=== PATIENT | female | born 1980 | race Caucasian/White ===

== ENCOUNTER 2023-04-13 00:54 | Observation (INO) | payer OTHER, SELFPAY ==
[2023-04-13] VITALS (30 sets, daily range): BP systolic 88–135; BP diastolic 50–79; PULSE 57–92; RESP 0–24; TEMP 36.9–37.1; O2SAT 91–96; BMI 42.0
--- NOTE | 2023-04-13 01:09 | ED_ITS ---
HPI - Chest Pain General Chief Complaint: Chest Pain Stated Complaint: CHEST PAIN Time Seen by Provider: 04/13/23 01:09 Mode of arrival: ambulance History of Present Illness HPI narrative: history of PE. takes Xarelto 10mg. States she use to take Xarelto 20mg but it was decreased due to heavy menses. She is scheduled for hysterectomy tomorrow. She has not taken Xarelto for 3-4 days. Woke up tonight out of her sleep with heaviness left chest like an elephant was on her chest and she was also short of breath. She is diabetic and has strong family history of CAD. Given fentanyl, Nitro SL x2 and ASA per squad. Pain is now down to 5/10. She is feeling better MD complaint: Reports chest pain and chest heaviness Risk Factors Coronary artery disease risk factors: diabetes Related Data Home Medications Medication Instructions Recorded Confirmed lisinopril 2.5 mg tablet 2.5 mg PO DAILY 04/13/23 04/13/23 metformin 500 mg tablet 1,000 mg PO BID 04/13/23 04/13/23 rivaroxaban 10 mg tablet (Xarelto) 10 mg PO DAILY 04/13/23 04/13/23 Allergies Allergy/AdvReac Type Severity Reaction Status Date / Time No Known Drug Allergies Allergy Verified 04/13/23 01:03 Review of Systems ROS Status of ROS 10 or more systems reviewed and unremarkable except as noted in history and below Cardiovascular Reports: chest pain Respiratory Reports: shortness of breath [facility] Medical History (Updated 04/13/23 @ 03:19 by Camilo Guido MD) Family History (Updated 04/13/23 @ 05:21 by Kandy Rincon) Father Family history of myocardial infarction Social History Smoking status: Never smoker Highest level of school completed/degree received: GED or equivalent Exam Constitutional Vital Signs - 24 hr 04/13/23 00:56 04/13/23 00:57 04/13/23 00:57 Temperature 98.8 F Pulse Rate 67 Pulse Rate [Monitor] 88 Respiratory Rate 14 15 Blood Pressure 135/79 H Blood Pressure [Right Arm] 135/79 H Pulse Oximetry 93 L 91 L Oxygen Delivery Method Room Air 04/13/23 03:44 04/13/23 03:44 04/13/23 04:35 Temperature Pulse Rate 80 68 73 Pulse Rate [Monitor] Respiratory Rate 14 7 L 24 Blood Pressure 93/64 93/64 88/50 L Blood Pressure [Right Arm] Pulse Oximetry Oxygen Delivery Method Common normals: no apparent distress, oriented x3 and no limitations HENMT Common normals: normocephalic and head/scalp atraumatic Eye Common normals: PERRL, EOMs intact bilaterally and conjunctivae normal Chest Common normals: inspection of chest normal and palpation of chest normal Respiratory Common normals: normal respiratory effort, no retractions, no use of accessory muscles and clear to auscultation bilaterally Cardio Common normals: no JVD, regular rate, regular rhythm, S1 normal heart sound and S2 normal heart sound GI Common normals: Normal to inspection, nondistended, normoactive bowel sounds present and soft to palpation Extremity Common normals: normal to inspection, full ROM and no joint enlargement Neuro Common normals: oriented x3, CN's II-XII intact bilaterally, moves all extremities, no focal motor deficits and no sensory deficits noted Psych Appearance: grossly normal Course Vital Signs Vital signs: Vital Signs Temperature 98.8 F 04/13/23 00:56 Pulse Rate 88 04/13/23 00:56 Respiratory Rate 14 04/13/23 00:56 Blood Pressure 135/79 H 04/13/23 00:56 Pulse Oximetry 93 L 04/13/23 00:56 Oxygen Delivery Method Room Air 04/13/23 00:56 Temperature 98.4 F 04/13/23 05:06 Pulse Rate 61 04/13/23 06:21 Respiratory Rate 20 04/13/23 05:06 Blood Pressure 131/79 H 04/13/23 05:06 Pulse Oximetry 94 L 04/13/23 05:06 Oxygen Delivery Method Room Air 04/13/23 05:06 MDM - Chest Pain MDM Narrative Medical decision making narrative: patient is diabetic. strong family history of CAD. Presents with chest pain that woke her up out of her sleep. Described as an elephant sitting on her chest and she was short of breath. Treated with Fentanyl, Nitro, ASA and morphine to control her pain. Troponin and d-dimer neg. cxray with mild vascular pulmonary prominence. Discussed with the hospitalist and patient is accepted for obs admission Lab Data Labs: Lab Results 04/13/23 Range/Units 01:03 WBC 6.3 (4.0-11.0) 10^3/uL RBC 4.54 (4.20-5.40) 10^6/uL Hgb 12.4 (12.0-16.0) g/dL Hct 39.1 (36.0-48.0) % MCV 86.1 (81.0-99.0) fL MCH 27.3 (26.7-34.0) pg MCHC 31.7 (29.9-35.2) g/dL RDW 18.0 H (11.0-15.0) % Plt Count 292 (150-450) 10^3/uL MPV 10.0 (9.5-13.5) fL Neut % (Auto) 60.3 (43.0-75.0) % Lymph % (Auto) 31.6 (20.5-60.0) % [place] % (Auto) 5.4 (1.7-12.0) % Eos % (Auto) 1.9 (0.9-7.0) % Baso % (Auto) 0.6 (0.2-2.0) % Neut # (Auto) 3.8 (1.4-6.5) 10^3/uL Lymph # (Auto) 2.0 (1.2-3.8) 10^3/uL [place] # (Auto) 0.3 (0.3-0.8) 10^3/uL Eos # (Auto) 0.1 (0.0-0.7) 10^3/uL Baso # (Auto) 0.0 (0.0-0.1) 10^3/uL Abs Immat Gran (auto) 0.01 (0.00-0.03) 10^3/uL Imm/Tot Granulo (auto) 0.2 (0.0-0.5) % D-Dimer 0.42 (<=0.59) mg/L FEU Sodium 134 L (136-145) mmol/L Potassium 3.0 L (3.5-5.1) mmol/L Chloride 100 (98-107) mmol/L Carbon Dioxide 26.1 (21.0-32.0) mmol/L Anion Gap 10.9 BUN 10.0 (7.0-18.0) mg/dL Creatinine 0.55 (0.55-1.02) mg/dL Est GFR ( Amer) >60 (>=60) Est GFR (Non-Af Amer) >60 (>=60) BUN/Creatinine Ratio 18.2 Glucose 140 H (74-106) mg/dL Calcium 8.9 (8.5-10.1) mg/dL Troponin I High Sens <4.0 L (4.0-51.3) pg/mL Discharge Plan Discharge Chief Complaint: Chest Pain Clinical Impression: Chest pain Patient Disposition: Admitted As Inpatient Discharge Date/Time: 04/13/23 04:38
--- NOTE | 2023-04-13 01:09 | PC.NURSE ---
IV per EMS
--- NOTE | 2023-04-13 01:13 | ECG_ITS ---
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
--- NOTE | 2023-04-13 01:13 | XR_ITS ---
[place] [id number] Patient Name: ADARSH BOWSER MRN: [id number] date: 1980 Sex: F Assigned Patient Location: ER Current Patient Location: ER Accession/Order Number: [id number] Exam Date: 04/13/2023 01:30 Report Date: 04/13/2023 01:49 At the request of: HORTENCIA POTTS Procedure: XR chest 1V EXAM: XR chest 1V HISTORY: chest pain COMPARISON: CT chest 07/02/2017 TECHNIQUE: Single frontal view chest x-ray FINDINGS: Mild bilateral hilar pulmonary vascular prominence. No lobar consolidation, large pleural effusions, pneumothorax, or acute bony abnormality.Cardiac size is unremarkable. IMPRESSION: Mild bilateral hilar pulmonary vascular prominence. Otherwise, no radiographic lung consolidation or large pleural effusions.. Electronically authenticated by: DEBBI GREY Date: 04/13/2023 01:49
[2023-04-13 01:26] LABS: Basophils Percent Auto 0.6 % (0.2-2.0); Eosinophils Absolute Auto 0.1 10^3/uL (0.0-0.7); Eosinophils Percent Auto 1.9 % (0.9-7.0); Hematocrit 39.1 % (36.0-48.0); Hemoglobin 12.4 g/dL (12.0-16.0); Immature Granulocytes Abs Auto 0.01 10^3/uL (0.00-0.03); Immature Granulocytes Pct Auto 0.2 % (0.0-0.5); Lymphocytes Percent Auto 31.6 % (20.5-60.0); Mean Corpuscular HGB Conc 31.7 g/dL (29.9-35.2); Mean Corpuscular Hemoglobin 27.3 pg (26.7-34.0); Mean Corpuscular Volume 86.1 fL (81.0-99.0); Monocytes Absolute Auto 0.3 10^3/uL (0.3-0.8); Monocytes Percent Auto 5.4 % (1.7-12.0); Neutrophils Absolute Auto 3.8 10^3/uL (1.4-6.5); Neutrophils Percent Auto 60.3 % (43.0-75.0); Platelet Count 292 10^3/uL (150-450); Red Blood Count 4.54 10^6/uL (4.20-5.40); White Blood Count 6.3 10^3/uL (4.0-11.0)
[2023-04-13 01:47] LABS: Anion Gap 10.9; BUN Creatinine Ratio 18.2; Calcium 8.9 mg/dL (8.5-10.1); Carbon Dioxide 26.1 mmol/L (21.0-32.0); Chloride 100 mmol/L (98-107); Estimated GFR (African America >60 (>=60); Estimated GFR (Non-African Ame >60 (>=60); Glucose 140 mg/dL (74-106); Sodium 134 mmol/L (136-145); Troponin I High Sensitivity <4.0 pg/mL (4.0-51.3)
[2023-04-13] MEDS: MORPHINE SULFATE 4 MG/ML VIAL (01:50)
[2023-04-13 02:13] LABS: D Dimer 0.42 mg/L FEU (<=0.59)
[2023-04-13] MEDS: ONDANSETRON PF 4 MG/2 ML VIAL (02:23)
[2023-04-13] MEDS: POTASSIUM CHLORIDE 10 MEQ ER TABLET 40 MEQ PO (03:22)
--- NOTE | 2023-04-13 05:18 | P.PN_ITS ---
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 Pain is nonradiating, constant, worse with deep inspiration, no alleviating factors, not associated with exertion, food intake, denies any anxiety, chest trauma or chest wall tenderness. Her Xarelto has been hold for a couple days in anticipation for her hysterectomy. She denies any fevers, chills, sweats, calf tenderness, orthopnea, lower extremity edema, palpitations, abdominal pain, change in bowel urinary habits. Upon arrival to the ER patient is normotensive, 94% on room air. D-dimer was obtained and negative, troponin negative, other labs remarkable for K 3.0. CXR negative for acute cardiopulmonary process. Patient received morphine, fentanyl, aspirin continued to have discomfort in her left upper chest hospital Medicine consulted for admission. Vital stable. Allergies: No known drug allergies Home medications: Lisinopril 2.5, metformin 500 b.i.d., rivaroxaban 10 daily past medical history: Diabetes mellitus type 2, history of DVT / PE, varicose veins past surgical history: D and C review of systems all 14 review of systems negative except for HPI social history denies smoking, alcohol intake, illicit drug use, lives with family. Physical exam: BP 131/79, pulse 68, respiratory rate 20, temp 98.4?, 94% on room air, BMI 42, weight 118 kg general: Lying in bed, no acute distress, alert and oriented x4 HEENT: Normocephalic, atraumatic, EOMI, wearing eyeglasses, trachea midline CVS: Regular rate and rhythm, no peripheral edema lungs: Bilateral air entry, normal respiratory effort abdomen: Soft, nontender, obese, no visible masses neuro: No focal deficits moves all extremities psych: Cooperative, pleasant Exam Constitutional Vital Signs - 24 hr 04/13/23 00:56 04/13/23 00:57 04/13/23 00:57 Temperature 98.8 F Pulse Rate 67 Pulse Rate [Monitor] 88 Respiratory Rate 14 15 Blood Pressure 135/79 H Blood Pressure [Right Arm] 135/79 H Pulse Oximetry 93 L 91 L Oxygen Delivery Method Room Air 04/13/23 03:44 04/13/23 04:50 04/13/23 04:58 Temperature Pulse Rate 80 66 Pulse Rate [Monitor] 67 Respiratory Rate 14 Blood Pressure 93/64 Blood Pressure [Right Arm] Pulse Oximetry Oxygen Delivery Method 04/13/23 05:02 04/13/23 03:44 04/13/23 04:35 Temperature Pulse Rate 68 73 Pulse Rate [Monitor] Respiratory Rate 7 L 24 Blood Pressure 93/64 88/50 L Blood Pressure [Right Arm] Pulse Oximetry Oxygen Delivery Method Room Air 04/13/23 04:42 04/13/23 04:43 04/13/23 04:43 Temperature 98.4 F Pulse Rate 80 76 80 Pulse Rate [Monitor] Respiratory Rate 24 19 17 Blood Pressure 131/79 H Blood Pressure [Right Arm] Pulse Oximetry 94 L Oxygen Delivery Method 04/13/23 04:43 Temperature Pulse Rate 73 Pulse Rate [Monitor] Respiratory Rate 16 Blood Pressure 131/79 H Blood Pressure [Right Arm] Pulse Oximetry 93 L Oxygen Delivery Method Progress Note: Objective Labs Labs: Short CBC 04/13/23 Range/Units 01:03 WBC 6.3 (4.0-11.0) 10^3/uL Hgb 12.4 (12.0-16.0) g/dL Hct 39.1 (36.0-48.0) % Plt Count 292 (150-450) 10^3/uL BMP 04/13/23 01:03 Sodium 134 L Potassium 3.0 L Chloride 100 Carbon Dioxide 26.1 BUN 10.0 Creatinine 0.55 Glucose 140 H Calcium 8.9 Progress Note: A&P Assessment and Plan (1) Chest pain: Assessment and Plan: admit to [facility] bed on telemetry, cycle troponin, if ACS ruled out consider stress test , echocardiogram, symptoms not typical for angina. D-dimer negat ender, can consider CTA chest. In the meantime supportive care with analgesics, topical and oral, IV for severe pain. (2) Diabetes: Assessment and Plan: Hold metformin, low carb diet, sliding scale insulin coverage, check hemoglobin A1c level (3) Hypertension: Assessment and Plan: controlled, resume home lisinopril 2.5 daily Plan other comorbidities: History of DVT / PE -Lovenox 40 IV b.i.d. while Xarelto on hold suspected uterine cancer per patient and scheduled for total hysterectomy will need to reschedule her appointment and she is in the hospital for now. DVT prophylaxis-Lovenox medication reconciliation form completed goals of care-full code communications: Discussed with emergency room physician, discussed with bedside nurse, patient updated a plan of care, all questions answered to their satisfaction disposition -home when medically stable telemedicine clause: has a provider of this telehealth evaluation, requested by the patient's evaluating physician. I attest that I introduced myself to the patient, provided my credentials and determined that telemedicine via real-time 2 way. Interactive audio and video platform is an appropriate and effective means of providing this service. I reviewed the patient's chart and had a discussion with the member of the patient's treatment team. The patient and I mutually agreed with continuation of this evaluation via telemedicine. The virtual encounter was taking place from [place]. The encounter was approximately 25 minutes. The nurse was present during the entire time of the encounter and was able to move the stethoscope in appropriate directions. The patient was evaluated at 0500 Fall Risk Details Diaz Fall Scale Risk Level: Low Fall Risk Time Spent With Patient Time: Total time spent is greater than 50% in coordination of care (as documented) at patient's floor/unit and/or counseling patient: Telemedicine Attestation Telemedicine Attestation I conducted this encounter from [ [place]] via secure live, [id number] video conference with the patient, CHARGE TEST-CHARGES located at [facility] with [ telemedicine]. Prior to the interview, the risks and benefits of telemedicine were discussed with the patient and verbal consent was obtained.
[2023-04-13 06:04] LABS: Magnesium 1.5 mg/dL (1.8-2.4)
[2023-04-13 06:08] LABS: Estimated Average Glucose 143 mg/dL; Glycohemoglobin A1C 6.6 % (4.5-6.2)
[2023-04-13 06:12] LABS: Troponin I High Sensitivity 4.2 pg/mL (4.0-51.3)
[2023-04-13] MEDS: LACTATED RINGER'S SOLUTION 1,000 ML 50 ML IV (07:42)
[2023-04-13 07:44] LABS: Glucometer 99 mg/dL (74-106)
--- NOTE | 2023-04-13 08:35 | CT_ITS ---
[address] [address] Patient Name: ADARSH BOWSER MRN: [id number] date: 1980 Sex: F Assigned Patient Location: ICU Current Patient Location: ICU Accession/Order Number: [id number] Exam Date: 04/13/2023 08:50 Report Date: 04/13/2023 09:44 At the request of: JOSSIE MACHADO Procedure: CT angio chest EXAMINATION: CT angio chest HISTORY: chest pain ; acute left chest pain and heaviness COMPARISON: CTA chest 07/02/2017 TECHNIQUE: Multi-planar CT images were created with IV contrast. Axial, Coronal, and Sagittal images. Dose reduction techniques were achieved by using automated exposure control and/or adjustment of mA and/or kV according to patient size and/or use of iterative reconstruction technique. 3-D reconstruction was performed on a separate workstation. FINDINGS: VASCULATURE: No pulmonary embolism or abnormal opacity. LUNGS: Mild atelectasis within dependent lung regions. No convincing infiltrates. PLEURA: No mass, effusion, or pneumothorax. STEVEN: No mass or adenopathy. MEDIASTINUM: No mass or adenopathy. CARDIAC: No enlargement, pericardial effusion, or pericardial thickening. AORTA: No aneurysm or dissection. CHEST WALL: No mass or axillary adenopathy. BONES: No bone lesion or fracture. LIMITED ABDOMEN: No suspicious findings. Limited images of the upper abdomen. OTHER: Negative. IMPRESSION: 1. No pulmonary embolism. 2. No appreciable infiltrates, mass, or suspicious findings. Electronically authenticated by: SLIME VAZQUEZ Date: 04/13/2023 09:44
--- NOTE | 2023-04-13 08:59 | P.HP_ITS ---
H&P: HPI History of Present Illness Chief complaint: CHEST PAIN R/O Narrative: Patient with a history of pulmonary embolism, had her medication held for the last several days secondary to upcoming surgery for hysterectomy, presented to the emergency room with pressure type chest pain midsternal radiating into the left arm, similar but not exactly to the time when she had her pulmonary embolism. Not nearly as severe. Cardiac work-up was done which showed no evidence of myocardial damage, patient was admitted to ICU [facility] Medical History (Updated 04/13/23 @ 06:49 by Kandy Rincon) Family History (Updated 04/13/23 @ 05:21 by Kandy Rincon) Father Family history of myocardial infarction Social History Smoking status: Never smoker Highest level of school completed/degree received: GED or equivalent Meds Home Medications and Allergies Home Medications Medication Instructions Recorded Confirmed Type fexofenadine 180 mg tablet 180 mg PO DAILY 04/13/23 04/13/23 History lisinopril 2.5 mg tablet 2.5 mg PO DAILY 04/13/23 04/13/23 History metformin 500 mg tablet 1,000 mg PO BID 04/13/23 04/13/23 History rivaroxaban 10 mg tablet (Xarelto) 10 mg PO DAILY 04/13/23 04/13/23 History Allergies Allergy/AdvReac Type Severity Reaction Status Date / Time No Known Drug Allergies Allergy Verified 04/13/23 01:03 Exam Constitutional Vital Signs - 24 hr 04/13/23 00:56 04/13/23 00:57 04/13/23 00:57 Temperature 98.8 F Pulse Rate 67 Pulse Rate [Monitor] 88 Respiratory Rate 14 15 Blood Pressure 135/79 H Blood Pressure [Left Arm] Blood Pressure [Right Arm] 135/79 H Pulse Oximetry 93 L 91 L Oxygen Delivery Method Room Air 04/13/23 03:44 04/13/23 04:50 04/13/23 04:58 Temperature Pulse Rate 80 66 Pulse Rate [Monitor] 67 Respiratory Rate 14 Blood Pressure 93/64 Blood Pressure [Left Arm] Blood Pressure [Right Arm] Pulse Oximetry Oxygen Delivery Method 04/13/23 05:02 04/13/23 05:06 04/13/23 03:44 Temperature 98.4 F Pulse Rate 68 68 Pulse Rate [Monitor] Respiratory Rate 20 7 L Blood Pressure 93/64 Blood Pressure [Left Arm] 131/79 H Blood Pressure [Right Arm] Pulse Oximetry 94 L Oxygen Delivery Method Room Air Room Air 04/13/23 04:35 04/13/23 04:42 04/13/23 04:43 Temperature 98.4 F Pulse Rate 73 80 76 Pulse Rate [Monitor] Respiratory Rate 24 24 19 Blood Pressure 88/50 L 131/79 H Blood Pressure [Left Arm] Blood Pressure [Right Arm] Pulse Oximetry 94 L Oxygen Delivery Method 04/13/23 04:43 04/13/23 04:43 04/13/23 06:21 Temperature Pulse Rate 80 73 61 Pulse Rate [Monitor] Respiratory Rate 17 16 Blood Pressure 131/79 H Blood Pressure [Left Arm] Blood Pressure [Right Arm] Pulse Oximetry 93 L Oxygen Delivery Method 04/13/23 07:52 04/13/23 08:41 Temperature Pulse Rate 70 Pulse Rate [Monitor] 70 Respiratory Rate 18 Blood Pressure Blood Pressure [Left Arm] Blood Pressure [Right Arm] Pulse Oximetry 94 L Oxygen Delivery Method Common normals: no apparent distress Chest Common normals: inspection of chest normal and palpation of chest normal (May be reproducible type chest pain the left side but not exactly as it fee) Respiratory Common normals: normal respiratory effort, no retractions and no use of accessory muscles Cardio Common normals: regular rate, regular rhythm and S1 normal heart sound GI Common normals: Normal to inspection, nondistended, normoactive bowel sounds present and non-tender Results Labs Labs: Short CBC 04/13/23 Range/Units 01:03 WBC 6.3 (4.0-11.0) 10^3/uL Hgb 12.4 (12.0-16.0) g/dL Hct 39.1 (36.0-48.0) % Plt Count 292 (150-450) 10^3/uL BMP 04/13/23 01:03 Sodium 134 L Potassium 3.0 L Chloride 100 Carbon Dioxide 26.1 BUN 10.0 Creatinine 0.55 Glucose 140 H Calcium 8.9 Assessment and Plan Assessment and Plan (1) Chest pain: (2) Diabetes: (3) Hypertension: Plan Chest pain-somewhat similar to previous pulmonary embolism-we will check CTA of chest since she is been off her anticoagulation for impending surgery. Pain is improving from when she first came in, if CTA and echo are essentially normal, she can be discharged home in improving condition. Medications see list. Follow-up with your PCP for further evaluation and clearance for surgery. NIDDM-insulin sliding scale Hypertension-continue with current medications Hypokalemia-supplement Possible discharge later today, will remain in observation status
--- NOTE | 2023-04-13 09:00 | CA_ITS ---
Patient: ADARSH BOWSER Exam Date: 04/13/2023 : 1980 Gender:F Ordering : DR Pawan Mayorga . Admission #: [id number] Family : Order #: [id number] CLICK HERE TO VIEW EXAM ECHOCARDIOGRAM REPORT PROCEDURE: CA ECHO DOPPLER COMPLETE INDICATIONS: Chest pain COMPARISON: None. DESCRIPTION: COMPLETE ECHOCARDIOGRAM Real-time transthoracic echocardiography with 2D, M-mode, spectral and color flow Doppler performed. QUALITY: Technical quality was good. LEFT VENTRICLE: Normal chamber size. Normal left ventricular wall thickness. LV EF: Global left ventricular systolic function is normal. Calculated left ventricular ejection fraction is 69%. Visually estimated ejection fraction is 60 to 65%. No significant wall motion abnormalities. DIASTOLIC: Normal diastolic function. ATRIAL SEPTUM: Inadequately seen. LEFT ATRIUM: Moderate dilatation. RIGHT ATRIUM: Mild dilatation. RIGHT VENTRICLE: Normal chamber size. Normal right ventricular systolic function. TRICUSPID VALVE: Normal mobility and thickness. Mild regurgitation. Moderate pulmonary hypertension. RVSP 47mmHg MITRAL VALVE: Mildly thickened with normal mobility. No evidence of mitral valve stenosis. Mitral annular calcification. Mild mitral regurgitation. AORTIC VALVE: Normal trileaflet appearance. No visible sclerosis. Normal leaflet mobility. No evidence of aortic valve stenosis. Trivial aortic regurgitation. AORTIC ROOT: Mildly dilated. Measuring 4.0cm. PULMONIC VALVE: Normal thickness and mobility. No stenosis. No regurgitation. PERICARDIUM: No evidence of pericardial effusion. IVC: Collapses with inspirations. Moderately dilated measuring 2.6cm. CONCLUSION: 1. Global left ventricular systolic function is normal 2. Normal diastolic function 3. Biatrial enlargement 4. The right ventricle is normal in size and systolic function 5. Mild tricuspid regurgitation 6. Moderately elevated right ventricular systolic pressure; RVSP 27 mmHg 7. Mild mitral regurgitation 8. The aortic root is mildly dilated Adult Echocardiography Procedure Report Left Ventricle LVEDD (3.7 - 5.6 cm): 5.31 cm LVESD (2.2 - 4.0 cm): 3.71 cm LVIVS thickness (0.6 - 1.2 cm): 0.89 cm LVPW thickness (0.5 - 1.0 cm): 0.91 cm e': 0.14 m/s E - e': 4.62 LVOT Max Gradient: 3.04 mm[Hg] LVOT Area (cm2): 0.87 m/s Peak Velocity (LVOT): 0.87 m/s Mean Velocity (LVOT): 0.55 m/s LVOT Diameter 2.61 cm Left Ventricular Ejection Fraction: 69.48 % Left Atrium LA Volume Index (2D A2C): 45.96 ml/m2 Left Atrium Systolic Dimension: 3.28 cm Mitral Valve MV E to A Ratio: 1.48, 1.22 Mitral Valve A-Wave Peak Velocity: 0.48 m/s Mitral Valve E-Wave Peak Velocity: 0.64 m/s Right Ventricle RV Internal Diastolic Dimension: 3.35 cm Aorta AO Root Diam: 4.03 cm Ascending Ao Diam: 3.47 cm, 3.55 cm Aortic Valve AoV Area ([place]): 3.51 cm2, 3.51 cm2 AoV Area (VTI): 3.88 cm2, 3.88 cm2 Peak Velocity(Antegrade Flow): 1.32 m/s Peak Gradient(Antegrade Flow): 7.01 mm[Hg] Mean Velocity(Antegrade Flow): 0.90 m/s Mean Gradient(Antegrade Flow): 3.69 mm[Hg] Velocity Time Integral: 30.90 cm Tricuspid Valve Peak Velocity (Regurgitant Flow): 3.11 m/s, 3.03 m/s, 2.77 m/s Pulmonic Valve Mean Gradient: 1.48 mm[Hg], 1.83 mm[Hg] Mean Velocity: 0.58 m/s, 0.64 m/s Peak Velocity: 0.82 m/s Peak Gradient: 2.16 mm[Hg], 3.21 mm[Hg] Right Atrium Right Atrium Systolic Pressure: 62.00 ml, 62.00 ml Dictated by: Emmanuel Jackman M.D. on 04/14/2023 at 08:40 Approved by: Emmanuel Jackman M.D. on 04/14/2023 at 08:46
--- NOTE | 2023-04-13 09:38 | CM.NOTE ---
Rounds made with Dr. Mayorga. Plan is for testing today--Echo and CT chest. Potential discharge later today. Independent at home. No needs identified.
[2023-04-13] MEDS: POTASSIUM CHLORIDE 10 MEQ ER TABLET 20 MEQ PO (10:05)
[2023-04-13] MEDS: ENOXAPARIN SODIUM 40 MG/0.4 ML SYRINGE SUBQ (10:05)
[2023-04-13] MEDS: RIVAROXABAN 10 MG TABLET PO (10:38)
[2023-04-13] MEDS: LISINOPRIL 5 MG TABLET 2.5 MG PO (10:38)
[2023-04-13] MEDS: IBUPROFEN 400 MG TABLET PO (10:49)
[2023-04-13 11:55] LABS: Glucometer 106 mg/dL (74-106)
--- NOTE | 2023-04-19 10:06 | CM.DCFOLLOWU ---
Person spoke with: patient How are you feeling? well How is your pain? no pain Did you understand your discharge instructions? yes Do you have any questions about your discharge instructions? No Were you given any prescriptions at discharge? No Were you able to get your prescriptions filled? Do you understand how to take your medications as ordered? yes Do you have any questions about your follow up appointment and do you plan to keep your follow up appointment? no follow up with PCP made yet, but has surgery Monday and will see PCP after surgery Is there anything else that you would like to discuss? N/A Questions/Comments/Concerns/Other: N/A
== END 2023-04-13 17:00 | disposition home or self-care (01) ==
LOC: ER 03:19 → ICU 04:42
PROVIDERS: Admitting Provider Family Medicine; Emergency Provider Internal Medicine; PCP Internal Medicine; Visit Provider Internal Medicine
DX: R07.9 Chest pain, unspecified (principal); E11.9 Type 2 diabetes mellitus without complications; I10 Essential (primary) hypertension; E87.6 Hypokalemia; Z79.01 Long term (current) use of anticoagulants; Z79.899 Other long term (current) drug therapy; Z79.84 Long term (current) use of oral 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 drugs; Z82.49 Family history of ischemic heart disease and other diseases of the circulatory system; Z86.711 Personal history of pulmonary embolism
CPT/HCPCS: 36415; 71045; 71275; 80048; 83036; 83735; 84484; 85025; 85378; 93005; 93306; 96372; 96374; 96375; 99285; G0378; Q3014; Q9967

== ENCOUNTER 2023-08-01 13:25 | Outpatient (OUT) | payer OTHER, SELFPAY ==
[2023-08-01 08:30] LABS: Estimated Average Glucose 194 mg/dL; Glycohemoglobin A1C 8.4 % (4.5-6.2)
[2023-08-01 08:30] LABS: Creatinine Urine Random 159.78 mg/dL (20.00-300.00); Microalbum Creatinine Ratio Ur 12.5 mg/g (0.0-29.9)
[2023-08-01 08:50] LABS: Alanine Aminotransferase 30 U/L (14-59); Albumin Globulin Ratio 0.9; Albumin Level 3.4 g/dL (3.4-5.0); Alkaline Phosphatase 80 U/L (46-116); Anion Gap 11.8; Aspartate Amino Transferase 18 U/L (15-37); BUN Creatinine Ratio 18.3; Bilirubin Total 0.7 mg/dL (0.2-1.0); Calcium 9.1 mg/dL (8.5-10.1); Carbon Dioxide 30.9 mmol/L (21.0-32.0); Chloride 101 mmol/L (98-107); Chol HDL Ratio 4.4; Cholesterol 176 mg/dL (<=200); Estimated GFR (African America >60 (>=60); Estimated GFR (Non-African Ame >60 (>=60); Glucose 168 mg/dL (74-106); HDL Cholesterol 40 mg/dL (40-60); Potassium 3.7 mmol/L (3.5-5.1); Sodium 140 mmol/L (136-145); Total Protein 7.4 g/dL (6.4-8.2); Triglycerides 75 mg/dL (<=150)
== END 2023-08-01 13:26 | disposition home or self-care (01) ==
LOC: LAB 13:26
PROVIDERS: PCP Internal Medicine; Visit Provider Internal Medicine
DX: I10 Essential (primary) hypertension (principal); E11.9 Type 2 diabetes mellitus without complications; Z13.220 Encounter for screening for lipoid disorders
CPT/HCPCS: 36415; 80053; 80061; 82043; 82570; 83036

== ENCOUNTER 2023-11-16 07:38 | Outpatient (OUT) | payer OTHER, SELFPAY ==
[2023-11-16 08:38] LABS: Alanine Aminotransferase 26 U/L (14-59); Albumin Globulin Ratio 0.8; Albumin Level 3.4 g/dL (3.4-5.0); Alkaline Phosphatase 81 U/L (46-116); Aspartate Amino Transferase 17 U/L (15-37); Bilirubin Direct 0.3 mg/dL (0.0-0.2); Bilirubin Total 1.2 mg/dL (0.2-1.0); Chol HDL Ratio 2.4; Cholesterol 105 mg/dL (<=200); Globulin 4.3 g/dL; HDL Cholesterol 44 mg/dL (40-60); Total Protein 7.7 g/dL (6.4-8.2); Triglycerides 50 mg/dL (<=150)
[2023-11-16 08:56] LABS: Estimated Average Glucose 177 mg/dL; Glycohemoglobin A1C 7.8 % (4.5-6.2)
== END 2023-11-16 07:39 | disposition home or self-care (01) ==
LOC: LAB 07:40
PROVIDERS: PCP Internal Medicine; Visit Provider Internal Medicine
DX: E78.5 Hyperlipidemia, unspecified (principal); E11.9 Type 2 diabetes mellitus without complications
CPT/HCPCS: 36415; 80061; 80076; 83036

== ENCOUNTER 2023-12-04 14:11 | Outpatient (OUT) | payer OTHER, SELFPAY ==
--- NOTE | 2023-12-04 | ECG_ITS ---
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
--- OUTSIDE RECORDS SUMMARY | 2023-12-04 14:14 | XMS_ITS | CCD ---
Author Name Unknown Address [address] [place] [address] Organization [facility] Care Team Providers Care Videotape Operator Name Role Phone ChekoMARK blackAmie GarcíaMargie L Attending Provider Khalif Polanco Referring Provider [phone] DO Zak Farris Primary Care Provider COLLIN ., DR MENJIVAR Admitting Unavailable COLLIN ., DR MENJIVAR Attending Unavailable COLLIN ., DR MENJIVAR Consulting Unavailable HOUSE, DR CHAPA Primary Care Unavailable COLLIN ., DR MENJIVAR Admitting Unavailable COLLIN ., DR MENJIVAR Attending Unavailable COLLIN ., DR MENJIVAR Consulting Unavailable HOUSE, DR CHAPA Primary Care Unavailable KANDI, NURIA Consulting Unavailable ROSALINA, RAMA Consulting Unavailable PINECLIFFE, DR CHAPA Consulting Unavailable PINECLIFFE, DR CHAPA Primary Care Unavailable PINECLIFFE, DR CHAPA Admitting Unavailable PINECLIFFE, DR CHAPA Attending Unavailable Slime Zuluaga Consulting Unavailable SHAKA ., MARY LOU Attending Unavailable SHAKA ., MARY LOU Consulting Unavailable SHAKA ., MARY LOU Admitting Unavailable HOUSE, DR CHAPA Primary Care Unavailable SHAKA ., MARY LOU Attending Unavailable SHAKA ., MARY LOU Consulting Unavailable SHAKA ., MARY LOU Admitting Unavailable HOUSE, DR CHAPA Primary Care Unavailable SHAKA ., MARY LOU Attending Unavailable FAIRBANKS, DR JOCY Altamirano Consulting Unavailable SHAKA ., MARY LOU Admitting Unavailable HOUSE, DR CHAPA Primary Care Unavailable Alexandereber, Slime Consulting Unavailable SHAKA ., MARY LOU Consulting Unavailable Zieber, Slime Consulting Unavailable SHAKA ., MARY LOU Admitting Unavailable SHAKA ., MARY LOU Attending Unavailable HOUSE, DR CHAPA Primary Care Unavailable SHAKA ., MAYR LOU Consulting Unavailable Godfrey, Zak Primary Care Unavailable Sam Hall II Attending Unavaila jon Hall II, Sam Arrieta Admitting Unavaila ble Khalif Polanco Referring Unavailable FAWWAD, AGUSTIN Attending Unavailable Medications Current Medications Medication Drug Class(es) Dates Sig (Normalized) Sig (Original) lisinopril 2.5 mg oral tablet (2 sources) Angiotensin Converting Enzyme Inhibitor Start: 01-20-2023 take 2.5 mg by mouth once daily Lisinopril Active 2.5 MG PO Daily January 20, 2023 12:00am metFORMIN hydrochloride 1000 mg oral tablet (2 sources) Biguanide Start: 01-20-2023 take 1000 mg by mouth once daily Metformin Active 1000 MG PO Daily January 20, 2023 12:00am rivaroxaban 10 mg oral tablet (2 sources) Factor Xa Inhibitor Start: 01-20-2023 take 1 tablet by mouth once daily Rivaroxaban (Xarelto) 10 mg Tablet Active 10 MG PO Daily January 20, 2023 12:00am for 35 days Problems Active Problems Problem Classification Problem Date Documented Da te Episodic/Chronic Coagulation and hemorrhagic disorders (1 source) Activated protein C resistance; Translations: [ACTIVATED PROTEIN C RESISTANCE] Onset: 03-16-2023 Chronic Deficiency and other anemia (1 source) Iron deficiency anemia; Translations: [Iron deficiency anemia, unspecified] 03-07-2023 Episodic Deficiency and other anemia (1 source) Iron deficiency anemia, unspecified; Translations: [Iron deficiency anemia, unspecified] Onset: 09-11-2023 Episodic Diabetes mellitus without complication (1 source) Type 2 diabetes mellitus without complications; Translations: [TYPE 2 DM WITHOUT COMPLICATIONS] Onset: 03-16-2023 Chronic Essential hypertension (1 source) Essential (primary) hypertension; Translations: [ESSENTIAL PRIMARY HYPERTENSION] Onset: 03-16-2023 Chronic Menstrual disorders (5 sources) Excessive and frequent menstruation with regular cycle; Translations: [EXCESS FREQ MENSTRUATION W/REG CYCL] Onset: 03-02-2023 Chronic Nutritional deficiencies (1 source) Iron deficiency; Translations: [Iron deficiency] Onset: 09-11-2023 Episodic Other aftercare (1 source) 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; Translations: [ROBOTICS APPLICATION ENGINEER CURRNT USE ANTICOAGULANTS] Onset: 03-16-2023 Episodic Other aftercare (1 source) 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 drugs; Translations: [ROBOTICS APPLICATION ENGINEER USE ORAL HYPOGLYCEMIC DX] Onset: 03-16-2023 Episodic Other nutritional; endocrine; and metabolic disorders (1 source) Morbid (severe) obesity due to excess calories; Translations: [MORBID SEVERE OBES D/T EXCESS NATY] Onset: 03-16-2023 Chronic Other nutritional; endocrine; and metabolic disorders (1 source) Body mass index (BMI) 45.0-49.9, adult; Translations: [BODY MASS INDEX BMI 45.0-49.9 ADULT] Onset: 03-16-2023 Chronic Other screening for suspected conditions (not mental disorders or infectious disease) (1 source) Abnormal findings on diagnostic imaging of other specified body structures; Translations: [ABNORML FIND DX IMG OT BODY STRUC] Onset: 03-16-2023 Chronic Other screening for suspected conditions (not mental disorders or infectious disease) (12 sources) Other abnormal and inconclusive findings on diagnostic imaging of breast; Translations: [Encounter for screening mammogram for malignant neoplasm of breast] Onset: 12-05-2022 Episodic Paralysis (1 source) Hemiplegia, unspecified affecting unspecified side; Translations: [HEMIPLEGIA UNS AFFECTING UNS SIDE] Onset: 05-15-2022 Chronic Phlebitis; thrombophlebitis and thromboembolism (4 sources) H/O: Deep vein thrombosis; Translations: [Personal history of other venous thrombosis and embolism] Onset: 03-16-2023 01-23-2023 Episodic Pulmonary heart disease (4 sources) H/O: pulmonary embolus; Translations: [Personal history of pulmonary embolism] Onset: 03-16-2023 01-23-2023 Episodic Residual codes; unclassified (1 source) Acquired absence of other specified parts of digestive tract; Translations: [ACQ ABSENCE OTH PART DIGESTV TRACT] Onset: 03-16-2023 Episodic Residual codes; unclassified (1 source) Family history of malignant neoplasm of trachea, bronchus and lung; Translations: [FAM HX MALIG NEOPLSM TRACH BRON LNG] Onset: 01-28-2023 Episodic Residual codes; unclassified (1 source) Family history of malignant neoplasm of other respiratory and intrathoracic organs; Translations: [FAM HX MAL NEOPLSM OTH RESP AND IT ORGN] Onset: 01-28-2023 Episodic Past or Other Problems Problem Classification Problem Date Documented Date Episodic/Chronic Immunizations and screening for infectious disease (1 source) Encounter for screening for human papillomavirus (HPV); Translations: [ENC SCREENING HUMAN PAPILLOMAVIRUS] Onset: 12-06-2022 Episodic Nonmalignant breast conditions (1 source) Unspecified lump in the right breast, lower outer quadrant; Translations: [UNS LUMP IN RT BREAST LW OUTR QUAD] Onset: 12-15-2022 Episodic Other nervous system disorders (4 sources) Paresthesia of skin; Translations: [PARESTHESIA OF SKIN] Onset: 05-10-2022 Episodic Residual codes; unclassified (1 source) Family history of malignant neoplasm of other organs or systems; Translations: [FAM HX MALIG NEOPLASM OTH ORGN/SYS] Onset: 12-15-2022 Episodic Results Test Name Value Interpretation Reference Range Facility Complete Blood Count Auto Di ffon 09-11-2023 Basophils (Bld) [#/Vol] 0.1 10*3/uL Normal 0.0-0.2 [facility] Comment on above: Result Comment: PERF ORMED BY: [place] [address] PATHOLOGIST [employer] ODILON COPE M.D. Performed By: #### C ARDIO IGM, CARDIO IGG, PROT S AG, LUPANTCOAG, VW PANEL, B2 GLYPROT, PROCF, PROCAG, PROT S FUN, FACV LEIDM, CARDIO IGA #### [facility] , #### MEGA, FE and TIBC #### [facility] [address] [place] [address] Basophils/100 WBC (Bld) 0.9 % Normal . [facility] Comment on above: Performed By: #### C ARDIO IGM, CARDIO IGG, PROT S AG, LUPANTCOAG, VW PANEL, B2 GLYPROT, PROCF, PROCAG, PROT S FUN, FACV LEIDM, CARDIO IGA #### [facility] , #### MEGA, FE and TIBC #### [facility] [address] [place] [address] Eosinophils (Bld) [#/Vol] 0.2 10*3/uL Normal 0.0-0.45 [facility] Comment on above: Performed By: #### C ARDIO IGM, CARDIO IGG, PROT S AG, LUPANTCOAG, VW PANEL, B2 GLYPROT, PROCF, PROCAG, PROT S FUN, FACV LEIDM, CARDIO IGA #### [facility] , #### MEGA, FE and TIBC #### [address] Eosinophils/100 WBC (Bld) 2.0 % Normal . [facility] Comment on above: Performed By: #### C ARDIO IGM, CARDIO IGG, PROT S AG, LUPANTCOAG, VW PANEL, B2 GLYPROT, PROCF, PROCAG, PROT S FUN, FACV LEIDM, CARDIO IGA #### [facility] , #### MEGA, FE and TIBC #### [address] Erythrocyte distribution width (RBC) [Ratio] 14.6 % Normal 11.9-15.3 [facility] Comment on above: Performed By: #### C ARDIO IGM, CARDIO IGG, PROT S AG, LUPANTCOAG, VW PANEL, B2 GLYPROT, PROCF, PROCAG, PROT S FUN, FACV LEIDM, CARDIO IGA #### [facility] , #### MEGA, FE and TIBC #### [address] Hematocrit (Bld) [Volume fraction] 39.3 % Normal 34.0-46.4 [facility] Comment on above: Performed By: #### C ARDIO IGM, CARDIO IGG, PROT S AG, LUPANTCOAG, VW PANEL, B2 GLYPROT, PROCF, PROCAG, PROT S FUN, FACV LEIDM, CARDIO IGA #### [facility] , #### MEGA, FE and TIBC #### [address] Hemoglobin (Bld) [Mass/Vol] 13.0 g/dL Normal 11.8-15.4 [facility] Comment on above: Performed By: #### C ARDIO IGM, CARDIO IGG, PROT S AG, LUPANTCOAG, VW PANEL, B2 GLYPROT, PROCF, PROCAG, PROT S FUN, FACV LEIDM, CARDIO IGA #### [facility] , #### MEGA, FE and TIBC #### [address] Lymphocytes (Bld) [#/Vol] 2.1 10*3/uL Normal 1.00-4.8 [facility] Comment on above: Performed By: #### C ARDIO IGM, CARDIO IGG, PROT S AG, LUPANTCOAG, VW PANEL, B2 GLYPROT, PROCF, PROCAG, PROT S FUN, FACV LEIDM, CARDIO IGA #### [facility] , #### MEGA, FE and TIBC #### [address] Lymphocytes/100 WBC (Bld) 22.0 % Normal . [facility] Comment on above: Performed By: #### C ARDIO IGM, CARDIO IGG, PROT S AG, LUPANTCOAG, VW PANEL, B2 GLYPROT, PROCF, PROCAG, PROT S FUN, FACV LEIDM, CARDIO IGA #### [facility] , #### MEGA, FE and TIBC #### [address] MCH (RBC) [Entitic mass] 30.0 pg Normal 24.7-34.3 [facility] Comment on above: Performed By: #### C ARDIO IGM, CARDIO IGG, PROT S AG, LUPANTCOAG, VW PANEL, B2 GLYPROT, PROCF, PROCAG, PROT S FUN, FACV LEIDM, CARDIO IGA #### [facility] , #### MEGA, FE and TIBC #### [address] MCV (RBC) [Entitic vol] 90.5 fL Normal 80-100 [facility] Comment on above: Performed By: #### C ARDIO IGM, CARDIO IGG, PROT S AG, LUPANTCOAG, VW PANEL, B2 GLYPROT, PROCF, PROCAG, PROT S FUN, FACV LEIDM, CARDIO IGA #### [facility] , #### MEGA, FE and TIBC #### [facility] [address] [place] [address] Mean Corpuscular HGB Conc 33.1 g/dL Normal 32.0-35.0 [facility] Comment on above: Performed By: #### C ARDIO IGM, CARDIO IGG, PROT S AG, LUPANTCOAG, VW PANEL, B2 GLYPROT, PROCF, PROCAG, PROT S FUN, FACV LEIDM, CARDIO IGA #### [facility] , #### MEGA, FE and TIBC #### [address] Monocytes (Bld) [#/Vol] 0.4 10*3/uL Normal 0.0-0.8 [facility] Comment on above: Performed By: #### C ARDIO IGM, CARDIO IGG, PROT S AG, LUPANTCOAG, VW PANEL, B2 GLYPROT, PROCF, PROCAG, PROT S FUN, FACV LEIDM, CARDIO IGA #### [facility] , #### MEGA, FE and TIBC #### [address] Monocytes/100 WBC (Bld) 4.1 % Normal . [facility] Comment on above: Performed By: #### C ARDIO IGM, CARDIO IGG, PROT S AG, LUPANTCOAG, VW PANEL, B2 GLYPROT, PROCF, PROCAG, PROT S FUN, FACV LEIDM, CARDIO IGA #### [facility] , #### MEGA, FE and TIBC #### [facility] [address] [place] [address] Neutrophils (Bld) [#/Vol] 6.6 10*3/uL Normal 1.8-7.7 [facility] Comment on above: Performed By: #### C ARDIO IGM, CARDIO IGG, PROT S AG, LUPANTCOAG, VW PANEL, B2 GLYPROT, PROCF, PROCAG, PROT S FUN, FACV LEIDM, CARDIO IGA #### [facility] , #### MEGA, FE and TIBC #### [facility] [address] Neutrophils/100 WBC (Bld) 71.0 % Normal . [facility] Comment on above: Performed By: #### C ARDIO IGM, CARDIO IGG, PROT S AG, LUPANTCOAG, VW PANEL, B2 GLYPROT, PROCF, PROCAG, PROT S FUN, FACV LEIDM, CARDIO IGA #### [facility] , #### MEGA, FE and TIBC #### [facility] [address] [place] [address] NRBC% 0.1 /100{WBC} Normal 0-0.5 [facility] Comment on above: Performed By: #### C ARDIO IGM, CARDIO IGG, PROT S AG, LUPANTCOAG, VW PANEL, B2 GLYPROT, PROCF, PROCAG, PROT S FUN, FACV LEIDM, CARDIO IGA #### [facility] , #### MEGA, FE and TIBC #### [facility] [address] [place] [address] Platelet mean volume (Bld) [Entitic vol] 7.5 fL Normal 6.3-10.7 [facility] Comment on above: Performed By: #### C ARDIO IGM, CARDIO IGG, PROT S AG, LUPANTCOAG, VW PANEL, B2 GLYPROT, PROCF, PROCAG, PROT S FUN, FACV LEIDM, CARDIO IGA #### [facility] , #### MEGA, FE and TIBC #### [facility] [address] [place] [address] Platelets (Bld) [#/Vol] 335 10*3/uL Normal 150-450 [facility] Comment on above: Performed By: #### C ARDIO IGM, CARDIO IGG, PROT S AG, LUPANTCOAG, VW PANEL, B2 GLYPROT, PROCF, PROCAG, PROT S FUN, FACV LEIDM, CARDIO IGA #### [facility] , #### MEGA, FE and TIBC #### [facility] [address] [place] [address] RBC (Bld) [#/Vol] 4.34 10*6/uL Normal 3.60-5.00 [facility] Comment on above: Performed By: #### C ARDIO IGM, CARDIO IGG, PROT S AG, LUPANTCOAG, VW PANEL, B2 GLYPROT, PROCF, PROCAG, PROT S FUN, FACV LEIDM, CARDIO IGA #### [facility] , #### MEGA, FE and TIBC #### [address] WBC (Bld) [#/Vol] 9.4 10*3/uL Normal 3.8-11.6 [facility] Comment on above: Performed By: #### C ARDIO IGM, CARDIO IGG, PROT S AG, LUPANTCOAG, VW PANEL, B2 GLYPROT, PROCF, PROCAG, PROT S FUN, FACV LEIDM, CARDIO IGA #### [facility] , #### MEGA, FE and TIBC #### [address] Comprehensive Metabolic Pane vi 09-11-2023 Albumin [Mass/Vol] 4.0 g/dL Normal 3.5-5.7 [facility] Comment on above: Performed By: #### C ARDIO IGM, CARDIO IGG, PROT S AG, LUPANTCOAG, VW PANEL, B2 GLYPROT, PROCF, PROCAG, PROT S FUN, FACV LEIDM, CARDIO IGA #### [facility] , #### MEGA, FE and TIBC #### [address] Albumin/Globulin [Mass ratio] 1.3 {ratio} Normal [facility] Comment on above: Performed By: #### C ARDIO IGM, CARDIO IGG, PROT S AG, LUPANTCOAG, VW PANEL, B2 GLYPROT, PROCF, PROCAG, PROT S FUN, FACV LEIDM, CARDIO IGA #### [facility] , #### MEGA, FE and TIBC #### [facility] [address] ALP [Catalytic activity/Vol] 79 U/L Normal 34-104 [facility] Comment on above: Performed By: #### C ARDIO IGM, CARDIO IGG, PROT S AG, LUPANTCOAG, VW PANEL, B2 GLYPROT, PROCF, PROCAG, PROT S FUN, FACV LEIDM, CARDIO IGA #### [facility] , #### MEGA, FE and TIBC #### [facility] [address] [place] [address] ALT [Catalytic activity/Vol] 12 U/L Normal 7-52 [facility] Comment on above: Performed By: #### C ARDIO IGM, CARDIO IGG, PROT S AG, LUPANTCOAG, VW PANEL, B2 GLYPROT, PROCF, PROCAG, PROT S FUN, FACV LEIDM, CARDIO IGA #### [facility] , #### EMGA, FE and TIBC #### [facility] [address] [place] [address] Anion gap [Moles/Vol] 10.6 mmol/L Normal 6.0-15.0 [facility] Comment on above: Performed By: #### C ARDIO IGM, CARDIO IGG, PROT S AG, LUPANTCOAG, VW PANEL, B2 GLYPROT, PROCF, PROCAG, PROT S FUN, FACV LEIDM, CARDIO IGA #### [facility] , #### MEGA, FE and TIBC #### [facility] [address] [place] [address] AST [Catalytic activity/Vol] 10 U/L Low 13-39 [facility] Comment on above: Performed By: #### C ARDIO IGM, CARDIO IGG, PROT S AG, LUPANTCOAG, VW PANEL, B2 GLYPROT, PROCF, PROCAG, PROT S FUN, FACV LEIDM, CARDIO IGA #### [facility] , #### MEGA, FE and TIBC #### [facility] [address] Bilirubin [Mass/Vol] 0.8 mg/dL Normal 0.3-1.0 [facility] Comment on above: Performed By: #### C ARDIO IGM, CARDIO IGG, PROT S AG, LUPANTCOAG, VW PANEL, B2 GLYPROT, PROCF, PROCAG, PROT S FUN, FACV LEIDM, CARDIO IGA #### [facility] , #### MEGA, FE and TIBC #### [facility] [address] Calcium [Mass/Vol] 9.5 mg/dL Normal 8.6-10.3 [facility] Comment on above: Performed By: #### C ARDIO IGM, CARDIO IGG, PROT S AG, LUPANTCOAG, VW PANEL, B2 GLYPROT, PROCF, PROCAG, PROT S FUN, FACV LEIDM, CARDIO IGA #### [facility] , #### MEGA, FE and TIBC #### [facility] [address] [place] [address] [place] Chloride [Moles/Vol] 103 mmol/L Normal 98-107 [facility] Comment on above: Performed By: #### C ARDIO IGM, CARDIO IGG, PROT S AG, LUPANTCOAG, VW PANEL, B2 GLYPROT, PROCF, PROCAG, PROT S FUN, FACV LEIDM, CARDIO IGA #### [facility] , #### MEGA, FE and TIBC #### [facility] [address] CO2 [Moles/Vol] 31.6 mmol/L High 21.0-31.0 [facility] Comment on above: Performed By: #### C ARDIO IGM, CARDIO IGG, PROT S AG, LUPANTCOAG, VW PANEL, B2 GLYPROT, PROCF, PROCAG, PROT S FUN, FACV LEIDM, CARDIO IGA #### [facility] , #### EMGA, FE and TIBC #### [address] Creatinine [Mass/Vol] 0.66 mg/dL Normal 0.60-1.20 [facility] Comment on above: Performed By: #### C ARDIO IGM, CARDIO IGG, PROT S AG, LUPANTCOAG, VW PANEL, B2 GLYPROT, PROCF, PROCAG, PROT S FUN, FACV LEIDM, CARDIO IGA #### [facility] , #### MEGA, FE and TIBC #### [address] Creatinine Clr Calc Pharmacy 150.08 [facility] Comment on above: Performed By: #### C ARDIO IGM, CARDIO IGG, PROT S AG, LUPANTCOAG, VW PANEL, B2 GLYPROT, PROCF, PROCAG, PROT S FUN, FACV LEIDM, CARDIO IGA #### [facility] , #### MEGA, FE and TIBC #### [address] GFR/1.73 sq M.predicted MDRD (S/P/Bld) [Vol rate/Area] mL/min/{1.73_m2} [facility] Comment on above: Performed By: #### C ARDIO IGM, CARDIO IGG, PROT S AG, LUPANTCOAG, VW PANEL, B2 GLYPROT, PROCF, PROCAG, PROT S FUN, FACV LEIDM, CARDIO IGA #### [facility] , #### MEGA, FE and TIBC #### [facility] [address] [place] [address] Globulin (S) [Mass/Vol] 3.1 g/dL [facility] Comment on above: Performed By: #### C ARDIO IGM, CARDIO IGG, PROT S AG, LUPANTCOAG, VW PANEL, B2 GLYPROT, PROCF, PROCAG, PROT S FUN, FACV LEIDM, CARDIO IGA #### [facility] , #### MEGA, FE and TIBC #### [facility] [address] Glucose [Mass/Vol] 130 mg/dL High 70-100 [facility] Comment on above: Result Comment: [facility] Glucose Reference Range is dependent on time and content of last meal. Glucose of more than 200 mg/dL in a nonstressed, ambulatory subject supports the diagnosis of Diabetes Mellitus. ADA recommended reference range Performed By: #### C ARDIO IGM, CARDIO IGG, PROT S AG, LUPANTCOAG, VW PANEL, B2 GLYPROT, PROCF, PROCAG, PROT S FUN, FACV LEIDM, CARDIO IGA #### [facility] , #### MEGA FE and TIBC #### [address] Potassium [Moles/Vol] 4.2 mmol/L Normal 3.5-5.1 [facility] Comment on above: Performed By: #### C ARDIO IGM, CARDIO IGG, PROT S AG, LUPANTCOAG, VW PANEL, B2 GLYPROT, PROCF, PROCAG, PROT S FUN, FACV LEIDM, CARDIO IGA #### [facility] , #### MEGA FE and TIBC #### [address] Protein [Mass/Vol] 7.1 g/dL Normal 6.4-8.9 [facility] Comment on above: Performed By: #### C ARDIO IGM, CARDIO IGG, PROT S AG, LUPANTCOAG, VW PANEL, B2 GLYPROT, PROCF, PROCAG, PROT S FUN, FACV LEIDM, CARDIO IGA #### [facility] , #### MEGA, FE and TIBC #### [facility] [address] [place] [address] [place] Sodium [Moles/Vol] 141 mmol/L Normal 136-145 [facility] Comment on above: Performed By: #### C ARDIO IGM, CARDIO IGG, PROT S AG, LUPANTCOAG, VW PANEL, B2 GLYPROT, PROCF, PROCAG, PROT S FUN, FACV LEIDM, CARDIO IGA #### [facility] , #### MEGA, FE and TIBC #### [facility] [address] [place] [address] Urea nitrogen [Mass/Vol] 17 mg/dL Normal 7-25 [facility] Comment on above: Performed By: #### C ARDIO IGM, CARDIO IGG, PROT S AG, LUPANTCOAG, VW PANEL, B2 GLYPROT, PROCF, PROCAG, PROT S FUN, FACV LEIDM, CARDIO IGA #### [facility] , #### MEGA, FE and TIBC #### [address] Ferritinon 09-11-2023 Ferritin [Mass/Vol] 38.8 ng/mL Normal 11.0-306.8 [facility] Comment on above: Result Comment: PERF ORMED BY: [place] [address] PATHOLOGIST [employer] ODILON COPE M.D. Performed By: #### C ARDIO IGM, CARDIO IGG, PROT S AG, LUPANTCOAG, VW PANEL, B2 GLYPROT, PROCF, PROCAG, PROT S FUN, FACV LEIDM, CARDIO IGA #### [facility] , #### MEGA, FE and TIBC #### [address] Iron and TIBC Profileon 0 % Iron Saturation 19.6 % Low 20-50 [facility] Comment on above: Performed By: #### C ARDIO IGM, CARDIO IGG, PROT S AG, LUPANTCOAG, VW PANEL, B2 GLYPROT, PROCF, PROCAG, PROT S FUN, FACV LEIDM, CARDIO IGA #### [facility] , #### MEGA, FE and TIBC #### [address] Iron [Mass/Vol] 61 ug/dL Normal 50-212 [facility] Comment on above: Performed By: #### C ARDIO IGM, CARDIO IGG, PROT S AG, LUPANTCOAG, VW PANEL, B2 GLYPROT, PROCF, PROCAG, PROT S FUN, FACV LEIDM, CARDIO IGA #### [facility] , #### MEGA, FE and TIBC #### [address] Total Iron Binding Capacity 311 ug/dL Normal 255-450 [facility] Comment on above: Performed By: #### C ARDIO IGM, CARDIO IGG, PROT S AG, LUPANTCOAG, VW PANEL, B2 GLYPROT, PROCF, PROCAG, PROT S FUN, FACV LEIDM, CARDIO IGA #### [facility] , #### MEGA, FE and TIBC #### [address] Transferrin [Mass/Vol] 222 mg/dL Normal 203-362 [facility] Comment on above: Performed By: #### C ARDIO IGM, CARDIO IGG, PROT S AG, LUPANTCOAG, VW PANEL, B2 GLYPROT, PROCF, PROCAG, PROT S FUN, FACV LEIDM, CARDIO IGA #### [facility] , #### MEGA, FE and TIBC #### [address] Ferritinon 03-13-2023 Ferritin [Mass/Vol] 4.6 ng/mL Low 11.0-306.8 [facility] Comment on above: Result Comment: PERF ORMED BY: [place] [address] PATHOLOGIST [employer] ODILON COPE M.D. Performed By: #### C ARDIO IGM, CARDIO IGG, PROT S AG, LUPANTCOAG, VW PANEL, B2 GLYPROT, PROCF, PROCAG, PROT S FUN, FACV LEIDM, CARDIO IGA #### [facility] , #### MEGA, FE and TIBC #### [place] [id number] [place] Iron and TIBC Profileon 05-0 % Iron Saturation > 100.0 High 20-50 [facility] Comment on above: Performed By: #### C ARDIO IGM, CARDIO IGG, PROT S AG, LUPANTCOAG, VW PANEL, B2 GLYPROT, PROCF, PROCAG, PROT S FUN, FACV LEIDM, CARDIO IGA #### [facility] , #### MEGA, FE and TIBC #### [address] Iron [Mass/Vol] 530 ug/dL High 50-212 [facility] Comment on above: Performed By: #### C ARDIO IGM, CARDIO IGG, PROT S AG, LUPANTCOAG, VW PANEL, B2 GLYPROT, PROCF, PROCAG, PROT S FUN, FACV LEIDM, CARDIO IGA #### [facility] , #### MEGA, FE and TIBC #### [address] Total Iron Binding Capacity 357 ug/dL Normal 255-450 [facility] Comment on above: Performed By: #### C ARDIO IGM, CARDIO IGG, PROT S AG, LUPANTCOAG, VW PANEL, B2 GLYPROT, PROCF, PROCAG, PROT S FUN, FACV LEIDM, CARDIO IGA #### [facility] , #### MEGA, FE and TIBC #### [address] Transferrin [Mass/Vol] 255 mg/dL Normal 203-362 [facility] Comment on above: Performed By: #### C ARDIO IGM, CARDIO IGG, PROT S AG, LUPANTCOAG, VW PANEL, B2 GLYPROT, PROCF, PROCAG, PROT S FUN, FACV LEIDM, CARDIO IGA #### [facility] , #### MEGA, FE and TIBC #### [address] PREG QUANT HCGon 03-10-2023 HCG QUANT <1 Normal [facility] Comment on above: Performed By: #### B MP #### [facility] [address] [place] [address] Dr. Keiry Vogel HCG RANGE SEE BELOW Normal [facility] Comment on above: Result Comment: 5-50 0.2-1 WEEK 50-500 1-2 WEEKS 100-5,000 2-3 WEEKS 500-10,000 3-4 WEEKS 1,000-50,000 4-5 WEEKS 10,000-100,000 5-6 WEEKS 15,000-200,000 6-8 WEEKS 10,000-100,000 2-3 MONTHS Performed By: #### B MP #### [facility] [address] [place] [address] Dr. Keiry Vogel CBC AUTO DIFFon 02-27-2023 BASO # 0.1 103/ul Normal 0.0-0.1 [facility] Comment on above: Performed By: #### C BC #### [facility] [address] [place] [address] Dr. Keiry Vogel Basophils/100 WBC (Bld) 1.0 % Normal 0.2-2.0 [facility] Comment on above: Performed By: #### C BC #### [facility] [address] [place] [address] Dr. Keiry Vogel EO # 0.1 103/ul Normal 0.0-0.7 [facility] Comment on above: Performed By: #### C BC #### [facility] [address] [place] [address] Dr. Keiry Vogel Eosinophils/100 WBC (Bld) 1.8 % Normal 0.9-7.0 [facility] Comment on above: Performed By: #### C BC #### [facility] [address] [place] [address] Dr. Keiry Vogel Erythrocyte distribution width (RBC) [Ratio] 17.7 % Critically high 11.0-15.0 [facility] Comment on above: Performed By: #### C BC #### [facility] [address] [place] [address] Dr. Keiry Vogel Hematocrit (Bld) [Volume fraction] 37.7 % Normal 36.0-48.0 [facility] Comment on above: Performed By: #### C BC #### [facility] [address] [place] [address] Dr. Keiry Vogel Hemoglobin (Bld) [Mass/Vol] 11.7 g/dL Critically low 12.0-16.0 [facility] Comment on above: Performed By: #### C BC #### [facility] [address] [place] [address] Dr. eKiry Vogel IG # 0.01 10e3/ul Normal 0.00-0.03 [facility] Comment on above: Performed By: #### C BC #### [facility] [address] [place] [address] Dr. Keiry Vogel IG % 0.2 % Normal 0.0-0.5 [facility] Comment on above: Performed By: #### C BC #### [facility] [address] [place] [address] Dr. Keiry Vogel LYMPH # 1.4 103/ul Normal 1.2-3.8 [facility] Comment on above: Performed By: #### C BC #### [facility] [address] [place] [address] Dr. Keiry Vogel Lymphocytes/100 WBC (Bld) 28.2 % Normal 20.5-60.0 [facility] Comment on above: Performed By: #### C BC #### [facility] [address] [place] [address] Dr. Keiry Vogel MANUAL DIFF REQ NO Normal [facility] Comment on above: Performed By: #### C BC #### [facility] [address] [place] [address] Dr. Keiry Vogel MCH (RBC) [Entitic mass] 26.1 pg Critically low 26.7-34.0 [facility] Comment on above: Performed By: #### C BC #### [facility] [address] [place] [address] Dr. Keiry Vogel MCHC (RBC) [Mass/Vol] 31.0 g/dL Normal 29.9-35.[address] [facility] Comment on above: Performed By: #### C BC #### [facility] [address] [address] [address] Keiry Vogel MCV (RBC) [Entitic vol] 84.0 fL Normal 81.0-99.0 [facility] Comment on above: Performed By: #### C BC #### [facility] [address] [address] [address] Keiry Vogel MONO # 0.3 103/ul Normal 0.3-0.8 [facility] Comment on above: Performed By: #### C BC #### [facility] [address] [address] [address] Keiry Vogel Monocytes/100 WBC (Bld) 6.2 % Normal 1.7-12.0 [facility] Comment on above: Performed By: #### C BC #### [facility] [address] [address] [address] Keriy Vogel NEUT # 3.2 103/ul Normal 1.4-6.5 [facility] Comment on above: Performed By: #### C BC #### [facility] [address] [address] [address] Keiry Vogel Neutrophils/100 WBC (Bld) 62.6 % Normal 43.0-75.0 [facility] Comment on above: Performed By: #### C BC #### [facility] [address] [address] [address] Keiry Vogel Platelet mean volume (Bld) [Entitic vol] 9.1 fL Critically low 9.5-13.5 [facility] Comment on above: Performed By: #### C BC #### [facility] [address] [address] [address] Keiry Vogel PLT 378 103/ul Normal 150-[address] [facility] Comment on above: Performed By: #### C BC #### [facility] [address] [address] [address] Keiry Vogel RBC 4.49 106/ul Normal 4.20-5.[address] [facility] Comment on above: Performed By: #### C BC #### [facility] [address] [address] [address] Keiry Vogel WBC 5.0 103/ul Normal 4.0-11.0 [facility] Comment on above: Performed By: #### C BC #### [facility] [address] [address] [address] Keiry Vogel PROF CHEM 8 (BAS METB)on Anion gap [Moles/Vol] 14.4 mmol/L Normal [facility] Comment on above: Performed By: #### B MP #### [facility] [address] [place] [address] Dr. Keiry Vogel Calcium [Mass/Vol] 8.8 mg/dL Normal 8.5-10.1 [facility] Comment on above: Performed By: #### B MP #### [facility] [address] [place] [address] Dr. Keiry Vogel Chloride [Moles/Vol] 102 mmol/L Normal 98-[address] [facility] Comment on above: Performed By: #### B MP #### [facility] [address] [place] [address] Dr. Keiry Vogel CO2 [Moles/Vol] 27.4 mmol/L Normal 21.0-32.0 [facility] Comment on above: Performed By: #### B MP #### [facility] [address] [place] [address] Dr. Keiry Vogel Creatinine [Mass/Vol] 0.63 mg/dL Normal 0.55-1.[address] [facility] Comment on above: Performed By: #### B MP #### [facility] [address] [place] [address] Dr. Keiry Vogel EGFR-AF FINNISH >60 Normal >=[address] [facility] Comment on above: Performed By: #### B MP #### [facility] [address] [place] [address] Dr. Keiry Vogel EGFR-NON AF FINNISH >60 Normal >=[address] [facility] Comment on above: Performed By: #### B MP #### [facility] [address] [address] [address] Keiry Vogel Glucose [Mass/Vol] 128 mg/dL Critically high 74-106 T [facility] Comment on above: Performed By: #### B MP #### [facility] [address] [address] [address] Keiry Vogel Potassium [Moles/Vol] 3.8 mmol/L Normal 3.5-5.1 [facility] Comment on above: Performed By: #### B MP #### [facility] [address] [address] [address] Keiry Vogel Sodium [Moles/Vol] 140 mmol/L Normal 136-[address] [facility] Comment on above: Performed By: #### B MP #### [facility] [address] [address] [address] Keiry Vogel Urea nitrogen [Mass/Vol] 10.0 mg/dL Normal 7.0-18.0 [facility] Comment on above: Performed By: #### B MP #### [facility] [address] [place] [address] Dr. Keiry Vogel Urea nitrogen/Creatinine [Mass ratio] 15.9 mg/mg Normal [facility] Comment on above: Performed By: #### B MP #### [facility] [address] [place] [address] Dr. Keiry Vogel PROTIMEon 02-27-2023 INR Coag (PPP) [Relative time] 1.18 {INR} Normal [facility] Comment on above: Performed By: #### P T, PTT #### [facility] [address] [place] [address] Dr. Keiry Vogel INR GUIDELINES SEE BELOW Normal [facility] Comment on above: Result Comment: HAROON RED INR: 2.0 - 3.0 CONDITIONS NOT LISTED BELOW 2.5 - 3.5 FOR PROSTHETIC HEART VALVE REPLACEMENT 2.5 - 3.5 RECURRENT THROMBOSIS Performed By: #### P T, PTT #### [facility] [address] [place] [address] Dr. Keiry Vogel PT Coag (PPP) [Time] 12.4 s Critically high 9.0-11.6 [facility] Comment on above: Performed By: #### P T, PTT #### [facility] [address] [address] [address] Keiry Vogel PTTon 02-27-2023 aPTT Coag (Bld) [Time] 32.2 s Normal 22.3-36.2 [facility] Comment on above: Performed By: #### P T, PTT #### [facility] [address] [address] [address] Keiry Vogel Activated partial thrombopla stin time (aPTT) in platelet poor plasma by coagulation aOrdered By: Margie Harrison on 01-23-2023 aPTT Coag (PPP) [Time] 24.4 s 22.9-30.2 [facility] Anticardiolipin Ab, IgA,Qnon 01-23-2023 Anticardiolipin Ab, IgA,Qn <9 Normal 0-11 [facility] Comment on above: Result Comment: Nega tive: <12 Indeterminate: 12 - 20 Low-Med Positive: >20 - 80 High Positive: >80 Performed at: - [place] [address] Health Insurance Sales Agent: Agustín Neal PhD, Phone: [phone] Performed By: #### C ARDIO IGM, CARDIO IGG, PROT S AG, LUPANTCOAG, VW PANEL, B2 GLYPROT, PROCF, PROCAG, PROT S FUN, FACV LEIDM, CARDIO IGA #### [facility] , #### MEGA, FE and TIBC #### [address] Anticardiolipin Ab, IgG,Qnon 01-23-2023 Anticardiolipin Ab, IgG,Qn <9 Normal 0-14 [facility] Comment on above: Result Comment: Nega tive: <15 Indeterminate: 15 - 20 Low-Med Positive: >20 - 80 High Positive: >80 Performed By: #### C ARDIO IGM, CARDIO IGG, PROT S AG, LUPANTCOAG, VW PANEL, B2 GLYPROT, PROCF, PROCAG, PROT S FUN, FACV LEIDM, CARDIO IGA #### [facility] , #### MEGA, FE and TIBC #### [facility] [address] [place] [address] [place] Anticardiolipin Ab, IgM,Qnon 01-23-2023 Anticardiolipin Ab, IgM,Qn <9 Normal 0-12 [facility] Comment on above: Result Comment: Nega tive: <13 Indeterminate: 13 - 20 Low-Med Positive: >20 - 80 High Positive: >80 Performed By: #### C ARDIO IGM, CARDIO IGG, PROT S AG, LUPANTCOAG, VW PANEL, B2 GLYPROT, PROCF, PROCAG, PROT S FUN, FACV LEIDM, CARDIO IGA #### [facility] , #### MEGA, FE and TIBC #### [place] [address] [place] Beta 2 Glycoprotein I Ab IgG /Mon 01-23-2023 Beta 2 Glycoprotein I Ab, IgG <9 Normal 0-20 [facility] Comment on above: Result Comment: Resu lt Units: GPI IgG units The reference interval reflects a 3SD or 99th percentile interval, which is thought to represent a potentially clinically significant result in accordance with the International Consensus Statement on the classification criteria for definitive antiphospholipid syndrome (APS). J Thromb Haem 2006;4:295-306. Performed By: #### C ARDIO IGM, CARDIO IGG, PROT S AG, LUPANTCOAG, VW PANEL, B2 GLYPROT, PROCF, PROCAG, PROT S FUN, FACV LEIDM, CARDIO IGA #### [facility] , #### MEGA, FE and TIBC #### [facility] [address] [place], [place] [address] [place] Beta 2 Glycoprotein I Ab, IgM <9 Normal 0-32 [facility] Comment on above: Result Comment: Resu lt Units: GPI IgM units The reference interval reflects a 3SD or 99th percentile interval, which is thought to represent a potentially clinically significant result in accordance with the International Consensus Statement on the classification criteria for definitive antiphospholipid syndrome (APS). J Thromb Haem 2006;4:295-306. Performed at: [facility] [address] [place], [place] [id number] Health Insurance Sales Agent: Gustavo Harvey MD, Phone: [phone] PERFORMED BY: [facility] [address] [place] [address] PATHOLOGIST [employer] ODILON COPE M.D. Performed By: #### C ARDIO IGM, CARDIO IGG, PROT S AG, LUPANTCOAG, VW PANEL, B2 GLYPROT, PROCF, PROCAG, PROT S FUN, FACV LEIDM, CARDIO IGA #### [facility] , #### MEGA, FE and TIBC #### [address] Beta 2 glycoprotein 1 IgG Ab [Units/volume] in SerumOrdered By: Margie Harrison on 01-23-2023 Beta 2 glycoprotein 1 IgG Qn (S) <9 0-20 [facility] Comment on above: Result Units: GPI Ig G unitsThe reference interval reflects a 3SD or 99th percentileinterval, which is thought to represent a potentiallyclinically significant result in accordance with theInternational Consensus Statement on the classificationcriteria for definitive antiphospholipid syndrome (APS). JThromb Haem 2006;4:295-306. Beta 2 glycoprotein 1 IgM Ab [Units/volume] in SerumOrdered By: Margie Harrison on 01-23-2023 Beta 2 glycoprotein 1 IgM Qn (S) <9 0-32 [facility] Comment on above: Result Units: GPI Ig M unitsThe reference interval reflects a 3SD or 99th percentileinterval, which is thought to represent a potentiallyclinically significant result in accordance with theInternational Consensus Statement on the classificationcriteria for definitive antiphospholipid syndrome (APS). JThromb Haem 2006;4:295-306.Performed at: [facility] [id number] [place], [place] [id number] Director: Gustavo Harvey MD, Phone: [phone] Cardiolipin IgA Ab [Units/vo lume] in Serum by ImmunoassayOrdered By: Margie Harrison on 01-23-2023 Cardiolipin IgA IA Qn (S) <9 APL U/mL 0-11 [facility] Comment on above: Negative: <12 Indete rminate: 12 - 20 Low-Med Positive: >20 - 80 High Positive: >80Performed at: [id number] [place], [place] [id number] Director: Agustín Neal PhD, Phone: [phone] Cardiolipin IgG Ab [Units/vo lume] in Serum by ImmunoassayOrdered By: Margie Harrison on 01-23-2023 Cardiolipin IgG IA Qn (S) <9 GPL U/mL 0-14 [facility] Comment on above: Negative: <15 Indete rminate: 15 - 20 Low-Med Positive: >20 - 80 High Positive: >80 Cardiolipin IgM Ab [Units/vo lume] in Serum by ImmunoassayOrdered By: Margie Harrison on 01-23-2023 Cardiolipin IgM IA Qn (S) <9 MPL U/mL 0-12 [facility] Comment on above: Negative: <13 Indete rminate: 13 - 20 Low-Med Positive: >20 - 80 High Positive: >80 Dilute Josef's viper venom time (DRVVT) confirmatory testOrdered By: Margie Harrison on 01-23-2023 dRVVT actual/normal Coag (PPP) [Relative time] 1.3 ratio 0.8-1.2 [facility] Dilute Josef's viper venom time (DRVVT) correctionOrdered By: Margie Harrison on 01-23-2023 dRVVT percent correction Coag (PPP) [% diff] 58.8 sec 0.0-40.4 [facility] F5 gene mutations found [Kirill ntifier] in Blood or Tissue by Molecular genetics methodOrdered By: Margie Harrison on 01-23-2023 F5 gene targeted mutation analysis Molgen Nom (Bld/Tiss) See comment . [facility] Comment on above: Result: c.1601G>A (p .[id number]) - Not DetectedThis result is not associated with an increased risk for venousthromboembolism. See Additional Clinical Information andComments.Additional Clinical Information:Venous thromboembolism is a multifactorial diseaseinfluenced by genetic, environmental, and circumstantialrisk factors. The c.1601G>A (p. Ssx535Nly) variant in theF5 gene, commonly referred to as Factor V Leiden, is agenetic risk factor for venous thromboembolism.Heterozygous carriers of this variant have a 6- to 8-foldincreased risk for venous thromboembolism. Individualshomozygous for this variant (ie, with a copy of the varianton each chromosome) have an approximately 80-fold increasedrisk for venous thromboembolism. Individuals who carry velvet c.*97G>A variant in the F2 gene and Factor V Leiden havean approximately 20-fold increased risk for venousthromboembolism. Risks are likely to be even higher in morecomplex genotype combinations involving the F2 c.*97G>Avariant and Factor V Leiden (PMID: [id number]). Additionalrisk factors include but are not limited to: deficiency ofprotein C, protein S, or antithrombin III, age, male sex,personal or family history of deep vein thromboembolism,smoking, surgery, prolonged immobilization, malignantneoplasm, tamoxifen treatment, raloxifene treatment, oralcontraceptive use, hormone replacement therapy, andpregnancy. Management of thrombotic risk and thromboticevents should follow established guidelines and fit theclinical circumstance. This result cannot predict theoccurrence or recurrence of a thrombotic event.Comment:Genetic counseling is recommended to discuss thepotential clinical implications of positive results, aswell as recommendations for testing family members.Genetic Coordinators are available for health careproviders to discuss results at [phone] ([phone]).Test Details:Variant Analyzed: c.1601G>A (p. [id number]), referred toas Factor V LeidenMethods/Limitations:DNA analysis of the F5 gene (NM_000130.5) was performedby PCR amplification followed by restriction enzymeanalysis. The diagnostic sensitivity is >99%. Results mustbe combined with clinical information for the most accurateinterpretation. Molecular-based testing is highly accurate,but as in any laboratory test, diagnostic errors may occur.False positive or false negative results may occur forreasons that include genetic variants, blood transfusions,bone marrow transplantation, somatic or tissue-specificmosaicism, mislabeled samples, or erroneous representationof family relationships.This test was developed and its performance characteristicsdetermined by [facility]. It has not been cleared orapproved by the Food and Drug Administration.References:Edi Garrison, Delphine JOYCE, Josias R, Christina WW, Evin JH; ACMGProfessional Practice and Guidelines Committee. Addendum:[place] [employer] consensus statement onfactor V Leiden mutation testing. [employer]mie Med. 2020Jan 08.doi: 10.1038/o84679-431-82523-h. PMID: 45994057.Bethany MALAGON. Factor V Leiden Thrombophilia. 1998March 19(Updated 2017Nov 09). In: Kale MP, Sharlene HH, Batsheva RA,et al., editors. Zhane(R) (Internet). [place] ([place]):[facility]; 7765-2319. Availablefrom: https://www.ncbi.nlm.nih.gov/books/LNZ0688/Gio Garrison, Delphine JOYCE, Glen X, Marco B, Mkaenna EB, Vivian P,Jim CS; ACMG Laboratory Skidder Driver Committee.Venous thromboembolism laboratory testing (factor V Leidenand factor II c.*97G>A), 2018 update: a technical standardof the [place] [employer] and Genomics(ACMG). [employer]mie Med. 2018 Oct;20(12):0846-7522. doi:10.1038/[id number]-v. Epub 2017Aug 10. PMID: 62129669.Ofelia Grimes, PhD, Gudelia Haas, PhDHood Roberson, PhD, Nicolasa Smith, PhD, Jennifer Castrejon, PhD, FACMALATHI Horton, PhD, Lakeshia Dickey, PhD, Blaine King, PhD, FACMGPerformed at: [facility] - [facility] [id number] [facility], [facility], [place] [id number] Director: Delfina Colón [facility], Phone: [phone] Factor V Leiden Mutationon 0 01-23-2023 Factor V Leiden Normal . [facility] Comment on above: Result Comment: Resu lt: c.1601G>A (p.Iwn161Oxg) - Not Detected This result is not associated with an increased risk for venous thromboembolism. See Additional Clinical Information and Comments. Additional Clinical Information: Venous thromboembolism is a multifactorial disease influenced by genetic, environmental, and circumstantial risk factors. The c.1601G>A (p. [id number]) variant in the F5 gene, commonly referred to as Factor V Leiden, is a genetic risk factor for venous thromboembolism. Heterozygous carriers of this variant have a 6- to 8-fold increased risk for venous thromboembolism. Individuals homozygous for this variant (ie, with a copy of the variant on each chromosome) have an approximately 80-fold increased risk for venous thromboembolism. Individuals who carry both a c.*97G>A variant in the F2 gene and Factor V Leiden have an approximately 20-fold increased risk for venous thromboembolism. Risks are likely to be even higher in more complex genotype combinations involving the F2 c.*97G>A variant and Factor V Leiden (PMID: 72135714). Additional risk factors include but are not limited to: deficiency of protein C, protein S, or antithrombin III, age, male sex, personal or family history of deep vein thromboembolism, smoking, surgery, prolonged immobilization, malignant neoplasm, tamoxifen treatment, raloxifene treatment, oral contraceptive use, hormone replacement therapy, and . Management of thrombotic risk and thrombotic events should follow established guidelines and fit the clinical circumstance. This result cannot predict the occurrence or recurrence of a thrombotic event. Comment: Genetic counseling is recommended to discuss the potential clinical implications of positive results, as well as recommendations for testing family members. Genetic Coordinators are available for health care providers to discuss results at [phone] ([phone]). Test Details: Variant Analyzed: c.1601G>A (p. Ell102Lbg), referred to as Factor V Leiden Methods/Limitations: DNA analysis of the F5 gene (NM_000130.5) was performed by PCR amplification followed by restriction enzyme analysis. The diagnostic sensitivity is >99%. Results must be combined with clinical information for the most accurate interpretation. Molecular-based testing is highly accurate, but as in any laboratory test, diagnostic errors may occur. False positive or false negative results may occur for reasons that include genetic variants, blood transfusions, bone marrow transplantation, somatic or tissue-specific mosaicism, mislabeled samples, or erroneous representation of family relationships. This test was developed and its performance characteristics determined by [facility]. It has not been cleared or approved by the Food and Drug Administration. References: Edi S, Delphine JOYCE, Josias R, Christina WW, Evin JH; ACMG Professional Practice and Guidelines Committee. Addendum: [place] [employer] consensus statement on factor V Leiden mutation testing. [employer] Med. 2020Jan 08. doi: 10.1038/n83220-238-92028-h. PMID: 84684158. Bethany MALAGON. Factor V Leiden Thrombophilia. 1998March 19 (Updated 2017Nov 09). In: Kale MP, Sharlene HH, Batsheva RA, et al., editors. Zhane(R) (Internet). [place] ([place]): [facility]; 7726-5248. Available from: https://www.ncbi.nlm.nih.gov/books/OAL7125/ Gio Garrison, Delphine JOYCE, Glen X, Marco B, Makenna EB, Vivian P, Jim CS; A[employer]G Laboratory Skidder Driver Committee. Venous thromboembolism laboratory testing (factor V Leiden and factor II c.*97G>A), 2018 update: a technical standard of the [place] [employer] (ACMG). Jaymie Med. 2018 Oct;20(12):2515-4015. doi: 10.1038/[id number]-w. Epub 2017Aug 10. PMID: [id number]. Ofelia Grimes, PhD, FACMG Mariluz Haas, PhD Hood Roberson, PhD, FACMG Kartik Smith, PhD, FACMG Liborio Castrejon, PhD, FACMG Keenan Horton, PhD, FACMG Quynh Dickey, PhD, FACMG Mariposa King, PhD, FACMG Performed at: [facility] [address] [facility], [facility], [place] [id number] Health Insurance Sales Agent: Delfina Colón [facility], Phone: [phone] Performed By: #### C ARDIO IGM, CARDIO IGG, PROT S AG, LUPANTCOAG, VW PANEL, B2 GLYPROT, PROCF, PROCAG, PROT S FUN, FACV LEIDM, CARDIO IGA #### [facility] , #### MEGA, FE and TIBC #### [facility] [address] [id number] [place] Ferritinon 01-23-2023 Ferritin [Mass/Vol] 5.8 ng/mL Low 11.0-306.8 [facility] Comment on above: Result Comment: PERF ORMED BY: [place] [address] PATHOLOGIST [employer]CH[employer] ODILON COPE M.D. Performed By: #### C ARDIO IGM, CARDIO IGG, PROT S AG, LUPANTCOAG, VW PANEL, B2 GLYPROT, PROCF, PROCAG, PROT S FUN, FACV LEIDM, CARDIO IGA #### [facility] , #### MEGA, FE and TIBC #### [facility] [address] Ferritin [Mass/volume] in Se rum or PlasmaOrdered By: Margie Harrison on 01-23-2023 Ferritin [Mass/Vol] 5.8 ng/mL 11.0-306.8 [facility] Free protein S measurementOr dered By: Margie Harrison on 01-23-2023 Protein S Free Ag IA Qn (PPP) 100 % 61-136 [facility] Functional protein C measure mentOrdered By: Margie Harrison on 01-23-2023 Protein C actual/normal Chromogenic method (PPP) [Rel catalytic activity/Vol] 171 % 73-180 [facility] [facility] Comment on above: Performed at: BN - L [address] [id number] Director: Gustavo Harvey MD, Phone: [phone] Iron [Mass/volume] in Serum or PlasmaOrdered By: Margie Harrison on 01-23-2023 Iron [Mass/Vol] 62 ug/dL 50-212 [facility] Iron and TIBC Profileon 01-05 0 % Iron Saturation 14.9 % Low 20-50 [facility] Comment on above: Performed By: #### C ARDIO IGM, CARDIO IGG, PROT S AG, LUPANTCOAG, VW PANEL, B2 GLYPROT, PROCF, PROCAG, PROT S FUN, FACV LEIDM, CARDIO IGA #### [facility] , #### MEGA, FE and TIBC #### [address] Iron [Mass/Vol] 62 ug/dL Normal 50-212 [facility] Comment on above: Performed By: #### C ARDIO IGM, CARDIO IGG, PROT S AG, LUPANTCOAG, VW PANEL, B2 GLYPROT, PROCF, PROCAG, PROT S FUN, FACV LEIDM, CARDIO IGA #### [facility] , #### MEGA, FE and TIBC #### [address] Total Iron Binding Capacity 416 ug/dL Normal 255-450 [facility] Comment on above: Performed By: #### C ARDIO IGM, CARDIO IGG, PROT S AG, LUPANTCOAG, VW PANEL, B2 GLYPROT, PROCF, PROCAG, PROT S FUN, FACV LEIDM, CARDIO IGA #### [facility] , #### MEGA, FE and TIBC #### [address] Transferrin [Mass/Vol] 297 mg/dL Normal 203-362 [facility] Comment on above: Performed By: #### C ARDIO IGM, CARDIO IGG, PROT S AG, LUPANTCOAG, VW PANEL, B2 GLYPROT, PROCF, PROCAG, PROT S FUN, FACV LEIDM, CARDIO IGA #### [facility] , #### MEGA, FE and TIBC #### [facility] [address] [place] [address] Iron binding capacity [Mass/ volume] in Serum or PlasmaOrdered By: Margie Harrison on 01-23-2023 Iron binding capacity [Mass/Vol] 416 ug/dL 255-450 [facility] Iron saturation [Mass Fracti on] in Serum or PlasmaOrdered By: Margie Harrison on 01-23-2023 Iron saturation [Mass fraction] 14.9 % 20-50 [facility] Laboratory - CoagulationOrde red By: Margie Harrison on 01-23-2023 PT Coag (PPP) [Time] 10.8 s 9.1-12.0 [facility] Lupus Anticoagulant Compon 0 01-23-2023 Dilute Prothrombin Time (dPt) 45.9 Normal 0.0-47.6 [facility] Comment on above: Performed By: #### C ARDIO IGM, CARDIO IGG, PROT S AG, LUPANTCOAG, VW PANEL, B2 GLYPROT, PROCF, PROCAG, PROT S FUN, FACV LEIDM, CARDIO IGA #### [facility] , #### MEGA, FE and TIBC #### [address] dPT Confirm Ratio 1.06 Normal 0.00-1.34 [facility] Comment on above: Performed By: #### C ARDIO IGM, CARDIO IGG, PROT S AG, LUPANTCOAG, VW PANEL, B2 GLYPROT, PROCF, PROCAG, PROT S FUN, FACV LEIDM, CARDIO IGA #### [facility] , #### MEGA, FE and TIBC #### [facility] [address] [place] [address] DRVVT Confirm 1.3 High 0.8-1.2 [facility] Comment on above: Performed By: #### C ARDIO IGM, CARDIO IGG, PROT S AG, LUPANTCOAG, VW PANEL, B2 GLYPROT, PROCF, PROCAG, PROT S FUN, FACV LEIDM, CARDIO IGA #### [facility] , #### MEGA, FE and TIBC #### [facility] [address] [place] [address] DRVVT Lupus 67.0 High 0.0-47.0 [facility] Comment on above: Performed By: #### C ARDIO IGM, CARDIO IGG, PROT S AG, LUPANTCOAG, VW PANEL, B2 GLYPROT, PROCF, PROCAG, PROT S FUN, FACV LEIDM, CARDIO IGA #### [facility] , #### MEGA FE and TIBC #### [address] DRVVT Mix 58.8 High 0.0-40.4 [facility] Comment on above: Performed By: #### C ARDIO IGM, CARDIO IGG, PROT S AG, LUPANTCOAG, VW PANEL, B2 GLYPROT, PROCF, PROCAG, PROT S FUN, FACV LEIDM, CARDIO IGA #### [facility] , #### TREY AYOUB and TIBC #### [address] Interpretation Comment: Normal . [facility] Comment on above: Result Comment: Resu lts are consistent with the presence of a lupus anticoagulant. As only persistent lupus anticoagulant (LA) positivity meets laboratory diagnostic criteria for antiphospholipid syndrome, repeat testing in 12 or more weeks is recommended, ideally in the absence of anticoagulant therapy. Important Note: The results of LA testing are not valid for patients receiving heparin, direct Xa inhibitor (e.g., rivaroxaban, apixaban) or direct thrombin inhibitor (e.g., dabigatran) therapy. These drugs may cause false positive LA results but will not interfere with anticardiolipin and beta-2 glycoprotein 1 antibody testing. Performed at: [address] [id number] Health Insurance Sales Agent: Gustavo Harvey MD, Phone: [phone] Performed By: #### C ARDIO IGM, CARDIO IGG, PROT S AG, LUPANTCOAG, VW PANEL, B2 GLYPROT, PROCF, PROCAG, PROT S FUN, FACV LEIDM, CARDIO IGA #### [facility] , #### MEGA, FE and TIBC #### [address] PTT-LA 33.0 Normal 0.0-43.5 [facility] Comment on above: Performed By: #### C ARDIO IGM, CARDIO IGG, PROT S AG, LUPANTCOAG, VW PANEL, B2 GLYPROT, PROCF, PROCAG, PROT S FUN, FACV LEIDM, CARDIO IGA #### [facility] , #### MEGA, FE and TIBC #### [facility] [address] [place] [address] [place] Thrombin Time 18.0 Normal 0.0-23.0 [facility] Comment on above: Performed By: #### C ARDIO IGM, CARDIO IGG, PROT S AG, LUPANTCOAG, VW PANEL, B2 GLYPROT, PROCF, PROCAG, PROT S FUN, FACV LEIDM, CARDIO IGA #### [facility] , #### MEGA, FE and TIBC #### [facility] [address] Lupus anticoagulant [Interpr etation] in Platelet poor plasmaOrdered By: Margie Harrison on 01-23-2023 Lupus anticoagulant (PPP) [Interp] Comment: . [facility] Comment on above: Results are consiste nt with the presence of a lupus anticoagulant. As onlypersistent lupus anticoagulant (LA) positivity meets laboratory diagnosticcriteria for antiphospholipid syndrome, repeat testing in 12 or more weeksis recommended, ideally in the absence of anticoagulant therapy.Important Note: The results of LA testing are not valid for patientsreceiving heparin, direct Xa inhibitor (e.g., rivaroxaban, apixaban) ordirect thrombin inhibitor (e.g., dabigatran) therapy. These drugs may causefalse positive LA results but will not interfere with anticardiolipin andbeta-2 glycoprotein 1 antibody testing.Performed at: [address] [id number] Director: Gustavo Harvey MD, Phone: [phone] No Panel InformationOrdered By: Margie Harrison on 01-23-2023 Coagulation Factor VIII Activity 273 % 56-140 [facility] Comment on above: FVIII activity can i ncrease in a variety of clinicalsituations including normal , in samples drawnfrom patients (particularly children) who are visiblystressed at the time of phlebotomy, as acute phasereactants, or in response to certain drug therapies such asDDAVP. Persistently elevated FVIII activity is a riskfactor for venous thrombosis as well as recurrence ofvenous thrombosis. Risk is graded and increases with thedegree of elevation. Although elevated FVIII activity hasbeen identified to cluster within families, a genetic basisfor the elevation has not yet been elucidated (Elissa JHaematol. 2012; 157:653-663). Functional Protein S 110 % 63-140 [facility] Comment on above: Protein S activity m ay be falsely increased (masking anabnormal, low result) in patients receiving direct Xainhibitor (e.g., rivaroxaban, apixaban, edoxaban) or adirect thrombin inhibitor (e.g., dabigatran) anticoagulanttreatment due to assay interference by these drugs. Platelet poor plasma interna tional normalized ratio (INR) by coagulation assay (relatOrdered By: Margie Harrison on 01-23-2023 INR Coag (PPP) [Relative time] 1.0 {INR} 0.9-1.2 [facility] Comment on above: Reference interval i s for non-anticoagulated patients.Suggested INR therapeutic range for Vitamin Kantagonist therapy: Standard Dose (moderate intensity therapeutic range): 2.0 - 3.0 Higher intensity therapeutic range 2.5 - 3.5 Platelet poor plasma ratio o f lupus anticoagulant-sensitive activated partial thromboOrdered By: Margie Harrison on 01-23-2023 aPTT.lupus sensitive.excess phospholipid actual/normal Coag (PPP) [Relative time] 45.9 sec 0.0-47.6 [facility] Protein C Antigenon 01-24-20 23 Protein C Antigen 149 % Normal 60-150 [facility] Comment on above: Result Comment: Perf ormed at: BN - [facility] [address] [id number] Health Insurance Sales Agent: Gustavo Harvey MD, Phone: [phone] Performed By: #### C ARDIO IGM, CARDIO IGG, PROT S AG, LUPANTCOAG, VW PANEL, B2 GLYPROT, PROCF, PROCAG, PROT S FUN, FACV LEIDM, CARDIO IGA #### [facility] , #### MEGA, FE and TIBC #### [facility] [address] [place] [address] [place] Protein C Functionalon 01-23 Protein C Functional 171 % Normal 73-180 [facility] Comment on above: Result Comment: Perf ormed at: BN - [facility] [address] [id number] Health Insurance Sales Agent: Gustavo Harvey MD, Phone: [phone] Performed By: #### C ARDIO IGM, CARDIO IGG, PROT S AG, LUPANTCOAG, VW PANEL, B2 GLYPROT, PROCF, PROCAG, PROT S FUN, FACV LEIDM, CARDIO IGA #### [facility] , #### MEGA, FE and TIBC #### [facility] [address] [id number] [facility] Protein C antigen assayOrder ed By: Margie Harrison on 01-23-2023 Protein C Ag actual/normal IA (PPP) [Relative mass conc] 149 % 60-150 [facility] Comment on above: Performed at: [facility] - [facility] [address] [id number] Director: Gustavo Harvey MD, Phone: [phone] Protein S Antigenon 01-24-20 23 Protein S, Free 100 % Normal 61-136 [facility] Comment on above: Performed By: #### C ARDIO IGM, CARDIO IGG, PROT S AG, LUPANTCOAG, VW PANEL, B2 GLYPROT, PROCF, PROCAG, PROT S FUN, FACV LEIDM, CARDIO IGA #### [facility] , #### MEGA, FE and TIBC #### [facility] [address] [place] [id number] [place] Protein S, Total 93 % Normal 60-150 [facility] Comment on above: Result Comment: This test was developed and its performance characteristics determined by [facility]. It has not been cleared or approved by the Food and Drug Administration. Performed By: #### C ARDIO IGM, CARDIO IGG, PROT S AG, LUPANTCOAG, VW PANEL, B2 GLYPROT, PROCF, PROCAG, PROT S FUN, FACV LEIDM, CARDIO IGA #### [facility] , #### MEGA, FE and TIBC #### [facility] [address] [id number] [place] Protein S Functionalon 01-23 Protein S Functional 110 % Normal 63-140 [facility] Comment on above: Result Comment: Prot ein S activity may be falsely increased (masking an abnormal, low result) in patients receiving direct Xa inhibitor (e.g., rivaroxaban, apixaban, edoxaban) or a direct thrombin inhibitor (e.g., dabigatran) anticoagulant treatment due to assay interference by these drugs. Performed By: #### C ARDIO IGM, CARDIO IGG, PROT S AG, LUPANTCOAG, VW PANEL, B2 GLYPROT, PROCF, PROCAG, PROT S FUN, FACV LEIDM, CARDIO IGA #### [facility] , #### MEGA, FE and TIBC #### [place] [id number] [facility] Protein S measurement in kimebr telet poor plasma by coagulation assay (units/volume)Ordered By: Margie Harrison on 01-23-2023 Protein S Coag Qn (PPP) 93 % 60-150 [facility] Comment on above: This test was develo ped and its performance characteristicsdetermined by [facility]. It has not been cleared orapproved by the Food and Drug Administration. Screening dilute Josef's v iper venom time (DRVVT) with reflex to confirmatory testOrdered By: Mragie Harrison on 01-23-2023 dRVVT Coag (PPP) [Time] 67.0 s 0.0-47.0 [facility] Screening lupus anticoagulan t-sensitive activated partial thromboplastin time (aPTT)Ordered By: Margie Harrison on 01-23-2023 aPTT.lupus sensitive Coag (PPP) [Time] 33.0 sec 0.0-43.5 [facility] TT plasOrdered By: Margie sanchez on 01-23-2023 Thrombin time Coag (PPP) [Time] 18.0 sec 0.0-23.0 [facility] Transferrin [Mass/volume] in Serum or PlasmaOrdered By: Margie Harrison on 01-23-2023 Transferrin [Mass/Vol] 297 mg/dL 203-362 [facility] Von Willebrand factor activi ty measurementOrdered By: Margie Harrison on 01-23-2023 vWf ristocetin cofactor act actual/normal Platelet aggregation (PPP) [Relative time] 226 % 50-200 [facility] Von Willebrand factor antige n measurementOrdered By: Margie Harrison on 01-23-2023 vWf Ag Qn (PPP) 266 % 50-200 [facility] Comment on above: VWF may elevate in n ormal , in samples drawn frompatients (particularly children) who are visibly stressedat the time of phlebotomy, as acute phase reactants, or inresponse to certain drug therapies such as DDAVP. Theseand other situations may increase levels compared tobaseline values. For these reasons, it may be necessary torepeat testing to make a diagnosis of VWD.This test was developed and its performance characteristicsdetermined by [employer]. It has not been cleared orapproved by the Food and Drug Administration. aPTT.lupus sensitive/aPTT.ankit pus sensitive W excess phospholipid (screen to confirm raOrdered By: Margie Harrison on 01-23-2023 aPTT.lupus sensitive/aPTT.lupus sensitive W excess phospholipid Coag (PPP) [Ratio] 1.06 Ratio 0.00-1.34 [facility] von Willebrand Panel(Act+Ag) on 01-23-2023 Factor VIII Activity 273 % High 56-140 [facility] Comment on above: Result Comment: FVII I activity can increase in a variety of clinical situations including normal , in samples drawn from patients (particularly children) who are visibly stressed at the time of phlebotomy, as acute phase reactants, or in response to certain drug therapies such as DDAVP. Persistently elevated FVIII activity is a risk factor for venous thrombosis as well as recurrence of venous thrombosis. Risk is graded and increases with the degree of elevation. Although elevated FVIII activity has been identified to cluster within families, a genetic basis for the elevation has not yet been elucidated (Br J Haematol. 2012; 157:653-663). Performed By: #### C ARDIO IGM, CARDIO IGG, PROT S AG, LUPANTCOAG, VW PANEL, B2 GLYPROT, PROCF, PROCAG, PROT S FUN, FACV LEIDM, CARDIO IGA #### [facility] , #### MEGA, FE and TIBC #### [facility] [address] INR Coag (PPP) [Relative time] 1.0 {INR} Normal 0.9-1.2 [facility] Comment on above: Result Comment: Refe rence interval is for non-anticoagulated patients. Suggested INR therapeutic range for Vitamin K antagonist therapy: Standard Dose (moderate intensity therapeutic range): 2.0 - 3.0 Higher intensity therapeutic range 2.5 - 3.5 Performed By: #### C ARDIO IGM, CARDIO IGG, PROT S AG, LUPANTCOAG, VW PANEL, B2 GLYPROT, PROCF, PROCAG, PROT S FUN, FACV LEIDM, CARDIO IGA #### [facility] , #### MEGA, FE and TIBC #### [facility] [address] [place] [address] PT Coag (PPP) [Time] 10.8 s Normal 9.1-12.0 [facility] Comment on above: Performed By: #### C ARDIO IGM, CARDIO IGG, PROT S AG, LUPANTCOAG, VW PANEL, B2 GLYPROT, PROCF, PROCAG, PROT S FUN, FACV LEIDM, CARDIO IGA #### [facility] , #### MEGA, FE and TIBC #### [facility] [address] [place] [address] PTT, Activated 24.4 Normal 22.9-30.2 [facility] Comment on above: Performed By: #### C ARDIO IGM, CARDIO IGG, PROT S AG, LUPANTCOAG, VW PANEL, B2 GLYPROT, PROCF, PROCAG, PROT S FUN, FACV LEIDM, CARDIO IGA #### [facility] , #### MEGA, FE and TIBC #### [address] von Willebrand Factor (vWF) Ag 266 % High 50-200 [facility] Comment on above: Result Comment: VWF may elevate in normal , in samples drawn from patients (particularly children) who are visibly stressed at the time of phlebotomy, as acute phase reactants, or in response to certain drug therapies such as DDAVP. These and other situations may increase levels compared to baseline values. For these reasons, it may be necessary to repeat testing to make a diagnosis of VWD. This test was developed and its performance characteristics determined by [facility]. It has not been cleared or approved by the Food and Drug Administration. Performed By: #### C ARDIO IGM, CARDIO IGG, PROT S AG, LUPANTCOAG, VW PANEL, B2 GLYPROT, PROCF, PROCAG, PROT S FUN, FACV LEIDM, CARDIO IGA #### [facility] , #### MEGA, FE and TIBC #### [address] VWF Activity 226 % High 50-200 [facility] Comment on above: Performed By: #### C ARDIO IGM, CARDIO IGG, PROT S AG, LUPANTCOAG, VW PANEL, B2 GLYPROT, PROCF, PROCAG, PROT S FUN, FACV LEIDM, CARDIO IGA #### [facility] , #### MEGA, FE and TIBC #### [address] MG MAMM RT DIAG FUon 023 MG MAMM RT DIAG FU Patient: ELLYN MORRELL Exam Date: 01/20/2023 : 1980 Gender:F Ordering : BRAXTON MATT . Admission #: [id number] Family : Order #: [id number] CLICK HERE TO VIEW EXAM RADIOLOGY REPORT PROCEDURE: MAMMOGRAM RIGHT DIAGNOSTIC DIGITAL FOLLOW UP, 01/20/2023, 09:15 ULTRASOUND BREAST RIGHT LIMITED, 01/20/2023, 09:51 COMPARISON: MG MAMM SCREEN 3D WILIAM CAD, 12/14/2022. INDICATIONS: Abnormal findings on diagnostic imaging of breast Calculator Name NCI Breast Cancer Risk Assessment Tool 5 Year Breast Cancer Risk 0.60% Lifetime Breast Cancer Risk 10.20% Personal Breast Cancer No Personal Ovarian Cancer No Treatments None Family Cancers Grandfather-maternal with lung cancer at age 62; Aunt-maternal with lung cancer at age 63; Uncle-maternal with throat cancer at age 64. LOCATION: [facility] BREAST COMPOSITION: Heterogeneously dense,which may obscure small masses. FINDINGS: DIAGNOSTIC CATEGORY 2--BENIGN FINDING: RIGHT BREAST: Spot magnification views demonstrate dispersion of the previously seen asymmetry. Ultrasound evaluation of the lateral breasts demonstrates normal appearing fibroglandular tissue; no suspicious findings. Annual screening mammography recommended. RECOMMENDATIONS: ROUTINE MAMMOGRAM AND CLINICAL EVALUATION IN 12 MONTHS. PLEASE NOTE: A NORMAL MAMMOGRAM DOES NOT EXCLUDE THE POSSIBILITY OF BREAST CANCER. A CLINICALLY SUSPICIOUS PALPABLE LUMP SHOULD BE BIOPSIED. Dictated by: Slime Zuluaga M.D. on 01/20/2023 at 12:04 Approved by: Slime Zuluaga M.D. on 01/20/2023 at 12:30 Normal [facility] US BREAST RIGHT LIMITEDon US BREAST RIGHT LIMITED Patient: ADARSH MORRELL Exam Date: 01/20/2023 : 1980 Gender:F Ordering : BRAXTON MATT . Admission #: [id number] Family : Order #: [id number] CLICK HERE TO VIEW EXAM RADIOLOGY REPORT PROCEDURE: MAMMOGRAM RIGHT DIAGNOSTIC DIGITAL FOLLOW UP, 01/20/2023, 09:15 ULTRASOUND BREAST RIGHT LIMITED, 01/20/2023, 09:51 COMPARISON: MG MAMM SCREEN 3D WILIAM CAD, 12/14/2022. INDICATIONS: Abnormal findings on diagnostic imaging of breast Calculator Name NCI Breast Cancer Risk Assessment Tool 5 Year Breast Cancer Risk 0.60% Lifetime Breast Cancer Risk 10.20% Personal Breast Cancer No Personal Ovarian Cancer No Treatments None Family Cancers Grandfather-maternal with lung cancer at age 62; Aunt-maternal with lung cancer at age 63; Uncle-maternal with throat cancer at age 64. LOCATION: [facility] BREAST COMPOSITION: Heterogeneously dense,which may obscure small masses. FINDINGS: DIAGNOSTIC CATEGORY 2--BENIGN FINDING: RIGHT BREAST: Spot magnification views demonstrate dispersion of the previously seen asymmetry. Ultrasound evaluation of the lateral breasts demonstrates normal appearing fibroglandular tissue; no suspicious findings. Annual screening mammography recommended. RECOMMENDATIONS: ROUTINE MAMMOGRAM AND CLINICAL EVALUATION IN 12 MONTHS. PLEASE NOTE: A NORMAL MAMMOGRAM DOES NOT EXCLUDE THE POSSIBILITY OF BREAST CANCER. A CLINICALLY SUSPICIOUS PALPABLE LUMP SHOULD BE BIOPSIED. Dictated by: Slime Zuluaga M.D. on 01/20/2023 at 12:04 Approved by: Slime Zuluaga M.D. on 01/20/2023 at 12:30 Normal [facility] MG MAMM SCREEN 3D WILIAM CADon 12-14-2022 MG MAMM SCREEN 3D WILIAM CAD Patient: ADARSH MORRELL Exam Date: 12/14/2022 : 1980 Gender:F Ordering : BRAXTON MATT . Admission #: [id number] Family : Order #: [id number] CLICK HERE TO VIEW EXAM RADIOLOGY REPORT PROCEDURE: MAMMOGRAM SCREENING 3D BILATERAL CAD COMPARISON: None. INDICATIONS: Screening mammography Calculator Name NCI Breast Cancer Risk Assessment Tool 5 Year Breast Cancer Risk 0.60% Lifetime Breast Cancer Risk 10.20% Personal Breast Cancer No Personal Ovarian Cancer No Treatments None Family Cancers Grandfather-maternal with lung cancer at age 62; Aunt-maternal with lung cancer at age 63; Uncle-maternal with throat cancer at age 64. LOCATION: [facility] BREAST COMPOSITION: Heterogeneously dense,which may obscure small masses. FINDINGS: DIAGNOSTIC CATEGORY 0--INCOMPLETE: NEED ADDITIONAL IMAGING EVALUATION. RIGHT BREAST: Partially circumscribed mass within lower-outer quadrant approximately 9 o'clock, mid breast, 12 x 7 x 8 millimeters. Spot magnification views and ultrasound evaluation recommended. LEFT BREAST: No significant suspicious finding. RECOMMENDATIONS: ADDITIONAL MAMMOGRAPHIC VIEWS REQUIRED: RIGHT BREAST - RIGHT CRANIOCAUDAL SPOT MAGNIFICATION VIEW - RIGHT OBLIQUE SPOT MAGNIFICATION VIEW - ULTRASOUND: RIGHT BREAST PLEASE NOTE: A NORMAL MAMMOGRAM DOES NOT EXCLUDE THE POSSIBILITY OF BREAST CANCER. A CLINICALLY SUSPICIOUS PALPABLE LUMP SHOULD BE BIOPSIED. Dictated by: Slime Zuluaga M.D. on 12/15/2022 at 08:20 Approved by: Slime Zuluaag M.D. on 12/15/2022 at 08:32 Normal [facility] US PELVIS AND TRANSVAGon US PELVIS AND TRANSVAG EXAMINATION: US PELVIS AND TRANSVAG HISTORY: Excessive and frequent menstruation COMPARISON: No relevant comparison available. FINDINGS: Suboptimal visualization of the ovaries Bowel gas The uterus is anteverted. Uterus measures 10.8 x 6.3 x 6.0 cm. No focal myometrial mass. Areas of anechoic echogenicity in the cervix likely nabothian cysts measuring up to 1.3 cm The endometrium measures 2.4 cm, borderline thick. The right ovary measures 3.5 x 3.1 x 2.1 cm. Normal color flow The left ovary measures 3.3 x 3.0 x 2.0 cm. Normal color flow No free fluid IMPRESSION: Prominent endometrium measuring 2.4 cm Electronically authenticated by: JOCY MEI Date: 2022-12-14 18:27 Normal [facility] PAP ACOG PANEL 2: 30 to 65on 12-12-2022 . . Normal [facility] Comment on above: Result Comment: Perf ormed at: WB Performed By: #### B MP #### [facility] [address] [place] [address] Dr. Keiry Vogel Age Gdln ACOG Testing 30-65 Normal [facility] Comment on above: Performed By: #### B MP #### [facility] [address] [place] [address] Dr. Keiry Vogel DIAGNOSIS: Comment Abnormal [facility] Comment on above: Result Comment: EPIT HELIAL CELL ABNORMALITY. ATYPICAL SQUAMOUS CELLS OF UNDETERMINED SIGNIFICANCE (ASC-US). Performed at: WB Performed By: #### B MP #### [facility] [address] [place] [address] Dr. Keiyr Vogel Electronically signed by: Comment Normal [facility] Comment on above: Result Comment: Tarsha Limon MD, Pathologist Performed at: WB Performed By: #### B MP #### [facility] [address] [place] [address] Dr. Keiry Vogel HPV Aptima Negative Normal Negative [facility] Comment on above: Result Comment: This nucleic acid amplification test detects fourteen high-risk HPV types (16,18,31,33,35,39,45,51,52,56,58,59,66,68) without differentiation. Performed at: =G Performed By: #### B MP #### [facility] [address] [address] [address] Keiry Vogel HPV Genotype Reflex Comment Normal [facility] Comment on above: Result Comment: Crit ernathanael not met, HPV Genotype not performed. Performed at: WB Performed By: #### B MP #### [facility] [address] [address] [address] Keiry Vogel Methodology: Comment Normal [facility] Comment on above: Result Comment: This liquid based ThinPrep(R) pap test was screened with the use of an image guided system. Performed at: WB Performed By: #### B MP #### [facility] [address] [place] [address] Dr. Keiry Vogel Note: Comment Normal [facility] Comment on above: Result Comment: The Pap smear is a screening test designed to aid in the detection of premalignant and malignant conditions of the uterine cervix. It is not a diagnostic procedure and should not be used as the sole means of detecting cervical cancer. Both false-positive and false-negative reports do occur. . Performed at: WB Performed By: #### B MP #### [facility] [address] [place] [address] Dr. Keiry Vogel Pathologist Provided ICD10 Comment Normal [facility] Comment on above: Result Comment: R87. [id number] Performed at: WB Performed By: #### B MP #### [facility] [address] [address] [address] Keiry Vogel Performed by: Comment Normal [facility] Comment on above: Result Comment: Derick Pollard, Farm Loan Representative (ASCP) Performed at: WB Performed By: #### B MP #### [facility] [address] [address] [address] Keiry Vogel Recommendation: Comment Abnormal [facility] Comment on above: Result Comment: Sugg est follow up as clinically appropriate. Performed at: WB Performed By: #### B MP #### [facility] [address] [address] [address] Keiry Vogel Specimen adequacy: Comment Normal [facility] Comment on above: Result Comment: Sati sfactory for evaluation. Endocervical and/or squamous metaplastic cells (endocervical component) are present. Performed at: WB Performed By: #### B MP #### [facility] [address] [address] [address] Keiry Vogel CBC AUTO DIFFon 12-07-2022 BASO # 0.0 103/ul Normal 0.0-0.1 [facility] Comment on above: Performed By: #### C BC #### [facility] [address] [place] [address] Dr. Keiry Vogel Basophils/100 WBC (Bld) 0.7 % Normal 0.2-2.0 [facility] Comment on above: Performed By: #### C BC #### [facility] [address] [place] [address] Dr. Keiry Vogel EO # 0.1 103/ul Normal 0.0-0.7 [facility] Comment on above: Performed By: #### C BC #### [facility] [address] [place] [address] Dr. Keiry Vogel Eosinophils/100 WBC (Bld) 1.4 % Normal 0.9-7.0 [facility] Comment on above: Performed By: #### C BC #### [facility] [address] [place] [address] Dr. Keiry Vogel Erythrocyte distribution width (RBC) [Ratio] 17.5 % Critically high 11.0-15.0 [facility] Comment on above: Performed By: #### C BC #### [facility] [address] [place] [address] Dr. Keiry Vogel Hematocrit (Bld) [Volume fraction] 37.6 % Normal 36.0-48.[address] [facility] Comment on above: Performed By: #### C BC #### [facility] [address] [place] [address] Dr. Keiry Vogel Hemoglobin (Bld) [Mass/Vol] 11.0 g/dL Critically low 12.0-16.[address] [facility] Comment on above: Performed By: #### C BC #### [facility] [address] [place] [address] Dr. Keiry Vogel IG # 0.02 10e3/ul Normal 0.00-0.03 [facility] Comment on above: Performed By: #### C BC #### [facility] [address] [place] [address] Dr. Keiry Vogel IG % 0.4 % Normal 0.0-0.5 [facility] Comment on above: Performed By: #### C BC #### [facility] [address] [place] [address] Dr. Keiry Vogel LYMPH # 1.5 103/ul Normal 1.2-3.8 [facility] Comment on above: Performed By: #### C BC #### [facility] [address] [place] [address] Dr. Keiry Vogel Lymphocytes/100 WBC (Bld) 26.8 % Normal 20.5-60.0 [facility] Comment on above: Performed By: #### C BC #### [facility] [address] [place] [address] Dr. Keiry Vogel MANUAL DIFF REQ NO Normal [facility] Comment on above: Performed By: #### C BC #### [facility] [address] [place] [address] Dr. Keiry Vogel MCH (RBC) [Entitic mass] 24.0 pg Critically low 26.7-34.0 [facility] Comment on above: Performed By: #### C BC #### [facility] [address] [place] [address] Dr. Keiry Vogel MCHC (RBC) [Mass/Vol] 29.3 g/dL Critically low 29.9-35.2 [facility] Comment on above: Performed By: #### C BC #### [facility] [address] [place] [address] Dr. Keiry Vogel MCV (RBC) [Entitic vol] 81.9 fL Normal 81.0-99.0 [facility] Comment on above: Performed By: #### C BC #### [facility] [address] [place] [address] Dr. Keiry Vogel MONO # 0.3 103/ul Normal 0.3-0.8 [facility] Comment on above: Performed By: #### C BC #### [facility] [address] [place] [address] Dr. Keiry Vogel Monocytes/100 WBC (Bld) 4.6 % Normal 1.7-12.0 [facility] Comment on above: Performed By: #### C BC #### [facility] [address] [place] [address] Dr. Keiry Vogel NEUT # 3.8 103/ul Normal 1.4-6.[address] [facility] Comment on above: Performed By: #### C BC #### [facility] [address] [place] [address] Dr. Keiry Vogel Neutrophils/100 WBC (Bld) 66.1 % Normal 43.0-75.0 [facility] Comment on above: Performed By: #### C BC #### [facility] [address] [place] [address] Dr. Keiry Vogel Platelet mean volume (Bld) [Entitic vol] 9.3 fL Critically low 9.5-13.[address] [facility] Comment on above: Performed By: #### C BC #### [facility] [address] [place] [address] Dr. Keiry Vogel PLT 442 103/ul Normal 150-[address] [facility] Comment on above: Performed By: #### C BC #### [facility] [address] [place] [address] Dr. Keiry Vogel RBC 4.59 106/ul Normal 4.20-5.[address] [facility] Comment on above: Performed By: #### C BC #### [facility] [address] [place] [address] Dr. Keiry Vogel WBC 5.7 103/ul Normal 4.0-11.[address] [facility] Comment on above: Performed By: #### C BC #### [facility] [address] [place] [address] Dr. Keiry Vogel FREE T4on 12-07-2022 Free T4 [Mass/Vol] 1.05 ng/dL Normal 0.76-1.46 [facility] Comment on above: Performed By: #### F T4 #### [facility] [address] [place] [address] Dr. Keiry Vogel GLYCOHEMOGLOBIN A1Con 2022 ADA RECOMMENDATION SEE BELOW Normal [facility] Comment on above: Result Comment: ADA RECOMMENDED LIMIT 4.0 - 6.0 ADA THERAPEUTIC TARGET < 7.0 ACTION SUGGESTED > 7.0 Performed By: #### B MP #### [facility] [address] [place] [address] Dr. Keiry Vogel Glucose [Mass/Vol] 217 mg/dL Normal [facility] Comment on above: Performed By: #### B MP #### [facility] [address] [place] [address] Dr. Keiry Vogel HbA1c (Bld) [Mass fraction] 9.2 % Critically high 4.5-6.2 [facility] Comment on above: Performed By: #### B MP #### [facility] [address] [place] [address] Dr. Keiry Vogel PREG QUANT HCGon 12-07-2022 HCG QUANT <1 Normal [facility] Comment on above: Performed By: #### B MP #### [facility] [address] [place] [address] Dr. Keiry Vogel HCG RANGE SEE BELOW Normal [facility] Comment on above: Result Comment: 5-50 0.2-1 WEEK 50-500 1-2 WEEKS 100-5,000 2-3 WEEKS 500-10,000 3-4 WEEKS 1,000-50,000 4-5 WEEKS 10,000-100,000 5-6 WEEKS 15,000-200,000 6-8 WEEKS 10,000-100,000 2-3 MONTHS Performed By: #### B MP #### [facility] [address] [place] [address] Dr. Keiry Vogel PROTIMEon 12-07-2022 INR Coag (PPP) [Relative time] 1.04 {INR} Normal [facility] Comment on above: Performed By: #### P T, PTT #### [facility] [address] [place] [address] Dr. Keiry Vogel INR GUIDELINES SEE BELOW Normal [facility] Comment on above: Result Comment: HAROON RED INR: 2.0 - 3.0 CONDITIONS NOT LISTED BELOW 2.5 - 3.5 FOR PROSTHETIC HEART VALVE REPLACEMENT 2.5 - 3.5 RECURRENT THROMBOSIS Performed By: #### P T, PTT #### [facility] [address] [place] [address] Dr. Keiry Vogel PT Coag (PPP) [Time] 11.0 s Normal 9.0-11.[address] [facility] Comment on above: Performed By: #### P T, PTT #### [facility] [address] [place] [address] Dr. Keiry Vogel PTTon 12-07-2022 aPTT Coag (Bld) [Time] 31.0 s Normal 22.3-36.[address] [facility] Comment on above: Performed By: #### P T, PTT #### [facility] [address] [place] [address] Dr. Keiry Vogel TSHon 12-07-2022 TSH 0.810 uIU/mL Normal 0.358-3.[address] [facility] Comment on above: Performed By: #### B MP #### [facility] [address] [place] [address] Dr. Keiry Vogel MRI BRAIN WO W CONon 05-11-2 022 MRI BRAIN WO W CON EXAMINATION: MRI BRA IN WO W CON HISTORY: Weakness of left facial muscle ; left facial paresthesia, left hemiparesis; numbness of left side of bottom lip and chin for 2 weeks COMPARISON: No relevant comparison available. TECHNIQUE: A variety of imaging planes and parameters were utilized for visualization of suspected pathology. Images were performed without and with Dotarem contrast. FINDINGS: CEREBRUM: No edema, hemorrhage, mass, acute infarction, or inappropriate atrophy. CEREBELLUM: No edema, hemorrhage, mass, acute infarction, or inappropriate atrophy. BRAINSTEM: No edema, hemorrhage, mass, acute infarction, or inappropriate atrophy. CSF SPACES: Ventricles, cisterns, and sulci are appropriate for age. No hydrocephalus, subarachnoid hemorrhage, or mass. SKULL: No mass or other significant visible lesion. SINUSES: Mild chronic sinusitis. ORBITS: Limited views are unremarkable. OTHER: No abnormal meningeal or parenchymal enhancement. IMPRESSION: 1. No evidence of acute ischemia. 2. No mass, hemorrhage, abnormal enhancement, or suspicious findings to account for patient's symptoms. 3. Mild chronic sinusitis. Electronically authenticated by: SLIME ZULUAGA Date: 2022-05-11 10:53 [address] [facility] CREATININEon 05-10-2022 Creatinine [Mass/Vol] 0.71 mg/dL Normal 0.55-1.02 [facility] Comment on above: Performed By: #### C TYLOR #### [facility] [address] [address] [address] Keiry Vogel EGFR-AF FINNISH >60 Normal >=60 [facility] Comment on above: Performed By: #### C TYLOR #### [facility] [address] [address] [address] Keiry Vogel EGFR-NON AF FINNISH >60 Normal >=60 [facility] Comment on above: Performed By: #### C TYLOR #### [facility] [address] [address] [address] Keiry Vogel Vital Signs Date Time Vital Sign Value Performing Clinician Vivien mccoy 03-07-2023 08:53-0400 Body weight 122.92 kg [employer] Work Phone: [facility] 03-07-2023 08:53-0400 Diastolic blood pressure 82 mm[Hg] Khalif Collin Work Phone: [facility] 03-07-2023 08:53-0400 Heart rate 79 /min Khalif Collin Work Phone: [facility] 03-07-2023 08:53-0400 Respiratory rate 20 /min Khalif Collin Work Phone: [facility] 03-07-2023 08:53-0400 SaO2% (BldA) [Mass fraction] 99 % [employer] Work Phone: [facility] 03-07-2023 08:53-0400 Systolic blood pressure 119 mm[Hg] Khalif Polanco Work Phone: [facility] 01-23-2023 14:28-0400 Body temperature 98 [degF] Khalif Polanco Work Phone: [facility] 01-23-2023 14:090400 Body height 167.64 cm Khalif Polanco Work Phone: [facility] Encounters Encounter Date Encounter Type Care Provider Facility Start: 11-23-2023 End: 11-23-2023 ambulatory SHAIKH DWAINEJANNY Not Available Start: 09-11-2023 ambulatory Zak House Facility: [facility] Start: 03-10-2023 End: 03-10-[address] KHALIF POLANCO . Facility:[facility] Start: 03-07-2023 End: 03-07-2023 ambulatory Khalif Polanco Work Phone: [facility] Work Phone: Start: 03-07-2023 End: 03-07-2023 Registered Recurring Khalif Polanco Work Phone: [facility] Work Phone: Start: 03-02-2023 Encounter for preprocedural cardiovascular examination DR KHALIF POLANCO . [facility] Start: 03-02-2023 Encounter for preprocedural laboratory examination DR KHALIF POLANCO . [facility] Start: 02-27-2023 End: 02-28-[address] KHALIF POLANCO . Facility:[facility] Start: 02-27-2023 End: 02-28-2023 Encounter for preprocedural laboratory examination DR KHALIF POLANCO . Facility:[facility] Start: 01-20-2023 End: 01-21-2023 ambulatory Slime Zuluaga Facility:[facility] Start: 12-14-2022 End: 12-15-2022 ambulatory MARY LOU MATT . Facility:[facility] Start: 12-07-2022 End: 12-08-2022 ambulatory MARY LOU MATT . Facility:[facility] Start: 12-05-2022 End: 12-05-2022 ambulatory MARY LOU MATT . Facility:[facility] Start: 05-10-2022 End: 05-11-[address] ZAK FARRIS Facility:[facility] Plan of Treatment Date Care Activity Detail Author Cardiolipin IgA Ab [ Units/volume] in Serum by Immunoassay [facility] enter Cardiolipin IgG Ab [ Units/volume] in Serum by Immunoassay [facility] enter Cardiolipin IgM Ab [ Units/volume] in Serum by Immunoassay [facility] enter Comprehensive metabo lic 2000 panel - Serum or Plasma [facility] enter Factor VIII: C assay [facility] Protein C actual/nor mal in Platelet poor plasma by Chromogenic method [facility] Protein C Ag actual/ normal in Platelet poor plasma by Immunoassay [facility] Payers Date Payer Category Payer Self-pay 1980 Unknown [id number] 2.16.84 [id number] 1980 Unknown [id number] 2.16.84 [id number] 1980 Unknown [id number] 2.16.84 [id number] 1980 Unknown [id number] 2.16.84 [id number] 1982 Unknown [id number] 2.16.84 [id number] 1982 Unknown [id number] 2.16.84 [id number] 1980 Unknown [id number] 2.16.84 [id number] 1980 Unknown [id number] 2.16.84 [id number] 1957 Medicaid [id number] Unknown [id number] 2.16.8 [id number] Social History Date Type Detail Facility Start: 01-23-2023 End: 03-07-2023 Tobacco smoking status NHIS Never smoked tobacco (finding) [facility] Start: 1980 Sex Assigned At Female F [facility] Clinical Note 03-10-2023 Note Date & Type Note Facility 03-10-2023 Note OPERATIVE NOTE OPERATION DATE: 03/10/2023 PROCEDURE: D AND C hysteroscopy with Myosure. PREOPERATIVE DIAGNOSIS: Menorrhagia, thickened endometrium. POSTOPERATIVE DIAGNOSIS: Menorrhagia, very thickened endometrium. No gross evidence of polyps or fibroids; however, due to the amount of tissue, was concerned and will send off tissue to pathology. ANESTHESIA: General. SURGEON: Khalif Polanco D.O. CREDIT AND COLLECTIONS REPRESENTATIVE: None. URINE OUTPUT: Yellow and clear. BLOOD LOSS: 5 mL. SPECIMEN: Endometrial curettings. PROCEDURE: The patient was taken back to the Operating Room where she was prepped and draped in normal sterile fashion after being placed under general anesthesia without difficulty. She was also placed in the dorsal lithotomy position. A weighted speculum was placed in the patient's vagina. The anterior lip of the cervix was identified and grasped with a single tooth tenaculum. The patient's uterus was then sounded roughly to 12 cm. The patient was then gently dilated using Hegar dilators. The hysteroscope was passed through the patient's cervix into the uterus. Both ostia were identified; very thickened appearing endometrium. No gross evidence of malignancy. Please note that the MyoSure apparatus was placed through the hysteroscope under direct visualization. The apparatus was engaged and endometrial curettings were removed under direct visualization. The MyoSure was then removed from the scope. The hysteroscope was then removed from the patient's uterus. The endometrial curettings were sent out to pathology. The single tooth tenaculum was then removed from the patient's anterior lip of the cervix where excellent hemostasis was noted. All instruments were removed from the patient's vagina. The patient tolerated the procedure well. Sponge, lap and needle counts were correct times two. The patient was taken to the Recovery Room in stable condition. [facility] Consult note 02-02-2023 Note Date & Type Note Facility 02-02-2023 Consult note Note Date/Time January 23, 2023 3:37pm [facility] [address] [id number] Hem/Onc Consult Note - OP Signed Patient: Adarsh Morrell MR#: [id number] : 1980 Acct:[id number] Age/Sex: 42 / F Type: REG RCR Copies to: DO Khalif Rondon~ HPI Date/Time of Service: Date of Service: 01/23/2023 Time of Service: 15:20 Referring Provider/PCP: Referring Provider: Khalif Polanco PCP: Zak Farris DO - History of Present Illness Reason for Consultation: History of Factor VIII deficiency; DVT and pulmonary embolism Chief Complaint: Patient is here today for a referral from Dr Polanco for hx: blood clots HPI: Dear Dr. Polanco, I have seen your patient in consultation and would like to thank you for the courtesy of your referral. As you know, Adarsh Morrell is a very nice 42 year old female with a past medical history significant for: Diabetes mellitus, hypertension, kidney stones, varicose veins, superficial thrombophlebitis and menorrhagia. 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 At the time, she was initially started on Warfarin under the direction of her PCP, Dr. Farris, but was later transitioned to direct factor Xa inhibitor with Rivaroxaban. She was initially on standard 20mg dosing; but due to heavy, dysfunctional menstrual bleeding was later changed to 10 mg daily dosing. She also has documentation in medical record of diagnosed Factor V and Factor VIII deficiency; but she is unsure as to what typeof hypercoagulable work up was done. We will attempt to request lab testing from6 years ago for comparison. In regards to bleeding history; the patient reports chronic, heavy menstrual periods for many years. She has been on oral contraceptives on and off over the years; but is not currently on oral contraceptives and denies use of oral contraceptives, as well as smoking when she was previously diagnosed with her DVT and pulmonary embolism. She is 1; para 1; no losses. Surgical history is notable for previous section in 2010 and cholecystectomy. She denies any significant bleeding complications surrounding her previous surgical interventions. Furthermore, she denies any easy bruising/bleeding, no gingival bleeding or epistaxis. Denies melena, hematuria,hematochezia or bright red blood per rectum. She is a never smoker; does not drink alcohol. No personal or family history of bleeding or clotting disorders that she is aware of; no personal or family history of malignancy. Her mother did have a blood clot, but this appears to have been provoked as it was after a surgical intervention. She has been referred to our outpatient hematology clinic for evaluation of previous thrombosis and history of factor VIII deficiency. As noted above, I do not have available records of previous hypercoagulable work up; she has never seen a chief yeoman in the past. She recently underwent endometrial biopsy with Dr. Polanco on 01/17/2023 and has been recommended to proceed with a D & C procedure in an attempt to better control her heavy, dysfunctional menstrual periods. Her menstrual periods are irregular and total duration can last anywhere from 10-14 days; with 5-7 of those days being very heavy. Tentatively her D & C is planned for March 10, 2023. [facility] - Medical History Medical History: Medical History (Last Updated 01/23/23 @ 13:57 by Lore Andres) delivery delivered Diabetes mellitus DVT (deep venous thrombosis) Factor V and factor VIII deficiency History of blood clots HTN (hypertension) Menstrual irregularity Phlebitis and thrombophlebitis of deep veins of lower extremities Varicose veins of lower extremity - Surgical History Surgical History: Surgical History (Last Updated 01/20/23 @ 15:46 by Lore Andres) H/O lithotripsy History of cholecystectomy - Family History Family History: Family History (Last Updated 01/20/23 @ 15:48 by Lore Andres) Father High cholesterol Heart disease Father HTN (hypertension) Mother Diabetes - Social History Smoking Status: Never smoker Home Medications & Allergies Allergies No Known Allergies Allergy (Verified 01/23/23 14:24) Home Medications lisinopril 2.5 mg tablet 2.5 mg PO DAILY 01/20/23 [History Confirmed 01/23/23] metformin 1,000 mg tablet 1,000 mg PO DAILY 01/20/23 [History Confirmed 01/23/23] rivaroxaban 10 mg tablet (Xarelto) 10 mg PO DAILY 01/20/23 [History Confirmed 01/23/23] Subjective Data - Diagnosis DIAGNOSIS: 1.) DVT with subsequent pulmonary embolism - age at diagnosis: 36 2.) On oral anticoagulation with Xarelto 10 mg PO daily (at lower dose due to heavy menstrual periods) Objective - Resuscitation Status Resuscitation Status: Full Code - Height/Weight Height/Weight: Height 5 ft 6 in Weight 127.459 kg - Vital Signs Vital Signs: 01/23/23 14:28 Temperature 98.0 F Pulse Rate [Left Brachial] 81 Respiratory Rate 16 Blood Pressure [Left Arm] 131/84 02 Sat by Pulse Oximetry 98 Oxygen Delivery Method Room Air Physical Exam Narrative: PHYSICAL EXAMINATION: GENERAL: Alert, pleasant, in no acute distress. PAIN: 0 out of 10 HEENT: Head is normocephalic, atraumatic. No scleral icterus. Oral mucosa is pink and moist. No lesions or exudate. NECK: Supple without adenopathy or thyromegaly. HEART: Regular rate and rhythm. S1 and S2 normal. LUNGS: Lungs clear to auscultation bilaterally. No wheezes or crackles. ABDOMEN: Abdomen soft, nontender, nondistended. No hepatosplenomegaly. Bowel sounds present x4 quadrants. BACK: Full ROM; No CVA tenderness. EXTREMITIES: Warm and dry. No edema, clubbing or cyanosis. NEUROLOGICAL: No focal or sensory deficits. The patient is alert and oriented x3 - ECOG Performance Status ECOG Score: 0 Assessment and Plan (1) Factor VIII deficiency Patient has been referred to our hematology clinic for evaluation of documentation of Factor VIII deficiency with past medical history notable for thrombosis with right lower extremity DVT and subsequent pulmonary embolism. This occurred in 2017 at the age of 36. From all accounts, this appears to have been an unprovoked clotting event and has been maintained on anticoagulation over the last 6 years. At the time, she was initially started on Warfarin under the direction of her PCP, Dr. Farris, but was later transitioned to direct factorXa inhibitor with Rivaroxaban. She was initially on standard 20 mg dosing; but due to heavy, dysfunctional menstrual bleeding was later changed to 10 mg daily dosing. She also has documentation in medical record of diagnosed Factor V and Factor VIII deficiency; but she is unsure as to what type of hypercoagulable work up was done. We will attempt to request lab testing from 6 years ago for comparison. In regards to bleeding history; the patient reports chronic, heavy menstrual periods for many years. She has been on oral contraceptives on and off over the years; but is not currently on oral contraceptives and denies use of oral contraceptives, as well as smoking when she was previously diagnosed with her DVT and pulmonary embolism. She is 1; para 1; no losses. Surgical history is notable for previous section in 2011 and cholecystectomy. She denies any significant bleeding complications surrounding her previous surgical interventions. Furthermore, she denies any easy bruising/bleeding, no gingival bleeding or epistaxis. No personal or family history of bleeding or clotting disorders that she is aware of; no personal or family history of malignancy. We have requested her records from [facility] in 2017; she is unsure whatshe was tested for; but does not think she ever had a hypercoagulability panel or von willebrand testing, given her heavy menstrual cycles. To be prudent we will request repeat hypercoagulable work up, including lupus anticoagulant testing, as well as Von Willebrand testing. Reviewed most recent labs including coag panel - which revealed normal PT/INR and normal PTT. Will Check: Lupus anticoagulant panel, factor V Leiden gene, protein C&S, beta-2glycoprotein's, anticardiolipin antibodies, antiphospholipid antibodies, VWF activity and antigen, and factor VIII activity. In regards to her upcoming surgical procedure - planning D&C on 03/10/2023 - wouldrecommend holding anticoagulation (Xarelto) 1 day before surgery, hold on the day of surgery - may resume 1 day after surgery for a total interruption time of2 days. With direct oral anticoagulants if the bleeding risk of the procedure islow/moderate this is typical recommendation. For higher bleeding risk procedures: we recommend holding anticoagulation 2 daysbefore surgery, the day of surgery, and the day after for a total duration of 4 days. Follow up in 3-4 weeks to review results. 2.) History of DVT 3.) History of pulmonary embolism (2) History of DVT (deep vein thrombosis) (3) History of pulmonary embolism - Time with Patient Total Time Spent with Patient (Consult): 45 mins - review history, outside labs,order hypercoag panel Coordination of Care & Counseling Time: Greater than 50% of time spent with patient was for coordination of care (as documented) and [id number] counseling of patient and/or family. Dictated By: Margie Harrison APRN DD/ 1520 Signed By: <Electronically signed by SUSANNA Harrison> 02/01/23 2227 [facility] Work Phone: Evaluation note Note Date & Type Note Facility Evaluation note No assessment information availa ble [facility] Work Phone: Evaluation note Note Date & Type Note Facility Evaluation note Diagnosis Onset Date History of DVT (deep vein thrombosis) acute History of pulmonary embolism acute [facility] Work Phone: Progress note Note Date & Type Note Facility Progress note Note Date/Time March 07, 2023 9:07[facility] [place] [id number] Hem/Onc Follow Up Note - OP Signed Patient: Adarsh Morrell MR#: [id number] : 1980 Acct:[id number] Age/Sex: 42 / F Type: REG RCR Copies to: DO Khalif Rondon DO~ Date of Service: 03/07/2023 Time of Service: 09:05 - Assessment & Plan (1) History of DVT (deep vein thrombosis) Plan: Unprovoked DVT/PE at age 36. She had severe chest pain. Required oxygen for a day or two. she was non on oral contraceptives. no prolonged immobility. she was not a smoker. She has been on xarelto since. She was initially on standard 20 mg dosing; but due to heavy, dysfunctional menstrual bleeding was later changed to 10 mg daily dosing. On labs in february 2023, she does NOT have leiden V deficiency. Her factor VIII is elevated, this has no clinical considerations though. Will Check: Lupus anticoagulant panel, factor V Leiden gene, protein C&S, beta-2glycoprotein's, anticardiolipin antibodies, antiphospholipid antibodies, VWF activity and antigen, and factor VIII activity. In regards to her upcoming surgical procedure - planning D&C on 03/10/2023 - wouldrecommend holding anticoagulation (Xarelto) 2 day before surgery, hold on the day of surgery - may resume 1 day after surgery for a total interruption time of3 days. With direct oral anticoagulants if the bleeding risk of the procedure islow/moderate this is typical recommendation. For higher bleeding risk procedures: we recommend holding anticoagulation 2 daysbefore surgery, the day of surgery, and the day after for a total duration of 4 days. I recommend lifelong anticoagulation. 2.) History of DVT 3.) History of pulmonary embolism severe iron deficiency. intolerant of oral iron. secondary to blood loss, menstrual on anticoagulant. will replete intravenously. (2) History of pulmonary embolism Follow Up Instructions: f/u in 6 months cbc, cmp, iron studies prior. venofer x 3 doses. - History of Present Illness Chief Complaint: Patient is here for a 6 week follow up, initially seen by Margie. Had labs 01/23/23 for review. HPI: Dear Dr. Polanco, I have seen your patient in consultation and would like to thank you for the courtesy of your referral. As you know, Adarsh Morrell is a very nice 42 year old female with a past medical history significant for: Diabetes mellitus, hypertension, kidney stones, varicose veins, superficial thrombophlebitis and menorrhagia. 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 At the time, she was initially started on Warfarin under the direction of her PCP, Dr. Farris, but was later transitioned to direct factor Xa inhibitor with Rivaroxaban. She was initially on standard 20mg dosing; but due to heavy, dysfunctional menstrual bleeding was later changed to 10 mg daily dosing. She also has documentation in medical record of diagnosed Factor V and Factor VIII deficiency; but she is unsure as to what typeof hypercoagulable work up was done. We will attempt to request lab testing from6 years ago for comparison. In regards to bleeding history; the patient reports chronic, heavy menstrual periods for many years. She has been on oral contraceptives on and off over the years; but is not currently on oral contraceptives and denies use of oral contraceptives, as well as smoking when she was previously diagnosed with her DVT and pulmonary embolism. She is 1; para 1; no losses. Surgical history is notable for previous section in 2011 and cholecystectomy. She denies any significant bleeding complications surrounding her previous surgical interventions. Furthermore, she denies any easy bruising/bleeding, no gingival bleeding or epistaxis. Denies melena, hematuria,hematochezia or bright red blood per rectum. She is a never smoker; does not drink alcohol. No personal or family history of bleeding or clotting disorders that she is aware of; no personal or family history of malignancy. Her mother did have a blood clot, but this appears to have been provoked as it was after a surgical intervention. She has been referred to our outpatient hematology clinic for evaluation of previous thrombosis and history of factor VIII deficiency. As noted above, I do not have available records of previous hypercoagulable work up; she has never seen a chief yeoman in the past. She recently underwent endometrial biopsy with Dr. Polanco on 01/17/2023 and has been recommended to proceed with a D & C procedure in an attempt to better control her heavy, dysfunctional menstrual periods. Her menstrual periods are irregular and total duration can last anywhere from 10-14 days; with 5-7 of those days being very heavy. Tentatively her D & C is planned for March 10, 2023. 03/07/23 She has profound iron deficiency She does NOT have leiden V mutation. She does have abnormal lupus antibody profile, but she is on xarelto 10mg daily. She has elevated vwf number, i am not sure if this is related to her xarelto. - Physical Exam PHYSICAL EXAMINATION: GENERAL: Alert, pleasant, in no acute distress. PAIN: 0 out of 10 HEENT: Head is normocephalic, atraumatic. No scleral icterus. Oral mucosa is pink and moist. No lesions or exudate. NECK: Supple without adenopathy or thyromegaly. HEART: Regular rate and rhythm. S1 and S2 normal. LUNGS: Lungs clear to auscultation bilaterally. No wheezes or crackles. ABDOMEN: Abdomen soft, nontender, nondistended. No hepatosplenomegaly. Bowel sounds present x4 quadrants. BACK: Full ROM; No CVA tenderness. EXTREMITIES: Warm and dry. No edema, clubbing or cyanosis. NEUROLOGICAL: No focal or sensory deficits. The patient is alert and oriented x3 - Time with Patient Coordination of Care & Counseling Time: Greater than 50% of time spent with patient was for coordination of care (as documented) and [id number] counseling of patient and/or family. PMF - Medical History Medical History: Medical History (Last Updated 01/23/23 @ 13:57 by Lore Andres) delivery delivered Diabetes mellitus DVT (deep venous thrombosis) Factor V and factor VIII deficiency History of blood clots HTN (hypertension) Menstrual irregularity Phlebitis and thrombophlebitis of deep veins of lower extremities Varicose veins of lower extremity - Surgical History Surgical History: Surgical History (Last Updated 01/20/23 @ 15:46 by Lore Andres) H/O lithotripsy History of cholecystectomy - Family History Family History: Family History (Last Updated 01/20/23 @ 15:48 by Lore Andres) Father High cholesterol Heart disease Father HTN (hypertension) Mother Diabetes - Social History Smoking Status: Never smoker Additional Data - Additional Objective Data Height/Weight: Height 5 ft 6 in Weight 122.924 kg Vital Signs: 03/07/23 08:53 Pulse Rate [Left Brachial] 79 Respiratory Rate 20 Blood Pressure [Left Arm] 119/82 02 Sat by Pulse Oximetry 99 Oxygen Delivery Method Room Air - Home Medications and Allergies Allergies/Adverse Reactions: Allergies No Known Allergies Allergy (Verified 01/23/23 14:24) Home Medications: Home Medications lisinopril 2.5 mg tablet 2.5 mg PO DAILY 01/20/23 [History Confirmed 03/07/23] metformin 1,000 mg tablet 1,000 mg PO DAILY 01/20/23 [History Confirmed 03/07/23] rivaroxaban 10 mg tablet (Xarelto) 10 mg PO DAILY 01/20/23 [History Confirmed 03/07/23] Dictated By: Sam Hall II, DO DD/ 09 Signed By: <Electronically signed by Sam Hall II, DO> 03/07/23 0913 [facility] Work Phone: Family History No Family History Records Found Relationship Condition Age at Onset Recorded Date/T franchesca father High blood cholesterol Unknown Heart disease Unknown father Hypertension Unknown Not Specified Diabetes mellitus Unknown Advance Directives No Advanced Directives Records Found Advance Directive Response Recorded Date/ Time Advance Directives No January 19, 2 023 11:07am Chief Complaint and Reason for Visit Chief Complaint Hx of blood clots Reason for Visit History of DVT (deep vein thrombosis) History of pulmonary embolism Summary Purpose Additional Source Comments Goals (unrecognized section and content) Goals may be documented in a n alternate sectionGoals may be documented in an alternate section Care Teams (unrecognized sec tion and content) Team Status: Active Member Role Status Dates Zak Farris DO Primary Care Provider Active Team Status: Active Member Role Status Dates Margie Harrison APRN Attending Provider Active Khalif Polanco Referring Provider Active Zak Farris DO Primary Care Provider Active INFORMATION SOURCE (unrecogn ized section and content) DATE CREATED AUTHOR 03/17/2023 [facility] DATE CREATED AUTHOR AUTHOR'S ORGANIZ ATION 09/28/2023 [facility] DATE CREATED AUTHOR AUTHOR'S ORGANIZ ATION 11/24/2023 [facility] EPIC FOR RECORDS PERTAINING TO PATIENTS WHO ARE OR HAVE BEEN ENROLLED IN A CHEMICAL DEPENDENCY/SUBSTANCEABUSE PROGRAM, SOME INFORMATION MAY BE OMITTED. This clinical summary was aggregated from multiple sources. Caution should be exercised in using it in the provision of clinical care. This summary normalizes information from multiple sources, and as a consequence, information in this document may materially change the coding, format and clinical context of patient data. In addition, data may be omitted in some cases. CLINICAL DECISIONS SHOULD BE BASED ON THE PRIMARY CLINICAL RECORDS. [facility] [employer] provides no warranty or guarantee of the accuracy or completeness of information in this document.
[2023-12-04 15:18] LABS: TSH W/ REFLEX FT4 0.618 uIU/mL (0.358-3.740)
== END 2023-12-04 14:12 | disposition home or self-care (01) ==
LOC: CARD 14:11
PROVIDERS: PCP Internal Medicine; Visit Provider Internal Medicine
DX: R00.0 Tachycardia, unspecified (principal)
CPT/HCPCS: 36415; 84443; 93005

== ENCOUNTER 2024-02-29 13:44 | Outpatient (OUT) | payer OTHER, SELFPAY ==
[2024-02-29 14:52] LABS: Creatinine Urine Random 228.98 mg/dL (20.00-300.00); Microalbum Creatinine Ratio Ur 34.5 mg/g (0.0-29.9); Microalbumin Urine Random 7.9 mg/dL (<=30.0)
[2024-02-29 16:08] LABS: Basophils Absolute Auto 0.1 10^3/uL (0.0-0.1); Eosinophils Absolute Auto 0.1 10^3/uL (0.0-0.7); Eosinophils Percent Auto 1.7 % (0.9-7.0); Hematocrit 41.5 % (36.0-48.0); Immature Granulocytes Abs Auto 0.02 10^3/uL (0.00-0.03); Immature Granulocytes Pct Auto 0.2 % (0.0-0.5); Lymphocytes Absolute Auto 2.4 10^3/uL (1.2-3.8); Lymphocytes Percent Auto 29.1 % (20.5-60.0); Mean Corpuscular HGB Conc 31.3 g/dL (29.9-35.2); Mean Corpuscular Volume 92.6 fL (81.0-99.0); Mean Platelet Volume 10.1 fL (9.5-13.5); Monocytes Absolute Auto 0.4 10^3/uL (0.3-0.8); Monocytes Percent Auto 5.2 % (1.7-12.0); Neutrophils Absolute Auto 5.1 10^3/uL (1.4-6.5); Neutrophils Percent Auto 62.8 % (43.0-75.0); Platelet Count 377 10^3/uL (150-450); Red Blood Count 4.48 10^6/uL (4.20-5.40); Red Cell Distribution Width 13.8 % (11.0-15.0); White Blood Count 8.1 10^3/uL (4.0-11.0)
== END 2024-02-29 13:45 | disposition home or self-care (01) ==
LOC: LAB 13:45
PROVIDERS: PCP Internal Medicine; Visit Provider Internal Medicine
DX: E11.9 Type 2 diabetes mellitus without complications (principal); K62.5 Hemorrhage of anus and rectum
CPT/HCPCS: 36415; 82043; 82570; 85025

== ENCOUNTER 2024-02-29 13:50 | Outpatient (OUT) | payer OTHER, SELFPAY ==
--- NOTE | 2024-02-29 13:52 | MM_ITS ---
Patient Name: ADARSH BOWSER MR#: [id number] : 1980 Exam Date: 02/29/2024 Ordering Doctor: Non-Staff Physician RADIOLOGY REPORT PROCEDURE: MM TOMOSYNTHESIS SCREENING BI COMPARISON: MG MAMM RT DIAG FU, 01/20/2023. MG MAMM SCREEN 3D WILIAM CAD, 12/14/2022. INDICATIONS: Screening Calculator Name NCI Breast Cancer Risk Assessment Tool 5 Year Breast Cancer Risk 0.60% Lifetime Breast Cancer Risk 10.10% Personal Breast Cancer No Personal Ovarian Cancer No Treatments None Family Cancers Grandfather-maternal with lung cancer at age 62; Aunt-maternal with lung cancer at age 63; Uncle-maternal with throat cancer at age 64. LOCATION: [facility] BREAST COMPOSITION: The breasts are heterogeneously dense,which may obscure small masses. FINDINGS: DIAGNOSTIC CATEGORY 2--BENIGN FINDING: RIGHT BREAST: No significant suspicious finding. Stable asymmetry within upper-outer quadrant. No significant change has occurred. LEFT BREAST: No significant suspicious finding. No significant change has occurred. RECOMMENDATIONS: ROUTINE MAMMOGRAM AND CLINICAL EVALUATION IN 12 MONTHS. PLEASE NOTE: A NORMAL MAMMOGRAM DOES NOT EXCLUDE THE POSSIBILITY OF BREAST CANCER. A CLINICALLY SUSPICIOUS PALPABLE LUMP SHOULD BE BIOPSIED. Dictated by: Bin Zuluaga M.D. on 02/29/2024 at 16:14 Approved by: Bin Zuluaga M.D. on 02/29/2024 at 16:18
== END 2024-02-29 13:51 | disposition home or self-care (01) ==
LOC: MAMMO 13:50
PROVIDERS: PCP Internal Medicine
DX: Z12.31 Encounter for screening mammogram for malignant neoplasm of breast (principal); E11.9 Type 2 diabetes mellitus without complications; K62.5 Hemorrhage of anus and rectum; Z80.1 Family history of malignant neoplasm of trachea, bronchus and lung; Z80.8 Family history of malignant neoplasm of other organs or systems
CPT/HCPCS: 36415; 77063; 77067; 82043; 82570; 85025

== ENCOUNTER 2024-05-17 07:11 | Outpatient (OUT) | payer OTHER, SELFPAY ==
[2024-05-17 08:30] LABS: Estimated Average Glucose 126 mg/dL
== END 2024-05-17 07:12 | disposition home or self-care (01) ==
LOC: LAB 07:13
PROVIDERS: PCP Internal Medicine; Visit Provider Internal Medicine
DX: E11.29 Type 2 diabetes mellitus with other diabetic kidney complication (principal); R80.9 Proteinuria, unspecified
CPT/HCPCS: 36415; 83036

== ENCOUNTER 2024-09-26 13:38 | Outpatient (OUT) | payer OTHER, SELFPAY ==
--- OUTSIDE RECORDS SUMMARY | 2024-09-26 13:49 | XMS_ITS | CCD ---
Author Organization [facility] Care Team Providers Care Ad Compositor Name Role Phone SUSANNA Harrison Attending Provider Khalif Polanco Referring Provider DO Zak Farris Primary Care Provider COLLIN ., DR MENJIVAR Admitting Unavailable COLLIN ., DR MENJIVAR Attending Unavailable COLLIN ., DR MENJIVAR Consulting Unavailable HOUSE, DR CHAPA Primary Care Unavailable COLLIN ., DR MENJIVAR Admitting Unavailable COLLIN ., DR MENJIVAR Attending Unavailable COLLIN ., DR MENJIVAR Consulting Unavailable HOUSE, DR CHAPA Primary Care Unavailable KANDI, NURIA Consulting Unavailable ROSALINA, RAMA Consulting Unavailable CASPER, DR CHAPA Consulting Unavailable CASPER, DR CHAPA Primary Care Unavailable HOUSE, DR CHAPA Admitting Unavailable HOUSE, DR CHAPA Attending Unavailable Zieber, Slime Consulting Unavailable SHAKA ., MARY LOU Attending Unavailable SHAKA ., MARY LOU Consulting Unavailable SHAKA ., MARY LOU Admitting Unavailable HOUSE, DR CHAPA Primary Care Unavailable SHAKA ., MARY LOU Attending Unavailable SHAKA ., MARY LOU Consulting Unavailable SHAKA ., MARY LOU Admitting Unavailable HOUSE, DR CHAPA Primary Care Unavailable SHAKA ., MARY LOU Attending Unavailable COEYMANS HOLLOW, DR JOCY Altamirano Consulting Unavailable SHAKA ., MARY LOU Admitting Unavailable HOUSE, DR CHAPA Primary Care Unavailable Zieber, Slime Consulting Unavailable SHAKA ., MARY LOU Consulting Unavailable Zieber, Slime Consulting Unavailable SHAKA ., MARY LOU Admitting Unavailable SHAKA ., MARY LOU Attending Unavailable HOUSE, DR CHAPA Primary Care Unavailable SHAKA ., MARY LOU Consulting Unavailable House Zak PHAN Primary Care Provider DO Khalif Polanco Referring Provider [phone] DO Zak Farris Primary Care Provider DO Sam Hall II Attending Provider [phone] Khalif Polanco Referring Unavailable Sam Hall II Admitting Unavaila ble Rafael II, Sam Arrieta Attending Unavaila ble Godfrey, Zak Primary Care Unavailable KHUSHI BORREGO Attending Unavailable HOUSE, ZAK P Referring Unavailable HOUSE, ZAK P Primary Care Unavailable BORREGOKHUSHI TIMMONS Attending Unavailable HOUSE, ZAK P Referring Unavailable HOUSE, ZAK P Primary Care Unavailable SHAIKH PAK Attending Unavailable PASHA, Attending Unavailable IGNACIA MARADIAGA Attending Unavailable FAWWAD, AGUSTIN Referring Unavailable FAWWAD, Attending Unavailable FAWMARCUSD, Attending Unavailable NURIA ANAYA Attending Unavailabl e Medications Current Medications Medication Drug Class(es) Dates Sig (Normalized) Sig (Original) atorvastatin 20 mg oral tablet (2 sources) HMG-CoA Reductase Inhibitor Start: 05-21-2024 take 20 mg by mouth once daily Atorvastatin Active 20 MG PO Daily May 21, 2024 12:00am [facility] (LIPITOR) 20 mg tablet Take 1 tablet (20 mg total) by mouth in the morning. 0 Active docusate sodium 100 mg oral capsule (2 sources) Start: 05-21-2024 take 100 mg by mouth once daily Docusate Sodium Active 100 MG PO Daily May 21, 2024 12:00am Start: 04-24-2023 take 1 capsule by mo ut in the morning, then take 1 capsule by mouth at bedtime docusate sodium (COLACE) 100 mg capsule Take 1 capsule (100 mg total) by mouth in the morning and 1 capsule (100 mg total) before bedtime. 10 capsule 0 04/24/2023 Active 0.5 ml dulaglutide 3 mg/ml auto-injector (1 source) GLP-1 Receptor Agonist dulaglutide (TRULICITY) 1.5 mg/0.5 mL pen injector Inject 1.5 mg under the skin every 7 days. 0 Active fexofenadine hydrochloride 180 mg oral tablet (1 source) Histamine-1 Receptor Antagonist Start: take 1 tablet by mouth once daily as needed fexofenadine (JERMAINE) 180 mg tablet Indications: urticaria Take 1 tablet (180 mg total) by mouth daily as needed Indications: hives. 0 03/01/2023 Active metFORMIN hydrochloride 1000 mg oral tablet (5 sources) Biguanide Start: take 1000 mg by mouth twice daily Metformin Active 1000 MG PO Twice daily May 21, 2024 2:46pm Start: 03-29-2023 take 2 tablets by mo [facility] in the morning, then take 2 tablets by mouth at bedtime metFORMIN (GLUCOPHAGE) 500 mg tablet Take 2 tablets (1,000 mg total) by mouth in the morning and 2 tablets (1,000 mg total) before bedtime. 0 03/29/2023 Active Start: 01-20-2023 End: 05-21-2024 take 1000 mg by mouth once daily Metformin Discontinue d 1000 MG PO Daily January 20, 2023 12:00am May 21, 2024 2:48pm ondansetron 4 mg disintegrating oral tablet (1 source) Serotonin-3 Receptor Antagonist Start: 05-31-2023 take 1 tablet by mouth every eight hours as needed for nausea ondansetron ODT (ZOFRAN ODT) 4 mg disintegrating tablet Dissolve 1 tablet (4 mg total) on tongue every 8 (eight) hours as needed for nausea for up to 10 doses. 10 tablet 0 05/31/2023 Active rivaroxaban 10 mg oral tablet (4 sources) Factor Xa Inhibitor Start: 01-20-2023 take 1 tablet by mouth in the morning XARELTO 10 mg tablet Indications: History of pulmonary embolus (PE) Take 1 tablet (10 mg total) by mouth in the morning. 30 tablet 0 06/14/2023 Active Completed/Discontinued Medications Medication Drug Class(es) Dates Sig (Normalized) Sig (Original) lisinopril 2.5 mg oral tablet (4 sources) Angiotensin Converting Enzyme Inhibitor Start: 01-20-2023 End: 05-21-2024 take 2.5 mg by mouth once daily Lisinopril Discontinued 2.5 MG PO Daily January 20, 2023 12:00am May 21, 2024 2:47pm Problems Active Problems Problem Classification Problem Date Documented Da te Episodic/Chronic Cancer of uterus (3 sources) Malignant neoplasm of endometrium of corpus uteri ; Translations: [Malignant neoplasm of endometrium] Onset: 03-29-2023 12-19-2023 Chronic Coagulation and hemorrhagic disorders (2 sources) Activated protein C resistance; 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] Onset: 03-16-2023 03-29-2023 Chronic Deficiency and other anemia (3 sources) Iron deficiency anemia; Translations: [Iron deficiency anemia, unspecified] Onset: 03-29-2023 03-07-2023 Episodic Diabetes mellitus without complication (2 sources) Type 2 diabetes mellitus without complications; Translations: [Diabetes mellitus] Onset: 03-16-2023 03-29-2023 Chronic Essential hypertension (2 sources) Essential (primary) hypertension; Translations: [Hypertensive disorder] Onset: 03-16-2023 03-29-2023 Chronic Menstrual disorders (5 sources) Excessive and frequent menstruation with regular cycle; Translations: [EXCESS FREQ MENSTRUATION W/REG CYCL] Onset: 03-02-2023 Chronic Other aftercare (1 source) correction (current) use of anticoagulants; Translations: [LONG-TERM CURRNT USE ANTICOAGULANTS] Onset: 03-16-2023 Episodic Other aftercare (1 source) correction (current) use of oral 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 drugs; Translations: [SENIOR IT ENGINEER USE ORAL HYPOGLYCEMIC DX] Onset: 03-16-2023 Episodic Other female genital disorders (2 sources) Pain in female genitalia on intercourse; Translations: [Unspecified dyspareunia] Onset: 09-13-2023 12-19-2023 Chronic Other female genital disorders (1 source) Unspecified dyspareunia; Translations: [Unspecified dyspareunia] Onset: 09-13-2023 Chronic Other nutritional; endocrine; and metabolic disorders [...] body structures; Translations: [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] Onset: 03-16-2023 Chronic Paralysis (1 source) Hemiplegia, unspecified affecting unspecified side; Translations: [HEMIPLEGIA UNS AFFECTING UNS SIDE] Onset: 05-15-2022 Chronic Phlebitis; thrombophlebitis and thromboembolism (7 sources) H/O: Deep vein thrombosis; Translations: [Personal history of other venous thrombosis and embolism] Onset: 03-16-2023 01-23-2023 Episodic Pulmonary heart disease (7 sources) H/O: pulmonary embolus; Translations: [Personal history [...] Problem Classification Problem Date Documented Date Episodic/Chronic Administrative/social admission (2 sources) Patient encounter status; Translations: [Other specified counseling] Onset: 12-19-2023 12-19-2023 Episodic Immunizations and screening for infectious disease (1 [...] Translations: [PARESTHESIA OF SKIN] Onset: 05-10-2022 Episodic Other screening for suspected conditions (not mental disorders or infectious disease) (14 sources) Other abnormal and inconclusive findings on diagnostic imaging of breast; Translations: [Encounter for screening mammogram for malignant neoplasm of breast] Onset: 12-05-2022 Episodic Residual codes; unclassified (1 source) Family history of malignant neoplasm of other organs or systems; Translations: [FAM HX MALIG NEOPLASM OTH ORGN/SYS] Onset: 12-15-2022 Episodic Results Test Name Value Interpretation Reference Range Facility Alanine aminotransferase [En zymatic activity/volume] in Serum or PlasmaOrdered By: Sam Hall on 09-11-2023 ALT [Catalytic activity/Vol] 12 U/L Normal 7-52 [facility] Comment on above: Performed By: #### F ER, CBC, CMP, FE and TIBC #### [address] Albumin [Mass/volume] in Ser um or Plasma by Bromocresol green (BCG) dye binding methoOrdered By: Sam Hall on 09-11-2023 Albumin BCG dye [Mass/Vol] 4.0 g/dL 3.5-5.7 [facility] Alkaline phosphatase [Enzyma tic activity/volume] in Serum or PlasmaOrdered By: Sam Hall on 09-11-2023 ALP [Catalytic activity/Vol] 79 U/L Normal 34-104 [facility] Comment on above: Performed By: #### F ER, CBC, CMP, FE and TIBC #### [address] Aspartate aminotransferase [ Enzymatic activity/volume] in Serum or PlasmaOrdered By: Sam Hall on 09-11-2023 AST [Catalytic activity/Vol] 10 U/L Low 13-39 [facility] Comment on above: Performed By: #### F ER, CBC, CMP, FE and TIBC #### [address] Automated basophil %Ordered By: Sam Hall on 09-11-2023 Basophils/100 WBC (Bld) 0.9 % Normal . [facility] Comment on above: Performed By: #### F ER, CBC, CMP, FE and TIBC #### [address] Automated basophil countOrde red By: Sam Hall on 09-11-2023 Basophils (Bld) [#/Vol] 0.1 10*3/uL Normal 0.0-0.2 [facility] Comment on above: Result Comment: PERF ORMED BY: [address] [place] [address] PATHOLOGIST SHAKER WASHER ODILON COPE M.D. Performed By: #### F ER, CBC, CMP, FE and TIBC #### [address] Automated blood monocyte cou ntOrdered By: Sam Hall on 09-11-2023 Monocytes (Bld) [#/Vol] 0.4 10*3/uL Normal 0.0-0.8 [facility] Comment on above: Performed By: #### F ER, CBC, CMP, FE and TIBC #### [address] Automated eosinophil %Ordere d By: Sam Hall on 09-11-2023 Eosinophils/100 WBC (Bld) 2.0 % Normal . [facility] Comment on above: Performed By: #### F ER, CBC, CMP, FE and TIBC #### [address] Automated eosinophil countOr dered By: Sam Hall on 09-11-2023 Eosinophils (Bld) [#/Vol] 0.2 10*3/uL Normal 0.0-0.45 [facility] Comment on above: Performed By: #### F ER, CBC, CMP, FE and TIBC #### [address] Automated monocyte %Ordered By: Sam Hall on 09-11-2023 Monocytes/100 WBC (Bld) 4.1 % Normal . [facility] Comment on above: Performed By: #### F ER, CBC, CMP, FE and TIBC #### [address] Automated neutrophil %Ordere d By: Sam Hall on 09-11-2023 Neutrophils/100 WBC (Bld) 71.0 % Normal . [facility] Comment on above: Performed By: #### F ER, CBC, CMP, FE and TIBC #### [address] Bilirubin.total [Mass/volume ] in Serum or PlasmaOrdered By: Sam Hall on 09-11-2023 Bilirubin [Mass/Vol] 0.8 mg/dL Normal 0.3-1.0 [facility] Comment on above: Performed By: #### F ER, CBC, CMP, FE and TIBC #### [address] Calcium [Mass/volume] in Ser um or PlasmaOrdered By: Sam Hall on 09-11-2023 Calcium [Mass/Vol] 9.5 mg/dL Normal 8.6-10.3 [facility] Comment on above: Performed By: #### F ER, CBC, CMP, FE and TIBC #### [address] Carbon dioxide, total [Moles /volume] in Serum or PlasmaOrdered By: Sam Hall on 09-11-2023 CO2 [Moles/Vol] 31.6 mmol/L High 21.0-31.0 [facility] Comment on above: Performed By: #### F ER, CBC, CMP, FE and TIBC #### [address] Chloride [Moles/volume] in S yomi or PlasmaOrdered By: Sam Hall on 09-11-2023 Chloride [Moles/Vol] 103 mmol/L Normal 98-107 [facility] Comment on above: Performed By: #### F ER, CBC, CMP, FE and TIBC #### [address] Complete Blood Count Auto Di ffon 09-11-2023 Mean Corpuscular HGB Conc 33.1 g/dL Normal 32.0-35.0 [facility] Comment on above: Performed By: #### F ER, CBC, CMP, FE and TIBC #### [address] NRBC% 0.1 /100{WBC} Normal 0-0.5 [facility] Comment on above: Performed By: #### F ER, CBC, CMP, FE and TIBC #### [facility] [address] Comprehensive Metabolic Pane vi 09-11-2023 Albumin [Mass/Vol] 4.0 g/dL Normal 3.5-5.7 [facility] Comment on above: Performed By: #### F ER, CBC, CMP, FE and TIBC #### [address] Creatinine Clr Calc Pharmacy 150.08 Normal [facility] Comment on above: Performed By: #### F ER, CBC, CMP, FE and TIBC #### [address] GFR/1.73 sq M.predicted MDRD (S/P/Bld) [Vol rate/Area] mL/min/{1.73_m2} Normal [facility] Comment on above: Performed By: #### F ER, CBC, CMP, FE and TIBC #### [address] Creatinine [Mass/volume] in Serum or PlasmaOrdered By: Sam Hall on 09-11-2023 Creatinine [Mass/Vol] 0.66 mg/dL Normal 0.60-1.20 [facility] Comment on above: Performed By: #### F ER, CBC, CMP, FE and TIBC #### [address] Erythrocyte distribution wid th [Ratio] by Automated countOrdered By: Sam Hall on 09-11-2023 Erythrocyte distribution width (RBC) [Ratio] 14.6 % Normal 11.9-15.3 [facility] Comment on above: Performed By: #### F ER, CBC, CMP, FE and TIBC #### [address] Erythrocytes [#/volume] in B lood by Automated countOrdered By: Sam Hall on 09-11-2023 RBC (Bld) [#/Vol] 4.34 10*6/uL Normal 3.60-5.00 [facility] Comment on above: Performed By: #### F ER, CBC, CMP, FE and TIBC #### [facility] [address] [place] [address] [place] Ferritin [Mass/volume] in Se rum or PlasmaOrdered By: Sam Hall on 09-11-2023 Ferritin [Mass/Vol] 38.8 ng/mL Normal 11.0-306.8 [facility] Comment on above: Result Comment: PERF ORMED BY: [place] [address] PATHOLOGIST SHAKER WASHER ODILON COPE M.D. Performed By: #### F ER, CBC, CMP, FE and TIBC #### [facility] [address] Glucose [Mass/volume] in Ser um or PlasmaOrdered By: Sam Hall on 09-11-2023 Glucose [Mass/Vol] 130 mg/dL High 70-100 [facility] Comment on above: ADA recommended refe rence rangeRandom Glucose Reference Range is dependent on time and content of last meal. Glucose of more than 200 mg/dL in a nonstressed, ambulatory subject supports the diagnosis of Diabetes Mellitus. Result Comment: [place] om Glucose Reference Range is dependent on time and content of last meal. Glucose of more than 200 mg/dL in a nonstressed, ambulatory subject supports the diagnosis of Diabetes Mellitus. ADA recommended reference range Performed By: #### F ER, CBC, CMP, FE and TIBC #### [facility] [address] [place] [address] [place] Hematocrit [Volume Fraction] of Blood by Automated countOrdered By: Sam Hall on 09-11-2023 Hematocrit (Bld) [Volume fraction] 39.3 % Normal 34.0-46.4 [facility] Comment on above: Performed By: #### F ER, CBC, CMP, FE and TIBC #### [facility] [address] Hemoglobin [Mass/volume] in BloodOrdered By: Sam Hall on 09-11-2023 Hemoglobin (Bld) [Mass/Vol] 13.0 g/dL Normal 11.8-15.4 [facility] Comment on above: Performed By: #### F ER, CBC, CMP, FE and TIBC #### [facility] [address] Iron [Mass/volume] in Serum or PlasmaOrdered By: Sam Hall on 09-11-2023 Iron [Mass/Vol] 61 ug/dL Normal 50-212 [facility] Comment on above: Performed By: #### F ER, CBC, CMP, FE and TIBC #### [facility] [address] Iron and TIBC Profileon 110 % Iron Saturation 19.6 % Low 20-50 [facility] Comment on above: Performed By: #### F ER, CBC, CMP, FE and TIBC #### [facility] [address] Total Iron Binding Capacity 311 ug/dL Normal 255-450 [facility] Comment on above: Performed By: #### F ER, CBC, CMP, FE and TIBC #### [facility] [address] [place] [id number] [facility] Iron binding capacity [Mass/ volume] in Serum or PlasmaOrdered By: Sam Hall on 09-11-2023 Iron binding capacity [Mass/Vol] 311 ug/dL 255-450 [facility] Iron saturation [Mass Fracti on] in Serum or PlasmaOrdered By: Sam Hall on 09-11-2023 Iron saturation [Mass fraction] 19.6 % Low 20-50 [facility] Leukocytes [#/volume] correc robb for nucleated erythrocytes in Blood by Automated counOrdered By: Sam Hall on 09-11-2023 WBC corrected for nucl RBC Auto (Bld) [#/Vol] 9.4 10*3/uL 3.8-11.6 [facility] Leukocytes [#/volume] in Blo od by Automated countOrdered By: Sam Hall on 09-11-2023 WBC (Bld) [#/Vol] 9.4 10*3/uL Normal 3.8-11.6 [facility] Comment on above: Performed By: #### F ER, CBC, CMP, FE and TIBC #### [address] Lymphocytes [#/volume] in Bl ood by Automated countOrdered By: Sam Hall on 09-11-2023 Lymphocytes (Bld) [#/Vol] 2.1 10*3/uL Normal 1.00-4.8 [facility] Comment on above: Performed By: #### F ER, CBC, CMP, FE and TIBC #### [address] Lymphocytes/100 leukocytes i n Blood by Automated countOrdered By: Sam Hall on 09-11-2023 Lymphocytes/100 WBC (Bld) 22.0 % Normal . [facility] Comment on above: Performed By: #### F ER, CBC, CMP, FE and TIBC #### [address] MCH [Entitic mass] by Automa robb countOrdered By: Sam Hall on 09-11-2023 MCH (RBC) [Entitic mass] 30.0 pg Normal 24.7-34.3 [facility] Comment on above: Performed By: #### F ER, CBC, CMP, FE and TIBC #### [address] MCHC Auto (RBC) [Mass/Vol]Or dered By: Sam Hall on 09-11-2023 MCHC (RBC) [Mass/Vol] 33.1 g/dL 32.0-35.0 [facility] MCV [Entitic volume] by Auto mated countOrdered By: Sam Hall on 09-11-2023 MCV (RBC) [Entitic vol] 90.5 fL Normal 80-100 [facility] Comment on above: Performed By: #### F ER, CBC, CMP, FE and TIBC #### [address] Neutrophils [#/volume] in Bl ood by Automated countOrdered By: Sam Hall on 09-11-2023 Neutrophils (Bld) [#/Vol] 6.6 10*3/uL Normal 1.8-7.7 [facility] Comment on above: Performed By: #### F ER, CBC, CMP, FE and TIBC #### [facility] [address] No Panel InformationOrdered By: Sam Hall on 09-11-2023 Estimated GFR (CKD-EPI) > 60.0 mL/Min [facility] Creatinine Clearance (Chem 150.08 [facility] Nucleated erythrocytes [Pres ence] in Blood by Automated countOrdered By: Sam Hall on 09-11-2023 Nucleated RBC Auto Ql (Bld) 0.1 /100{WBC} 0-0.5 [facility] Platelet mean volume [Entiti c volume] in Blood by Automated countOrdered By: Sam Hall on 09-11-2023 Platelet mean volume (Bld) [Entitic vol] 7.5 fL Normal 6.3-10.7 [facility] Comment on above: Performed By: #### F ER, CBC, CMP, FE and TIBC #### [facility] [address] [place] [address] [place] Platelets [#/volume] in Bloo d by Automated countOrdered By: Sam Hall on 09-11-2023 Platelets (Bld) [#/Vol] 335 10*3/uL Normal 150-450 [facility] Comment on above: Performed By: #### F ER, CBC, CMP, FE and TIBC #### [facility] [address] [place] [address] Potassium [Moles/volume] in Serum or PlasmaOrdered By: Sam Hall on 09-11-2023 Potassium [Moles/Vol] 4.2 mmol/L Normal 3.5-5.1 [facility] Comment on above: Performed By: #### F ER, CBC, CMP, FE and TIBC #### [facility] [address] [place] [address] [place] Protein [Mass/volume] in Ser um or PlasmaOrdered By: Sam Hall on 09-11-2023 Protein [Mass/Vol] 7.1 g/dL Normal 6.4-8.9 [facility] Comment on above: Performed By: #### F ER, CBC, CMP, FE and TIBC #### [address] Serum globulin measurement b y calculation (mass/volume)Ordered By: Sam Hall on 09-11-2023 Globulin (S) [Mass/Vol] 3.1 g/dL Normal [facility] Comment on above: Performed By: #### F ER, CBC, CMP, FE and TIBC #### [address] Serum or plasma albumin/glob ulin mass ratioOrdered By: Sam Hall on 09-11-2023 Albumin/Globulin [Mass ratio] 1.3 {ratio} [facility] Comment on above: Performed By: #### F ER, CBC, CMP, FE and TIBC #### [address] Serum or plasma anion gap de terminationOrdered By: Sam Hall on 09-11-2023 Anion gap [Moles/Vol] 10.6 mmol/L Normal 6.0-15.0 [facility] Comment on above: Performed By: #### F ER, CBC, CMP, FE and TIBC #### [place] [address] [place] Sodium [Moles/volume] in Ser um or PlasmaOrdered By: Sam Hall on 09-11-2023 Sodium [Moles/Vol] 141 mmol/L Normal 136-145 [facility] Comment on above: Performed By: #### F ER, CBC, CMP, FE and TIBC #### [address] Transferrin [Mass/volume] in Serum or PlasmaOrdered By: Sam Hall on 09-11-2023 Transferrin [Mass/Vol] 222 mg/dL Normal 203-362 [facility] Comment on above: Performed By: #### F ER, CBC, CMP, FE and TIBC #### [facility] [address] Urea nitrogen [Mass/volume] in Serum or PlasmaOrdered By: Sam Hall on 09-11-2023 Urea nitrogen [Mass/Vol] 17 mg/dL Normal 7-25 [facility] Comment on above: Performed By: #### F ER, CBC, CMP, FE and TIBC #### [facility] [address] PREG QUANT HCGon 03-10-2023 HCG QUANT <1 Normal [facility] Comment on above: Performed By: #### B MP #### [facility] [address] [place] [address] Dr. Keiry Vogel HCG RANGE SEE BELOW Normal [facility] Comment on above: Result Comment: 5-50 0.2-1 WEEK 50-500 1-2 WEEKS 100-5,000 2-3 WEEKS 500-10,000 3-4 WEEKS 1,000-50,000 4-5 WEEKS 10,000-100,000 5-6 WEEKS 15,000-200,000 6-8 WEEKS 10,000-100,000 2-3 MONTHS Performed By: #### B MP #### [facility] [address] [place] [address] Dr. Keiry Vogel CBC AUTO DIFFon 02-27-2023 BASO # 0.1 103/ul Normal 0.0-0.1 [facility] Comment on above: Performed By: #### C BC #### [facility] [address] [place] [address] Dr. Keiry Vogel Basophils/100 WBC (Bld) 1.0 % Normal 0.2-2.0 [facility] Comment on above: Performed By: #### C BC #### [facility] [address] [place] [address] Dr. Keiry Vogel EO # 0.1 103/ul Normal 0.0-0.7 [facility] Comment on above: Performed By: #### C BC #### [facility] [address] [place] [address] Dr. Keiry Vogel Eosinophils/100 WBC (Bld) 1.8 % Normal 0.9-7.0 [facility] Comment on above: Performed By: #### C BC #### [facility] [address] [place] [address] Dr. Keiry Vogel Erythrocyte distribution width (RBC) [Ratio] 17.7 % Critically high 11.0-15.0 [facility] Comment on above: Performed By: #### C BC #### [facility] [address] [place] [address] Dr. Keiry Vogel Hematocrit (Bld) [Volume fraction] 37.7 % Normal 36.0-48.0 [facility] Comment on above: Performed By: #### C BC #### [facility] [address] [place] [address] Dr. Keiry Vogel Hemoglobin (Bld) [Mass/Vol] 11.7 g/dL Critically low 12.0-16.0 [facility] Comment on above: Performed By: #### C BC #### [facility] [address] [place] [address] Dr. Keiry Vogel IG # 0.01 10e3/ul Normal 0.00-0.03 [facility] Comment on above: Performed By: #### C BC #### [facility] [address] [place] [address] Dr. Keiry Vogel IG % 0.2 % Normal 0.0-0.5 [facility] Comment on above: Performed By: #### C BC #### [facility] [address] [place] [address] Dr. Keiry Vogel LYMPH # 1.4 103/ul Normal 1.2-3.8 [facility] Comment on above: Performed By: #### C BC #### [facility] [address] [place] [address] Dr. Keiry Vogel Lymphocytes/100 WBC (Bld) 28.2 % Normal 20.5-60.0 [facility] Comment on above: Performed By: #### C BC #### [facility] [address] [place] [address] Dr. Keiry Vogel MANUAL DIFF REQ NO Normal [facility] Comment on above: Performed By: #### C BC #### [facility] [address] [place] [address] Dr. Keiry Vogel MCH (RBC) [Entitic mass] 26.1 pg Critically low 26.7-34.0 [facility] Comment on above: Performed By: #### C BC #### [facility] [address] [place] [address] Dr. Keiry Vogel MCHC (RBC) [Mass/Vol] 31.0 g/dL Normal 29.9-35.2 [facility] Comment on above: Performed By: #### C BC #### [facility] [address] [place] [address] Dr. Keiry Vogel MCV (RBC) [Entitic vol] 84.0 fL Normal 81.0-99.0 [facility] Comment on above: Performed By: #### C BC #### [facility] [address] [place] [address] Dr. Keiry Vogel MONO # 0.3 103/ul Normal 0.3-0.8 [facility] Comment on above: Performed By: #### C BC #### [facility] [address] [place] [address] Dr. Keiry Vogel Monocytes/100 WBC (Bld) 6.2 % Normal 1.7-12.0 [facility] Comment on above: Performed By: #### C BC #### [facility] [address] [place] [address] Dr. Kiery Vogel NEUT # 3.2 103/ul Normal 1.4-6.5 [facility] Comment on above: Performed By: #### C BC #### [facility] [address] [place] [address] Dr. Keiry Vogel Neutrophils/100 WBC (Bld) 62.6 % Normal 43.0-75.0 [facility] Comment on above: Performed By: #### C BC #### [facility] [address] [place] [address] Dr. Keiry Vogel Platelet mean volume (Bld) [Entitic vol] 9.1 fL Critically low 9.5-13.5 [facility] Comment on above: Performed By: #### C BC #### [facility] [address] [place] [address] Dr. Keiry Vogel PLT 378 103/ul Normal 150-450 [facility] Comment on above: Performed By: #### C BC #### [facility] [address] [place] [address] Dr. Keiry Vogel RBC 4.49 106/ul Normal 4.20-5.40 [facility] Comment on above: Performed By: #### C BC #### [facility] [address] [place] [address] Dr. Keiry Vogel WBC 5.0 103/ul Normal 4.0-11.0 [facility] Comment on above: Performed By: #### C BC #### [facility] [address] [place] [address] Dr. Keiry Vogel PROF CHEM 8 (BAS METB)on Anion gap [Moles/Vol] 14.4 mmol/L Normal [facility] Comment on above: Performed By: #### B MP #### [facility] [address] [place] [address] Dr. Keiry Vogel Calcium [Mass/Vol] 8.8 mg/dL Normal 8.5-10.1 [facility] Comment on above: Performed By: #### B MP #### [facility] [address] [place] [address] Dr. Keiry Vogel Chloride [Moles/Vol] 102 mmol/L Normal 98-107 [facility] Comment on above: Performed By: #### B MP #### [facility] [address] [place] [address] Dr. Keiry Vogel CO2 [Moles/Vol] 27.4 mmol/L Normal 21.0-32.0 [facility] Comment on above: Performed By: #### B MP #### [facility] [address] [place] [address] Dr. Keiry Vogel Creatinine [Mass/Vol] 0.63 mg/dL Normal 0.55-1.02 [facility] Comment on above: Performed By: #### B MP #### [facility] [address] [place] [address] Dr. Keiry Vogel EGFR-AF PAKISTANI >60 Normal >=60 [facility] Comment on above: Performed By: #### B MP #### [facility] [address] [address] [address] Keiry Vogel EGFR-NON AF PAKISTANI >60 Normal >=60 [facility] Comment on above: Performed By: #### B MP #### [facility] [address] [address] [address] Keiry Vogel Glucose [Mass/Vol] 128 mg/dL Critically high 74-106 [facility] Comment on above: Performed By: #### B MP #### [facility] [address] [place] [address] Dr. Keiry Vogel Potassium [Moles/Vol] 3.8 mmol/L Normal 3.5-5.1 [facility] Comment on above: Performed By: #### B MP #### [facility] [address] [address] [address] Keiry Vogel Sodium [Moles/Vol] 140 mmol/L Normal 136-145 [facility] Comment on above: Performed By: #### B MP #### [facility] [address] [place] [address] Dr. Keiry Vogel Urea nitrogen [Mass/Vol] 10.0 mg/dL Normal 7.0-18.0 [facility] Comment on above: Performed By: #### B MP #### [facility] [address] [place] [address] Dr. Keiry Vogel Urea nitrogen/Creatinine [Mass ratio] 15.9 mg/mg Normal [facility] Comment on above: Performed By: #### B MP #### [facility] [address] [place] [address] Dr. Keiry Vogel PROTIMEon 02-27-2023 INR Coag (PPP) [Relative time] 1.18 {INR} Normal [facility] Comment on above: Performed By: #### P T, PTT #### [facility] [address] [address] [address] Keiry Vogel INR GUIDELINES SEE BELOW Normal [facility] Comment on above: Result Comment: HAROON RED INR: 2.0 - 3.0 CONDITIONS NOT LISTED BELOW 2.5 - 3.5 FOR PROSTHETIC HEART VALVE REPLACEMENT 2.5 - 3.5 RECURRENT THROMBOSIS Performed By: #### P T, PTT #### [facility] [address] [address] [address] Keiry Vogel PT Coag (PPP) [Time] 12.4 s Critically high 9.0-11.6 [facility] Comment on above: Performed By: #### P T, PTT #### [facility] [address] [address] [address] Keiry Vogel PTTon 02-27-2023 aPTT Coag (Bld) [Time] 32.2 s Normal 22.3-36.2 [facility] Comment on above: Performed By: #### P T, PTT #### [facility] [address] [address] [address] Keiry Vogel Activated partial thrombopla stin time (aPTT) in platelet poor plasma by coagulation aOrdered By: Margie Harrison on 01-23-2023 aPTT Coag (PPP) [Time] 24.4 s 22.9-30.2 [facility] Beta 2 glycoprotein 1 IgG Ab [Units/volume] in SerumOrdered By: Margie Harrison on 01-23-2023 Beta 2 glycoprotein 1 IgG Qn (S) <9 0-20 [facility] Comment on above: Result Units: GPI Ig [...] glycoprotein 1 IgM Qn (S) <9 0-32 [facility] Comment on above: Result Units: GPI Ig M unitsThe reference interval reflects a 3SD or 99th percentileinterval, which is thought to represent a potentiallyclinically significant result in accordance with theInternational Consensus Statement on the classificationcriteria for definitive antiphospholipid syndrome (APS). JThromb Haem 2006;4:295-306.Performed at: [facility] [id number] Director: Gustavo Harvey MD, Phone: [phone] Cardiolipin IgA Ab [Units/vo lume] in Serum by ImmunoassayOrdered By: Margie Harrison on 01-23-2023 Cardiolipin IgA IA Qn (S) <9 APL U/mL 0-11 [facility] Comment on above: Negative: <12 Indete rminate: 12 - 20 Low-Med Positive: >20 - 80 High Positive: >80Performed at: [facility] [employer] [id number] Director: Agustín Neal PhD, Phone: [phone] Cardiolipin IgG Ab [Units/vo lume] in Serum by ImmunoassayOrdered By: Margie Harrison on 01-23-2023 Cardiolipin IgG IA Qn (S) <9 GPL U/mL 0-14 [facility] Comment on above: Negative: <15 Indete rminate: 15 - 20 Low-Med Positive: >20 - 80 High Positive: >80 Cardiolipin IgM Ab [Units/vo lume] in Serum by ImmunoassayOrdered By: Margie Harrison on 01-23-2023 Cardiolipin IgM IA Qn (S) <9 MPL U/mL 0-12 [facility] Comment on above: Negative: <13 Indete rminate: 13 - 20 Low-Med Positive: >20 - 80 High Positive: >80 Dilute Josef's viper venom time (DRVVT) confirmatory testOrdered By: Margie Harrison on 01-23-2023 dRVVT actual/normal Coag (PPP) [Relative time] 1.3 ratio High 0.8-1.2 [facility] Dilute Josef's viper venom time (DRVVT) correctionOrdered By: Margiekenzie Harrison on 01-23-2023 dRVVT percent correction Coag (PPP) [% diff] 58.8 sec High 0.0-40.4 [facility] F5 gene mutations found [Kirill ntifier] in Blood or Tissue by Molecular genetics methodOrdered By: Margiekenzie Harrison on 01-23-2023 F5 gene targeted mutation analysis [employer] Nom (Bld/Tiss) See comment . [facility] Comment on above: Result: c.1601G>A (p .[id number]) - Not DetectedThis result is not associated with an increased risk for venousthromboembolism. See Additional Clinical Information andComments.Additional Clinical Information:Venous thromboembolism is a multifactorial diseaseinfluenced by genetic, environmental, and circumstantialrisk factors. The c.1601G>A (p. Isz575Cyn) variant in theF5 gene, commonly referred to [...] F2 c.*97G>Avariant and Factor V Leiden (PMID: 18059617). Additionalrisk factors include but are not limited [...] for health careproviders to discuss results at [phone] ([phone]).Test Details:Variant Analyzed: c.1601G>A (p. Sxb577Mwy), referred toas Factor V LeidenMethods/Limitations:DNA analysis of [...] was developed and its performance characteristicsdetermined by [facility] [facility]. It has not been cleared orapproved by the Food and Drug Administration.References:Edi Garrison, Delphine JOYCE, Josias R, Christina WW, Evin GALLAGHER; ACMGProfessional Practice and Guidelines Committee. Addendum:[employer] consensus statement onfactor V Leiden mutation testing. Jaymie Med. 2020Jan 08.doi: 10.1038/s02653-403-36736-k. PMID: 46517460.Bethany MALAGON. Factor V Leiden Thrombophilia. 1998March 19(Updated 2017Nov 09). In: Kale MP, Sharlene HH, Batsheva RA,et al., editors. Zhane(R) (Internet). [place] ([place]):[facility]; [phone]. Availablefrom: https://www.ncbi.nlm.nih.gov/books/NXB3819/Gio Garrison, Delphine JOYCE, Glen X, Marco B, Makenna EB, Vivian P,Jim CS; ACMG Laboratory Service Correspondent Committee.Venous thromboembolism laboratory testing (factor V Leidenand factor II c.*97G>A), 2018 update: a technical standardof the [employer] and [employer]omics(ACMG). Jaymie Med. 2017;20(12):1900-8166. doi:10.1038/h58036-123-3578-x. Epub 2017Aug 10. PMID: 33728225.Ofelia Grimes, PhD, Gudelia Haas, PhDHood Roberson, PhD, Nicolasa Smith, PhD, Jennifer Castrejon, PhD, FACMALATHI Horton, PhD, Lakeshia Dickey, PhD, Blaine King, PhD, FACMGPerformed at: TG - [facility] [id number] [place], [place] [id number] Director: Delfina Colón [facility], Phone: [phone] Ferritin [Mass/volume] in Se rum or PlasmaOrdered By: Margie Harrison on 01-23-2023 Ferritin [Mass/Vol] 5.8 ng/mL 11.0-306.8 [facility] Free protein S measurementOr dered By: Margie Harrison on 01-23-2023 Protein S Free Ag IA Qn (PPP) 100 % 61-136 [facility] Functional protein C measure mentOrdered By: Margie Harrison on 01-23-2023 Protein C actual/normal Chromogenic method (PPP) [Rel catalytic activity/Vol] 171 % 73-180 [facility] Comment on above: Performed at: [facility] [address] [id number] Director: Gustavo Harvey MD, Phone: [phone] Iron [Mass/volume] in Serum or PlasmaOrdered By: Margie Harrison on 01-23-2023 Iron [Mass/Vol] 62 ug/dL 50-212 [facility] Iron binding capacity [Mass/ volume] in Serum or PlasmaOrdered By: Margie Harrison on 01-23-2023 Iron binding capacity [Mass/Vol] 416 ug/dL 255-450 [facility] Iron saturation [Mass Fracti on] in Serum or PlasmaOrdered By: Margie Harrison on 01-23-2023 Iron saturation [Mass fraction] 14.9 % 20-50 [facility] Laboratory - CoagulationOrde red By: Margie Harrison on 01-23-2023 PT Coag (PPP) [Time] 10.8 s 9.1-12.0 [facility] Lupus anticoagulant [Interpr etation] in Platelet poor plasmaOrdered By: Margie Harrison on 01-23-2023 Lupus anticoagulant (PPP) [Interp] Comment: . [facility] Comment on above: Results are consiste nt [...] anticardiolipin andbeta-2 glycoprotein 1 antibody testing.Performed at: [address] [id number] Director: Gustavo Harvey MD, Phone: [phone] No Panel InformationOrdered By: Margie Harrison on 01-23-2023 Coagulation Factor VIII Activity 273 % High 56-140 [facility] Comment on above: FVIII activity can i [...] elevation has not yet been elucidated (Br JHaematol. 2012; 157:653-663). Functional Protein S 110 % 63-140 [facility] Comment on above: Protein S activity m ay be falsely increased (masking anabnormal, low result) in patients receiving direct Xainhibitor (e.g., rivaroxaban, apixaban, edoxaban) or adirect thrombin inhibitor (e.g., dabigatran) anticoagulanttreatment due to assay interference by these drugs. Platelet poor plasma interna tional normalized ratio (INR) by coagulation assay (relatOrdered By: Margie Harrison on 01-23-2023 INR Coag (PPP) [Relative time] 1.0 {INR} 0.9-1.2 [facility] Comment on above: Reference interval i s for non-anticoagulated patients.Suggested INR therapeutic range for Vitamin Kantagonist therapy: Standard Dose (moderate intensity therapeutic range): 2.0 - 3.0 Higher intensity therapeutic range 2.5 - 3.5 Platelet poor plasma ratio o f lupus anticoagulant-sensitive activated partial thromboOrdered By: Margie Harrison on 01-23-2023 aPTT.lupus sensitive.excess phospholipid actual/normal Coag (PPP) [Relative time] 45.9 sec 0.0-47.6 [facility] Protein C antigen assayOrder ed By: Margie Harrison on 01-23-2023 Protein C Ag actual/normal IA (PPP) [Relative mass conc] 149 % 60-150 [facility] Comment on above: Performed at: [address] [id number] Director: Gustavo Harvey MD, Phone: [phone] Protein S measurement in kimber telet poor plasma by coagulation assay (units/volume)Ordered By: Margie Harrison on 01-23-2023 Protein S Coag Qn (PPP) 93 % 60-150 [facility] Comment on above: This test was develo ped and its performance characteristicsdetermined by [facility]. It has not been cleared orapproved by the Food and Drug Administration. Screening dilute Josef's v iper venom time (DRVVT) with reflex to confirmatory testOrdered By: Margie Harrison on 01-23-2023 dRVVT Coag (PPP) [Time] 67.0 s High 0.0-47.0 [facility] Screening lupus anticoagulan t-sensitive activated partial thromboplastin time (aPTT)Ordered By: Margie Harrison on 01-23-2023 aPTT.lupus sensitive Coag (PPP) [Time] 33.0 sec 0.0-43.5 [facility] TT plasOrdered By: Margie sanchez on 01-23-2023 Thrombin time Coag (PPP) [Time] 18.0 sec 0.0-23.0 [facility] Transferrin [Mass/volume] in Serum or PlasmaOrdered By: Margie Harrison on 01-23-2023 Transferrin [Mass/Vol] 297 mg/dL 203-362 Fi relaPending sale to [facility] factor activi ty measurementOrdered By: Margie Harrison on 01-23-2023 vWf ristocetin cofactor act actual/normal Platelet aggregation (PPP) [Relative time] 226 % High 50-200 [facility] Von Willebrand factor antige n measurementOrdered By: Margie Harrison on 01-23-2023 vWf Ag Qn (PPP) 266 % High 50-200 [facility] Comment on above: VWF may elevate in [...] was developed and its performance characteristicsdetermined by [facility] [facility]. It has not been cleared orapproved by the Food and Drug Administration. aPTT.lupus sensitive/aPTT.ankit pus sensitive W excess phospholipid (screen to confirm raOrdered By: Margie Harrison on 01-23-2023 aPTT.lupus sensitive/aPTT.lupus sensitive W excess phospholipid Coag (PPP) [Ratio] 1.06 Ratio 0.00-1.34 [facility] MG MAMM RT DIAG FUon 023 MG MAMM RT DIAG FU Patient: ELLYN MORRELL Exam Date: 01/20/2023 : 1980 Gender:F Ordering : BRAXTON MATT . Admission #: [id number] Family : Order #: [id number] CLICK HERE TO VIEW EXAM RADIOLOGY REPORT [...] throat cancer at age 66. LOCATION: [facility] BREAST COMPOSITION: Heterogeneously dense,which may obscure small [...] M.D. on 01/20/2023 at 12:30 Normal [facility] US BREAST RIGHT LIMITEDon US BREAST RIGHT LIMITED Patient: ADARSH MORRELL Exam Date: 01/20/2023 : 1980 Gender:F Ordering : BRAXTON MATT . Admission #: [id number] Family : Order #: [id number] CLICK HERE TO VIEW EXAM RADIOLOGY REPORT [...] throat cancer at age 66. LOCATION: [facility] BREAST COMPOSITION: Heterogeneously dense,which may obscure small [...] Zuluaga M.D. on 01/20/2023 at 12:30 Normal [facility] MG MAMM SCREEN 3D WILIAM CADon 12-14-2022 MG MAMM SCREEN 3D WILIAM CAD Patient: ADARSH MORRELL Exam Date: 12/14/2022 : 1980 Gender:F Ordering : BRAXTON MATT . Admission #: [id number] Family : Order #: [id number] CLICK HERE TO VIEW EXAM RADIOLOGY REPORT [...] throat cancer at age 66. LOCATION: [facility] BREAST COMPOSITION: Heterogeneously dense,which may obscure small [...] on 12/15/2022 at 08:20 Approved by: Slime Zuluaga M.D. on 12/15/2022 at 08:32 Normal [facility] US PELVIS AND TRANSVAGon 02- 08-2023 US PELVIS AND TRANSVAG EXAMINATION: US P LOUISE AND TRANSVAG HISTORY: Excessive and frequent menstruation [...] by: JOCY MEI Date: 2022-12-14 18:27 Normal [facility] PAP ACOG PANEL 2: 30 to 65on 12-12-2022 . . Normal [facility] Comment on above: Result Comment: Perf ormed at: WB Performed By: #### B MP #### [facility] [address] [place] [address] Dr. Keiyr Vogel Age Gdln ACOG Testing 30-65 Normal [facility] Comment on above: Performed By: #### B MP #### [facility] [address] [place] [address] Dr. Keiry Vogel DIAGNOSIS: Comment Abnormal [facility] Comment on above: Result Comment: EPIT HELIAL CELL ABNORMALITY. ATYPICAL SQUAMOUS CELLS OF UNDETERMINED SIGNIFICANCE (ASC-US). Performed at: WB Performed By: #### B MP #### [facility] [address] [place] [address] Dr. Keiry Vogel Electronically signed by: Comment Normal [facility] Comment on above: Result Comment: Tarsha Limon MD, Pathologist Performed at: WB Performed By: #### B MP #### [facility] [address] [place] [address] Dr. Keiry Vogel HPV Aptima Negative Normal Negative [facility] Comment on above: Result Comment: This nucleic acid amplification test detects fourteen high-risk HPV types (16,18,31,33,35,39,45,51,52,56,58,59,66,68) without differentiation. Performed at: =G Performed By: #### B MP #### [facility] [address] [place] [address] Dr. Keiry Vogel HPV Genotype Reflex Comment Normal [facility] Comment on above: Result Comment: Crit eria not met, HPV Genotype not performed. Performed at: WB Performed By: #### B MP #### [facility] [address] [place] [address] Dr. Keiry Vogel Methodology: Comment Normal [facility] Comment on above: Result Comment: This liquid based ThinPrep(R) pap test was screened with the use of an image guided system. Performed at: WB Performed By: #### B MP #### [facility] [address] [place] [address] Dr. Keiry Vogel Note: Comment Normal [facility] Comment on above: Result Comment: The [...] WB Performed By: #### B MP #### [facility] [address] [place] [address] Dr. Keiry Vogel Pathologist Provided ICD10 Comment Normal [facility] Comment on above: Result Comment: [id number] Performed at: WB Performed By: #### B MP #### [facility] [address] [place] [address] Dr. Keiry Vgoel Performed by: Comment Normal [facility] Comment on above: Result Comment: Derick Pollard, Crew Foreman (ASCP) Performed at: WB Performed By: #### B MP #### [facility] [address] [place] [address] Dr. Keiry Vogel Recommendation: Comment Abnormal [facility] Comment on above: Result Comment: Sugg est follow up as clinically appropriate. Performed at: WB Performed By: #### B MP #### [facility] [address] [place] [address] Dr. Keiry Vogel Specimen adequacy: Comment Normal [facility] Comment on above: Result Comment: Sati sfactory for evaluation. Endocervical and/or squamous metaplastic cells (endocervical component) are present. Performed at: WB Performed By: #### B MP #### [facility] [address] [place] [address] Dr. Keiry Vogel CBC AUTO DIFFon 12-07-2022 BASO # 0.0 103/ul Normal 0.0-0.1 [facility] Comment on above: Performed By: #### C BC #### [facility] [address] [place] [address] Dr. Keiry Vogel Basophils/100 WBC (Bld) 0.7 % Normal 0.2-2.0 [facility] Comment on above: Performed By: #### C BC #### [facility] [address] [place] [address] Dr. Keiry Vogel EO # 0.1 103/ul Normal 0.0-0.7 [facility] Comment on above: Performed By: #### C BC #### [facility] [address] [place] [address] Dr. Keiry Vogel Eosinophils/100 WBC (Bld) 1.4 % Normal 0.9-7.0 [facility] Comment on above: Performed By: #### C BC #### [facility] [address] [place] [address] Dr. Keiry Vogel Erythrocyte distribution width (RBC) [Ratio] 17.5 % Critically high 11.0-15.0 [facility] Comment on above: Performed By: #### C BC #### [facility] [address] [place] [address] Dr. Keiry Vogel Hematocrit (Bld) [Volume fraction] 37.6 % Normal 36.0-48.0 [facility] Comment on above: Performed By: #### C BC #### [facility] [address] [place] [address] Dr. Keiry Vogel Hemoglobin (Bld) [Mass/Vol] 11.0 g/dL Critically low 12.0-16.0 [facility] Comment on above: Performed By: #### C BC #### [facility] [address] [place] [address] Dr. Keiry Vogel IG # 0.02 10e3/ul Normal 0.00-0.03 [facility] Comment on above: Performed By: #### C BC #### [facility] [address] [place] [address] Dr. Keiry Vogel IG % 0.4 % Normal 0.0-0.5 [facility] Comment on above: Performed By: #### C BC #### [facility] [address] [place] [address] Dr. Keiry Vogel LYMPH # 1.5 103/ul Normal 1.2-3.8 [facility] Comment on above: Performed By: #### C BC #### [facility] [address] [place] [address] Dr. Keiry Vogel Lymphocytes/100 WBC (Bld) 26.8 % Normal 20.5-60.0 [facility] Comment on above: Performed By: #### C BC #### [facility] [address] [place] [address] Dr. Keiry Vogel MANUAL DIFF REQ NO Normal [facility] Comment on above: Performed By: #### C BC #### [facility] [address] [place] [address] Dr. Keiry Vogel MCH (RBC) [Entitic mass] 24.0 pg Critically low 26.7-34.0 [facility] Comment on above: Performed By: #### C BC #### [facility] [address] [place] [address] Dr. Keiry Vogel MCHC (RBC) [Mass/Vol] 29.3 g/dL Critically low 29.9-35.2 [facility] Comment on above: Performed By: #### C BC #### [facility] [address] [place] [address] Dr. Keiry Vogel MCV (RBC) [Entitic vol] 81.9 fL Normal 81.0-99.0 [facility] Comment on above: Performed By: #### C BC #### [facility] [address] [place] [address] Dr. Keiry Vogel MONO # 0.3 103/ul Normal 0.3-0.8 [facility] Comment on above: Performed By: #### C BC #### [facility] [address] [place] [address] Dr. Keiry Vogel Monocytes/100 WBC (Bld) 4.6 % Normal 1.7-12.0 [facility] Comment on above: Performed By: #### C BC #### [facility] [address] [place] [address] Dr. Keiry Voegl NEUT # 3.8 103/ul Normal 1.4-6.5 [facility] Comment on above: Performed By: #### C BC #### [facility] [address] [place] [address] Dr. Keiry Vogel Neutrophils/100 WBC (Bld) 66.1 % Normal 43.0-75.0 [facility] Comment on above: Performed By: #### C BC #### [facility] [address] [place] [address] Dr. Keiry Vogel Platelet mean volume (Bld) [Entitic vol] 9.3 fL Critically low 9.5-13.5 [facility] Comment on above: Performed By: #### C BC #### [facility] [address] [place] [address] Dr. Keiry Vogel PLT 442 103/ul Normal 150-450 [facility] Comment on above: Performed By: #### C BC #### [facility] [address] [place] [address] Dr. Keiry Vogel RBC 4.59 106/ul Normal 4.20-5.40 [facility] Comment on above: Performed By: #### C BC #### [facility] [address] [place] [address] Dr. Keiry Vogel WBC 5.7 103/ul Normal 4.0-11.0 [facility] Comment on above: Performed By: #### C BC #### [facility] [address] [place] [address] Dr. Keiry Vogel FREE T4on 12-07-2022 Free T4 [Mass/Vol] 1.05 ng/dL Normal 0.76-1.46 [facility] Comment on above: Performed By: #### F T4 #### [facility] [address] [place] [address] Dr. Keiry Vogel GLYCOHEMOGLOBIN A1Con 2022 ADA RECOMMENDATION SEE BELOW Normal [facility] Comment on above: Result Comment: ADA RECOMMENDED LIMIT 4.0 - 6.0 ADA THERAPEUTIC TARGET < 7.0 ACTION SUGGESTED > 7.0 Performed By: #### B MP #### [facility] [address] [place] [address] Dr. Keiry Vogel Glucose [Mass/Vol] 217 mg/dL Normal [facility] Comment on above: Performed By: #### B MP #### [facility] [address] [place] [address] Dr. Keiry Vogel HbA1c (Bld) [Mass fraction] 9.2 % Critically high 4.5-6.2 [facility] Comment on above: Performed By: #### B MP #### [facility] [address] [place] [address] Dr. Keiry Vogel PREG QUANT HCGon 12-07-2022 HCG QUANT <1 Normal [facility] Comment on above: Performed By: #### B MP #### [facility] [address] [place] [address] Dr. Keiry Vogel HCG RANGE SEE BELOW Normal [facility] Comment on above: Result Comment: 5-50 0.2-1 WEEK 50-500 1-2 WEEKS 100-5,000 2-3 WEEKS 500-10,000 3-4 WEEKS 1,000-50,000 4-5 WEEKS 10,000-100,000 5-6 WEEKS 15,000-200,000 6-8 WEEKS 10,000-100,000 2-3 MONTHS Performed By: #### B MP #### [facility] [address] [place] [address] Dr. Keiry Vogel PROTIMEon 12-07-2022 INR Coag (PPP) [Relative time] 1.04 {INR} Normal [facility] Comment on above: Performed By: #### P T, PTT #### [facility] [address] [place] [address] Dr. Keiry Vogel INR GUIDELINES SEE BELOW Normal [facility] Comment on above: Result Comment: HAROON RED INR: 2.0 - 3.0 CONDITIONS NOT LISTED BELOW 2.5 - 3.5 FOR PROSTHETIC HEART VALVE REPLACEMENT 2.5 - 3.5 RECURRENT THROMBOSIS Performed By: #### P T, PTT #### [facility] [address] [place] [address] Dr. Keiry Vogel PT Coag (PPP) [Time] 11.0 s Normal 9.0-11.6 [facility] Comment on above: Performed By: #### P T, PTT #### [facility] [address] [place] [address] Dr. Keiry Vogel PTTon 12-07-2022 aPTT Coag (Bld) [Time] 31.0 s Normal 22.3-36.2 [facility] Comment on above: Performed By: #### P T, PTT #### [facility] [address] [place] [address] Dr. Keiry Vogel TSHon 12-07-2022 TSH 0.810 uIU/mL Normal 0.358-3.74 0 [facility] Comment on above: Performed By: #### B MP #### [facility] [address] [place] [address] Dr. Keiry Vogel MRI BRAIN WO W CONon 06-2 022 MRI BRAIN WO W CON EXAMINATION: [...] by: SLIME ZULUAGA Date: 2022-05-11 10:53 Normal [facility] CREATININEon 05-10-2022 Creatinine [Mass/Vol] 0.71 mg/dL Normal 0.55-1.02 [facility] Comment on above: Performed By: #### C TYLOR #### [facility] [address] [place] [address] Dr. Keiry Vogel EGFR-AF PAKISTANI >60 Normal >=60 [facility] Comment on above: Performed By: #### C TYLOR #### [facility] [address] [address] [address] eKiry Vogel EGFR-NON AF PAKISTANI >60 Normal >=60 [facility] Comment on above: Performed By: #### C TYLOR #### [facility] [address] [place] [address] Dr. Keiry Vogel Vital Signs Date Time Vital Sign Value Performing Clinician Vivien mccoy 05-21-2024 14:48-0400 Body height 167.64 cm DO Khalif Collin Work Phone: [facility] 05-21-2024 14:48-0400 Body mass index (BMI) [Ratio] 36.8 kg/m2 DO Khalif Collin Work Phone: [facility] 05-21-2024 14:48-0400 Body temperature 98 [degF] DO Khalif Collin Work Phone: [facility] 05-21-2024 14:48-0400 Body weight 103.41 kg DO Khalif Collin Work Phone: [facility] 05-21-2024 14:48-0400 Diastolic blood pressure 81 mm[Hg] DO Khalif Collin Work Phone: [facility] 05-21-2024 14:48-0400 Heart rate 71 /min DO Khalif Collin Work Phone: [facility] 05-21-2024 14:48-0400 Respiratory rate 18 /min DO Khalif Collin Work Phone: [facility] 05-21-2024 14:48-0400 SaO2% (BldA) [Mass fraction] 99 % DO Khalif Collin Work Phone: [facility] 05-21-2024 14:48-0400 Systolic blood pressure 144 mm[Hg] DO Khalif Collin Work Phone: [facility] 12-19-2023 08:35-0500 Body height 165.1 cm Khushi Borrego PA Work Phone: [facility] 12-19-2023 08:35-0500 Body mass index (BMI) [Ratio] 42.1 kg/m2 Khushi Borrego PA Work Phone: [facility] 12-19-2023 08:35-0500 Body temperature 98.1 [degF] Khushi Borrego PA Work Phone: [facility] 12-19-2023 08:35-0500 Body weight 114.76 kg Khushi Borrego PA Work Phone: [facility] 12-19-2023 08:35-0500 Diastolic blood pressure 99 mm[Hg] Khushi Borrego PA Work Phone: [facility] 12-19-2023 08:35-0500 Heart rate 78 /min Khushi Borrego PA Work Phone: [facility] 12-19-2023 08:35-0500 Respiratory rate 18 /min Khushi Borrego PA Work Phone: [facility] 12-19-2023 08:35-0500 SaO2% (BldA) [Mass fraction] 100 % Khushi Borrego PA Work Phone: [facility] 12-19-2023 08:35-0500 Systolic blood pressure 153 mm[Hg] Khushi LIMON Work Phone: [facility] 03-27-2023 15:16-0400 Diastolic blood pressure 77 mm[Hg] DO Khalif Collin Work Phone: [facility] 03-27-2023 15:16-0400 Heart rate 57 /min DO Khalif Collin Work Phone: [facility] 03-27-2023 15:16-0400 Respiratory rate 16 /min DO Khalif Collin Work Phone: [facility] 03-27-2023 15:16-0400 SaO2% (BldA) [Mass fraction] 96 % DO Khalif Collin Work Phone: [facility] 03-27-2023 15:16-0400 Systolic blood pressure 129 mm[Hg] DO Khalif Collin Work Phone: [facility] 03-13-2023 10:14-0400 Body temperature 98.2 [degF] DO Khalif Collin Work Phone: [facility] 03-07-2023 08:53-0400 Body weight 122.92 kg Khalif Collin Work Phone: [facility] 03-07-2023 08:53-0400 Diastolic blood pressure 82 mm[Hg] Khalif Collin Work Phone: [facility] 03-07-2023 08:53-0400 Heart rate 79 /min Khalif Collin Work Phone: [facility] 03-07-2023 08:53-0400 Respiratory rate 20 /min Khalif Collin Work Phone: [facility] 03-07-2023 08:53-0400 SaO2% (BldA) [Mass fraction] 99 % Khalfi Collin Work Phone: [facility] 03-07-2023 08:53-0400 Systolic blood pressure 119 mm[Hg] Khalif Collin Work Phone: [facility] 01-23-2023 14:28-0400 Body temperature 98 [degF] Khalif Collin Work Phone: [facility] 01-23-2023 14:09-0400 Body height 167.64 cm Khalif Collin Work Phone: [facility] Encounters Encounter Date Encounter Type Care Provider Facility Start: 06-27-2024 End: 06-27-2024 ambulatory NURIA ANAYA Not Available Start: 06-18-2024 End: 06-18-2024 [facility] Start: 05-21-2024 End: 05-21-2024 ambulatory DO Khalif Collin Work Phone: [facility] Work Phone: Start: 05-21-2024 End: 05-21-2024 Patient encounter procedure DO Khalif Collin Work Phone: [facility] Work Phone: Start: 05-21-2024 ambulatory Khalif Collin Facility:[facility] Start: 05-21-2024 Registered Recurring DO Khalif Collin Work Phone: [facility] Work Phone: Start: 05-20-2024 End: 05-20-2024 ambulatory AGUSTIN FAWWAD Not Available Start: 03-27-2024 End: 03-27-2024 ambulatory AGUSTIN FAWWAD Not Available Start: 03-11-2024 End: 03-11-2024 ambulatory IGNACIA HIREN Not Available Start: 02-26-2024 End: 02-26-2024 ambulatory AGUSTIN FAWWAD Not Available Start: 12-19-2023 End: 12-19-2023 Office outpatient visit 25 minutes Khushi LIMON Work Phone: Yudi Plascencia [facility] Comment on above: Endometrial cancer ( CMS-HCC) (Primary Dx); Encounter for screening mammogram for malignant neoplasm of breast; Dyspareunia, female; Counseling on health promotion and disease prevention Start: 12-19-2023 End: 12-19-2023 ambulatory KHUSHI BORREGO [facility] Start: 11-23-2023 End: 11-23-2023 ambulatory SHAIKH PASHA Not Available Start: 03-10-2023 End: 03-10-[address] KHALIF POLANCO . Facility:[facility] Start: 03-07-2023 End: 03-07-2023 ambulatory Khalif Polanco Work Phone: [facility] Work Phone: Start: 03-07-2023 End: 03-07-2023 Registered Recurring Khalif Polanco Work Phone: [facility] Work Phone: Start: 03-02-2023 Encounter for preprocedural cardiovascular examination DR KHALIF POLANCO . [facility] Start: 03-02-2023 Encounter for preprocedural laboratory examination DR KHALIF POLANCO . [facility] Start: 02-27-2023 End: 02-28-[address] KHALIF [...] End: 05-11-[address] ZAK FARRIS Facility:[facility] Procedures Date Procedure Procedure Detail Performing Clinician Start: 12-19-2023 Follow-up visit Follow-up COLLEEN BORREGO Plan of Treatment Date Care Activity Detail Author Start: 12-19-2024 Adult BMI Screening Adult [facility] Screen ing [facility] Start: 06-18-2024 End: 06-18-2024 Patient encounter procedure 06/18/2024 8:30 AM EDT Office Visit Yudi Nuno [facility] [address] [place] [id number] Khushi Borrego PA [address] [place] [address] Yudi Nuno [facility] Start: 06-14-2024 Tobacco Screening Tobacco Screening [facility] Start: 12-19-2023 End: 02-17-2025 DBT Breast - bilateral screening Mammography screening bilateral with CAD Imaging Routine Encounter for screening mammogram for malignant neoplasm of breast Expected: 12/19/2023, Expires: 02/17/2025 [employer] Work Phone: Comment on above: Expected: 12/19/2023 , Expires: 02/17/2025 Start: 07-07-2023 Influenza vaccination Influenza Vacc ine [facility] Start: 03-27-2023 [facility] Start: 03-20-2023 [facility] Start: 03-16-2023 End: 03-16-2023 [facility] Start: 03-13-2023 [facility] Start: 10-11-2021 COVID-19 Vaccine (3 - Pfizer risk series) COVID-19 Vaccine (3 - Pfizer risk series) [facility] Start: 2003 Screening for malign ant neoplasm of cervix Pap Smear [facility] Start: 2001 DTaP,Tdap and Td Vaccines (1 - Tdap) DTaP,Tdap and Td Vaccines (1 - Tdap) [facility] Start: 2000 Adult BMI Follow Up Plan Adult BMI F ollow Up Plan [facility] Start: 2000 Diabetic foot examination Diabetic Foot Exam [facility] Start: 1994 Depression Screening Depression Scre ening [facility] Start: 1982 Glaucoma screening Diabetic Op hthalmology Exam [facility] Start: 1982 Urine screening for protein Urine Microalbumin [facility] Cardiolipin IgA Ab [Units/volume] in Serum by Immunoassay [facility] Cardiolipin IgG Ab [Units/volume] in Serum by Immunoassay [facility] Cardiolipin IgM Ab [Units/volume] in Serum by Immunoassay [facility] Comprehensive metabo lic 2000 panel - Serum or Plasma [facility] Factor VIII: C assay [facility] Protein C actual/nor mal in Platelet poor plasma by Chromogenic method [facility] Protein C Ag actual/normal in Platelet poor plasma by Immunoassay [facility] Immunizations Immunization Date Immunization Notes Care Provider Fa cility 09-13-2021 influenza virus vaccine, unspecified formulation Khushi LIMON Work Phone: [facility] Payers Date Payer Category Payer Self-pay 2013 Medicaid [employer] [id number] 2013-Present [phone] [address] [place] [address] [id number] 1982 Unknown [id number] 1982 Unknown [id number] 1982 Unknown [id number] [id number] 1982 Unknown [id number] [id number] 1982 Unknown [id number] [id number] 1982 Unknown [id number] [id number] 1982 Unknown [id number] [id number] 1982 Unknown [id number] [id number] 1982 Unknown [id number] [id number] 1982 Unknown [id number] [id number] 1982 Unknown [id number] [id number] 1982 Unknown [id number] [id number] 1982 Unknown [id number] [id number] 1982 Unknown [id number] [id number] 1982 Unknown [id number] [id number] 1959 Medicaid [id number] Unknown [id number] Social History Date Type Detail Facility Start: 01-23-2023 End: 05-21-2024 Tobacco smoking status WYIS Never smoked tobacco (finding) [facility] Start: 1980 Sex Assigned At Female F [facility] History of tobacco use Passive smoker Pro [facility] Start: 04-11-2023 Tobacco use and exposure Smoke less tobacco non-user [facility] Start: 06-14-2023 Alcohol intake Ex-drinker (finding) [facility] Start: 05-31-2023 End: 06-14-2023 History of Social function [facility] Start: 05-31-2023 End: 06-14-2023 Tobacco use panel [employer] How hard is it for y ou to pay for the very basics like food, housing, medical care, and heating Not very hard [email or web address] In the past 12 month s, has lack of transportation kept you from medical appointments or from getting medications? No [employer] Start: 1980 Sex Assigned At Not on file P [employer] Medical Equipment Procedure Code Equipment Code Equipment Origin al Text Equipment Identifier Dates use to test BLOO D SUGAR DAILY [id number] Start: 01-10-2023 use to test BLOO D SUGAR DAILY [id number] Start: 01-10-2023 Goals Date Patient Goal Desired Activity /State History of Present illness Narrative 12-19-2023 BRAXTON Dunaway - 12/19/2023 8:30 AM EST Note Date & Type Note Facility 12-19-2023 History of Present illness Narrative Subjective: Adarsh Morrell female who is 43 y.o. female who is here with chief complaint vaginal bleeding and pain with intercourse. She is s/p a [id number] on 04/24/23. Pathology: stage IA grade 1 endometrial cancer, negative LVSI She reports doing well. She is using good clean love vaginal moisturizers a few times a week with some improvement in dyspareunia. She denies any vaginal bleeding. Appetite is good. No change in bowel or bladder habits. No fevers, chills, N/V, N/T, SOB. She is having some mild hot flashes which she feels are well controlled at this time. Patient was originally a consultation from for evaluation and management of endometrial adenocarcinoma. Oncology History Overview Note *[id number] on 04/24/23 *Pathology: stage IA grade 1 endometrial cancer, negative LVSI *Rec's: surveillance, genetic testing Endometrial cancer ([facility]) 03/29/2023 Initial Diagnosis Endometrial cancer ([facility]) Adarsh Morrell Denies Early satiety Denies Abdominal distention Denies Leg swelling Denies Shortness of breath Denies Vaginal bleeding Denies Change in bowel habits Denies Change in bladder habits Denies Nausea and vomiting All other systems negative, unless specifically noted in HPI. Past Gynecologic History: OB History No obstetric history on file. No LMP recorded. Patient has had an implant. Hormonal Contraceptives No HRT use No History of abnormal pap No Past Surgical History: Procedure Laterality Date SECTION 2010 CHOLECYSTECTOMY DAVINCI DISSECTION LYMPH NODE PELVIC SENTINEL-BILATERAL BILATERAL SENTINEL LYMPH NODE MAPPING PELVIC WASHINGS Bilateral 04/24/2023 Performed by Kale Márquez MD at [facility] DAVINCI HYSTERECTOMY SALPINGO OOPHORECTOMY BILATERAL N/A 04/24/2023 Performed by Kale Márquez MD at [facility] DILATION AND CURETTAGE OF UTERUS 03/10/2023 LITHOTRIPSY VARICOSE VEIN SURGERY Bilateral 2019 Past Medical History: Diagnosis Date Angina pectoris ([facility]) Diabetes mellitus ([facility]) Diabetes mellitus type 2, controlled ([facility]) Dvt femoral (deep venous thrombosis) ([facility]) Endometrial cancer ([facility]) 04/11/2023 Factor VIII deficiency ([facility]) History of pulmonary embolism Hypertension Kidney stones 2018 Palpitation Prolonged emergence from general anesthesia 03/10/2023 w/ D&C Pulmonary embolism ([facility]) 2017 Seizures ([facility]) as a baby Wears glasses Family History Problem Relation Age of Onset Lung cancer Maternal Uncle 64 Prostate cancer Maternal Uncle 58 Lung cancer Paternal Aunt 63 Lung cancer Paternal Aunt 58 Cancer Paternal Aunt 40 nipple Throat cancer Paternal Uncle 46 Throat cancer Paternal Uncle 57 Lung cancer Maternal Grandmother 71 Lung cancer Paternal Grandfather 63 Leukemia Paternal cousin 3 cousins: age 24, 43, and 2.5 Thyroid cancer Paternal cousin 44 Anesthesia problems Neg Hx Social History Socioeconomic History Marital status: Single Spouse name: Not on file Number of children: Not on file Years of education: Not on file Highest education level: Not on file Occupational History Not on file Tobacco Use Smoking status: Never Passive exposure: Past Smokeless tobacco: Never Vaping Use Vaping Use: Never used Substance and Sexual Activity Alcohol use: Not Currently Drug use: Not Currently Sexual activity: Defer Other Topics Concern Not on file Social History Narrative Not on file Social Determinants of Health Financial Resource Strain: Low Risk (05/09/2023) Overall Financial Resource Strain (CARDIA) Difficulty of Paying Living Expenses: Not very hard Food Insecurity: No Food Insecurity (05/31/2023) Hunger Screening Food Insecurity - Worry: Never True Food Insecurity - Inability: Never True Transportation Needs: No Transportation Needs (05/09/2023) PRAPARE - Transportation Lack of Transportation (Medical): No Lack of Transportation (Non-Medical): No Physical Activity: Not on file Stress: Not on file Social Connections: Not on file Interpersonal Safety: Not on file Housing Instability: Low Risk (05/09/2023) Housing Instability Housing Instability: No Review of Symptoms: Pertinent items are noted in HPI. Objective: BP (!) 153/99 Pulse 78 Temp 36.7 C (98.1 F) (Oral) Resp 18 Ht 165.1 cm (5' 5 ) Wt 114.8 kg (253 lb) SpO2 100% BMI 42.10 kg/m ECO- Asymptomatic General appearance: alert, appears stated age and cooperative Head: Normocephalic, without obvious abnormality, atraumatic Lungs: clear to auscultation bilaterally Heart: regular rate and rhythm, S1, S2 normal, no murmur, click, rub or gallop Abdomen: soft, nontender, incisions c/d/i without evidence of infection Pelvic exam: VULVA: normal appearing vulva with no masses, tenderness or lesions, VAGINA: Mild atrophy - improved, otherwise normal tissue with smooth mucosa and vaginal cuff is intact. No lesions or masses. CERVIX: surgically absent, UTERUS: surgically absent Extremities: extremities normal, atraumatic, no cyanosis or edema Pulses: 2+ and symmetric Skin: Skin color, texture, turgor normal. No rashes or lesions Lymph nodes: Cervical, supraclavicular, and axillary nodes normal. Neurologic: Grossly normal Labs: Lab Results Component Value Date WBC 6.1 05/31/2023 HGB 12.8 05/31/2023 HCT 38.5 05/31/2023 MCV 87 05/31/2023 PLT 320 05/31/2023 Lab Results Component Value Date GLU 181 (H) 05/31/2023 CALCIUM 9.1 05/31/2023 SODIUM 139 05/31/2023 K 3.9 05/31/2023 CO2 29 05/31/2023 BUN 13 05/31/2023 CREATININE 0.71 05/31/2023 No results found for: CA125 Assessment: Patient is diagnosed with Patient Active Problem List Diagnosis Endometrial cancer ([facility]) Diabetes mellitus ([facility]) History of pulmonary embolism Hypertension Factor VIII deficiency (CMS-HCC) Dvt femoral (deep venous thrombosis) ([facility]) YENNY (iron deficiency anemia) Dyspareunia, female Plan: Stage IA, Grade 1 Endometrial Cancer - s/p hysterectomy in April 2023. Recommendations for surveillance with genetic testing which was negative. No evidence of disease on today's exam. We discussed surveillance in detail today including schedule of visits, indications for imaging, potential signs and symptoms of recurrence in which she should call our office. RTC in 6 months. Dyspareunia due to Vaginal atrophy- continue vaginal moisturizer, increase to 5 times weekly. Continue lubricants with intercourse. Also discussed modifications in positions to allow for increased comfort during intercourse. May consider PFPT if still symptomatic at next visit. Menopausal symptoms-well controlled at this time. She would like to defer further intervention. Counseling on Health Promotion & Disease Prevention: Counseled patient on the importance of routine screenings, disease management, healthy diet and regular exercise. Mammogram order provided, due in january. *The patient has a documented plan of care to address pain. All questions were answered to the patient's satisfaction. She is agreeable to this plan of care. *This note was completed using a voice pastry sous chef system. Every effort was made to ensure accuracy. However, inadvertent computerized pastry sous chef errors may be present. .Total time spent was 35 minutes: Preparing to see the patient (e.g., review of tests) Performing a medically appropriate examination and/or evaluation Counseling and educating the patient/family/caregiver Ordering medications, tests, or procedures Documenting clinical information in the electronic or other health record Care coordination (not separately reported) Khushi Borrego PA-C, RD, IF [place] 12/19/23 0900 documented in this encounter [facility] Clinical Note 03-10-2023 Note Date & Type Note Facility 03-10-2023 Note OPERATIVE NOTE OPERATION DATE: 03/10/2023 PROCEDURE: D AND C hysteroscopy with Myosure. PREOPERATIVE DIAGNOSIS: Menorrhagia, thickened endometrium. POSTOPERATIVE DIAGNOSIS: Menorrhagia, very thickened endometrium. No gross evidence of polyps or fibroids; however, due to the amount of tissue, was concerned and will send off tissue to pathology. ANESTHESIA: General. SURGEON: Khalif Collin, D.O. CLINICAL CODER: None. URINE OUTPUT: Yellow and clear. BLOOD [...] the Recovery Room in stable condition. [facility] Consult note 02-02-2023 Note Date & Type Note Facility 02-02-2023 Consult note Note Date/Time January 23, 2023 3:37pm [facility] [place] [address] Hem/Onc Consult Note - OP Signed Patient: Adarsh Morrell MR#: [id number] : 1980 Acct:[id number] Age/Sex: 42 / F Type: REG RCR [...] work up; she has never seen a nailhead setter in the past. She recently underwent endometrial [...] C is planned for March 10, 2023. [facility] - Medical History Medical History: Medical History [...] malignancy. We have requested her records from [facility] in 2017; she is unsure whatshe was [...] for coordination of care (as documented) and [id number] counseling of patient and/or family. Dictated By: Margie Harrison APRN DD/ 1520 Signed By: <Electronically signed by SUSANNA Harrison> 02/01/230 [facility] Work Phone: Evaluation note Note Date & Type Note Facility Evaluation note No assessment information availa ble [facility] Work Phone: Evaluation note Note Date & Type Note Facility Evaluation note Diagnosis Onset Date History of DVT (deep vein thrombosis) acute History of pulmonary embolism acute [facility] Work Phone: Evaluation note Note Date & Type Note Facility Evaluation note Diagnosis Endometrial cancer ([facility])- Primary Malignant neoplasm of corpus uteri, except isthmus Encounter for screening mammogram for malignant neoplasm of breast Dyspareunia, female Counseling on health promotion and disease prevention Other specified counseling documented in this encounter [facility] Instructions Note Date & Type Note Facility Instructions Not on filedocumented in this en counter [facility] Progress note Note Date & Type Note Facility Progress note Note Date/Time March 07, 2023 9:07am [facility] [place] [address] Hem/Onc Follow Up Note - OP Signed Patient: Adarsh Morrell MR#: [id number] : 1980 Acct:[id number] Age/Sex: 42 / F Type: REG RCR [...] work up; she has never seen a nailhead setter in the past. She recently underwent endometrial [...] for coordination of care (as documented) and [id number] counseling of patient and/or family. [facility] - Medical History Medical History: Medical History [...] Dictated By: Sam Hall II, DO DD/ 0905 Signed By: <Electronically signed by Sam aHll II, DO> 03/07/23 0913 [facility] Work Phone: Family History No Family History Records Found Relationship Condition Age at Onset Recorded Date/T franchesca father High blood cholesterol Unknown Heart disease Unknown father Hypertension Unknown Not Specified Diabetes mellitus Unknown Relationship Condition Age at Onset Recorded Date/T franchesca father High blood cholesterol Unknown Heart disease Unknown father Hypertension Unknown mother Diabetes mellitus Unknown Advance Directives No Advanced Directives Records Found Advance Directive Response Recorded Date/ Time Advance Directives No January 19 023 11:07am Chief Complaint and Reason for Visit Chief Complaint Hx of blood clots Reason for Visit History of DVT (deep vein thrombosis) History of pulmonary embolism Chief Complaint Hx of blood clots Follow Up Dental Clearance Reason for Visit History of DVT (deep vein thrombosis) History of pulmonary embolism Summary Purpose Additional Source Comments Goals (unrecognized section and content) Goals may be documented in a n alternate sectionGoals may be documented in an alternate sectionNot on filedocumented as of this encounter Care Teams (unrecognized sec tion and content) Team Status: Active Member Role Status Dates Zak Farris DO Primary Care Provider Active Team Status: Active Member Role Status Dates Margie Harrison APRN Attending Provider Active Khalif Polanco Referring Provider Active Zak Farris DO Primary Care Provider Active Ad Compositor Relationship Specialty Start Date End Date Zak Farris DO [address] [place] [address] PCP - General Family Medicine 03/29/23 Team Status: Active Member Role Status Dates NON STAFF Primary Care Provider Active Team Status: Active Member Role Status Dates Margie Harrison APRN Active Start: May 21, 2024 Khalif Polanco DO Referring Provider Active Start : May 21, 2024 Zak Farris DO Primary Care Provider Active Start: May 21, 2024 Sam Hall II, DO Attending Provider Active Start: May 21, 2024 Team Status: Inactive Member Role Status Dates Paula Hastings APRN Attending Provider Acti ve Start: May 21, 2024 End: May 21, 2024 NON STAFF Primary Care Provider Active Start: May 21, 2024 End: May 21, 2024 INFORMATION SOURCE (unrecogn ized section and content) DATE CREATED AUTHOR 03/17/2023 [facility] DATE CREATED AUTHOR AUTHOR'S ORGANIZ ATION 06/12/2024 [facility] DATE CREATED AUTHOR AUTHOR'S ORGANIZ ATION 06/19/2024 [facility] DATE CREATED AUTHOR AUTHOR'S ORGANIZ ATION 06/29/2024 [facility] EPIC Reason for Visit (unrecogniz ed section and content) Reason Comments Follow-up FOR RECORDS PERTAINING TO PATIENTS WHO ARE [...] BE BASED ON THE PRIMARY CLINICAL RECORDS. [employer] [facility]. provides no warranty or guarantee of the accuracy or completeness of information in this document.
[2024-09-26 14:27] LABS: Estimated Average Glucose 146 mg/dL; Glycohemoglobin A1C 6.7 % (4.5-6.2)
== END 2024-09-26 13:39 | disposition home or self-care (01) ==
LOC: LAB 13:39
PROVIDERS: Visit Provider Internal Medicine
DX: E11.29 Type 2 diabetes mellitus with other diabetic kidney complication (principal); R80.9 Proteinuria, unspecified
CPT/HCPCS: 36415; 83036

== ENCOUNTER 2025-03-27 15:41 | Outpatient (OUT) | payer OTHER, SELFPAY ==
--- OUTSIDE RECORDS SUMMARY | 2024-06-21 06:15 | XMS_ITS ---
Author Organization [facility] vices Address [address] [place] [id number] Care Team Providers Care [employer] Name Role Phone Dnaay Thompson Unavailable [phone] REASON FOR VISIT Extraction #15 Social History Sex Assigned At : Social History Observation Description Sex Assigned At Female Encounters Encounter Location Date Provider Diagnosis [facility] [address] [place], [place] [phone] 06/21/2024 Danay Thompson Plan Of Treatment No Information Progress Notes * Cuco BOWSEROB:1980 ( 44 yo F)Acc No.[id number]:06/21/2024 Patient: Isamar ZAMBRANO Provider: Yoseph Thompson DDS :1980 A ge:43 Y S ex:Female Date:06/21/2024 Address:[address] [place], [place] [id number] Subjective: * Chief Complaints: * 1 . Extraction #15. * Medical History: Objective: * Vitals: Assessment: Plan: * Treatment: * Billing Information: * Visit Code: * Procedure Codes: * Electronic signature of Sera Thompson DDS on 03/27/2025 at 03:42 PM EDT Sign off status: Pending * Provider: Yoseph Thompson DDS Date: 06/21/2024 Generated for Tiffany stewart/Mango/eTransmitting on: 03/27/2025 03:42 PM EDT
--- OUTSIDE RECORDS SUMMARY | 2025-02-18 16:16 | XMS_ITS ---
Author Organization [facility] Care Team Providers Care Construction Driller Name Role Phone SHAIKH PAK Attending Unavailable NURIA ANAYA Attending UnavailNURIA Gloria Attending UnavailKhalif Green Referring Unavailable Sam Hall II Admitting Unavaila Sam Banerjee II Attending Unavaila Zak Peters Primary Care Unavailable CB BORREGO Attending Unavailable ZAK FARRIS Referring Unavailable ZAK FARRIS Primary Care Unavailable ELIZABETH LIU Attending Unavailable ZAK FARRIS Referring Unavailable ELIZABETH LIU Primary Care Unavailable ELIZABETH LIU Referring Unavailable ELIZABETH LIU Primary Care Unavailable ELIZABETH LIU Attending Unavailable ELIZABETH LIU Referring Unavailable ELIZABETH LIU M Primary Care Unavailable Purpose PROBLEMS DATE TYPE CONDITION / CODE ATTENDING STATUS [facility] 02/18/2025 Unknown Encounter for sc reening mammogram for malignant neoplasm of breast / Z12.31(ICD-10) [facility] Unknown Results / FREETEXT(AOF) [facility] 03/29/2023 Unknown Essential (prima ry) hypertension / I10(ICD-10) [facility] 03/29/2023 Unknown Diabetes mellitu s due to underlying condition with hyperosmolarity without nonketotic hyperglycemic-hyperosmol ar coma ([facility]) / E08.00(ICD-10) [facility], [facility] 01/06/2025 Unknown Vitamin D defici ency, unspecified / E55.9(ICD-10) [facility] 01/06/2025 Unknown Chronic fatigue, unspecified / R53.82(ICD-10) [facility] 01/06/2025 Unknown Establish Care / FREETEXT(AOF) [facility] 05/21/2024 Unknown Personal history of pulmonary embolism / Z86.711(ICD-10) Sam Hall II [facility] 05/21/2024 Unknown Personal history of other venous thrombosis and embolism / Z86.718(ICD-10) Sam Hall II [facility] PROCEDURES No Procedure Records Found VITAL SIGNS No Vital Signs Records Found RESULTS HOMOCYSTEINE Collected: 01/11/2025 8:41 AM S tatus: COMPLETED Source: [facility] TYPE CODE TESTS RESULT OUT OF RANGE REFERENCE UNITS LAB HMCY(LOINC) HOMOCYSTEINE 7.51 3.36-20.44 mcmo l/L Performed By: #### 13131-8, HA1C, CBCA, 2132-9, 76654-5, CMP, 13721-4, 65686-9, TSHR, 39224-4, 2284-8 #### [facility] ([id number]) [address] [place] [address], [address] [place] [address] #### 66994-6 #### [facility] ([id number]) [address] [place] [address], [place] [address] CBC AND AUTO DIFF Collected: 01/11/2025 8:41 AM Status: COMPLETED Source: [facility] TYPE CODE TESTS RESULT OUT OF RANGE REFERENCE UNITS LAB WBC(LOINC) WBC COUNT 5.2 4.0-11.0 X10E9/L LAB RBC(LOINC) RBC COUNT 4.45 3.80-5.20 X10E12/L LAB HGB(LOINC) HEMOGLOBIN 13.8 11.7-15.5 g/dL LAB HCT(LOINC) HEMATOCRIT 39.7 35-47 % LAB MCV(LOINC) MCV 89 80-100 fL LAB MCH(LOINC) MCH 31.0 27-34 pg LAB MCHC(LOINC) MCHC 34.7 32-36 g/dL LAB RDW(LOINC) RDW 14.4 11.5-15.0 % LAB PLTC(LOINC) PLATELET COUNT 276 150-450 X10E9 /L LAB MPV(LOINC) MPV 8.1 7-12 fL LAB NEUT(LOINC) % NEUTROPHILS 55.2 % LAB LYMP(LOINC) % LYMPHOCYTES 34.6 % LAB MONO(LOINC) % MONOCYTES 5.0 % LAB EOS(LOINC) % EOSINOPHILS 3.6 % LAB BASO(LOINC) % BASOPHILS 1.6 % LAB ANEUT(LOINC) ABSOLUTE NEUTROPHIL 2.9 1.5-6.6 X10E9/L LAB ALYMP(LOINC) ABSOLUTE LYMPHOCYTE 1.8 1.0-3.5 X10E9/L LAB AMONO(LOINC) ABSOLUTE MONOCYTE 0.3 0-0.9 X10E9/L LAB AEOS(LOINC) ABSOLUTE EOSINOPHIL 0.2 0.0-0.4 X10E9/L LAB ABASO(LOINC) ABSOLUTE BASOPHIL 0.1 0.0-0.2 X10E9/L Performed By: #### 71484-4, HA1C, CBCA, 2132-9, 33248-2, CMP, 96495-8, 53300-6, TSHR, 77639-7, 2284-8 #### [facility] ([id number]) [address], [address] [place] [address] #### 90088-2 #### [facility] ([id number]) [address] [place] [address] ESR, ERYTHROCYTE SEDIMENTATI ON RATE Collected: 01/11/2025 8:41 AM Status: COMPLETED Source: [facility] TYPE CODE TESTS RESULT OUT OF RANGE REFERENCE UNITS LAB ESR(LOINC) ESR, ERYTHROCYTE SEDIMENTATION RATE 6 0-20 mm/h Performed By: #### 33532-0, HA1C, CBCA, 2132-9, 61460-9, CMP, 62306-3, 53652-8, TSHR, 28971-6, 2284-8 #### [facility] ([id number]) [facility] [facility] [address] [address], [address] [place] [address] #### 71127-8 #### [facility] ([id number]) [address] [place] [address] COMPREHENSIVE METABOLIC PANEL Collected: 2024 8:41 AM Status: COMPLETED Source: [facility] TYPE CODE TESTS RESULT OUT OF RANGE REFERENCE UNITS LAB NA(LOINC) SODIUM 140 134-146 mmol/L LAB K(LOINC) POTASSIUM 4.2 3.5-5.0 mmol/L LAB CL(LOINC) CHLORIDE 103 98-109 mmol/L LAB CO2(LOINC) CARBON DIOXIDE 29 22-32 mmol/L LAB AGAP(LOINC) ANION GAP 8 5-15 mmol/L LAB BUN(LOINC) BLOOD UREA NITROGEN 20 5-23 mg/dL LAB CRET(LOINC) CREATININE 0.53 0.40-1.00 mg/dL Result Comment: METHOD TRACE ABLE TO IDMS STANDARD LAB GLU(LOINC) GLUCOSE 133 High 65-99 mg/dL LAB CA(LOINC) CALCIUM 9.3 8.5-10.5 mg/dL LAB TP(LOINC) TOTAL PROTEIN 6.9 6.0-8.0 g/dL LAB ALB(LOINC) ALBUMIN 4.0 3.2-5.3 g/dL LAB ALK(LOINC) ALKALINE PHOSPHATASE 70 39-130 U/L LAB AST(LOINC) AST 13 0-41 U/L LAB ALT1(LOINC) ALT 15 0-31 U/L LAB TBIL(LOINC) BILIRUBIN,TOTAL 0.9 0.3-1.2 mg/d L LAB EGFR(LOINC) eGFR (CKD-EPI) NON-RACE DEPENDENT >90 >59 ml/min/1 .73sq.m Result Comment: Reported eGFR is based on the CKD-EPI 2020 equation that does not use a race coefficient. Performed By: #### 91783-9, HA1C, CBCA, 2132-9, 99243-9, CMP, 40344-9, 09132-8, TSHR, 80142-6, 2284-8 #### [facility] ([id number]) [address], [address] [place] [address] #### 33537-7 #### [facility] ([id number]) [address] [place] [address], [place] [address] LIPID PROFILE Collected: 01/11/2025 8:41 AM Status: COMPLETED Source: [facility] TYPE CODE TESTS RESULT OUT OF RANGE REFERENCE UNITS LAB CHOL(LOINC) CHOLESTEROL 147 Low 150-200 mg/dL LAB TRIG(LOINC) TRIGLYCERIDE 46 27-150 mg/dL LAB HDL(LOINC) HDL CHOLESTEROL 51 >39 mg/dL Result Comment: HDL <40 mg/dL - High Risk HDL > or = 40mg/dL- Desirable HDL >60 mg/dL - Negative Risk LAB VLDL(LOINC) VERY LOW LIPOPROTEIN 9 0-30 mg/dL LAB LDL(LOINC) LDL (CALC) 87 <130 mg/dL Result Comment: LDL <100 mg/dL - Desirable LDL >160 mg/dL - High Risk LAB CHDL(LOINC) CHOLESTEROL:HDL 2.9 1.0-5.0 Performed By: #### 98421-2, HA1C, CBCA, 2132-9, 35360-9, CMP, 50949-2, 74842-3, TSHR, 94579-1, 2284-8 #### [facility] ([id number]) [address] [place] [address], [address] [place] [address] #### 59715-2 #### [facility] ([id number]) [address] [place] [address] HGB A1C (GLYCO-HGB) Collected: 01/11/2025 8:41 AM Status: COMPLETED Source: [facility] TYPE CODE TESTS RESULT OUT OF RANGE REFERENCE UNITS LAB HBA1C(LOINC) HEMOGLOBIN A1C 6.9 High 4.4-5.6 % Result Comment: NOTE ADA Guidelines Result HgbA1c Normal : less than 5.7 % Prediabetes : 5.7 % to 6.4 % Diabetes : > 6.4 % Use with caution in patients with abnormal hemoglobin variants as the half-life of red blood cells and in vivo glycation rates are affected. LAB EAG(LOINC) AVERAGE GLUCOSE 151 mg/dL Performed By: #### 96433-6, HA1C, CBCA, 2132-9, 10997-2, CMP, 29014-5, 39838-2, TSHR, 06474-9, 2284-8 #### [facility] ([id number]) [address] [place] [address], [address] [place] [address] #### 53022-3 #### [facility] ([id number]) [address] [place] [address] TSH WITH REFLEX Collected: 01/11/2025 8:41 AM Status: COMPLETED Source: [facility] TYPE CODE TESTS RESULT OUT OF RANGE REFERENCE UNITS LAB TSH(LOINC) TSH 0.55 0.49-4.67 uIU/mL Performed By: #### 25164-0, HA1C, CBCA, 2132-9, 33420-8, CMP, 39740-9, 55693-7, TSHR, 38561-1, 2284-8 #### [facility] ([id number]) [address] [place] [address], [address] [place] [address] #### 65819-3 #### [facility] ([id number]) [address] [place] [address] FOLIC ACID Collected: 01/11/2025 8:41 AM S tatus: COMPLETED Source: [facility] TYPE CODE TESTS RESULT OUT OF RANGE REFERENCE UNITS LAB FOLI(LOINC) FOLIC ACID 15.8 >5.8 ng/mL Result Comment: NEW REFERENC E RANGE Performed By: #### 39824-8, HA1C, CBCA, 2132-9, 06724-4, CMP, 13054-1, 99514-4, TSHR, 97262-4, 2284-8 #### [facility] ([id number]) [address] [place] [address], [address] [place] [address] #### 32070-0 #### [facility] ([id number]) [address] [place] [address] VITAMIN B12 Collected: 01/11/2025 8:41 AM S tatus: COMPLETED Source: [facility] TYPE CODE TESTS RESULT OUT OF RANGE REFERENCE UNITS LAB B12(LOINC) VITAMIN B12 424 180-914 pg/mL Performed By: #### 92516-1, HA1C, CBCA, 2132-9, 95276-2, CMP, 42727-9, 78203-0, TSHR, 91635-7, 2284-8 #### [facility] ([id number]) [address] [place] [address], [address] [place] [address] #### 21010-5 #### [facility] ([id number]) [address] [place] [address] VITAMIN D 25 HYD TOT Collected: 01/11/2025 8:41 AM Status: COMPLETED Source: [facility] TYPE CODE TESTS RESULT OUT OF RANGE REFERENCE UNITS LAB VITD([facility]) VITAMIN D 25 HYD TOT 24.5 Low 30-100 ng/mL Result Comment: Vitamin D status 25 [place] Vitamin D Deficiency <20 ng/mL Insufficiency 20-29 ng/mL Sufficiency 30-100 ng/mL Toxicity >100 ng/mL NOTE: A pediatric reference range has not been established by the lead generation representative of this kit. The [place] [employer] recommends a Vitamin D level of = or >20ng/mL in infants and children. Performed By: #### 63629-1, HA1C, CBCA, 2132-9, 92965-8, CMP, 15151-7, 21229-0, TSHR, 20935-7, 2284-8 #### [facility] ([id number]) [address] [place] [address], [address] [place] [address] #### 32978-2 #### [facility] ([id number]) [address] [place] [address], [place] [address] SONIA SCREEN W/REFLEX Collected: 01/11/2025 8:41 AM Status: COMPLETED Source: [facility] TYPE CODE TESTS RESULT OUT OF RANGE REFERENCE UNITS LAB SONIA(LOINC) SONIA Screen w/reflex Negative (qualifier value) NEG Result Comment: Testing performed using multiplex flow immunoassay. Eleven different antigens associated with systemic autoimmune diseases (dsDNA,Sm,Sm/RN RADIOLOGY,RN RADIOLOGY,Chromatin, SSA,SSB,Sirena-1,Scl70,Ribo P,Centromere B) are included in this screening test. Performed By: #### 27661-0, HA1C, CBCA, 2132-9, 62313-3, CMP, 89273-7, 18666-4, TSHR, 06045-9, 2284-8 #### [facility] ([id number]) [address] [place] [address], [address] [place] [address] #### 73036-6 #### [facility] ([id number]) [address] [place] [address] THIAMIN (VITAMIN B1), WB Collected: 06/2025 8:41 AM Status: COMPLETED Source: [facility] TYPE CODE TESTS RESULT OUT OF RANGE REFERENCE UNITS LAB VTB1BR(LOINC) Thiamin (Vitamin B1), WB 165 70-180 nmol/L Result Comment: NOTE ADDITIONAL INFORMATION This test was developed and its performance characteristics determined by [facility] in a manner consistent with CLIA requirements. This test has not been cleared or approved by the U.S. Food and Drug Administration. Test Performed by: [facility] [address] [place] [address] Hvac Project Engineer: Cliff Sism Ph.D.; CLIA# [id number] Performed By: #### 30117-4, HA1C, CBCA, 2132-9, 44387-6, CMP, 64612-5, 60110-6, TSHR, 39425-2, 2284-8 #### [facility] ([id number]) [address] [place] [address], [address] [address] #### 64159-8 #### [facility] ([id number]) [address] [place] [address] INSULIN Collected: 01/11/2025 8:41 AM S tatus: COMPLETED Source: [facility] TYPE CODE TESTS RESULT OUT OF RANGE REFERENCE UNITS LAB INSL(LOINC) INSULIN 8.34 1.00-23.00 uIU/mL Result Comment: Ref. range i s for FASTING NON-DIABETIC POPULATION. Performed By: #### 50233-9 # ### [facility] ([id number]) [address] [place] [address], [address] [place] [address] ALLERGIES DATE TYPE / CODE NAME / CODE REACTION SEVERITY SOURCE 05/21/2024 Drug Allergy/02526555 2(SNOMED CT) No Known Allergies/Z136237224 (RXNORM) Unknown [facility] Drug Class/240656550( SNOMED CT) NO KNOWN ALLERGIES [facility] ENCOUNTERS ADMIT/DISCHARGE ACCOUNT NUMBER ADMITTING ENCOUNTER CLASS LOCATION SOURCE 02/18/2025/02/19/20 [id number] Ambulatory Buildin A [facility] 01/11/2025/01/12/20 [id number] Ambulatory Building:[facility] _LAB [facility] 01/06/2025/01/07/20 [id number] Ambulatory Buildin A [facility] 09/26/2024/09/26/20 24 [id number] Ambulatory Building:[facility] EPIC 06/27/2024/06/27/20 24 [id number] Ambulatory Building:[facility] 06/18/2024/06/18/20 24 [id number] Ambulatory Building:[facility] _MEDONC [facility] 05/21/2024 [id number] Sam Hall [facility] 05/20/2024/05/20/20 24 [id number] Ambulatory Building:[facility] EPIC FUNCTIONAL STATUS No Functional Status Records Found EQUIPMENT No Equipment Records Found PAYERS ENCOUNTER GUARANTOR PAYER SUBSCRIBER SOURCE 02/18/2025 ADARSH RUBIOB: [place], [place] [address]Qfj: (HP) Primary Insurance:[place] MEDICA[place]Policy Number: [id number] Date:2013-11-06 ADARSH RUBIOB: [id number] [place], [place] [address]Zxi: (HP) () [facility] 01/11/2025 ADARSH RUBIOB: [place], [place] [address]Ktj: (HP) Primary Insurance:[place] MEDICAIDPolicy Number: [id number] Date:2013-11-06 ADARSH WEST ICKESDOB: [id number] [place], [place] [address]Mmu: (HP) (WP) [facility] 01/06/2025 ADARSH WEST ICKESDOB: [facility], [place] [address]Khi: (HP) Primary Insurance:[place] MEDICA[place]Policy Number: [id number] Date:2013-11-06 ADARSH WEST ICKESDOB: [id number] [place], [place] [address]Sft: (HP) () [facility] 09/26/2024 ADARSH Torre ICKESDOB: [facility], [place] [address]Drb: (HP) Primary Insurance:[place] [employer] MEDICAIDPolicy Number: [id number] Date:2013-11-06 ADARSH Torre ICKESDOB: [id number] [place] [address] [facility] 06/27/2024 ADARSH Torre ICKESDOB: [place], [place] [address]Yff: (HP) Primary Insurance:[place] [employer] MEDICAIDPolicy Number: [id number] Date:2013-11-06 ADARSH Torre ICKESDOB: [id number] [place] [address] [facility] 06/18/2024 ADARSH WEST ICKESDOB: [facility] [address] [place] [place] [address]Xig: (HP) Primary Insurance:[place] MEDICAIDPolicy Number: [id number] Date:2013-11-06 ADARSH WEST ICKESDOB: [id number] [place], [place] [address]Azn: (HP) (WP) [facility] 05/21/2024 Adarsh Torre [id number] [place], [place] [address]Ozh: (HP) Primary Insurance:[facility]nPolicy Number: [id number] Date:2004-39-70[address] [address]FG: Adarsh Torre IckesDOB: [id number] [place], [place] [address]Hce: (HP) [facility] 05/21/2024 Secondary Insurance:Self PayPolicy Number: Effective Date:2023-01-18 [facility]2024 ADARSH Torre ICKESDOB: [place], [place] [address]Wnv: (HP) Primary Insurance:[place] [employer] MEDICAIDPolicy Number: [id number] Date:2013-11-06 ADARSH Torre ICKESDOB: [id number] [place] [address] [facility] EPIC SOCIAL HISTORY No Social History Records Found FAMILY HISTORY No Family History Records Found ADVANCE DIRECTIVES No Advanced Directives Records Found INFORMATION SOURCE DATE CREATED AUTHOR AUTHOR'S ARI ATION 03/27/2025 OHIP
--- OUTSIDE RECORDS SUMMARY | 2025-03-27 15:42 | XMS_ITS | Referral Summary ---
Author Organization [facility] Address [address] [place] [address] Care Team Providers Care Novelty Candy Maker Name Role Phone Unavailable Primary Care Provider Unavailabl e Social History Tobacco Use Types Packs/Day Years Used Date Smoking Tobacco: Never Assessed [place] Safety & Environment Answer Date Rec orded Fear of Current or Ex-Partner Not on file Emotionally Abused Not on file 12/28/2023 Physically Abused Not on file 12/28/2023 Sexually Abused Not on file 12/28/2023 Physically or Sexually Abused Not on file Sex and Gender Information Value Date Recorded Sex Assigned at Not on file Gender Identity Not on file Sexual Orientation Not on file Plan of Treatment Not on file
--- OUTSIDE RECORDS SUMMARY | 2025-03-27 15:42 | XMS_ITS | Encounter Summary ---
Author Organization [facility] Address [address] [place] [address] Care Team Providers Care Dry Press Operator Helper Name Role Phone Shaikh ELAINA Griffin Primary Care Provider [phone] Shaikh ELAINA Griffin Unavailable [phone] Beny Katz MD Primary Care Provider [phone] Catrina Tierney NP Unavailable [phone] Encounter Details Date Type Department Care Team (Late st Contact Info) Description 04/03/2024 Orders Only [facility] [address] [place] [phone] Shaikh Griffin MD [address] [place] [address] Social History Tobacco Use Types Packs/Day Years Used Date Smoking Tobacco: Never Passive Smoke Exposure: Past Smokeless Tobacco: Never Alcohol Use Standard Drinks/Week Comments Never 0 (1 standard drink = 0.6 oz pur e alcohol) PHQ-2 Answer Date Recorded Patient Health Questionnaire-2 Score 0 03/27/2024 Comments Unknown Sex and Gender Information Value Date Recorded Sex Assigned at Not on file Legal Sex Female 7:37 PM EDT Gender Identity Not on file Sexual Orientation Not on file documented as of this encounter Plan of Treatment Not on file documented as of this encounter Visit Diagnoses Not on filedocumented in this encounter Care Teams Dry Press Operator Helper Relationship Specialty Start Date End Date Shaikh Griffin MD [address] [place] [address] PCP - General Internal Medicine 11/23/23 06/09/24 Shaikh Griffin MD [address] [place] [address] PCP - [facility] 02/05/24 Beny Katz MD [address] [place] [address] PCP - General Family Medicine 06/10/24 Catrina Tierney NP [address] [place] [address] Nurse Practitioner Family Medicine 06/10/24 documented as of this encounter
--- OUTSIDE RECORDS SUMMARY | 2025-03-27 15:42 | XMS_ITS | Encounter Summary ---
Author Organization [facility] Address [address] [place] [address] Care Team Providers Care Etiology Teacher Name Role Phone Shaikh ELAINA Griffin Unavailable [phone] Beny Katz MD Primary Care Provider [phone] Catrina Tierney NP Unavailable [phone] Reason for Visit * Reason Comments Med Refill Encounter Details Date Type Department Care Team (Late st Contact Info) Description [facility]/19[facility] [address] [place] [address] Shaikh Griffin MD [address] [place] [address] Type 2 diabetes mellitus without complication, without long-term current use of insulin ([facility]) Social History Tobacco Use Types Packs/Day Years [...] documented as of this encounter Visit Diagnoses Diagnosis Type 2 diabetes mellitus without complication, without long-term current use of insulin documented in this encounter Care Teams Etiology Teacher Relationship Specialty Start Date End Date Shaikh Griffin MD [address] [place] [address] PCP - [facility] 02/05/24 Beny Katz MD [address] [place] [address] PCP - General Family Medicine 06/10/24 Catrina Tierney NP [address] [place] [address] Nurse Practitioner Family Medicine 06/10/24 documented as of this encounter
--- OUTSIDE RECORDS SUMMARY | 2025-03-27 15:42 | XMS_ITS | Encounter Summary ---
Author Organization [facility] Address [address] [place] [address] Care Team Providers Care Signs Cleaner Name Role Phone Shaikh ELAINA Griffin Primary Care Provider [phone] Shaikh ELAINA Griffin Unavailable [phone] Beny Katz MD Primary Care Provider [phone] Catrina Tierney NP Unavailable [phone] Encounter Details Date Type Department Care Team (Late st Contact Info) Description 05/21/2024 Abstract [facility] [address] [place] [address] Kandy Lopez MD [address] [place] [address] Social History Tobacco Use Types Packs/Day Years [...] on filedocumented in this encounter Care Teams Signs Cleaner Relationship Specialty Start Date End Date Shaikh Griffin MD [address] [facility] [place] [address] PCP - General Internal Medicine 11/23/23 06/09/24 Shaikh Griffin MD [address] [place] [address] PCP - [facility] 02/05/24 Beny Katz MD [address] [place] [address] PCP - General Family Medicine 06/10/24 Catrina Tierney NP [address] [place] [address] Nurse Practitioner Family Medicine 06/10/24 documented as of this encounter
--- OUTSIDE RECORDS SUMMARY | 2025-03-27 15:42 | XMS_ITS | Clinical Summary ---
Author Organization [facility] Address [address] [place] [address] Care Team Providers Care Patcher Bowling Ball Name Role Phone Shaikh ELAINA Griffin Unavailable [phone] Beny Katz MD Primary Care Provider [phone] Catrina Tierney NP Unavailable [phone] Allergies No known active allergies Medications Blood Glucose Monitoring Suppl (ONE TOUCH ULTRA 2) w/Device kit 1 Device Daily as needed 3 Active docusate sodium (Colace) 100 MG capsuleIndications: Internal hemorrhoids Take 1 capsule (100 mg) by mouth Daily 30 capsule 2 4 Active Lancets (WedPics (deja mi)Touch Delica Plus [id number]) miscIndications:Typ e 2 diabetes mellitus without complication, without long-term current use of insulin 1 each by Other route Daily USE DIRECTED ONCE DAILY 100 each 4 Active metFORMIN (Glucophage) 1000 MG tabletIndications:T ype 2 diabetes mellitus without complication, without long-term current use of insulin Take 1 tablet (1,000 mg) by mouth in the morning and 1 tablet (1,000 mg) before bedtime. 180 tablet 1 4 Active glucose blood (WedPics (deja mi)Touch Ultra) test stripIndications:Ty pe 2 diabetes mellitus without complication, without long-term current use of insulin 1 each by Other route Daily 100 each 4 10/10/20 27 Active atorvastatin (Lipitor) 20 MG tabletIndications:O ther hyperlipidemia Take 1 tablet (20 mg) by mouth Daily 90 tablet 1 4 Active rivaroxaban (Xarelto) 20 MG tabletIndications:D eep vein thrombosis (DVT) of femoral vein, unspecified chronicity, unspecified laterality (CMS/HCC) Take 1 tablet (20 mg) by mouth Daily 90 tablet 5 Active Active Problems Problem Noted Date Diagnosed Date BMI 32.0-32.9,adult 09/26/2024 Assessment & Plan (09/26/2024 4:14 PM EST): Down 59 pounds since February; Monitoring Diet, exercise. Making healthy life choices! Diet: mostly home cooked meals Water: 4-5 16ounce bottles per day Exercise: Daily Sleep: 8 hours per night, good quality. Keep up the good work! Abnormal mammogram 02/26/2024 Endometrial thickening on ultrasound 02/26/2024 History of DVT (deep vein thrombosis) 02/26/2024 Menorrhagia 02/26/2024 Pain due to varicose veins of both lower extremi ties 02/26/2024 Wellness examination 02/26/2024 Assessment & Plan (02/26/2024 2:38 PM EDT): Patient here for Annual Wellness Exam. Reviewed medical, surgical and social hx. Reviewed medication list. Health related questions and concerns addressed and answered. Patient provided appropriate education on chronic medical conditions and prescription medications. Patient is scheduled for mammogram next month. She will likely need colonoscopy for rectal bleeding - referred to general surgery. Internal hemorrhoids 02/26/2024 Assessment & Plan (03/27/2024 2:39 PM EDT): >>ASSESSMENT AND PLAN FOR RECTAL BLEEDING WRITTEN ON 02/26/2024 2:33 PM BY SHAIKH PASHA MD Rectal bleeding, on/off for 2 months, bright red blood on toilet paper. Painless bleeding. Has been told before she has internal hemorrhoids. No prior hx of colonoscopy Rectal exam is unremarkable Will call in hydrocortisone suppository. Check CBC - as patient is on Xarelto Refer to general surgery. Assessment & Plan (03/27/2024 2:39 PM EDT): Due to internal hemorrhoids. Resolved. Was seen by Surgery - conservative measures only. Will order Colace for patient. Morbid obesity 11/23/2023 Assessment & Plan (11/23/2023 2:20 PM EST): Patient educated on risks of increased cardiovascular morbidity/mortality and poor health outcomes associated with unhealthy bodyweight. Patient counseled on lifestyle modifications, dietary restrictions. Patient encouraged to limit caloric intake and increase physical activity. Therapeutic and surgical options reviewed with patient . Patient was offered opportunity to ask questions and address their concern. Patient on Trulicity, she will attempt caloric restriction and try to keep her caloric intake to less than 1500/day Other hyperlipidemia 11/23/2023 Assessment & Plan (09/26/2024 4:11 PM EST): Currently taking Atorvastatin 20mg Denies myalgias Most recent Lipid panel below: Assessment & Plan (06/27/2024 1:50 PM EDT): Atorvastatin 20mg Denies myalgias Most recent Lipid panel great. Continue Atorvastatin. Assessment & Plan (05/20/2024 12:13 PM EDT): Lipid panel /24 - LDL less than 70. On Lipitor 20 mg daily. C/w same Assessment & Plan (11/23/2023 2:21 PM EST): Lipid panel 1/24 - LDL less than 70. On Lipitor 20 mg daily. Sinus tachycardia 11/23/2023 Assessment & Plan (11/23/2023 2:23 PM EST): Sinus tachycardia on exam. Appears regular. Asymptomatic. Did not use anything that would increase her HR. Check TSH, EKG. Dyspareunia, female 09/13/2023 Diabetes mellitus 03/29/2023 Assessment & Plan (09/26/2024 4:11 PM EST): Currently taking Metformin 1,000mg BID Most recent labs: hemoglobin A1C 6.7% today. Up form 6.0%. Continue to monitor. Average FSBS range from BGs range between 110 and 1335 No episode of hypoglycemia No medication adverse effects reported by the patient. Patient educated on lifestyle modifications, dietary restrictions, signs and symptoms of hypoglycemia/hyperglycemia and importance of eating regular consistent meals. Stressed upon importance of checking blood glucose at home and bring blood glucose log to appointments. All questions, concerns answered and addressed. Encouraged to call office if persistent hypoglycemia/hyperglycemia on home glucose monitoring noted. Down 59 pounds since February; Monitoring Diet, exercise. Making healthy life choices! Assessment & Plan (06/27/2024 1:51 PM EDT): Down 47 pounds since February; Monitoring Diet, exercise. Making healthy life choices! Most recent labs: hemoglobin A1C 6.0% In April Average FSBS range from BGs range between 90's and 125 No episode of hypoglycemia No medication adverse effects reported by the patient. Patient educated on lifestyle modifications, dietary restrictions, signs and symptoms of hypoglycemia/hyperglycemia and importance of eating regular consistent meals. Stressed upon importance of checking blood glucose at home and bring blood glucose log to appointments. All questions, concerns answered and addressed. Encouraged to call office if persistent hypoglycemia/hyperglycemia on home glucose monitoring noted. Assessment & Plan (05/20/2024 12:12 PM EDT): Patient on metformin and glipizide. She reports frequent 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 episodes on Glipizide. Discontinue A1C 6.0 --> 7/24 C/w metformin Discontinue glipizide. Check A1c before next appointment Assessment & Plan (03/27/2024 2:38 PM EDT): Patient on metformin and glipizide. Glipizide was added last appointment. Her FSBS - range from 100-140 now, previously they were 200-250 No hypoglycemia. C/w metformin/glipizide. Maintain Home blood glucose log. Check A1C before next appointment, Assessment & Plan (02/26/2024 2:33 PM EDT): Patient currently just using Metformin. She is not using trulicity because it is not available due to shortages. Her FSBS - range from 200-250 No hypoglycemia. I will add glipizide 5 q12. Maintain Home Blood glucose log. Follow up in 1 months to review blood glucose log. Will not order A1C as I expect it to be above goal because patient could not use trulicity in past one month Assessment & Plan (01/15/2024 4:01 PM EDT): Most recent labs: hemoglobin A1C 7.8 Average FSBS range from BGs consistently in an acceptable range No episode of hypoglycemia No medication adverse effects reported by the patient. Patient educated on lifestyle modifications, dietary restrictions, signs and symptoms of hypoglycemia/hyperglycemia and importance of eating regular consistent meals. Stressed upon importance of checking blood glucose at home and bring blood glucose log to appointments. All questions, concerns answered and addressed. Encouraged to call office if persistent hypoglycemia/hyperglycemia on home glucose monitoring noted. On Metformin 1000 mg q12, Trulicity 1.5 mg. She is unable to get trulicity due to shortages. Will call in [employer]. Assessment & Plan (11/23/2023 2:17 PM EST): Most recent labs: hemoglobin A1C 7.8 Average FSBS range from BGs consistently in an acceptable range No episode of hypoglycemia No medication adverse effects reported by the patient. Patient educated on lifestyle modifications, dietary restrictions, signs and symptoms of hypoglycemia/hyperglycemia and importance of eating regular consistent meals. Stressed upon importance of checking blood glucose at home and bring blood glucose log to appointments. All questions, concerns answered and addressed. Encouraged to call office if persistent hypoglycemia/hyperglycemia on home glucose monitoring noted. On Metformin 1000 mg q12, Trulicity 1.5 mg. Patient will attempt to lose some weight and we will not make any changes. 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 On Xarelto, c/w same. Hypertension 03/29/2023 Assessment & Plan (09/26/2024 4:11 PM EST): Currently not on any medications Bp looks great in office today. Continue current plan. Assessment & Plan (06/27/2024 2:01 PM EDT): Currently not on any medications Bp looks great in office today. Continue current plan. Assessment & Plan (11/23/2023 2:19 PM EST): At goal. Diet controlled. Previously she was on Lisinopril. Iron deficiency anemia 03/29/2023 Encounters Date Type Department Care Team Description 01/31/2025 Refill [facility] [address] [place] [address] Beny Katz MD Deep vein thrombosis (DVT) of femoral vein, unspecified chronicity, unspecified laterality (CMS/HCC) from Last 3 Months Immunizations Immunization Administration Dates Next Due Influenza, injectable, quadrivalent, preservativ e free 09/13/2021 Family History Medical History Relation Name Comments Diabetes Father Dimitris Bowser Heart disease Father Dimitris Bowser Hyperlipidemia Father Dimitris Bowser Hypertension Father Dimitris Bowser Other Father's Brother Varicose ve ins of lower ex Other Father's Sister Varicose vei ns of lower ex Cancer Maternal Grandmother Marta Chan Diabetes Maternal Grandmother Marta Chan Diabetes Mother Charlette Bowser Cancer Paternal Grandfather Temo Bowser Other Paternal Grandfather Temo Bowser varicos e veins of lower extremity Diabetes Paternal Grandmother Yudi Bowser Other Paternal Grandmother Yudi Bowser Varico se veins of lower ext Relation Name Status Comments Father Dimitris Bowser Father's Brother Father's Sister Maternal Grandmother Marta Chan Mother Charlette Ickes Paternal Grandfather Temo Bowser Paternal Grandmother Yudi Bowser Son Alive Social History Tobacco Use Types Packs/Day Years Used Date Smoking Tobacco: Never Passive Smoke Exposure: Past Smokeless Tobacco: Never Tobacco Cessation:Counseling Given: Not Answered Alcohol Use Standard Drinks/Week Comments Never 0 (1 standard drink = 0.6 oz pur e alcohol) PHQ-2 Answer Date Recorded Patient Health Questionnaire-2 Score 0 06/27/2024 Comments No Sex and Gender Information Value Date Recorded Sex Assigned at Not on file Legal Sex Female 7:37 PM EDT Gender Identity Not on file Sexual Orientation Not on file Last Filed Vital Signs Vital Sign Reading Time Taken Comments Blood Pressure 120/64 09/26/2024 3:54 PM EST Pulse 88 09/26/2024 3:54 PM EST Temperature 37.1 C (98.8 F) 09/26/2024 3:54 PM EST Respiratory Rate 16 09/26/2024 3:54 PM EST Oxygen Saturation 99% 09/26/2024 3:54 PM EST Inhaled Oxygen Concentration - - Weight 92.1 kg (203 lb) 09/26/2024 3:54 PM EST Height 167.6 cm (5' 6 ) 09/26/2024 3:54 PM EST Body Mass Index 32.77 09/26/2024 3:54 PM EST Plan of Treatment Health Maintenance Due Date Last Done Comments Diabetes: Retinopathy Screening 11/07/2024 Diabetes: Urine Protein Screening 02/28/2025 02/29/2024, 07/12/2023 Mammogram 02/28/2025 02/29/2024, 01/04, 12/14/2022, Additional history exists Diabetes: Hemoglobin A1C 04/13/2025 025, 05/13/2024, 11/16/2023, Additional history exists Influenza Vaccine (Season Ended) 2025 09/13/20 Cervical Cancer Screening Discontinued HPV/Cotest Discontinued 01/04/2023 Pap Smear Discontinued Procedures Procedure Name Priority Date/Time Associated Diagnosis Comments MM TOMOSYNTHESIS SCREENING BI 02/29/2024 4:18 PM EDT HEMOGLOBIN A1C Routine 12/07/2022 from Last 3 Months or Most Recently Relevant to Health Maintenance Results * MM TOMOSYNTHESIS SCREENING BI (02/29/2024 4:18 PM EDT) Anatomical Region Laterality Modality Other 02/29/2024 4:18 PM EDT Narrative 02/29/2024 4:19 PM EDT [facility] [id number] Mammography Report Signed Patient: ADARSH BOWSER MR#: [id number] : 1980 Acct:[id number] Age/Sex: 43 / F ADM Date: 02/29/24 Loc: MAMMO Attending Dr: KishanStaff Physician Ervin Ordering Physician: Hesham Winston M.D. Results: Date of Service: 02/29/24 Follow Up: Procedure(s): MM tomosynthesis screening BI Accession Number(s): [id number] cc: Shaikh Arcadio Griffin; Hesham Winston M.D. Patient Name: ADARSH BOWSER MR#: [id number] : 1980 Exam Date: 02/29/2024 Ordering Doctor: Hesham Winston RADIOLOGY REPORT PROCEDURE: MM TOMOSYNTHESIS SCREENING BI COMPARISON: MG MAMM RT DIAG FU, 01/20/2023. MG MAMM SCREEN 3D WILIAM CAD, 12/14/2022. INDICATIONS: Screening Calculator Name NCI Breast Cancer Risk Assessment Tool 5 Year Breast Cancer Risk 0.60% Lifetime Breast Cancer Risk 10.10% Personal Breast Cancer No Personal Ovarian Cancer No Treatments None Family Cancers Grandfather-maternal with lung cancer at age 62; Aunt-maternal with lung cancer at age 63; Uncle-maternal with throat cancer at age 64. LOCATION: [facility] BREAST COMPOSITION: The breasts are heterogeneously dense,which may obscure small masses. FINDINGS: DIAGNOSTIC CATEGORY 2--BENIGN FINDING: RIGHT BREAST: No significant suspicious finding. Stable asymmetry within upper-outer quadrant. No significant change has occurred. LEFT BREAST: No significant suspicious finding. No significant change has occurred. RECOMMENDATIONS: ROUTINE MAMMOGRAM AND CLINICAL EVALUATION IN 12 MONTHS. PLEASE NOTE: A NORMAL MAMMOGRAM DOES NOT EXCLUDE THE POSSIBILITY OF BREAST CANCER. A CLINICALLY SUSPICIOUS PALPABLE LUMP SHOULD BE BIOPSIED. Dictated by: Bin Zuluaga M.D. on 02/29/2024 at 16:14 Approved by: Bin Zuluaga M.D. on 02/29/2024 at 16:18 Dictated By: Bin Zuluaga M.D. Signed By: 02/29/24 1619 DD/ 1618 TD/TT: Medical Staff Services Manager: Procedure Note Radiology, Radiologist, - 02/29/2024 [facility] [id number] Mammography Report Signed Patient: ADARSH BOWSER MMR#: [id number] : 1980Acct:[id number] Age/Sex: 43 / FADM Date: 02/29/24 Loc: MAMMO Attending Dr: KishanStaff Physician Ervin Ordering Physician: Hesham Winston M.D.Results: Date of Service: 02/29/24Follow Up: Procedure(s): MM tomosynthesis screening BI Accession Number(s): [id number] cc: Shaikh Arcadio Griffin; Hesham Winston M.D. Patient Name: ADARSH BOWSER MR#: [id number] : 1980 Exam Date: 02/29/2024 Ordering Doctor: KishanStaff RADIOLOGY REPORT PROCEDURE: MM TOMOSYNTHESIS SCREENING BI COMPARISON: MG MAMM RT DIAG FU, 01/20/2023. MG MAMM SCREEN 3D WILIAM CAD, 12/14/2022. INDICATIONS: Screening Calculator Name NCI Breast Cancer Risk Assessment Tool 5 Year Breast Cancer Risk 0.60% Lifetime Breast Cancer Risk 10.10% Personal Breast Cancer No Personal Ovarian Cancer No Treatments None Family Cancers Grandfather-maternal with lung cancer at age 62; Aunt-maternal with lung cancer at age 63; Uncle-maternal with throatcancer at age 64. LOCATION: [facility] BREAST COMPOSITION: The breasts are heterogeneously dense,which may obscure small masses. FINDINGS: DIAGNOSTIC CATEGORY 2--BENIGN FINDING: RIGHT BREAST: No significant suspicious finding. Stable asymmetry within upper-outer quadrant. No significant change has occurred. LEFT BREAST: No significant suspicious finding. No significant changehas occurred. RECOMMENDATIONS: ROUTINE MAMMOGRAM AND CLINICAL EVALUATION IN 12 MONTHS. PLEASE NOTE: A NORMAL MAMMOGRAM DOES NOT EXCLUDE THE POSSIBILITY OFBREAST CANCER. A CLINICALLY SUSPICIOUS PALPABLE LUMP SHOULD BE BIOPSIED. Dictated by: Bin Zuluaga M.D. on 02/29/2024 at 16:14 Approved by: Bin Zuluaga M.D. on 02/29/2024 at 16:18 Dictated By: Bin Zuluaga M.D. Signed By:02/29/24 1619 DD/ TD/TT: Medical Staff Services Manager: us Generic External Data Provider [facility] Final Result from Last 3 Months or Most Recently Relevant to Health Maintenance Insurance [employer] Care Teams Patcher Bowling Ball Relationship Specialty Start Date End Date Shaikh Griffin MD [address] [place] [address] PCP - [facility] 02/05/24 Beny Katz MD [address] [place] [address] PCP - General Family Medicine 06/10/24 Catrina Tierney NP [address] [place] [address] Nurse Practitioner Family Medicine 06/10/24
--- OUTSIDE RECORDS SUMMARY | 2025-03-27 15:42 | XMS_ITS | Clinical Summary ---
Author Organization [facility] Address [address] [place] [address] Care Team Providers Care Music Intern Name Role Phone Unavailable Primary Care Provider Unavailabl e Social History Tobacco Use Types Packs/Day Years Used Date Smoking Tobacco: Never Assessed [place] Safety & Environment Answer Date Rec orded [...] Orientation Not on file Plan of Treatment Health Maintenance Due Date Last Done Comments Depression Screening 1994 Varicella Vaccines (1 of 2 - 13+ 2-dose series) 1995 Hepatitis B Vaccines (1 of 3 - 19+ 3-dose series) 2001 Pap Smear 2003 Adult Tetanus 2004 Cervical Cancer Screening 2012 HPV/Cotest 2012 Mammogram 2022 Influenza Vaccine (Season Ended) 2025 Zoster Vaccines (1 of 2) 2032 HIB Vaccines Aged Out No longer eligi ble based on patient's age to complete this topic HPV Vaccines Aged Out No longer eligi ble based on patient's age to complete this topic IPV Vaccines Aged Out No longer eligi ble based on patient's age to complete this topic Meningococcal B Vaccine Aged Out No l onger eligible based on patient's age to complete this topic Meningococcal Vaccine Aged Out No vi adan eligible based on patient's age to complete this topic Pneumococcal Vaccine: Pediat rics (0 to 5 Years) and At-Risk Patients (6 to 64 Years) Aged Out No longer eligible b ased on patient's age to complete this topic Rotavirus Vaccines Aged Out No longer eligible based on patient's age to complete this topic
--- OUTSIDE RECORDS SUMMARY | 2025-03-27 15:42 | XMS_ITS | Encounter Summary ---
Author Organization [employer] [facility] tem Address [id number] [address] [place] [address] Care Team Providers Care Refrigerator Repairman Name Role Phone Lesvia Strickland MD Primary Care Provider [phone] Encounter Details Date Type Department Care Team (Late st Contact Info) Description 04/13/2023 Telephone [facility] Gynecology Oncology [address] [place] [address] Tiffanie Longoria PA [address] [place] [address] Social History Tobacco Use Types Packs/Day Years Used Date Smoking Tobacco: Never Passive Smoke Exposure: Past Smokeless Tobacco: Never Alcohol Use Standard Drinks/Week Comments Not Currently 0 (1 standard drink = 0.6 oz pur e alcohol) Childcare Answer Date Recorded Childcare Unknown 04/17/2019 Employment Answer Date Recorded Employment Unknown 04/17/2019 Comments No Sex and Gender Information Value Date Recorded Sex Assigned at Not on file Legal Sex Female 11:39 AM EDT Gender Identity Not on file Sexual Orientation Not on file documented as of this encounter Miscellaneous Notes * Telephone Encounter - BRAXTON Griffin - 04/13/2023 2:23 PM EDT S/W Isamar. She is still in the ED from last night when she presented with CP. All testing has been negative (per patient). CTA negative for PE (she does have a history of Factor VIII deficiency). Allblood work for TN and EKG are normal. She is waiting on the results from an echocardiogram and thenwill be discharged home. She is feeling completely fine now and reports zero CP. She has no personal history of cardiac problems. Her father had an TN at 50yoa. Discussed that we will obtain records from her ED stay and if all negative, then we will plan to get her on our surgery schedule for next week. Answered her questions and she is agreeable with the plan. documented in this encounter Plan of Treatment Upcoming Encounters Date Type Department Care Team (Late st Contact Info) Description 06/18/2025 8:30 AM EDT Office Visit [facility] - Medical Oncology [address] [place] [id number] Khushi Davis PA [address] [place] [address] documented as of this encounter Visit Diagnoses Not on filedocumented in this encounter Care Teams Refrigerator Repairman Relationship Specialty Start Date End Date Lesvia Strickland MD [address] [place], [place] [id number] PCP - General 01/06/25 documented as of this encounter
--- OUTSIDE RECORDS SUMMARY | 2025-03-27 15:43 | XMS_ITS | Encounter Summary ---
Author Organization [facility] Address [address] [place] [address] Care Team Providers Care Principal Cyber Engineer Name Role Phone Shaikh ELAINA Griffin Primary Care Provider [phone] Shaikh ELAINA Griffin Unavailable [phone] Beny Katz MD Primary Care Provider [phone] Catrina Tierney NP Unavailable [phone] Encounter Details Date Type Department Care Team (Late st Contact Info) Description 02/29/2024 Clinisync Result Encounter [facility] External Department Unsolicited Provider, Generic External Data Social History Tobacco Use Types Packs/Day Years Used Date Smoking Tobacco: Never Passive Smoke Exposure: Past Smokeless Tobacco: Never Alcohol Use Standard Drinks/Week Comments Never 0 (1 standard drink = 0.6 oz pur e alcohol) PHQ-2 Answer Date Recorded Patient Health Questionnaire-2 Score 0 02/26/2024 Comments Unknown Sex and Gender Information Value Date Recorded Sex Assigned at Not on file Legal Sex Female 7:37 PM EDT Gender Identity Not on file Sexual Orientation Not on file documented as of this encounter Plan of Treatment Not on file documented as of this encounter Procedures Procedure Name Priority Date/Time Associated Diagnosis Comments MM TOMOSYNTHESIS SCREENING BI 02/29/2024 4:18 PM EDT ALL CBC WITH AUTO DIFF Routine 2:25 PM EDT documented in this encounter Results * MM TOMOSYNTHESIS SCREENING BI (02/29/2024 4:18 PM EDT) Anatomical Region Laterality Modality Other 02/29/2024 4:18 PM EDT Narrative 02/29/2024 4:19 PM EDT The [address] [address] Mammography Report Signed Patient: ISAMAR BOWSER MR#: [id number] : 1980 Acct:[id number] Age/Sex: 43 / F ADM Date: 02/29/24 Loc: MAMMO Attending Dr: KishanStaff Physician Ervin Ordering Physician: Hesham Winston M.D. Results: Date of Service: 02/29/24 Follow Up: Procedure(s): MM tomosynthesis screening BI Accession Number(s): [id number] cc: Shaikh Arcadio Griffin; Hesham Winston M.D. Patient Name: ISAMAR BOWSER MR#: [id number] : 1980 Exam Date: 02/29/2024 Ordering Doctor: KishanStaff Physician RADIOLOGY REPORT PROCEDURE: MM TOMOSYNTHESIS SCREENING BI [...] throat cancer at age 66. LOCATION: [facility] BREAST COMPOSITION: The breasts are heterogeneously [...] Dictated By: Bin Zuluaga M.D. Signed By: 02/29/249 DD/ 17 TD/TT: Special Education Assistant: Procedure Note Radiology, Radiologist, - 02/29/2024 The [place] [id number] Mammography Report Signed Patient: ISAMAR BOWSER MMR#: [id number] : 1980Acct:[id number] Age/Sex: 43 / FADM Date: 02/29/24 Loc: MAMMO Attending Dr: Non-Staff Physician Arcadio Ordering Physician: Hesham Winston M.D.Results: Date of Service: 02/29/24Follow Up: Procedure(s): MM tomosynthesis screening BI Accession Number(s): [id number] cc: Shaikh Arcadio Griffin; Hesham Winston M.D. Patient Name: ISAMAR BOWSER MR#: [id number] : 1980 Exam Date: 02/29/2024 Ordering Doctor: Non-Staff Physician RADIOLOGY REPORT PROCEDURE: MM TOMOSYNTHESIS SCREENING BI [...] with throatcancer at age 66. LOCATION: [facility] BREAST COMPOSITION: The breasts are heterogeneously [...] Zuluaga M.D. Signed By:02/29/24 1619 DD/ TD/TT: Special Education Assistant: Generic External Data Provider [facility] Final Result * ALL CBC WITH AUTO DIFF (02/29/2024 2:25 PM EDT) [facility] WBC 8.1 4.0 - 11.0 10 3/uL [facility] RBC 4.48 4.20 - 5.40 10 6/uL [facility] HGB 13.0 12.0 - 16.0 g/dL [facility] HCT 41.5 36.0 - 48.0 % [facility] MCV 92.6 81.0 - 99.0 fL TBH TBH MCH 29.0 26.7 - 34.0 pg TBH TBH MCHC 31.3 29.9 - 35.2 g/dL [facility] RDW 13.8 11.0 - 15.0 % [facility] TBH PLT 377 150 - 450 10 3/uL [facility] TBH MPV 10.1 9.5 - 13.5 fL [facility]H NEUTROPHILS PERCENT AUTO 62.8 43.0 - 75.0 % [facility] LYMPHOCYTES PERCENT AUTO 29.1 20.5 - 60.0 % [facility] MONOCYTES PERCENT AUTO 5.2 1.7 - 12.0 % [facility]H EO % 1.7 0.9 - 7.0 % [facility] BASOPHILS PERCENT AUTO 1.0 0.2 - 2.0 % [facility] IMMATURE GRANULOCYTES PCT AUTO 0.2 0.0 - 0.5 % [facility] NEUTROPHILS ABSOLUTE AUTO 5.1 1.4 - 6.5 10 3/uL [facility] LYMPHOCYTES ABSOLUTE AUTO 2.4 1.2 - 3.8 10 3/uL [facility] MONOCYTES ABSOLUTE AUTO 0.4 0.3 - 0.8 10 3/uL TB[facility] TBH EO # 0.1 0.0 - 0.7 10 3/uL [facility] BASOPHILS ABSOLUTE AUTO 0.1 0.0 - 0.1 10 3/uL [facility] IMMATURE GRANULOCYTES ABS AUTO 0.02 0.00 - 0.03 10 3/uL [facility] 02/29/2024 2:25 PM EDT 02/29/2024 2:26 PM EDT Narrative [facility] - 02/29/2024 4:25 PM EDT Shaikh Elias DELANEY [facility] Final Result [facility] documented in this encounter Visit Diagnoses Not on filedocumented in this encounter Care Teams Principal Cyber Engineer Relationship Specialty Start Date End Date Shaikh Griffin MD [address] [place] [phone] PCP - General Internal Medicine 11/23/23 06/09/24 Shaikh Griffin MD [address] [place] [phone] [facility] 02/05/24 Beny Katz MD [address] [place] [phone] PCP - General Family Medicine 06/10/24 Catrina Tierney NP [address] [place] [phone] Nurse Practitioner Family Medicine 06/10/24 documented as of this encounter
--- OUTSIDE RECORDS SUMMARY | 2025-03-27 15:43 | XMS_ITS | Encounter Summary ---
Author Organization [email or web address] Address [facility] [id number] [address] [place] [address] Care Team Providers Care Airfield Defence Guard Name Role Phone Lesvia Strickland MD Primary Care Provider [phone] Encounter Details Date Type Department Care Team (Late st Contact Info) Description 03/07/2024 Orders Only [facility] Gynecology Oncology [address] [place] [phone] Ref Prov, [place] [address] Social History Tobacco Use Types Packs/Day Years Used Date Smoking Tobacco: Never Passive Smoke Exposure: Past Smokeless Tobacco: Never Alcohol Use Standard Drinks/Week Comments Not Currently 0 (1 standard drink = 0.6 oz pur e alcohol) Overall Financial Resource Strain (CARDIA) Answe r Date Recorded How hard is it for you to pa y for the very basics like food, housing, medical care, and heating? Not very hard 05/09/2023 PRAPARE - Transportation Answer Date Re corded In the past 12 months, has l ack of transportation kept you from medical appointments or from getting medications? No 02/2023 In the past 12 months, has l ack of transportation kept you from meetings, work, or from getting things needed for daily living? No 05/09/2023 Housing Instability Answer Date Recorde d Are you worried or concerned that in the next two months you may not have stable housing that you own, rent or stay in as a part of a household? No 05/09/2023 Childcare Answer Date Recorded Childcare Unknown 04/17/2019 Employment Answer Date Recorded Employment Unknown 04/17/2019 Hunger Screening Answer Date Recorded Within the past 12 months we worried whether our food would run out before we got money to buy more. Never True 05/31/2023 Within the past 12 months th e food we bought just didn't last and we didn't have money to get more. Never True 05/31/2023 Comments No Sex and Gender Information Value Date Recorded Sex Assigned at Not on file Legal Sex Female 11:39 AM EDT Gender Identity Not on file Sexual Orientation Not on file documented as of this encounter Plan of Treatment Upcoming Encounters Date Type Department Care Team (Late st Contact Info) Description 06/18/2025 8:30 AM EDT Office Visit [facility] On[facility] [address] [place] [phone] Khushi Davis PA [address] [place] [address] documented as of this encounter Procedures Procedure Name Priority Date/Time Associated Diagnosis Comments SCREENING MAMMOGRAPHY BILATERAL Routine 03/07/2024 8:31 AM EDT documented in this encounter Results * SCREENING MAMMOGRAPHY BILATERAL (03/07/2024 8:31 AM EDT) us Not In System Ref Prov [facility] Final Result documented in this encounter Visit Diagnoses Not on filedocumented in this encounter Care Teams Airfield Defence Guard Relationship Specialty Start Date End Date Lesvia Strickland MD [address] [address] PCP - General 01/06/25 documented as of this encounter
--- OUTSIDE RECORDS SUMMARY | 2025-03-27 15:43 | XMS_ITS | Clinical Summary ---
Author Organization [employer] tem Address [id number] [address] [place] [address] Care Team Providers Care Installment Loan Collector Name Role Phone Lesvia Strickland MD Primary Care Provider [phone] Allergies No known active allergies Medications TRUE METRIX GLUCOSE TEST STRIP strip use to test BLOOD SUGAR DAILY 3 Active UNILET SUPER THIN LANCETS 30 gauge misc use to test BLOOD SUGAR DAILY 3 Active docusate sodium (COLACE) 100 mg capsule Take 1 capsule (100 mg total) by mouth in the morning and 1 capsule (100 mg total) before bedtime. 10 capsule 3 Active XARELTO 10 mg tabletIndicatio ns:History of pulmonary embolus (PE) Take 1 tablet (10 mg total) by mouth in the morning. 30 tablet 3 Active atorvastatin (LIPITOR) 20 mg tablet Take 1 tablet (20 mg total) by mouth in the morning. 90 tablet 3 5 Active cholecalciferol (VITAMIN D3) 50,000 units capsule Take 1 capsule (50,000 Units total) by mouth once a week. 8 capsule 5 Active metFORMIN (GLUCOPHAGE) 500 mg tablet Take 2 tablets (1,000 mg total) by mouth in the morning and 2 tablets (1,000 mg total) before bedtime. 60 tablet 5 Active metFORMIN (GLUCOPHAGE) 500 mg tablet Take 2 tablets (1,000 mg total) by mouth in the morning and 2 tablets (1,000 mg total) before bedtime. 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 Dvt femoral (deep venous thrombosis) 03/29/2023 YENNY (iron deficiency anemia) 03/29/2023 Encounters Date Type Department Care Team Description 03/13/2025 Refill [facility] [address] [place] [address] [place] [address] Kareen James CNA 02/18/2025 4:30 PM EDT Telemedicine [facility] [address] [place] [phone] Lesvia Strickland MD Vitamin D deficiency (Primary Dx); Breast cancer screening by mammogram 02/18/2025 Travel 02/04/2025 Refill [facility] [address] [place] [address] [place] [address] Makayla Dsouza [facility] 02/04/2025 [facility]phone [facility] [address] [place] [phone] Norma Hamm, [facility] 02/03/2025 Orders Only [facility] [address] [place] [phone] Lesvia Strickland MD 01/11/2025 8:30 AM EST - 01/11/2025 11:59 PM EST Hospital Encounter [facility] [address] [place] [address] Chronic fatigue; Diabetes mellitus due to underlying condition with hyperosmolarity without coma, without long-term current use of insulin ([facility]); Primary hypertension; Vitamin D deficiency Discharge Disposition: Home 01/11/2025 Travel 01/06/2025 3:30 PM EST [facility] [address] [place] [phone] Lesvia Strickland MD Diabetes mellitus due to underlying condition with hyperosmolarity without coma, without long-term current use of insulin ([facility]) (Primary Dx); Primary hypertension; Vitamin D deficiency; Chronic fatigue 01/06/2025 Travel from Last 3 Months Family History Medical History Relation Name Comments Lung cancer Maternal Grandmother Lung cancer Maternal Uncle 1 Prostate cancer Maternal Uncle 2 Lung cancer Paternal Aunt 1 Lung cancer Paternal Aunt 2 Cancer Paternal Aunt 3 nipple Lung cancer Paternal Grandfather Throat cancer Paternal Uncle 1 Throat cancer Paternal Uncle 2 Leukemia Paternal cousin 1 3 cousins: age 24, 43, and 2.5 Thyroid cancer Paternal cousin 2 Anesthesia problems Neg Hx Relation Name Status Comments Maternal Grandmother Maternal Uncle 1 Alive Maternal Uncle 2 Alive Paternal Aunt 1 Paternal Aunt 2 Alive Paternal Aunt 3 Paternal Grandfather Paternal Uncle 1 Paternal Uncle 2 Alive Paternal cousin 1 Paternal cousin 2 Alive Social History Tobacco Use Types Packs/Day Years Used Date Smoking Tobacco: Never Passive Smoke Exposure: Past Smokeless Tobacco: Never Tobacco Cessation:Counseling Given: Not Answered Alcohol Use Standard Drinks/Week Comments Not Currently 0 (1 standard drink = 0.6 oz pur e alcohol) Overall Financial Resource Strain (CARDIA) Answe r Date Recorded How hard is it for you to pa y for the very basics like food, housing, medical care, and heating? Not hard at all 02/18/2025 PHQ-2 Answer Date Recorded Total Score 0 01/06/2025 PRAPARE - Transportation Answer Date Re corded In the past 12 months, has l ack of transportation kept you from medical appointments or from getting medications? No 02/04 In the past 12 months, has l ack of transportation kept you from meetings, work, or from getting things needed for daily living? No 02/18/2025 Housing Instability Answer Date Recorde d Are you worried or concerned that in the next two months you may not have stable housing that you own, rent or stay in as a part of a household? No 02/18/2025 Childcare Answer Date Recorded Childcare Unknown 04/17/2019 Employment Answer Date Recorded Employment Unknown 04/17/2019 Hunger Screening Answer Date Recorded Within the past 12 months we worried whether our food would run out before we got money to buy more. Never True 02/18/2025 Within the past 12 months th e food we bought just didn't last and we didn't have money to get more. Never True 02/18/2025 Comments No Sex and Gender Information Value Date Recorded Sex Assigned at Not on file Legal Sex Female 11:39 AM EDT Gender Identity Not on file Sexual Orientation Not on file Last Filed Vital Signs Vital Sign Reading Time Taken Comments Blood Pressure 132/80 01/06/2025 3:25 PM EST Pulse 73 01/06/2025 3:25 PM EST Temperature 36.6 C (97.9 F) 01/06/2025 3:25 PM EST Respiratory Rate 18 12/19/2023 8:35 AM EST Oxygen Saturation 97% 01/06/2025 3:25 PM EST Inhaled Oxygen Concentration - - Weight 97.1 kg (214 lb) 01/06/2025 3:25 PM EST Height 165.1 cm (5' 5 ) 01/06/2025 3:25 PM EST Body Mass Index 35.61 01/06/2025 3:25 PM EST Plan of Treatment Upcoming Encounters Date Type Department Care Team (Late st Contact Info) Description 06/18/2025 8:30 AM EDT Office Visit [facility] - Medical Oncology [address] [place] [address] Khushi Davis PA [address] [place] [address] Health Maintenance Due Date Last Done Comments Diabetic Ophthalmology Exam 1982 Urine Microalbumin 1982 Adult BMI Follow Up Plan 2000 Diabetic Foot Exam 2000 DTaP,Tdap and Td Vaccines (1 - Tdap) 2001 Pap Smear 2003 COVID-19 Vaccine (3 - Pfizer risk series) 10/11/2021 09/13/2021, 06/28/2021 Influenza Vaccine 07/07/2025 09/13/2021 Adult BMI Screening 01/06/2026 01/06/2025 Depression Screening 01/06/2026 01/06/2025 Tobacco Screening 02/18/2026 02/18/2025 Medical Devices Not on file Procedures Procedure Name Priority Date/Time Associated Diagnosis Comments CBC WITH AUTO DIFFERENTIAL Routine 01/11/2025 8:41 AM EST Diabetes mellitus due to underlying condition with hyperosmolarity without coma, without long-term current use of insulin ([facility]) Primary hypertension COMPREHENSIVE METABOLIC PANEL Routine 01/11/2025 8:41 AM EST Diabetes mellitus due to underlying condition with hyperosmolarity without coma, without long-term current use of insulin ([facility]) Primary hypertension LIPID PROFILE Routine 01/11/2025 8:41 AM EST Diabetes mellitus due to underlying condition with hyperosmolarity without coma, without long-term current use of insulin ([facility]) Primary hypertension HEMOGLOBIN A1C Routine 01/11/2025 8:41 AM EST Diabetes mellitus due to underlying condition with hyperosmolarity without coma, without long-term current use of insulin ([facility]) Primary hypertension TSH WITH REFLEX Routine 01/11/2025 8:41 AM EST Diabetes mellitus due to underlying condition with hyperosmolarity without coma, without long-term current use of insulin ([facility]) Primary hypertension Vitamin D deficiency VITAMIN D 25 HYDROXY Routine 01/11/2025 8:41 AM EST Diabetes mellitus due to underlying condition with hyperosmolarity without coma, without long-term current use of insulin ([facility]) Primary hypertension Vitamin D deficiency INSULIN Routine 01/11/2025 8:41 AM EST Diabetes mellitus due to underlying condition with hyperosmolarity without coma, without long-term current use of insulin ([facility]) Primary hypertension Vitamin D deficiency VITAMIN B12 Routine 01/11/2025 8:41 AM EST Chronic fatigue THIAMIN (VITAMIN B1), WB Routine 01/11/2025 8:41 AM EST Chronic fatigue FOLATE Routine 01/11/2025 8:41 AM EST Chronic fatigue HOMOCYSTEINE, PLASMA Routine 01/11/2025 8:41 AM EST Chronic fatigue ERYTHROCYTE SEDIMENTATION RATE (ESR) Routine 01/11/2025 8:41 AM EST Chronic fatigue ALESIA SCREEN W/ REFLEX Routine 01/11/2025 8:41 AM EST Chronic fatigue from Last 3 Months Results * Thiamin (Vitamin B1), WB (01/11/2025 8:41 AM EST) Thiamine 165 70 - 180 nmol/L 01/15/2025 3:47 PM EDT [facility] Comment: NOTE ADDITIONAL INFORMATION This test was developed and its performance characteristics determined by [facility] in a manner consistent with CLIA requirements. This test has not been cleared or approved by the U.S. Food and Drug Administration. Test Performed by: [facility] [place] [address] Slubber Hand: Cliff Sims Ph.D.; CLIA# [id number] Blood Blood / Unknown 01/11/2025 8 :41 AM EST 01/11/2025 8:42 AM EST us Lesvia Strickland MD LAB BLOOD ORDERABLES Final Res ult [address], [place] [address] * Erythrocyte Sedimentation Rate (ESR) (01/11/2025 8:41 AM EST) Sed Rate 6 0 - 20 mm/h 01/11/2025 3:02 PM EST [facility] Blood / Unknown 01/11/2025 8 :41 AM EST 01/11/2025 8:42 AM EST us Lesvia Strickland MD LAB BLOOD ORDERABLES Final Res ult Performing Organization Address City/[facility]/ZIP Co de Phone Number [facility] [address], [address] [place] [address] * TSH with Reflex (01/11/2025 8:41 AM EST) Pathologist [facility] TSH 0.55 0.49 - 4.67 uIU/mL 01/11/2025 3:36 PM [facility] PLASMA 01/11/2025 8:41 AM EST 01/11/2025 8:42 AM EST us Lesvia Strickland MD LAB BLOOD ORDERABLES Final Res ult Performing Organization Address [facility]/ZIP Co de Phone Number [facility] [address] [place] [address], [address] [place] [address] * CBC auto differential (01/11/2025 8:41 AM EST) Pathologist [facility] White Blood Cells 5.2 4.0 - 11.0 X10E9/L 01/11/2025 2:55 PM [facility] RBC count 4.45 3.80 - 5.20 X10E12/L 01/11/2025 2:55 PM [facility] Hemoglobin 13.8 11.7 - 15.5 g/dL 01/11/2025 2:55 PM [facility] Hematocrit 39.7 35 - 47 % 01/11/2025 2:55 PM [facility] MCV 89 80 - 100 fL 01/11/2025 2:55 PM [facility] MCH 31.0 27 - 34 pg 01/11/2025 2:55 PM [facility] MCHC 34.7 32 - 36 g/dL 01/11/2025 2:55 PM [facility] RDW 14.4 11.5 - 15.0 % 01/11/2025 2:55 PM [facility] Platelets 276 150 - 450 X10E9/L 01/11/2025 2:55 PM [facility] MPV 8.1 7 - 12 fL 01/11/2025 2:55 PM [facility] % neutrophils 55.2 % 01/11/2025 2:55 PM [facility] % lymphocytes 34.6 % 01/11/2025 2:55 PM [facility] % monocytes 5.0 % 01/11/2025 2:55 PM [facility] % eosinophils 3.6 % 01/11/2025 2:55 PM [facility] % Basophils 1.6 % 01/11/2025 2:55 PM [facility] Neutrophils Absolute (A) 2.9 1.5 - 6.6 X10E9/L 01/11/2025 2:55 PM [facility] Lymphocytes Absolute 1.8 1.0 - 3.5 X10E9/L 01/11/2025 2:55 PM [facility] Monocytes Absolute 0.3 0 - 0.9 X10E9/L 01/11/2025 2:55 PM [facility] Eosinophils Absolute 0.2 0.0 - 0.4 X10E9/L 01/11/2025 2:55 PM [facility] Basophils Absolute 0.1 0.0 - 0.2 X10E9/L 01/11/2025 2:55 PM [facility] Blood / Unknown 01/11/2025 8 :41 AM EST 01/11/2025 8:42 AM EST us Lesvia Strickland MD LAB BLOOD ORDERABLES Final Res ult [facility] [address], [address] [place] [address] * (ABNORMAL) Vitamin D 25 hydroxy (01/11/2025 8:41 AM EST) Vit D, 25-Hydroxy 24.5(L) 30 - 100 ng/mL 01/11/2025 3:51 PM EST [facility] Comment: Vitamin D status 25 [place] Vitamin D Deficiency <20 ng/mL Insufficiency 20-29 ng/mL Sufficiency 30-100 ng/mL Toxicity >100 ng/mL NOTE: A pediatric reference range has not been established by the kettle hand of this kit. The [place] [employer] recommends a Vitamin D level of = or >20ng/mL in infants and children. PLASMA 01/11/2025 8:41 AM EST 01/11/2025 8:42 AM EST Lesvia Strickland MD LAB BLOOD ORDERABLES Final Res ult Performing Organization Address City/[facility]/ZIP Co de Phone Number [facility] [address] [place] [address], [address] [place] [address] * Insulin (01/11/2025 8:41 AM EST) Insulin 8.34 1.00 - 23.00 uIU/mL 01/11/2025 3:53 PM EST [facility] Comment:Ref. range is for FA STING NON-DIABETIC POPULATION. Serum / Unknown 01/11/2025 8 :41 AM EST 01/11/2025 8:42 AM EST Lesvia Strickland MD LAB BLOOD ORDERABLES Final Res ult Performing Organization Address City/[facility]/ZIP Co de Phone Number [facility] [address] [place] [address], [address] [place] [address] * ALESIA Screen w/ Reflex (01/11/2025 8:41 AM EST) Alesia screen Negative Negative^N egative 01/13/2025 11:04 AM EDT [facility] Comment: Testing performed using multiplex flow immunoassay. Eleven different antigens associated with systemic autoimmune diseases (dsDNA,Sm,Sm/TRAFFIC LIEUTENANT,TRAFFIC LIEUTENANT,Chromatin, SSA,SSB,Sirena-1,Scl70,Ribo P,Centromere B) are included in this screening test. Blood Serum / Unknown 01/11/2025 8 :41 AM EST 01/11/2025 8:42 AM EST Lesvia Strickland MD LAB BLOOD ORDERABLES Final Res ult Performing Organization Address City/[facility] Co de Phone Number [facility] [address] [place] [address], [address] [address] * Homocysteine total (01/11/2025 8:41 AM EST) Homocysteine 7.51 3.36 - 20.44 mcmol/L 01/11/2025 2:54 PM [facility] Blood (PLASMA) 01/11/2025 8: 41 AM EST 01/11/2025 8:42 AM EST eLsvia Strickland MD LAB BLOOD ORDERABLES Final Res ult Performing Organization Address [facility] Co de Phone Number [facility] [address] [place] [address], [address] [address] * (ABNORMAL) Hemoglobin A1c (01/11/2025 8:41 AM EST) Hemoglobin A1C 6.9(H) 4.4 - 5.6 % 01/11/2025 3:36 PM [facility] Comment: NOTE ADA Guidelines Result HgbA1c Normal : less than 5.7 % Prediabetes : 5.7 % to 6.4 % Diabetes : > 6.4 % Use with caution in patients with abnormal hemoglobin variants as the half-life of red blood cells and in vivo glycation rates are affected. Average glucose 151 mg/dL 3:36 PM [facility] PLASMA 01/11/2025 8:41 AM EST 01/11/2025 8:42 AM EST us Lesvia Strickland MD LAB BLOOD ORDERABLES Final Res ult Performing Organization Address City/[facility]/ZIP Co de Phone Number [facility] [address], [address] [place] [address] * Folate (01/11/2025 8:41 AM EST) Folate 15.8 >5.8 ng/mL 01/11/2025 3:44 PM [facility] Comment:NEW REFERENCE RANGE Blood (PLASMA) 01/11/2025 8: 41 AM EST 01/11/2025 8:42 AM EST us eLsvia Strickland MD LAB BLOOD ORDERABLES Final Res ult Performing Organization Address [facility]/ZIP Co de Phone Number [facility] [address] [place] [address], [address] [place] [address] * Vitamin B12 (01/11/2025 8:41 AM EST) Vitamin B-12 424 180 - 914 pg/mL 01/11/2025 3:47 PM [facility] Blood Serum / Unknown 01/11/2025 8 :41 AM EST 01/11/2025 8:42 AM EST us Lesvia Strickland MD LAB BLOOD ORDERABLES Final Res ult Performing Organization Address City/[facility]/ZIP Co de Phone Number [facility] [address], [address] [place] [address] * (ABNORMAL) Lipid profile (01/11/2025 8:41 AM EST) Cholesterol 147(L) 150 - 200 mg/dL 01/11/2025 3:21 PM [facility] Triglycerides 46 27 - 150 mg/dL 01/11/2025 3:21 PM [facility] HDL Cholesterol 51 >39 mg/dL 3:21 PM [facility] Comment: HDL <40 mg/dL - High Risk HDL > or = 40mg/dL- Desirable HDL >60 mg/dL - Negative Risk VLDL 9 0 - 30 mg/dL 01/11/2025 3:21 PM [facility] LDL (calc) 87 <130 mg/dL 01/11/2025 3:21 PM [facility] Comment: LDL <100 mg/dL - Desirable LDL >160 mg/dL - High Risk Cholesterol:HDL Ratio 2.9 1.0 - 5.0 01/11/2025 3:21 PM [facility] PLASMA 01/11/2025 8:41 AM EST 01/11/2025 8:42 AM EST us Lesvia Strickland MD LAB BLOOD ORDERABLES Final Res ult [facility] [address], [address] [place] [address] * (ABNORMAL) Comprehensive metabolic panel (01/11/2025 8:41 AM EST) Sodium 140 134 - 146 mmol/L 01/11/2025 3:21 PM [facility] Potassium, Bld 4.2 3.5 - 5.0 mmol/L 01/11/2025 3:21 PM [facility] Chloride 103 98 - 109 mmol/L 01/11/2025 3:21 PM [facility] CO2 29 22 - 32 mmol/L 01/11/2025 3:21 PM [facility] Anion gap 8 5 - 15 mmol/L 01/11/2025 3:21 PM [facility] BUN 20 5 - 23 mg/dL 01/11/2025 3:21 PM [facility] Creatinine 0.53 0.40 - 1.00 mg/dL 01/11/2025 3:21 PM [facility] Comment:METHOD TRACEABLE TO IDMS STANDARD Glucose 133(H) 65 - 99 mg/dL 01/11/2025 3:21 PM [facility] Calcium 9.3 8.5 - 10.5 mg/dL 01/11/2025 3:21 PM [facility] Total Protein 6.9 6.0 - 8.0 g/dL 01/11/2025 3:21 PM [facility] Albumin 4.0 3.2 - 5.3 g/dL 01/11/2025 3:21 PM [facility] Alkaline Phosphatase 70 39 - 130 U/L 01/11/2025 3:21 PM [facility] AST 13 0 - 41 U/L 01/11/2025 3:21 PM [facility] ALT 15 0 - 31 U/L 01/11/2025 3:21 PM [facility] Total bilirubin 0.9 0.3 - 1.2 mg/dL 01/11/2025 3:21 PM [facility] eGFR (CKD-EPI)non-rac e dependent >90 >59 ml/min/1.7 3sq.m 01/11/2025 3:21 PM [facility] Comment: Reported eGFR is based on the CKD-EPI 2020 equation that does not use a race coefficient. PLASMA 01/11/2025 8:41 AM EST 01/11/2025 8:42 AM EST us Lesvia Strickland MD LAB BLOOD ORDERABLES Final Res ult [facility] [address], [address] [place] [address] from Last 3 Months Insurance [place] [employer] Care Teams Installment Loan Collector Relationship Specialty Start Date End Date Lesvia Strickland MD [address] [place] [address] PCP - General 01/06/25
--- OUTSIDE RECORDS SUMMARY | 2025-03-27 15:43 | XMS_ITS | Encounter Summary ---
Author Organization [facility] tem Address [id number] [address] [place] [address] Care Team Providers Care Tailercpa Name Role Phone Lesvia Strickland MD Primary Care Provider [phone] Reason for Visit * Reason Onset Date Comments GENETICS 05/22/2023 CLERICAL Encounter Details Date Type Department Care Team (Late st Contact Info) Description 05/22/2023 Telephone [facility] - Medical Oncology [address] [place] [address] [facility] [address] [address] GENETICS (CLERICAL) Social History Tobacco Use Types Packs/Day Years [...] encounter Miscellaneous Notes * Telephone Encounter - Allison Kumar - 05/22/2023 12:53 PM EDT Mailed 05/18/23 Genetics Consult to patient and faxed/routed to all providers ON 05/22/23 CM * Telephone Encounter - Allison Kumar - 05/22/2023 12:53 PM EDT Mailed 05/30/23 Genetics Follow-up to patient and faxed/routed to all providers - 05/31/2023 at 11:03AM CM documented in this encounter Plan of Treatment Upcoming Encounters Date Type Department Care Team (Late st Contact Info) Description 06/18/2025 8:30 AM EDT Office Visit [facility] - Medical Oncology [address] [place] [phone] Khushi Davis PA [address] [place] [address] documented as of this encounter Visit Diagnoses Not on filedocumented in this encounter Care Teams Tailercpa Relationship Specialty Start Date End Date Lesvia Strickland MD [address] [place], [place] [id number] PCP - General 01/06/25 documented as of this encounter
--- OUTSIDE RECORDS SUMMARY | 2025-03-27 15:43 | XMS_ITS | Encounter Summary ---
Author Organization [facility] Address [address] [place] [address] Care Team Providers Care Purse Maker Name Role Phone Shaikh ELAINA Griffin Primary Care Provider [phone] Shaikh ELAINA Griffin Unavailable [phone] Beny Katz MD Primary Care Provider [phone] Catrina Tierney NP Unavailable [phone] Reason for Visit * Reason Comments Med Refill Encounter Details Date Type Department Care Team (Late st Contact Info) Description 01/15/2024 Refill [facility] [address] [place] [address] Shaikh Griffin MD [address] [place] [address] Personal history of pulmonary embolism; Type 2 diabetes mellitus without complications ([facility] ; Hyperlipidemia, unspecified ([facility]) Social History Tobacco Use Types Packs/Day Years Used Date Smoking Tobacco: Never Passive Smoke Exposure: Past Smokeless Tobacco: Never Alcohol Use Standard Drinks/Week Comments Never 0 (1 standard drink = 0.6 oz pur e alcohol) PHQ-2 Answer Date Recorded Patient Health Questionnaire-2 Score 0 11/23/2023 Comments Unknown Sex and Gender Information Value Date Recorded Sex Assigned at Not on file Legal Sex Female 7:37 PM EDT Gender Identity Not on file Sexual Orientation Not on file documented as of this encounter Plan of Treatment Not on file documented as of this encounter Visit Diagnoses Diagnosis Personal history of pulmonary embolism Type 2 diabetes mellitus without complications Hyperlipidemia, unspecified ([facility]) documented in this encounter Care Teams Purse Maker Relationship Specialty Start Date End Date Shaikh Griffin MD [address] [place] [phone] PCP - General Internal Medicine 11/23/23 06/09/24 Shaikh Griffin MD [address] [place] [phone] PCP - [facility] 02/05/24 Beny Katz MD [address] [place] [address] PCP - General Family Medicine 06/10/24 Catrina Tierney NP [address] [place] [phone] Nurse Practitioner Family Medicine 06/10/24 documented as of this encounter
--- OUTSIDE RECORDS SUMMARY | 2025-03-27 15:43 | XMS_ITS | Encounter Summary ---
Author Organization [facility] Address [address] [place] [address] Care Team Providers Care Agricultural Consultant Name Role Phone Shaikh ELAINA Griffin Primary Care Provider [phone] Shaikh ELAINA Griffin Unavailable [phone] Beny Katz MD Primary Care Provider [phone] Catrina Tierney NP Unavailable [phone] Encounter Details Date Type Department Care Team (Late st Contact Info) Description 12/04/2023 Clinisync Result Encounter [facility] External Department Unsolicited Shaikh Griffin MD [address] [facility] [place] [address] Social History Tobacco Use Types Packs/Day Years [...] Procedure Name Priority Date/Time Associated Diagnosis Comments ECG 12-LEAD 12/04/2023 2:32 PM EST documented in this encounter Results * ECG 12-LEAD (12/04/2023 2:32 PM EST) Anatomical Region Laterality Modality Other 12/04/2023 2:32 PM EST Narrative 12/04/2023 7:59 [place] [address] Electrocardiograph Report Signed Patient: ISAMAR BOWSER MR#: [id number] : 1980 Acct:[id number] Age/Sex: 43 / F ADM Date: 12/04/23 Loc: CARD Attending Dr: Shaikh Pasha Ervin Ordering Physician: Shaikh Arcadio Griffin Date of Service: 12/04/23 Procedure(s): ECG 12 lead Accession Number(s): [id number] cc: The [facility] Test Date: 2023-12-04 Pat Name: ISAMAR BOWSER Department: Room: - Gender: Female 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 Signed By:12/04/23195812/04/231958 DD/ 31 TD/TT: Ring Making Machine Operator: us Shaikh Pasha [facility] Final Result documented in this encounter Visit Diagnoses Not on filedocumented in this encounter Care Teams Agricultural Consultant Relationship Specialty Start Date End Date Shaikh Griffin MD [address] [place] [address] PCP - General Internal Medicine 11/23/23 06/09/24 Shaikh Griffin MD [address] [place] [address] PCP - [facility] 02/05/24 Beny Katz MD [address] [place] [address] PCP - General Family Medicine 06/10/24 Catrina Tierney NP [address] [place] [address] Nurse Practitioner Family Medicine 06/10/24 documented as of this encounter
--- OUTSIDE RECORDS SUMMARY | 2025-03-27 15:43 | XMS_ITS | Patient Health Record ---
Author Organization [facility] Address [address] [place], [place] [address] Care Team Providers Care Early Head Start Teacher Name Role Phone HoneyVenkatMainor Danay Unavailable [phone] Allergies No Known Allergies Reason For Referral No Information Medications Medication SIG (Take, Route, Frequency, Duration) Notes Start Date End Date Status Atorvastatin Calcium 20 MG TAKE 1 TABLET BY MOUTH EVERY DAY Oral for 90 Days Active Xarelto 20 MG Oral for 90 Days Active Docusate Sodium 100 MG Oral for 30 Days Active metFORMIN HCl 500 MG Oral for 90 Days Active glipiZIDE 5 MG Oral for 90 Days Not-Taking Social History Sex Assigned At : Social History Observation Description Sex Assigned At Female Tobacco Control (Standard) Question Answer Notes Additional Findings: Tobacco non-user Current no nsmoker Problems Problem Type SNOMED Code ICD Code Onset Dates Problem Status W/U Status Risk Notes Problem [id number] BMI 34.0-34.9,a dult (Z68.34) Active confirmed Problem Obese class II (79257473062433 5) BMI 37.0-37.9, adult (Z68.37) Active confirmed Vital Signs Heart Rate 62 /min 11/08/2024 Height-cm 167.64 cm 11/08/2024 Blood pressure diastolic 88 mm Hg 11/08/2024 Weight-kg 97.07 kg 11/08/2024 Height 66 in 11/08/2024 Blood pressure systolic 137 mm Hg 11/08/2024 Weight 214 lbs 11/08/2024 BMI 34.54 kg/m2 11/08/2024 Encounters Encounter Location Date Provider Diagnosis [facility] [address] [place], [place] [id number] 05/10/2024 Danay Thompson BMI 37.0-37.9, linda lt Z68.37 ; Dietary counseling Z71.3 ; Exercise counseling Z71.82 ; Encounter for screening for dental disorders Z13.84 ; Necrosis of pulp K04.1 ; Dental caries into dentine K02.62 ; Encounter for dental examination and cleaning without abnormal findings Z01.20 ; Encounter for dental examination and cleaning with abnormal findings Z01.21 and Caries of dentin K02.62 [facility] [address] [place], [place] [id number] 05/15/2024 Danay Thompson Dental caries into dentine K02.62 [facility] [address] [place], [place] [id number] 07/11[facility] Necrosis of pulp K 04.1 and Encounter for dental examination and cleaning with abnormal findings Z01.21 [facility] [address] [place], [place] [id number] 11/08/2024 Danay Thompson Dietary counseling Z71.3 ; Exercise counseling Z71.82 ; BMI 34.0-34.9,adult Z68.34 and Encounter for dental examination and cleaning without abnormal findings Z01.20 [facility] [address] [place], [place] [id number] 05/27[facility]20[facility] [address] [place] [id number] 07/10/2024 Danay Thompson Assessments Encounter Date Diagnosis (ICD Code) Assessment Notes Treatment Notes Treatment Clinical Notes Section Notes 05/10/2024 BMI 37.0-37.9, adult (ICD-10 - Z68.37) 05/15/2024 Dental caries into dentine (ICD-10 - K02.62) 07/11/2024 Necrosis of pulp (ICD-10 - K04.1) 11/08/2024 Dietary counseling (ICD-10 - Z71.3) 11/08/2024 Exercise counseling (ICD-10 - Z71.82) 07/11/2024 Encounter for dental examination and cleaning with abnormal findings (ICD-10 - Z01.21) 05/10/2024 Dietary counseling (ICD-10 - Z71.3) 05/10/2024 Exercise counseling (ICD-10 - Z71.82) 11/08/2024 BMI 34.0-34.9,adult (ICD-10 - Z68.34) 11/08/2024 Encounter for dental examination and cleaning without abnormal findings (ICD-10 - Z01.20) 05/10/2024 Encounter for screening for dental disorders (ICD-10 - Z13.84) 05/10/2024 Necrosis of pulp (ICD-10 - K04.1) 05/10/2024 Dental caries into dentine (ICD-10 - K02.62) 05/10/2024 Encounter for dental examination and cleaning without abnormal findings (ICD-10 - Z01.20) 05/10/2024 Encounter for dental examination and cleaning with abnormal findings (ICD-10 - Z01.21) 05/10/2024 Caries of dentin (ICD-10 - K02.62) Plan Of Treatment No Information Insurance Providers Payer Name Payer Address Payer Phone Subscriber Number Group Number Insured Name Patient Relationship to Insured Coverage Start Date Coverage End Date [employer] [facility] [address] [address] [place] [address] [id number] Isamar Morrell Self - patient is the insured 4 DMedicaid C[employer] after [place] [employer] [address] [place], [place] [phone] [id number] Isamar Morrell Self - patient is the insured 4
--- OUTSIDE RECORDS SUMMARY | 2025-03-27 15:43 | XMS_ITS | Encounter Summary ---
Author Organization [facility] Address [address] [place] [address] Care Team Providers Care Community Service Coordinator Name Role Phone Shaikh ELAINA Griffin Primary Care Provider [phone] Shaikh ELAINA Griffin Unavailable [phone] Beny Katz MD Primary Care Provider [phone] Catrina Tierney NP Unavailable [phone] Encounter Details Date Type Department Care Team (Late st Contact Info) Description 05/14/2024 Orders Only [facility] [address] [place] [address] Shaikh Griffin MD [address] [place] [address] Social History Tobacco Use Types Packs/Day Years [...] on filedocumented in this encounter Care Teams Community Service Coordinator Relationship Specialty Start Date End Date Shaikh Griffin MD [address] [place] [address] PCP - General Internal Medicine 11/23/23 06/09/24 Shaikh Griffin MD [address] [place] [address] PCP - [facility] 02/05/24 Beny Katz MD [address] [place] [address] PCP - General Family Medicine 06/10/24 Catrina Tierney NP [address] [place] [address] Nurse Practitioner Family Medicine 06/10/24 documented as of this encounter
--- OUTSIDE RECORDS SUMMARY | 2025-03-27 15:43 | XMS_ITS | Encounter Summary ---
[facility] Organization [facility] Address [id number] [address] [place] [address] Care Team Providers Care Produce Field Merchandiser Name Role Phone Lesvia Strickland MD Primary Care Provider [phone] Reason for Visit * Reason Onset Date Comments Med Refill 03/13/2025 Encounter Details Date Type Department Care Team (Late st Contact Info) Description 03/13/2025 Refill [facility] [address] [place] [address] [place] [phone] Kareen James CNA Social History Tobacco Use Types Packs/Day Years [...] 8:30 AM EDT Office Visit Yudi Plascencia [facility] - Medical Oncology [address] [place] [address] Khushi Davis PA [address] [place] [address] documented as of this encounter Visit Diagnoses Not on filedocumented in this encounter Additional Health Concerns Assessment Noted Time PHQ-9 Depression Total Score: 0 01/07/20 3:25 PM EST documented as of this encounter Care Teams Produce Field Merchandiser Relationship Specialty Start Date End Date Lesvia Strickland MD [address] [facility] [address] PCP - General 01/06/25 documented as of this encounter
--- NOTE | 2025-03-27 15:46 | MM_ITS ---
Patient Name: ADARSH BOWSER MR#: [id number] : 1980 Exam Date: 03/27/2025 Ordering Doctor: ELIZABETH LIU RADIOLOGY REPORT PROCEDURE: MM TOMOSYNTHESIS SCREENING BI COMPARISON: MM TOMOSYNTHESIS SCREENING BI, 02/29/2024. MG MAMM RT DIAG FU, 01/20/2023. MG MAMM SCREEN 3D WILIAM CAD, 12/14/2022. INDICATIONS: Screening Calculator Name NCI Breast Cancer Risk Assessment Tool 5 Year Breast Cancer Risk 0.70% Lifetime Breast Cancer Risk 10.00% Personal Breast Cancer No Personal Ovarian Cancer No Treatments None Family Cancers Grandfather-maternal with lung cancer at age 62; Aunt-maternal with lung cancer at age 63; Uncle-maternal with throat cancer at age 64. LOCATION: [facility] BREAST COMPOSITION: There are scattered areas of fibroglandular density. FINDINGS: RIGHT BREAST: No significant suspicious finding. There is a similar focal asymmetry appeared benign-appearing lymph nodes are noted along the chest wall. LEFT BREAST: No significant suspicious finding. Benign-appearing calcifications are present. DIAGNOSTIC CATEGORY 2--BENIGN FINDING: RECOMMENDATIONS: ROUTINE MAMMOGRAM AND CLINICAL EVALUATION IN 12 MONTHS. PLEASE NOTE: A NORMAL MAMMOGRAM DOES NOT EXCLUDE THE POSSIBILITY OF BREAST CANCER. A CLINICALLY SUSPICIOUS PALPABLE LUMP SHOULD BE BIOPSIED. Dictated by: Raymon Arellano MD on 03/28/2025 at 08:00 Approved by: Raymon Arellano MD on 03/28/2025 at 08:03
== END 2025-03-27 15:42 | disposition home or self-care (01) ==
LOC: MAMMO 15:41
PROVIDERS: Visit Provider Student in an Organized Health Care Education/Training Program
DX: Z12.31 Encounter for screening mammogram for malignant neoplasm of breast (principal); Z80.1 Family history of malignant neoplasm of trachea, bronchus and lung; Z80.8 Family history of malignant neoplasm of other organs or systems
CPT/HCPCS: 77063; 77067

== ENCOUNTER 2025-07-11 13:31 | Emergency (ER) | payer OTHER, SELFPAY ==
--- OUTSIDE RECORDS SUMMARY | 2024-06-21 06:15 | XMS_ITS ---
Author Organization [facility] vices Address [address] [place] [id number] Care Team Providers Care Pipe [employer] Tr[employer] Name Role Phone Rebekah Alden Unavailable [phone] Danay Thompson Unavailable [phone] REASON FOR VISIT Extraction #15 Social History Sex Assigned At : Social History Observation Description Sex Assigned At Female Encounters Encounter Location Date Provider Diagnosis [facility] [address] [place] [id number] 06/21/2024 Danay Thompson Plan Of Treatment Next Appt Details Provider Name:Alden Welch , 01/08/2026 02:15:00 PM, [address] [place] [address], [phone], Progress Notes * Cuco BOWSEROB:1980 ( 44 yo F)Acc No.[id number]:06/21/2024 Patient: Isamar ZAMBRANO Provider: Yoseph Thompson DDS :1980 A ge:43 Y S ex:Female Date:06/21/2024 Address:[address] [place], [place] [id number] Subjective: * Chief Complaints: * 1 . Extraction #15. * Medical History: Objective: * Vitals: Assessment: Plan: * Treatment: * Billing Information: * Visit Code: * Procedure Codes: * Electronic signature of Sera Thompson DDS on 07/11/2025 at 01:43 PM EDT Sign off status: Pending * Provider: Yoseph Thompson DDS Date: 0 06/21/2024 Generated for Printi ng/Famahendra/eTransmitting on: 0 07/11/2025 01:43 PM EDT
--- OUTSIDE RECORDS SUMMARY | 2025-07-11 13:43 | XMS_ITS | Clinical Summary ---
Author Organization [facility] Address [address] [place] [address] Care Team Providers Care Assembly Line Leader Name Role Phone Shaikh ELAINA Griffin Unavailable [phone] Beny Katz MD Primary Care Provider [phone] Catrina Tierney NP Unavailable [phone] Allergies No known active allergies Medications Blood Glucose Monitoring Suppl (ONE TOUCH ULTRA 2) w/Device kit 1 Device Daily as needed 3 Active docusate sodium (Colace) 100 MG capsuleIndications: Internal hemorrhoids Take 1 capsule (100 mg) by mouth Daily 30 capsule 2 4 Active Lancets (OneTouch Delica Plus [id number]) miscIndications:Typ e 2 diabetes mellitus without complication, without long-term current use of insulin (HCC) 1 each by Other route Daily USE DIRECTED ONCE DAILY 100 each 4 Active metFORMIN (Glucophage) 1000 MG tabletIndications:T ype 2 diabetes mellitus without complication, without long-term current use of insulin (HCC) Take 1 tablet (1,000 mg) by mouth in the morning and 1 tablet (1,000 mg) before bedtime. 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 Will call in DosYogures. Assessment & Plan (11/23/2023 2:17 PM EST): [...] Plan (06/27/2024 1:50 PM EDT): Follow Hematology/Oncology- [place], [place] History of pulmonary embolism 03/29/2023 Assessment [...] Encounters Date Type Department Care Team Description 05/05/2025 Refill [facility] [address] [place] [address] Myah Rush NP Type 2 diabetes mellitus without complication, without long-term current use of insulin (HCC) 05/05/2025 Abstract [facility] [address] [place] [address] Myah Rush NP 05/01/2025 [facility]ill [facility] [address] [place] [address] Beny Katz MD Type 2 diabetes mellitus without complication, without long-term current use of insulin ([facility]) from Last 3 Months Immunizations Immunization Administration [...] Grandfather Temo Bowser Other Paternal Grandfather Temo Petros varicos e veins of lower extremity Diabetes Paternal Grandmother Yudi Kinzadomenic Other Paternal Grandmother Yudi Petros Varico se veins of lower ext Relation Name Status Comments Father Dimitris Bowser Father's Brother Father's Sister Maternal Grandmother Marta Chan Mother Charlette Bowser Paternal Grandfather Temo Bowser Paternal Grandmother Yudi Bowser Son Alive Social History Tobacco Use Types Packs/Day Years Used Date Smoking Tobacco: Never Passive Smoke Exposure: Past Smokeless Tobacco: Never Tobacco Cessation:Counseling Given: Not Answered Alcohol Use Standard Drinks/Week Comments Never 0 (1 standard drink = 0.6 oz pur e alcohol) PHQ-2 Answer Date Recorded Patient Health Questionnaire-2 Score 0 03/27/2024 Comments No Sex and Gender Information Value [...] 05/13/2024, 11/16/2023, Additional history exists Influenza Vaccine (#1) 2025 09/13/2021 Cervical Cancer Screening Discontinued HPV/Cotest Discontinued 01/04/2023 [...] EDT Narrative 02/29/2024 4:19 [place] [address] Mammography Report Signed Patient: ADARSH BOWSER MR#: [id number] : 1980 Acct:[id number] Age/Sex: 43 / F ADM Date: 02/29/24 Loc: MAMMO Attending Dr: Gina-Staff Physician Arcadio Ordering Physician: Hesham Winston M.D. Results: Date of Service: 02/29/24 Follow Up: Procedure(s): MM tomosynthesis screening BI Accession Number(s): [id number] cc: Shaikh Arcadio Griffin; Hesham Winston M.D. Patient Name: ADARSH BOWSER MR#: [id number] : 1980 Exam Date: 02/29/2024 Ordering Doctor: [...] throat cancer at age 66. LOCATION: [facility] BREAST COMPOSITION: The breasts are heterogeneously dense,which [...] LUMP SHOULD BE BIOPSIED. Dictated by: Bin uZluaga M.D. on 02/29/2024 at 16:14 Approved by: Bin Zuluaga M.D. on 02/29/2024 at 16:18 Dictated By: Bin uZluaga M.D. Signed By: 02/29/24 1619 DD/ TD/TT: Residential Appraiser: Procedure Note Radiology, Radiologist, MD - 02/29/2024 [place] [address] Mammography Report Signed Patient: ADARSH BOWSER MMR#: [id number] : 1980Acct:[id number] Age/Sex: 43 / FADM Date: 02/29/24 Loc: MAMMO Attending Dr: Non-Staff Physician Arcadio Ordering Physician: Hesham Winston M.D.Results: Date of Service: 02/29/24Follow Up: Procedure(s): MM tomosynthesis screening BI Accession Number(s): [id number] cc: Shaikh Arcadio Griffin; PhysicianHesham M.D. Patient Name: ADARSH BOWSER MR#: [id number] : 1980 Exam Date: 02/29/2024 Ordering Doctor: [...] with throatcancer at age 66. LOCATION: [facility] BREAST COMPOSITION: The breasts are heterogeneously dense,which [...] 16:18 Dictated By: Bin Zuluaga M.D. Signed By:02/29/249 DD/ 17 TD/TT: Residential Appraiser: us Generic External Data Provider [facility] Final Result * (ABNORMAL) Hemoglobin A1c (12/07/2022) GLYCOHEMOGLOBIN A1C 9.2(HH) 4.5 - 6.2 [facility] ADA RECOMMENDATION SEE BELOW [facility] Comment:ADA RECOMMENDED LIMI T 4.0 - 6.0 ADA THERAPEUTIC TARGET < 7.0 ACTION SUGGESTED > 7.0 EST AVG GLUCOSE 217 [facility] PERFORMING LAB: see note [facility] Comment:[address] Laboratory [address] [place], [place] [address] ,Ext. [phone] 12/07/2022 [facility] BLOOD ORDERABLES Final Resul t [facility] from Last 3 Months or Most Recently Relevant to Health Maintenance Insurance [employer] Care Teams Assembly Line Leader Relationship Specialty Start Date End Date Shaikh Griffin MD [address] [place] [address] PCP - [facility] 02/05/24 Beny Katz MD [address] [place] [address] PCP - General Family Medicine 06/10/24 Catrina Tierney NP [address] [place] [address] Nurse Practitioner Family Medicine 06/10/24
--- OUTSIDE RECORDS SUMMARY | 2025-07-11 13:43 | XMS_ITS | Encounter Summary ---
Author Organization [facility] Address [address] [place] [address] Care Team Providers Care Waist Cutter Name Role Phone Shaikh ELAINA Griffin Unavailable [phone] Beny Katz MD Primary Care Provider [phone] Catrina Tierney NP Unavailable [phone] Encounter Details Date Type Department Care Team (Late st Contact Info) Description 05/05/2025 Abstract [facility] [address] [place] [address] Myah Rush NP [address] [place] [address] Social History Tobacco Use Types Packs/Day Years [...] on filedocumented in this encounter Care Teams Waist Cutter Relationship Specialty Start Date End Date Shaikh Griffin MD [address] [place] [address] PCP - [facility] 02/05/24 Beny Katz MD [address] [place] [address] PCP - General Family Medicine 06/10/24 Catrina Tierney NP [address] [place] [address] Nurse Practitioner Family Medicine 06/10/24 documented as of this encounter
--- OUTSIDE RECORDS SUMMARY | 2025-07-11 13:43 | XMS_ITS | Encounter Summary ---
Author Organization [facility] Address [id number] [address] [place] [address] Care Team Providers Care Chess Instructor Name Role Phone Lesvia Strickland MD Primary Care Provider [phone] Encounter Details Date Type Department Care Team (Late st Contact Info) Description 03/07/2024 Orders Only [facility] Oncology [address] [place] [address] Ref Prov, [place] [address] Social History Tobacco Use Types Packs/Day Years [...] Care Team (Late st Contact Info) Description 08/05/2025 3:30 PM EDT Clinical Support [facility] [address] [place] [phone] Lesvia Strickland MD [address] [place] [address] 06/17/2026 9:00 AM EDT Office Visit Yudi Plascencia [facility] - Medical Oncology [address] [place] [address] Khushi Davis PA [address] [place] [address] documented as of this encounter Procedures Procedure Name Priority Date/Time Associated Diagnosis Comments SCREENING MAMMOGRAPHY BILATERAL Routine 03/07/2024 8:31 AM EDT documented in this encounter Results * SCREENING MAMMOGRAPHY BILATERAL (03/07/2024 8:31 AM EDT) us Not In System Ref Prov MD [facility] Final Result documented in this encounter Visit Diagnoses Not on filedocumented in this encounter Care Teams Chess Instructor Relationship Specialty Start Date End Date Lesvia Strickland MD [address] [facility] [address] [address] PCP - General 01/06/25 documented as of this encounter
--- OUTSIDE RECORDS SUMMARY | 2025-07-11 13:43 | XMS_ITS | Encounter Summary ---
Author Organization [facility] tem Address [id number] [address] [place] [address] Care Team Providers Care Technician Telecommunication Systems Name Role Phone Lesvia Strickland MD Primary Care Provider [phone] Reason for Visit * Reason Onset Date Comments GENETICS 05/22/2023 CLERICAL Encounter Details Date Type Department Care Team (Late st Contact Info) Description 05/22/2023 Telephone [facility] - Medical Oncology [address] [place] [address] [facility] [address] [id number] GENETICS (CLERICAL) Social History Tobacco Use Types [...] Clinical Support [facility] [address] [place] [address] Lesvia Strickland MD [address] [place] [place] [address] 06/17/2026 9:00 AM EDT Office Visit [facility] - Medical Oncology [address] [place] [phone] Khushi Davis PA [address] [place] [address] documented as of this encounter Visit Diagnoses Not on filedocumented in this encounter Care Teams Technician Telecommunication Systems Relationship Specialty Start Date End Date Lesvia Strickland MD [address] [facility] [place] [address] PCP - General 01/06/25 documented as of this encounter
--- OUTSIDE RECORDS SUMMARY | 2025-07-11 13:44 | XMS_ITS | Clinical Summary ---
Author Organization [facility] Address [address] [place] [address] Care Team Providers Care Hr Intern Name Role Phone Unavailable Primary Care [...] Physically or Sexually Abused Not on file Comments Unknown Sex and Gender Information Value Date Recorded Sex Assigned at Not on file Legal Sex Female 9:18 PM EDT Gender Identity Not on file Sexual Orientation Not on file Plan of Treatment Health Maintenance Due Date Last Done Comments Depression Screening 1994 Varicella Vaccines (1 of 2 - 13+ 2-dose series) 1995 Hepatitis B Vaccines (1 of 3 - 19+ 3-dose series) 2001 Pap Smear 2003 Adult Tetanus 2004 Cervical Cancer Screening 2012 HPV/Cotest 2012 Mammogram 2022 Influenza Vaccine (#1) 2025 Zoster Vaccines (1 of 2) 2032 [...] on patient's age to complete this topic Insurance [facility] MEDICAID
--- OUTSIDE RECORDS SUMMARY | 2025-07-11 13:44 | XMS_ITS | Encounter Summary ---
Author Organization [facility] Address [address] [place] [address] Care Team Providers Care Installment Dealer Name Role Phone Shaikh ELAINA Griffin Unavailable [phone] Beny Katz MD Primary Care Provider [phone] Catrina Tierney NP Unavailable [phone] Reason for Visit * Reason Comments Med Refill Encounter Details Date Type Department Care Team (Late st Contact Info) Description 06/19/2024 Refill [facility] [address] [place] [address] Shaikh Griffin MD [address] [place] [address] Type 2 diabetes mellitus without complication, without long-term current use of insulin (HCC) Social History Tobacco Use Types Packs/Day Years [...] without long-term current use of insulin (HCC) documented in this encounter Care Teams Installment Dealer Relationship Specialty Start Date End Date Shaikh Griffin MD [address] [place] [phone] PCP - [facility] 02/05/24 Beny Katz MD [address] [place] [address] PCP - General Family Medicine 06/10/24 Catrina Tierney NP [address] [place] [address] Nurse Practitioner Family Medicine 06/10/24 documented as of this encounter
--- OUTSIDE RECORDS SUMMARY | 2025-07-11 13:44 | XMS_ITS | Encounter Summary ---
Author Organization [employer] s tem Address [id number] [address] [place] [address] Care Team Providers Care Container Repairer Name Role Phone Lesvia Strickland MD Primary Care Provider [phone] Encounter Details Date Type Department Care Team (Late st Contact Info) Description 05/22/2025 Telephone [facility] [address] [place] [phone] Salina Morrell RMA Social History Tobacco Use Types Packs/Day Years [...] PHQ-2 Answer Date Recorded Total Score 0 04/30/2025 PRAPARE - Transportation Answer Date Re corded [...] got money to buy more. Never True 04/30/2025 Within the past 12 months th e food we bought just didn't last and we didn't have money to get more. Never True 04/30/2025 Comments No Sex and Gender Information Value Date Recorded Sex Assigned at Not on file Legal Sex Female 11:39 AM EDT Gender Identity Not on file Sexual Orientation Not on file documented as of this encounter Miscellaneous Notes * Telephone Encounter - Salina MARANDA Morrell - 05/22/2025 3:49 PM EDT I called Isamar and was able to reschedule her colonoscopy. It's been scheduled for 05/29/25. She waspreviously scheduled on 05/22/25 unfortunately, she had a poor bowel prep. Her surgery was cancelledand she was sent home. This time she would like to use Suflave bowel prep and Dr. Avery also recommends a 2 day clear liquid diet. She is coming into the office tomorrow 05/23/25 to go over the instructions. documented in this encounter Plan of Treatment Upcoming Encounters Date Type Department Care Team (Late st Contact Info) Description 08/05/2025 3:30 PM EDT Clinical Support [facility] [address] [place] [address] Lesvia Strickland MD [address] [place] [address] 06/17/2026 9:00 AM EDT Office Visit [facility] On[facility] [address] [place] [address] Khushi Davis PA [address] [place] [address] documented as of this encounter Visit Diagnoses Not on filedocumented in this encounter Additional Health Concerns Assessment Noted Time PHQ-9 Depression Total Score: 0 04/30/20 8:45 AM EDT documented as of this encounter Care Teams Container Repairer Relationship Specialty Start Date End Date Lesvia Strickland MD [address], [facility] [address] PCP - General 01/06/25 documented as of this encounter
--- OUTSIDE RECORDS SUMMARY | 2025-07-11 13:44 | XMS_ITS | Clinical Summary ---
Author Organization [employer] Address [id number] [address] [place] [address] Care Team Providers Care New Patient Escort Name Role Phone Lesvia Strickland MD Primary Care Provider [phone] Allergies No known active allergies Medications TRUE METRIX GLUCOSE TEST STRIP strip 023 Active UNILET SUPER THIN LANCETS 30 gauge misc 023 Active docusate sodium (COLACE) 100 mg capsule Take 1 capsule (100 mg total) by mouth in the morning and 1 capsule (100 mg total) before bedtime. 10 capsule 023 Active Additional Information Patient not taking.Reported on 06/18/2025 atorvastatin (LIPITOR) 20 mg tablet Take 1 tablet (20 mg total) by mouth in the morning. 90 tablet 3 025 Active cholecalciferol (VITAMIN D3) 50,000 units capsule Take 1 capsule (50,000 Units total) by mouth once a week. 8 capsule 025 Active Additional Information Patient not taking.Reported on 06/18/2025 rivaroxaban (XARELTO) 20 mg tablet tablet Take 1 tablet (20 mg total) by mouth in the morning. 90 tablet 1 025 Active metFORMIN (GLUCOPHAGE) 500 mg tablet TAKE 2 TABLETS (1,000 MG TOTAL) BY MOUTH IN THE MORNING AND BEFORE BEDTIME 360 tablet 025 2024 Active dulaglutide (TRULICITY) 0.75 mg/0.5 mL pen injectorIndication s:Diabetes mellitus due to underlying condition with hyperosmolarity without coma, without long-term current use of insulin (CMS-HCC),Primary hypertension,Endom etrial cancer (CMS-HCC),Factor VIII deficiency (CMS-HCC),Mixed hyperlipidemia,Hx of deep venous thrombosis Inject 0.5 mL (0.75 mg total) under the skin every 7 days. 2 mL 025 Active metFORMIN (GLUCOPHAGE) 500 mg tablet TAKE 2 TABLETS (1,000 MG TOTAL) BY MOUTH IN THE MORNING AND BEFORE BEDTIME 360 tablet 025 2024 Discontinued dulaglutide (TRULICITY) 0.75 mg/0.5 mL pen injectorIndication s:Diabetes mellitus due to underlying condition with hyperosmolarity without coma, without long-term current use of insulin (CMS-HCC),Primary hypertension,Endom etrial cancer (CMS-HCC),Factor VIII deficiency (CMS-HCC),Mixed hyperlipidemia,Hx of deep venous thrombosis Inject 0.5 mL (0.75 mg total) under the skin every 7 days. 2 mL 025 2024 Discontinued(R kacy) Active Problems Problem Noted Date Diagnosed Date Dyspareunia, female 09/13/2023 Endometrial cancer 03/29/2023 Cancer Staging:Clinical:FIGO Stage IA(cT1a, cN0(sn), cM0) - Unsigned Diabetes mellitus 03/29/2023 History of pulmonary embolism 03/29/2023 Hypertension 03/29/2023 Factor VIII deficiency 03/29/2023 Dvt femoral (deep venous thrombosis) 03/29/2023 YENNY (iron deficiency anemia) 03/29/2023 Encounters Date Type Department Care Team Description 06/25/2025 Refill [facility] [address] [place] [phone] Kelly Graff APRN-CNP Diabetes mellitus due to underlying condition with hyperosmolarity without coma, without long-term current use of insulin ([facility]-HCC); Primary hypertension; Endometrial cancer ([facility]-HCC); Factor VIII deficiency ([facility]-HCC); Mixed hyperlipidemia; Hx of deep venous thrombosis 06/24/2025 Refill [facility] [address] [place] [phone] Kelly Graff APRN-CNP 06/18/2025 8:30 AM EDT Office Visit [facility] - Medical Oncology [address] [place] [address] Khushi Davis PA Endometrial cancer ([facility]-HCC) (Primary Dx); Dyspareunia due to medical condition in female; Dyspareunia, female; Counseling on health promotion and disease prevention 06/18/2025 Travel 05/29/2025 11:00 AM EDT - 05/29/2025 11:30 AM EDT Surgery [facility] Surgery [address] [place] [address] Delmer Avery, DO COLONOSCOPY DIAGNOSTIC / SCREENING [98970 (CPT )] 05/29/2025 10:40 AM EDT Anesthesia Event [facility] [address] [facility] [place] [address] Temo Mckinney MD 05/29/2025 8:36 AM EDT - 05/29/2025 11:27 AM EDT Hospital Encounter [facility] Surgery [address] [place] [address] Delmer Avery, Rectal bleeding (Primary Dx); Diverticulosis Discharge Disposition: Home 05/29/2025 Travel 05/22/2025 10:15 AM EDT Anesthesia Event [facility] Surgery [address] [place] [address] Niko Mendoza, 05/22/2025 8:07 AM EDT - 05/22/2025 8:39 AM EDT Hospital Encounter [facility] [address] [facility] [place] [address] Delmer Avery, Discharge Disposition: Home 05/22/2025 Telephone [facility] [address] [facility] [place] [address] Salina Morrell RMA 05/22/2025 Orders Only [facility] [address] [place] [phone] Mitra White ADMITTING OFFICE ESCORT-CLAY HOISTER Rectal bleeding (Primary Dx) 05/22/2025 Travel 05/16/2025 Refill [facility] [address] [place] [address] [place] [phone] Lesvia Strickland MD 05/14/2025 9:30 AM EDT Office Visit [facility] [address] [place] [phone] Mitra White ADMITTING OFFICE ESCORT-CLAY HOISTER Rectal bleeding (Primary Dx); Hemorrhoids, unspecified hemorrhoid type 05/14/2025 Travel 05/12/2025 Orders Only [facility] [address] [place] [phone] Kelly Graff ADMITTING OFFICE ESCORT-ELBERT Diabetes mellitus due to underlying condition with hyperosmolarity without coma, without long-term current use of insulin ([facility]); Primary hypertension; Endometrial cancer ([facility]); Factor VIII deficiency ([facility]); Mixed hyperlipidemia; Hx of deep venous thrombosis 05/12/2025 Telephone [facility] [address] [place] [phone] Kelly Graff APRN-CLAY HOISTER 05/05/2025 Orders Only [facility] [address] [place] [phone] Kelly Graff ADMITTING OFFICE ESCORT-CLAY HOISTER 05/05/2025 Telephone [facility]/Pediatric [facility] [address] [address] Kareen James CNA Xarelto 05/03/2025 Refill [facility] [address] [place] [phone] Kelly Graff ADMITTING OFFICE ESCORT-CLAY HOISTER Acute embolism and thrombosis of unspecified femoral vein ([facility]-HCC) 04/30/2025 8:40 AM EDT Office Visit [facility] [address] [place] [address] [place] [address] Kelly Graff APRN-ELBERT Hemorrhoids, unspecified hemorrhoid type (Primary Dx); Diabetes mellitus due to underlying condition with hyperosmolarity without coma, without long-term current use of insulin (CMS-HCC); Primary hypertension; Endometrial cancer (CMS-HCC); Factor VIII deficiency ([facility]-HCC); Mixed hyperlipidemia; Hx of deep venous thrombosis 04/30/2025 Travel 04/23/2025 Travel from Last 3 Months Family History Medical History Relation Name Comments Diabetes Father Dimitris Morrell Heart disease Father Dimitris Morrell Hypertension Father Dimitris Morrell Lung cancer Maternal Grandmother Marta Chan Lung cancer Maternal Uncle 1 Eldon Morrell Prostate cancer Maternal Uncle 2 Morris Arriagagley Lung cancer Paternal Aunt 1 Corrie Ickes Lung cancer Paternal Aunt 2 Belle Maresa Cancer Paternal Aunt 3 nipple Lung cancer Paternal Grandfather Temo Morrell Throat cancer Paternal Uncle 1 Throat cancer Paternal Uncle 2 Leukemia Paternal cousin 1 3 cousins: age 24, 43, and 2.5 Thyroid cancer Paternal cousin 2 Anesthesia problems Neg Hx Relation Name Status Comments Father Dimitris Morrell Alive Maternal Grandmother Marta Chan Maternal Uncle 1 lEdon Morrell Alive Maternal Uncle 2 Morris Arriagagley Alive Paternal Aunt 1 Corrie Ickes Paternal Aunt 2 Belle Maresa Alive Paternal Aunt 3 Paternal Grandfather Temo Morrell Paternal Uncle 1 Paternal Uncle 2 Alive [...] Sign Reading Time Taken Comments Blood Pressure 120/81 06/18/2025 8:41 AM EDT Pulse 96 06/18/2025 8:41 AM EDT Temperature 36.8 C (98.2 F) 06/18/2025 8:41 AM EDT Respiratory Rate 20 06/18/2025 8:41 AM EDT Oxygen Saturation 97% 06/18/2025 8:41 AM EDT Inhaled Oxygen Concentration - - Weight 112.3 kg (247 lb 9.6 oz) 06/18/2025 8:41 AM EDT Height 165.1 cm (5' 5 ) 06/18/2025 8:41 AM EDT Body Mass Index 41.2 06/18/2025 8:41 AM EDT Plan of Treatment Upcoming Encounters Date Type Department Care Team (Late st Contact Info) Description 08/05/2025 3:30 PM EDT Clinical Support [facility] [address] [place] [address] [place] [phone] Lesvia Strickland MD [address], [facility] Janie [place], [place] [phone] 06/17/2026 9:00 AM EDT [facility] [address] [place] [address] Khushi Davis PA [address] [place] [address] Health Maintenance Due Date Last Done Comments Diabetic Ophthalmology Exam 1980 Adult BMI Follow Up Plan 2000 Diabetic Foot Exam 2000 DTaP,Tdap and Td Vaccines (1 - Tdap) 2001 COVID-19 Vaccine (3 - Pfizer risk series) 10/11/2021 09/13/2021, 06/28/2021 Influenza Vaccine 07/07/2025 09/13/2021 Statin Use: Diabetic 01/06/2026 01/06/2025 Depression Screening 04/30/2026 04/30/2025 Adult BMI Screening 06/18/2026 06/18/2025 Tobacco Screening 06/18/2026 06/18/2025 Medical Devices Not on file Procedures Procedure Name Priority Date/Time Associated Diagnosis Comments MD COLONOSCOPY FLX DX W/COLLJ SPEC WHEN PFRMD 05/29/2025 10:40 AM EDT rectal bleeding COLONOSCOPY 05/29/2025 10:29 AM EDT PROVATION COLONOSCOPY Routine 05/29/2025 8:38 AM EDT from Last 3 Months Results * Colonoscopy (05/29/2025 10:29 AM EDT) 05/29/2025 10:2 9 AM EDT Narrative PM CARDIOVASCULAR - 05/29/2025 10:56 AM EDT [facility] Patient Name: Isamar Morrell Procedure Date No Time: 05/29/2025 CSN : [id number] Date of : 1980 Admit Type: Outpatient Age: 44 Room: [facility] Gender: Female Note Status: Finalized Attending MD: Delmer Avery DO, Procedure: Colonoscopy Indications: Rectal bleeding Providers: Delmer Avery DO Referring MD: Delmer Avery DO Medicines: Propofol per Anesthesia Complications: No immediate complications. Procedure: After I obtained informed consent, the scope was passed under direct vision. Throughout the procedure, the patient's blood pressure, pulse, and oxygen saturations were monitored continuously. The [employer] [id number] #[id number] ADULT COLONOSCOPE was introduced through the anus and advanced to the cecum, identified by appendiceal orifice and ileocecal valve. The colonoscopy was performed without difficulty. The patient tolerated the procedure well. The quality of the bowel preparation was adequate to identify polyps greater than 5 mm in size. Findings: The perianal and digital rectal examinations were normal. Multiple large-mouthed and medium-mouthed diverticula were found in the sigmoid colon and descending colon. The exam was otherwise without abnormality on direct and retroflexion views. Estimated Blood Loss: Estimated blood loss: none. Impression: - Diverticulosis in the sigmoid colon and in the descending colon. - The examination was otherwise normal on direct and retroflexion views. - No specimens collected. Recommendation: - Discharge patient to home. - Patient has a contact number available for emergencies. The signs and symptoms of potential delayed complications were discussed with the patient. Return to normal activities tomorrow. Written discharge instructions were provided to the patient. - High fiber diet for the rest of the patient's life. - Repeat colonoscopy in 10 years for screening purposes. - Return to my office PRN. Procedure Code(s): --- Professional --- 04750, Colonoscopy, flexible; diagnostic, including collection of specimen(s) by brushing or washing, when performed (separate procedure) Diagnosis Code(s): --- Professional --- K62.5, Hemorrhage of anus and rectum K57.30, Diverticulosis of large intestine without perforation or abscess without bleeding CPT copyright 2022 [employer] [place] [employer]. All rights reserved. The codes documented in this report are preliminary and upon laser printing operator review may be revised to meet current compliance requirements. DO Delmer Gold DO 05/29/2025 10:56:10 AM Number of Addenda: 0 Note Initiated On: 05/29/2025 10:29 AM Procedure Note Delmer Avery DO - 05/29/[address] [facility] Patient Name: Isamar Morrell Procedure Date No Time: 05/29/2025 CSN : [id number] Date of : 1980 Admit Type: Outpatient Age: 44 Room: [place] [address] Gender: Female Note Status: Finalized Attending MD: Delmer Avery DO, Procedure: Colonoscopy Indications: Rectal bleeding Providers: Delmer Aveyr DO Referring MD: Delmer Avery DO Medicines: Propofol per Anesthesia Complications: No immediate complications. Procedure: After I obtained informed consent, the scope was passed under direct vision. Throughout theprocedure, the patient's blood pressure, pulse, and oxygen saturations were monitored continuously. [employer] [id number] #[id number] ADULT COLONOSCOPE was introduced through the anus and advanced to the cecum,identified by appendiceal orifice and ileocecal valve. The colonoscopy was performed without difficulty. The patient tolerated the procedure well. The qualityof the bowel preparation was adequate to identifypolyps greater than 5 mm in size. Findings: The perianal and digital rectal examinations were normal. Multiple large-mouthed and medium-mouthed diverticula were found inthe sigmoid colon and descending colon. The exam was otherwise without abnormality on direct and retroflexion views. Estimated Blood Loss: Estimated blood loss: none. Impression: - Diverticulosis in the sigmoid colon and in the descending colon. - The examination was otherwise normal on directand retroflexion views. - No specimens collected. Recommendation: - Discharge patient to home. - Patient has a contact number available for emergencies. The signs and symptoms of potential delayed complications were discussed with thepatient. Return to normal activities tomorrow. Written discharge instructions were provided to thepatient. - High fiber diet for the rest of the patient'slife. - Repeat colonoscopy in 10 years for screening purposes. - Return to my office PRN. Procedure Code(s): --- Professional --- 33932, Colonoscopy, flexible; diagnostic, including collection of specimen(s) by brushing or washing,when performed (separate procedure) Diagnosis Code(s): --- Professional --- K62.5, Hemorrhage of anus and rectum K57.30, Diverticulosis of large intestine without perforation orabscess without bleeding CPT copyright 2022 [employer] [place] [employer]. All rights reserved. The codes documented in this report are preliminary and upon laser printing operator reviewmay be revised to meet current compliance requirements. DO Delmer Gold DO 05/29/2025 10:56:10 AM Number of Addenda: 0 Note Initiated On: 05/29/2025 10:29 AM us Delmer Avery DO GI PROCEDURE ORDERABLES Fin al Result PM CARDIOVASCULAR * Colonoscopy Report (05/29/2025 8:38 AM EDT) Narrative SYSTEMGENERATED, DOCUMENTATION - 05/29/2025 8:38 AM EDT This order has been auto-finalized for image and report archival in PACs. *For full report details, please reach out to your physician. This image is visible to you in MyChart.* us Delmer Avery DO IMG OR IMG ORDERABLES Final Result from Last 3 Months Insurance [place] [employer] Care Teams New Patient Escort Relationship Specialty Start Date End Date Lesvia Strickland MD [address] [facility] [place] [address] PCP - General 01/06/25
--- OUTSIDE RECORDS SUMMARY | 2025-07-11 13:44 | XMS_ITS | Encounter Summary ---
Author Organization [facility] Address [address] [place] [address] Care Team Providers Care Speed Winder Name Role Phone Shaikh ELAINA Griffin Primary Care Provider [phone] Shaikh ELAINA Griffin Unavailable [phone] Beny Katz MD Primary Care Provider [phone] Catrina Tierney NP Unavailable [phone] Encounter Details Date Type Department Care Team (Late st Contact Info) Description 05/21/2024 Abstract [facility] [address] [place] [phone] Kandy Lopez MD [address] [place] [address] Social History Tobacco Use Types [...] on filedocumented in this encounter Care Teams Speed Winder Relationship Specialty Start Date End Date Shaikh Griffin MD [address] [place] [phone] PCP - General Internal Medicine 11/23/23 06/09/24 Shaikh Griffin MD [address] [place] [address] PCP - [facility] 02/05/24 Beny Katz MD [address] [place] [address] PCP - General Family Medicine 06/10/24 Catrina Tierney NP [address] [place] [phone] Nurse Practitioner Family Medicine 06/10/24 documented as of this encounter
--- OUTSIDE RECORDS SUMMARY | 2025-07-11 13:44 | XMS_ITS | Encounter Summary ---
Author Organization [employer] Address [id number] [address] [place] [address] Care Team Providers Care Rug Repairer Name Role Phone Lesvia Strickland MD Primary Care Provider [phone] Reason for Referral * Cardiology (Routine) - Closed Specialty Diagnoses / Procedures Referred By Contac t Referred To Contact Cardiology Diagnoses Pain Procedures Non [facility] [address] [place] [address] Phone: tel: fax: Referral ID Status Reason Start Date Expiration Date Visits Re quested Visits Authorized [id number] Closed 04/15/2023 04/14/2024 1 1 Encounter Details Date Type Department Care Team (Late st Contact Info) Description 04/15/2023 Orders Only [facility] [address] [place] [address] External, Scanning Provider Pain (Primary Dx) Social History Tobacco Use Types Packs/Day Years [...] Clinical Support [facility] [address] [place] [phone] Lesvia Strickland MD [address] [facility] [phone] 06/17/2026 9:00 AM EDT Office Visit [facility] - Medical Oncology [address] [place] [phone] Khushi Davis PA [address] [place] [address] documented as of this encounter Results * Non [facility] (04/13/2023 10:55 AM EDT) us Scanning Provider External CV ECHO ORDERABLES Fi nal Result XCELERA documented in this encounter Visit Diagnoses Diagnosis Pain- Primary Generalized pain documented in this encounter Care Teams Rug Repairer Relationship Specialty Start Date End Date Lesvia Strickland MD [address] [place] [address] PCP - General 01/06/25 documented as of this encounter
--- OUTSIDE RECORDS SUMMARY | 2025-07-11 13:44 | XMS_ITS | Encounter Summary ---
Author Organization [facility] Address [address] [place] [address] Care Team Providers Care Radiology Transcriptionist Name Role Phone Shaikh ELAINA Griffin Primary Care Provider [phone] Shaikh ELAINA Griffin Unavailable [phone] Beny Katz MD Primary Care Provider [phone] Catrina Tierney NP Unavailable [phone] Encounter Details Date Type Department Care Team (Late st Contact Info) Description 04/03/2024 Orders Only [facility] [address] [place] [phone] Shaikh Griffin MD [address] [place] [address] Social History Tobacco Use Types Packs/Day Years [...] on filedocumented in this encounter Care Teams Radiology Transcriptionist Relationship Specialty Start Date End Date Shaikh Griffin MD [address] [place] [address] PCP - General Internal Medicine 11/23/23 06/09/24 Shaikh Griffin MD [address] [place] [address] PCP - [facility] 02/05/24 Beny Katz MD [address] [place] [address] PCP - General Family Medicine 06/10/24 Catrina Tierney NP [address] [place] [address] Nurse Practitioner Family Medicine 06/10/24 documented as of this encounter
--- OUTSIDE RECORDS SUMMARY | 2025-07-11 13:44 | XMS_ITS | Encounter Summary ---
Author Organization [facility] Address [address] [place] [address] Care Team Providers Care Personalized Living Manager Name Role Phone Shaikh ELAINA Griffin Primary Care Provider [phone] Shaikh ELAINA Griffin Unavailable [phone] Beny Katz MD Primary Care Provider [phone] Catrina Tierney NP Unavailable [phone] Encounter Details Date Type Department Care Team (Late st Contact Info) Description 05/14/2024 Orders Only [facility] [address] [place] [address] Shaikh Griffin MD [address] [place] [address] Social History Tobacco Use Types Packs/Day Years [...] on filedocumented in this encounter Care Teams Personalized Living Manager Relationship Specialty Start Date End Date Shaikh Griffin MD [address] [place] [address] PCP - General Internal Medicine 11/23/23 06/09/24 Shaikh Griffin MD [address] [place] [address] PCP - [facility] 02/05/24 Beny Katz MD [address] [place] [address] PCP - General Family Medicine 06/10/24 Catrina Tierney NP [address] [place] [address] Nurse Practitioner Family Medicine 06/10/24 documented as of this encounter
--- OUTSIDE RECORDS SUMMARY | 2025-07-11 13:44 | XMS_ITS | Encounter Summary ---
Author Organization [facility] Address [address] [place] [address] Care Team Providers Care Senior C Software Developer Name Role Phone Shaikh ELAINA Griffin Primary Care Provider [phone] Shaikh ELAINA Griffin Unavailable [phone] Beny Katz MD Primary Care Provider [phone] Catrina Tierney NP Unavailable [phone] Encounter Details Date Type Department Care Team [...] EDT Narrative 02/29/2024 4:19 PM EDT The [address] [address] Mammography Report Signed Patient: ISAMAR BOWSER MR#: [id number] : 1980 Acct:[id number] Age/Sex: 43 / F ADM Date: 02/29/24 Loc: MAMMO Attending Dr: KishanStaff Physician Ervin Ordering Physician: Hesham Winston M.D. Results: Date of Service: 02/29/24 Follow Up: Procedure(s): MM tomosynthesis screening BI Accession Number(s): [id number] cc: Shaikh Arcadio Griffin; Hesham Winston M.D. Patient Name: ISAMAR BOWSER MR#: [id number] : 1980 Exam Date: 02/29/2024 Ordering Doctor: [...] throat cancer at age 66. LOCATION: The [facility] BREAST COMPOSITION: The breasts are heterogeneously dense,which [...] M.D. Signed By: 02/29/249 DD/ 17 TD/TT: Machine Rebuilder: Procedure Note Radiology, Radiologist, - 02/29/2024 The [place] [id number] Mammography Report Signed Patient: ISAMAR BOWSER MMR#: [id number] : 1980Acct:[id number] Age/Sex: 43 / FADM Date: 02/29/24 Loc: MAMMO Attending Dr: Non-Staff Physician Arcadio Ordering Physician: Hesham Winston M.D.Results: Date of Service: 02/29/24Follow Up: Procedure(s): MM tomosynthesis screening BI Accession Number(s): [id number] cc: Shaikh Arcadio Griffin; Hesham Winston M.D. Patient Name: ISAMAR BOWSER MR#: [id number] : 1980 Exam Date: 02/29/2024 Ordering Doctor: [...] with throatcancer at age 66. LOCATION: The [facility] BREAST COMPOSITION: The breasts are heterogeneously dense,which [...] Zuluaga M.D. Signed By:02/29/24 1619 DD/ TD/TT: Machine Rebuilder: Generic External Data Provider [facility] Final [...] on filedocumented in this encounter Care Teams Senior C Software Developer Relationship Specialty Start Date End Date Shaikh Griffin MD [address] [place] [address] PCP - General Internal Medicine 11/23/23 06/09/24 Shaikh Griffin MD [address] [place] [address] PCP - [facility] 02/05/24 Beny Katz MD [address] [place] [address] PCP - General Family Medicine 06/10/24 Catrina Tierney NP [address] [place] [address] Nurse Practitioner Family Medicine 06/10/24 documented as of this encounter
--- OUTSIDE RECORDS SUMMARY | 2025-07-11 13:44 | XMS_ITS | Encounter Summary ---
Author Organization [facility] Address [address] [place] [address] Care Team Providers Care Asphalt Spreader Name Role Phone Shaikh ELAINA Griffin Primary Care Provider [phone] Shaikh ELAINA Griffin Unavailable [phone] Beny Katz MD Primary Care Provider [phone] Catrina Tierney NP Unavailable [phone] Encounter Details Date Type Department Care Team (Late st Contact Info) Description 12/04/2023 Clinisync Result Encounter [facility] External Department Unsolicited Shaikh Griffin MD [address] [facility] [place] [address] Social History Tobacco Use Types Packs/Day Years [...] EST Narrative 12/04/2023 7:59 [place] [address] Electrocardiograph Report Signed Patient: ISAMAR BOWSER MR#: [id number] : 1980 Acct:[id number] Age/Sex: 43 / F ADM Date: 12/04/23 Loc: CARD Attending Dr: Shaikh Pasha Ervin Ordering Physician: Shaikh Arcadio Griffin Date of Service: 12/04/23 Procedure(s): ECG 12 lead Accession Number(s): [id number] cc: The [facility] Test Date: 2023-12-04 Pat Name: ISAMAR BOWSER Department: Room: - Gender: Female Vulcanizer: : 1980 Requested By: SHAIKH PASHA Order Number: [id number] Reading MD: CHASE SIEGEL Measurements Intervals [place] Rate: 93 P: 55 AK: 162 QRS: 15 QRSD: 86 T: 14 QT: 341 QTc: 425 Interpretive Statements SINUS RHYTHM Compared to ECG 04/13/2023 00:58:36 No significant changes Electronically Signed On 12-04-2023 19:59:38 EST by CHASE SIEGEL Dictated By: Chase Siegel D.O. Signed By: 12/04/23195812/04/231958 DD/ TD/TT: Gravity Prospecting Observer Helper: Procedure Note Radiology, Radiologist, MD - 12/04/2023 The [place] [id number] Electrocardiograph Report Signed Patient: ISAMAR BOWSER MMR#: [id number] : 1980Acct:[id number] Age/Sex: 43 / FADM Date: 12/04/23 Loc: CARD Attending Dr: Shaikh Pasha Ervin Ordering Physician: Shaikh Arcadio Griffin Date of Service: 12/04/23 Procedure(s): ECG 12 lead Accession Number(s): [id number] cc: The [facility] Test Date: 2023-12-04 Pat Name: ISAMAR BOWSER Department: Room: - Gender: Female Vulcanizer: : 1980 Requested By: SHAIKH PASHA Order Number: [id number] Reading MD: CHASE SIEGEL Measurements Intervals [place] Rate: 93 P: 55 AK: 162 QRS: 15 QRSD: 86 T: 14 QT: 341 QTc: 425 Interpretive Statements SINUS RHYTHM Compared to ECG 04/13/2023 00:58:36 No significant changes Electronically Signed On 12-04-2023 19:59:38 EST by CHASE SIEGEL Dictated By: Chase Siegel D.O. Signed By:12/04/23195812/04/231958 DD/ 31 TD/TT: Gravity Prospecting Observer Helper: us Shaikh Pasha [facility] Final Result documented in this encounter Visit Diagnoses Not on filedocumented in this encounter Care Teams Asphalt Spreader Relationship Specialty Start Date End Date Shaikh Griffin MD [address] [place] [address] PCP - General Internal Medicine 11/23/23 06/09/24 Shaikh Griffin MD [address] [place] [phone] PCP - [facility] 02/05/24 Beny Katz MD [address] [place] [address] PCP - General Family Medicine 06/10/24 Catrina Tierney NP [address] [place] [address] Nurse Practitioner Family Medicine 06/10/24 documented as of this encounter
--- OUTSIDE RECORDS SUMMARY | 2025-07-11 13:44 | XMS_ITS | Patient Health Record ---
Author Organization [facility] vices Address [address] [place] [id number] Care Team Providers Care Sales And Service Advisor Name Role Phone Alden Welch Unavailable [phone] Danay Thompson Unavailable [phone] Allergies No Known Allergies Reason For Referral No Information Medications Medication SIG (Take, Route, Frequency, Duration) Notes Start Date End Date Status glipiZIDE 5 MG Oral; Duration: 90 Days Not-Taking Trulicity 0.75 MG/0.5ML INJECT 0.5 ML (0 .75 MG TOTAL) UNDER THE SKIN EVERY 7 DAYS Subcutaneous; Duration: 28 Days Active Docusate Sodium 100 MG Oral; Duration: 30 Days Not-Taking Xarelto 20 MG Oral; Duration: 90 Days Active metFORMIN HCl 500 MG Oral; Duration: 90 Days Active Atorvastatin Calcium 20 MG TAKE 1 TABLET BY MOUTH EVERY DAY Oral; Duration: 90 Days Active Social History Sex Assigned At : Social History Observation Description Sex Assigned At Female Tobacco Control (Standard) Question Answer Notes Additional Findings: Tobacco non-user Current no nsmoker Problems Problem Type SNOMED Code ICD Code Onset Dates Problem Status W/U Status Risk Notes Problem Obese class II (458777869548 105) BMI 39.0-39.9,a dult (Z68.39) Active confirmed Vital Signs Heart Rate 85 /min 06/05/2025 Height-cm 165.1 cm 06/05/2025 Blood pressure diastolic 77 mm Hg 06/05/2025 Weight-kg 106.6 kg 06/05/2025 Height 5'5 in 06/05/2025 Blood pressure systolic 108 mm Hg 06/05/2025 Weight 235 lbs 06/05/2025 BMI 39.1 kg/m2 06/05/2025 Encounters Encounter Location Date Provider Diagnosis [facility] [address] [place] [id number] 07/11/2024 Danay Méndez-Mainor Necrosis of pulp K 04.1 and Encounter for dental examination and cleaning with abnormal findings Z01.21 [facility] Main [address] [place] [id number] 11/08/2024 Danay Méndez-Mainor Dietary counseling Z71.3 ; Exercise counseling Z71.82 ; BMI 34.0-34.9,adult Z68.34 and Encounter for dental examination and cleaning without abnormal findings Z01.20 [facility] [address] [place] [id number] 06/05/2025 Alden Iyersarkis BMI 39.0-39.9,adul t Z68.39 ; Dietary counseling Z71.3 ; Exercise counseling Z71.82 ; Encounter for screening for dental disorders Z13.84 and Encounter for dental examination and cleaning without abnormal findings Z01.20 Assessments Encounter Date Diagnosis (ICD Code) Assessment Notes Treatment Notes Treatment Clinical Notes Section Notes 07/11/2024 Necrosis of pulp (ICD-10 - K04.1) 11/08/2024 Dietary counseling (ICD-10 - Z71.3) 06/05/2025 BMI 39.0-39.9,adult (ICD-10 - Z68.39) 06/05/2025 Dietary counseling (ICD-10 - Z71.3) 11/08/2024 Exercise counseling (ICD-10 - Z71.82) 07/11/2024 Encounter for dental examination and cleaning with abnormal findings (ICD-10 - Z01.21) 11/08/2024 BMI 34.0-34.9,adult (ICD-10 - Z68.34) 06/05/2025 Exercise counseling (ICD-10 - Z71.82) 06/05/2025 Encounter for screening for dental disorders (ICD-10 - Z13.84) 11/08/2024 Encounter for dental examination and cleaning without abnormal findings (ICD-10 - Z01.20) 06/05/2025 Encounter for dental examination and cleaning without abnormal findings (ICD-10 - Z01.20) Plan Of Treatment Next Appt Details Provider Name:Darronmichi Rebekah , 01/08/2026 02:15:00 PM, [address] [place] [address], [id number], Insurance Providers Payer Name Payer Address Payer Phone Subscriber Number Group Number Insured Name Patient Relationship to Insured Coverage Start Date Coverage End Date DBshahanagavijennifer [employer] [facility] [address] [address] [place] [address] [id number] Isamar Morrell Self - patient is the insured 4 DMedicaid CFC after [place] [employer] [address] [place], [place] [id number] Isamar Morrell Self - patient is the insured 4 Medical (General) History Medical History History ICD Code Diabetes Hyperlipidemia
--- OUTSIDE RECORDS SUMMARY | 2025-07-11 13:44 | XMS_ITS | Encounter Summary ---
Author Organization [employer] [facility] tem Address [id number] [address] [place] [address] Care Team Providers Care Restorer Paper And Prints Name Role Phone Lesvia Strickland MD Primary Care Provider [phone] Encounter Details Date Type Department Care Team (Late st Contact Info) Description 04/13/[address] [facility] [address] [facility] [address] [place] [address] Tiffanie Longoria PA [address] [place] [address] [place] [address] Social History Tobacco Use Types [...] of Factor VIII deficiency). Allblood work for VT and EKG are normal. She is waiting on the results from an echocardiogram and thenwill be discharged home. She is feeling completely fine now and reports zero CP. She has no personal history of cardiac problems. Her father had an VT at 50yoa. Discussed that we will obtain [...] Clinical Support [facility] [address] [place] [phone] Lesvia Strickland MD [address] [place] [address] 06/17/2026 9:00 AM EDT Office Visit Yudi Thais [facility] - Medical Oncology [address] [place] [address] Khushi Davis PA [address] [place] [address] documented as of this encounter Visit Diagnoses Not on filedocumented in this encounter Care Teams Restorer Paper And Prints Relationship Specialty Start Date End Date Lesvia Strickland MD [address] [facility] [place] [address] PCP - General 01/06/25 documented as of this encounter
--- OUTSIDE RECORDS SUMMARY | 2025-07-11 13:44 | XMS_ITS | Encounter Summary ---
Author Organization [facility] Address [address] [place] [address] Care Team Providers Care Digital Field Service Technician Name Role Phone Shaikh ELAINA Griffin Primary Care Provider [phone] Shaikh ELAINA Griffin Unavailable [phone] Beny Katz MD Primary Care Provider [phone] Catrina Tierney NP Unavailable [phone] Reason for Visit * Reason Comments Med Refill Encounter Details Date Type Department Care Team (Late st Contact Info) Description 01/15/2024 [facility]ill [facility] [address] [place] [address] Shaikh Griffin MD [address] [facility] [place] [address] Personal history of pulmonary embolism; Type 2 diabetes mellitus without complications (HCC); Hyperlipidemia, unspecified Social History Tobacco Use Types Packs/Day Years [...] embolism Type 2 diabetes mellitus without complications (HCC) Hyperlipidemia, unspecified documented in this encounter Care Teams Digital Field Service Technician Relationship Specialty Start Date End Date Shaikh Griffin MD [address] [place] [address] PCP - General Internal Medicine 11/23/23 06/09/24 Shaikh Griffin MD [address] [place] [address] PCP - [facility] 02/05/24 Beny Katz MD [address] [place] [address] PCP - General Family Medicine 06/10/24 Catrina Tierney NP [address] [place] [address] Nurse Practitioner Family Medicine 06/10/24 documented as of this encounter
[2025-07-11 13:50] VITALS: BP 138/85; PULSE 86; TEMP 36.9; O2SAT 96; BMI 38.7
--- OUTSIDE RECORDS SUMMARY | 2025-07-11 13:50 | XMS_ITS | CCD ---
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 Name Role Phone SUSANNA Harrison Attending Provider Khalif Polanco Referring Provider House, DO Crespo Primary Care Provider COLLIN ., DR CUADRA Admitting Unavailable COLLIN ., DR CUADRA Attending Unavailable COLLIN ., DR CUADRA Consulting Unavailable ELL[place]IL[place], DR CRESPO Primary Care Unavailable COLLIN ., DR CUADRA Admitting Unavailable COLLIN ., DR CUADRA Attending Unavailable COLLIN ., DR CUADRA Consulting Unavailable ELL[place], DR CRESPO Primary Care Unavailable KANDI, NURIA Consulting Unavailable SKANEE, RAMA Consulting Unavailable ELLISV[place], DR CRESPO Consulting Unavailable ELLIS[place]IL[place], DR CRESPO Primary Care Unavailable ELLISVILLE, DR CRESPO Admitting Unavailable ELL[place], DR CRESPO Attending Unavailable Zieber, Slime Consulting Unavailable SHAKA ., MARY LOU Attending Unavailable SHAKA ., MARY LOU Consulting Unavailable SHAKA ., MARY LOU Admitting Unavailable E[place], DR CRESPO Primary Care Unavailable SHAKA ., MARY LOU Attending Unavailable SHAKA ., MARY LOU Consulting Unavailable SHAKA ., MARY LOU Admitting Unavailable HOUSE, DR CRESPO Primary Care Unavailable SHAKA ., MARY LOU Attending Unavailable [place], DR JOCY Altamirano Consulting Unavailable SHAKA ., MARY LOU Admitting Unavailable HOUSE, DR CRESPO Primary Care Unavailable Zieber, Slime Consulting Unavailable SHAKA ., MARY LOU Consulting Unavailable Zieber, Slime Consulting Unavailable SHAKA ., MARY LOU Admitting Unavailable SHAKA ., MARY LOU Attending Unavailable HOUSE, DR CRESPO Primary Care Unavailable SHAKA ., MARY LOU Consulting Unavailable Collin, DO Cuadra Referring Provider [phone] House, DO Crespo Primary Care Provider Adamdavisicz II, DO Sam J Attending Provider Khalfi Polanco Referring Unavailable Socratesicz II, Sam Arrieta Admitting Unavaila ble Adamowicz II, Sam J Attending Unavaila Zak Peters Primary Care Unavailable Elias DELANEY, Unavailable Beny Katz MD Primary Care Provider Nuria Tierney NP Unavailable [phone] SHAIKH GRIFFIN Attending Unavailable ELIAS, Attending Unavailable IGNACIA MARADIAGA Attending Unavailable SHAIKH GRIFFIN Referring Unavailable SHAIKH GRIFFIN Attending Unavailable ELIAS, Attending Unavailable NURIA TIERNEY Attending Unavailmelinda TIERNEY, NURIA Attending UnavailZak George DO Primary Care Provider Elizabeth Strickland MD Primary Care Provider Elizabeth Strickland MD Primary Care Provider ELIZABETH STRICKLAND Attending Unavailable ZAK FARRIS Referring Unavailable NOE, MUHAMID M Primary Care Unavailable NOE, MUHAMID M Attending Unavailable NOE, MUHAMID M Referring Unavailable NOE, MUHAMID M Primary Care Unavailable KELLIE GRAFF Attending Unavailable NOE, MUHAMID M Referring Unavailable NOE, MUHAMID M Primary Care Unavailable MITRA WHITE Attending Unavailable NOE, MUHAMID M Referring Unavailable NOE, MUHAMID M Primary Care Unavailable NOE, MUHAMID M Referring Unavailable NOE, MUHAMID M Primary Care Unavailable MAUREEN LIANG Admitting Unavailable MAUREEN LIANG Attending Unavailable MAUREEN LIANG Referring Unavailable NOE, MUHAMID M Primary Care Unavailable MAUREEN LIANG Admitting Unavailable MAUREEN LIANG Attending Unavailable MAUREEN LIANG Referring Unavailable NOE, MUHAMID M Primary Care Unavailable KHUSHI BORREGO Attending Unavailable ZAK FARRIS Referring Unavailable NOE, MUHAMID Yelitza Primary Care Unavailable Medications Current Medications Medication Drug Class(es) Dates Sig (Normalized) Sig (Original) atorvastatin 20 mg oral tablet (20 sources) HMG-CoA Reductase Inhibitor Start: 03-27-2024 End: 03-25-2025 take 1 tablet by mouth in the morning atorvastatin (LIPITOR) 20 mg tablet Take 1 tablet (20 mg total) by mouth in the morning. 90 tablet 3 01/06/2025 Active Blood Glucose Monitoring Suppl (ONE TOUCH ULTRA 2) w/Device kit (6 sources) Start: 07-26-2023 Blood Glucose Monitoring Suppl (ONE TOUCH ULTRA 2) w/Device kit 1 Device Daily as needed 07/26/2023 Active cholecalciferol 1.25 mg oral capsule (17 sources) Vitamin D Start: 02-10-2025 take 1 capsule by mouth every week cholecalciferol (VITAMIN D3) 50,000 units capsule Take 1 capsule (50,000 Units total) by mouth once a week. 8 capsule 02/10/2025 Active Start: 02-03-2025 End: 02-04-2025 take 1 capsule by mouth every week cholecalciferol (VITAMIN D3) 50,000 units capsule Take 1 capsule (50,000 Units total) by mouth once a week. 8 capsule 02/03/2025 02/04/2025 Discontinued (Reorder) docusate sodium 100 mg oral capsule (20 sources) Start: 04-24-2023 End: 06-27-2024 take 1 capsule by mouth in the morning, then take 1 capsule by mouth at bedtime docusate sodium (COLACE) 100 mg capsule Take 1 capsule (100 mg total) by mouth in the morning and 1 capsule (100 mg total) before bedtime. 10 capsule 04/24/2023 Active 0.5 ml dulaglutide 1.5 mg/ml auto-injector (11 sources) GLP-1 Receptor Agonist Start: 05-12-2025 End: 06-25-2025 dulaglutide (TRULICITY) 0.75 mg/0.5 mL pen injector Indications: Diabetes mellitus due to underlying condition with hyperosmolarity without coma, without long-term current use of insulin ([facility]) , Primary hypertension , Endometrial cancer ([facility]) , Factor VIII deficiency ([facility]) , Mixed hyperlipidemia , Hx of deep venous thrombosis Inject 0.5 mL (0.75 mg total) under the skin every 7 days. 2 mL 06/25/2025 Active End: 01-06-2025 dulaglutide (TRULICITY) 1.5 mg/0.5 mL pen injector Inject 1.5 mg under the skin every 7 days. 01/06/2025 Discontinued metFORMIN hydrochloride 500 mg oral tablet (20 sources) Biguanide Start: 03-28-2025 End: 09-22-2025 take 2 tablets by mouth at bedtime metFORMIN (GLUCOPHAGE) 500 mg tablet TAKE 2 TABLETS (1,000 MG TOTAL) BY MOUTH IN THE MORNING AND BEFORE BEDTIME 360 tablet 06/24/2025 09/22/2025 Active Start: 03-27-2024 End: 12-24-2024 take 1 tablet by mouth in the morning metFORMIN (Glucophage) 1000 MG tablet Indications: Type 2 diabetes mellitus without complication, without long-term current use of insulin ([facility]) Take 1 tablet (1,000 mg) by mouth in the morning and 1 tablet (1,000 mg) in the evening. Take with meals. 180 tablet 1 04/03/2024 06/27/2024 Discontinued (Duplicate order) Start: 03-29-2023 End: 03-13-2025 take 2 tablets by mouth in the morning, then take 2 tablets by mouth at bedtime metFORMIN (GLUCOPHAGE) 500 mg tablet Take 2 tablets (1,000 mg total) by mouth in the morning and 2 tablets (1,000 mg total) before bedtime. 60 tablet 03/13/2025 Active Start: 01-20-2023 End: 05-21-2024 take 1000 mg by mouth once daily Metformin Discontinued 1000 MG PO Daily January 20, 2023 12:00am May 21, 2024 2:48pm peg 3350-sod sulf,chlr-pot-m ag 178.7-7.3-0.5 gram recon soln (2 sources) Start: 05-22-2025 End: 05-23-2025 peg 3350-sod sulf,chlr-pot-m ag 178.7-7.3-0.5 gram recon soln Indications: Rectal bleeding Take 1 kit by mouth in the morning for 1 dose. Please see instructional sheet given by physicians office. 1 each 05/22/2025 05/23/2025 Active Start: 05-22-2025 End: 05-22-2025 peg 3350-sod sulf,chlr-pot-m ag 178.7-7.3-0.5 gram recon soln Indications: Rectal bleeding Take 1 kit by mouth in the morning for 1 dose. Please see instructional sheet given by physicians office. 1 each 05/22/2025 05/22/2025 Discontinued rivaroxaban 20 mg oral tablet (20 sources) Factor Xa Inhibitor Start: 05-05-2025 take 1 tablet by mouth in the morning rivaroxaban (XARELTO) 20 mg tablet tablet Take 1 tablet (20 mg total) by mouth in the morning. 90 tablet 1 05/05/2025 Active Start: 06-12-2024 End: 06-27-2024 take 1 tablet by mouth once daily rivaroxaban (Xarelto) 20 MG tablet Indications: Deep vein thrombosis (DVT) of femoral vein, unspecified chronicity, unspecified laterality (CMS/HCC) Take 1 tablet (20 mg) by mouth Daily 90 tablet 06/27/2024 Active Start: 01-20-2023 End: 05-05-2025 take 1 tablet by mouth in the morning XARELTO 10 mg tablet Indications: History of pulmonary embolus (PE) Take 1 tablet (10 mg total) by mouth in the morning. 30 tablet 06/14/2023 05/05/2025 Discontinued (Dose adjustment) sod sulf-pot chloride-mag carmichael lf 1.479-0.188- 0.225 gram tablet (2 sources) Start: 05-14-2025 sod sulf-pot c hloride-mag sulf 1.479-0.188- 0.225 gram tablet Indications: Rectal bleeding Please see instructional sheet given by physicians office. 24 tablet 05/14/2025 Active Completed/Discontinued Medications Medication Drug Class(es) Dates Sig (Normalized) Sig (Original) fexofenadine hydrochloride 180 mg oral tablet (3 sources) Histamine-1 Receptor Antagonist Start: 03-01-2023 End: 01-06-2025 take 1 tablet by mouth once daily as needed fexofenadine (JERMAINE) 180 mg tablet Indications: urticaria Take 1 tablet (180 mg total) by mouth daily as needed Indications: hives. 03/01/2023 01/06/2025 Discontinued lisinopril 2.5 mg oral tablet (6 sources) Angiotensin Converting Enzyme Inhibitor Start: 01-20-2023 End: 01-06-2025 take 1 tablet by mouth in the morning lisinopriL (PRINIVIL,ZESTRIL) 2.5 mg tablet Take 1 tablet (2.5 mg total) by mouth in the morning. 03/05/2023 01/06/2025 Discontinued ondansetron 4 mg disintegrating oral tablet (3 sources) Serotonin-3 Receptor Antagonist Start: 05-31-2023 End: 01-06-2025 take 1 tablet by mouth every eight hours as needed for nausea ondansetron ODT (ZOFRAN ODT) 4 mg disintegrating tablet Dissolve 1 tablet (4 mg total) on tongue every 8 (eight) hours as needed for nausea for up to 10 doses. 10 tablet 05/31/2023 01/06/2025 Discontinued semaglutide (OZEMPIC) 0.25 mg or 0.5 mg (2 mg/3 mL) pen injector (4 sources) Start: 04-30-2025 End: 05-12-2025 semaglutide (OZEMPIC) 0.25 mg or 0.5 mg (2 mg/3 mL) pen injector Indications: Diabetes mellitus due to underlying condition with hyperosmolarity without coma, without long-term current use of insulin ([facility]) , Primary hypertension , Endometrial cancer ([facility]) , Factor VIII deficiency ([facility]) , Mixed hyperlipidemia , Hx of deep venous thrombosis Inject 0.25 mg under the skin every 7 days. 3 mL 1 04/30/2025 05/12/2025 Discontinued (Alternate therapy) Start: 04-30-2025 semaglutide (O ZEMPIC) 0.25 mg or 0.5 mg (2 mg/3 mL) pen injector Indications: Diabetes mellitus due to underlying condition with hyperosmolarity without coma, without long-term current use of insulin ([facility]) , Primary hypertension , Endometrial cancer ([facility]) , Factor VIII deficiency ([facility]) , Mixed hyperlipidemia , Hx of deep venous thrombosis Inject 0.25 mg under the skin every 7 days. 3 mL 1 04/30/2025 Active Problems Active Problems Problem Classification Problem Date Documented Da te Episodic/Chronic Administrative/social admission (3 sources) Patient encounter status; Translations: [Other specified counseling] Onset: 06-18-2025 12-19-2023 Episodic Cancer of uterus (20 sources) Malignant neoplasm of endometrium of corpus uteri ; Translations: [Malignant neoplasm of endometrium] Onset: 03-29-2023 11-23-2023 Chronic Coagulation and hemorrhagic disorders (20 sources) Activated protein C resistance; 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] Onset: 03-16-2023 11-23-2023 Chronic Diabetes mellitus with complications (6 sources) Secondary diabetes mellitus; Translations: [Diabetes mellitus due to underlying condition with hyperosmolarity without nonketotic hyperglycemic-hyperos molar coma ([facility])] Onset: 03-29-2023 01-06-2025 Chronic Diabetes mellitus without complication (20 sources) Type 2 diabetes mellitus without complications; Translations: [Diabetes mellitus] Onset: 03-16-2023 11-23-2023 Chronic Disorders of lipid metabolism (15 sources) Hyperlipidemia; Translations: [Other hyperlipidemia] Onset: 11-23-2023 11-23-2023 Chronic Diverticulosis and diverticulitis (1 source) Diverticulosis of intestine, part unspecified, without perforation or abscess without bleeding; Translations: [Diverticulosis of intestine, part unspecified, without perforation or abscess without bleeding] Onset: 05-29-2025 Chronic Essential hypertension (20 sources) Essential (primary) hypertension; Translations: [Hypertensive disorder] Onset: 03-16-2023 11-23-2023 Chronic Gastrointestinal hemorrhage (6 sources) Rectal hemorrhage; Translations: [Hemorrhage of anus and rectum] Onset: 05-14-2025 05-14-2025 Episodic Hemorrhoids (13 sources) Internal hemorrhoids; Translations: [Other hemorrhoids] Onset: 02-26-2024 03-27-2024 Episodic Malaise and fatigue (3 sources) Fatigue; Translations: [Chronic fatigue, unspecified] Onset: 01-06-2025 01-06-2025 Chronic Menstrual disorders (11 sources) Excessive and frequent menstruation with regular cycle; Translations: [Menorrhagia] Onset: 03-02-2023 Chronic Nutritional deficiencies (4 sources) Vitamin D deficiency; Translations: [Vitamin D deficiency, unspecified] Onset: 01-06-2025 01-06-2025 Chronic Other aftercare (1 source) care home (current) use of anticoagulants; Translations: [LOGISTICS TEAM LEAD CURRNT USE ANTICOAGULANTS] Onset: 03-16-2023 Episodic Other aftercare (1 source) 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; Translations: [[facility] USE ORAL HYPOGLYCEMIC DX] Onset: 03-16-2023 Episodic Other female genital disorders (20 sources) Pain in female genitalia on intercourse; Translations: [Unspecified dyspareunia] Onset: 09-13-2023 02-26-2024 Chronic Other female genital disorders (2 sources) Dyspareunia due to non-psychogenic cause in the female; Translations: [Other specified dyspareunia] 06-18-2025 Chronic Other female genital disorders (1 source) Other specified dyspareunia; Translations: [Other specified dyspareunia] Onset: 06-18-2025 Chronic Other female genital disorders (1 source) [...] BMI 45.0-49.9 ADULT] Onset: 03-16-2023 Chronic Other nutritional; endocrine; and metabolic disorders (6 sources) Morbid obesity; Translations: [Morbid (severe) obesity due to excess calories] Onset: 11-23-2023 11-23-2023 Chronic Other nutritional; endocrine; and metabolic disorders (4 sources) Body mass index 30+ - obesity; Translations: [Body mass index (BMI) 32.0-32.9, adult] Onset: 09-26-2024 09-26-2024 Chronic Other screening for suspected conditions (not mental disorders or infectious disease) (7 sources) Abnormal findings on diagnostic imaging of other specified body structures; Translations: [Endometrium thickened] Onset: 03-16-2023 02-26-2024 Chronic Other screening for suspected conditions (not mental disorders or infectious disease) (20 sources) Other abnormal and inconclusive findings on diagnostic imaging of breast; Translations: [Encounter for screening mammogram for malignant neoplasm of breast] Onset: 12-05-2022 Episodic Paralysis (1 source) Hemiplegia, unspecified affecting unspecified side; Translations: [HEMIPLEGIA UNS AFFECTING UNS SIDE] Onset: 05-15-2022 Chronic Phlebitis; thrombophlebitis and thromboembolism (20 sources) H/O: Deep vein thrombosis; Translations: [Personal history of other venous thrombosis and embolism] Onset: 03-16-2023 01-23-2023 Episodic Residual codes; [...] RESP AND IT ORGN] Onset: 01-28-2023 Episodic Unclassified (2 sources) Autogenerated Problem Onset: 05-14-2025 05-14-2025 Unclassified (1 source) Weight Management Onset: 04-30-2025 Unclassified (1 source) Results Onset: 02-18-2025 Unclassified (1 source) Establish Care Onset: 01-06-2025 Past or Other Problems Problem Classification Problem Date Documented Date Episodic/Chronic Cardiac dysrhythmias (6 sources) Sinus tachycardia; Translations: [Tachycardia, unspecified] Onset: 11-23-2023 11-23-2023 Episodic Deficiency and other anemia (20 sources) Iron deficiency anemia; Translations: [Iron deficiency anemia, unspecified] Onset: 03-29-2023 03-07-2023 Episodic Immunizations and screening for infectious disease (1 source) Encounter for screening for human papillomavirus (HPV); Translations: [ENC SCREENING HUMAN PAPILLOMAVIRUS] Onset: 12-06-2022 Episodic Inflammatory diseases of female pelvic organs (1 source) Chronic vulvitis; Translations: [Subacute and chronic vulvitis] 06-18-2024 Episodic Mood disorders (17 sources) Mood disorders Onset: 01-06-2025 Resolved: 04-30-2025 01-06-2025 Nonmalignant breast conditions (1 source) Unspecified lump in the right breast, lower outer quadrant; Translations: [UNS LUMP IN RT BREAST LW OUTR QUAD] Onset: 12-15-2022 Episodic Other nervous system disorders (4 sources) Paresthesia of skin; Translations: [PARESTHESIA OF SKIN] Onset: 05-10-2022 Episodic Pulmonary heart disease (20 sources) H/O: pulmonary embolus; Translations: [Personal history of pulmonary embolism] Onset: 03-16-2023 01-23-2023 Episodic Residual codes; unclassified (1 source) Family history of malignant neoplasm of other organs or systems; Translations: [FAM HX MALIG NEOPLASM OTH ORGN/SYS] Onset: 12-15-2022 Episodic Varicose veins of lower extremity (6 sources) Pain co-occurrent and due to varicose veins of bilateral legs; Translations: [Varicose veins of bilateral lower extremities with pain] Onset: 02-26-2024 02-26-2024 Episodic Results Test Name Value Interpretation Reference Range Facility CBC AND AUTO DIFFon 01-12-20 ABSOLUTE BASOPHIL 0.1 X10E9/L Normal 0.0-0.2 [facility] Comment on above: Performed By: #### 1 3965-9, CBCA, 36257-4, CMP, 55575-2, HA1C, TSHR, 2284-8, 2132-9, 30331-0, 32880-9 #### [facility] ([id number]) [address] [place] [address], [address] [place] [address] #### 10440-6 #### [facility] ([id number]) [address] [place] [address] 80691 ABSOLUTE NEUTROPHIL 2.9 X10E9/L Normal 1.5-6.6 [facility] Comment on above: Performed By: #### 1 3965-9, CBCA, 87600-7, CMP, 88221-5, HA1C, TSHR, 2284-8, 2132-9, 03647-6, 02929-0 #### [facility] ([id number]) [address] [place] [address], [address] [place] [address] #### 34203-8 #### [facility] ([id number]) [address] [place] [address]37 Basophils/100 WBC (Bld) 1.6 % Normal [facility] Comment on above: Performed By: #### 1 3965-9, CBCA, 32985-9, CMP, 82360-3, HA1C, TSHR, 2283-8, 9, 76868-2, 92380-5 #### [facility] ([id number]) [address], [address] [place] [address] #### 49420-5 #### [facility] ([id number]) [address] [place] [address] 33709 Eosinophils (Bld) [#/Vol] 0.2 10*3/uL Normal 0.0-0.4 [facility] Comment on above: Performed By: #### 1 3965-9, CBCA, 87728-0, CMP, 07857-3, HA1C, TSHR, 2283-8, 9, 88893-8, 50212-7 #### [facility] ([id number]) [address], [address] [place] [address] #### 98405-8 #### [facility] ([id number]) [address] [place] [address] 80270 Eosinophils/100 WBC (Bld) 3.6 % Normal [facility] Comment on above: Performed By: #### 1 3965-9, CBCA, 51483-5, CMP, 20057-6, HA1C, TSHR, 2283-, 2132-07, 41650-0, 11019-1 #### [facility] ([id number]) [address], [address] [place] [address] #### 49641-4 #### [facility] ([id number]) [address] [place] [address] 72057 Erythrocyte distribution width (RBC) [Ratio] 14.4 % Normal 11.5-15.0 [facility] Comment on above: Performed By: #### 1 3965-9, CBCA, 66104-3, CMP, 32187-1, HA1C, TSHR, 2284-8, 2132-9, 98764-7, 86019-3 #### [facility] ([id number]) [address], [address] [place] [address] #### 68323-3 #### [facility] ([id number]) [address] [place] [address]1990 Hematocrit (Bld) [Volume fraction] 39.7 % Normal 35-47 [facility] Comment on above: Performed By: #### 1 3965-9, CBCA, 40840-8, CMP, 34033-5, HA1C, TSHR, 2284-8, 2132-9, 12072-4, 91413-8 #### [facility] ([id number]) [address], [address] [place] [address] #### 36127-6 #### [facility] ([id number]) [address] [place] [address] 01275 Hemoglobin (Bld) [Mass/Vol] 13.8 g/dL Normal 11.7-15.5 [facility] Comment on above: Performed By: #### 1 3965-9, CBCA, 07023-9, CMP, 33805-6, HA1C, TSHR, 2284-8, 2132-9, 69688-9, 01107-0 #### [facility] ([id number]) [address], [address] [place] [address] #### 91021-4 #### [facility] ([id number]) [address] [place] [address] 84931 Lymphocytes (Bld) [#/Vol] 1.8 10*3/uL Normal 1.0-3.5 [facility] Comment on above: Performed By: #### 1 3965-9, CBCA, 78519-7, CMP, 35449-1, HA1C, TSHR, 2284-8, 2132-9, 33921-6, 68439-3 #### [facility] ([id number]) [address], [address] [place] [address] #### 45768-6 #### [facility] ([id number]) [address] [place] [address] 91969 Lymphocytes/100 WBC (Bld) 34.6 % Normal [facility] Comment on above: Performed By: #### 1 3965-9, CBCA, 78857-4, CMP, 54819-6, HA1C, TSHR, 2284-8, 2132-9, 91556-7, 11631-9 #### [facility] ([id number]) [address], [address] [place] [address] #### 32246-8 #### [facility] ([id number]) [address] [place] [address] 45528 MCH (RBC) [Entitic mass] 31.0 pg Normal 27-34 [facility] Comment on above: Performed By: #### 1 3965-9, CBCA, 07060-1, CMP, 90295-3, HA1C, TSHR, 2284-8, 2132-9, 51735-1, 18714-9 #### [facility] ([id number]) [address], [address] [place] [address] #### 83243-8 #### [facility] ([id number]) [address] [place] [address] 24256 MCHC (RBC) [Mass/Vol] 34.7 g/dL Normal 32-36 [facility] Comment on above: Performed By: #### 1 3965-9, CBCA, 97908-3, CMP, 68434-7, HA1C, TSHR, 2284-8, 2132-9, 54239-2, 23516-3 #### [facility] ([id number]) [address], [address] [place] [address] #### 09426-4 #### [facility] ([id number]) [address] [place] [address] 27853 MCV (RBC) [Entitic vol] 89 fL Normal 80-100 [facility] Comment on above: Performed By: #### 1 3965-9, CBCA, 86772-0, CMP, 34822-7, HA1C, TSHR, 2283-8, 2132-07, 42227-1, 36498-5 #### [facility] ([id number]) [address] [place] [address], [address] [place] [address] #### 66762-2 #### [facility] ([id number]) [address] [place] [address] 33442 Monocytes (Bld) [#/Vol] 0.3 10*3/uL Normal 0-0.9 [facility] Comment on above: Performed By: #### 1 3965-9, CBCA, 57862-2, CMP, 16611-9, HA1C, TSHR, 2284-06, 2132-07, 67053-5, 14197-9 #### [facility] ([id number]) [address] [place] [address] [address] [place] [address] #### 59098-3 #### [facility] ([id number]) [address] [place] [address] 69257 Monocytes/100 WBC (Bld) 5.0 % Normal [facility] Comment on above: Performed By: #### 1 3965-9, CBCA, 84341-5, CMP, 69345-6, HA1C, TSHR, 2284-06, 2132-07, 41968-6, 99859-8 #### [facility] ([id number]) [address], [address] [place] [address] #### 59348-9 #### [facility] ([id number]) [address] [place] [address] 02778 Neutrophils/100 WBC (Bld) 55.2 % Normal [facility] Comment on above: Performed By: #### 1 3965-9, CBCA, 82619-7, CMP, 34930-6, HA1C, TSHR, 2284-8, 2132-9, 38430-9, 30710-4 #### [facility] ([id number]) [address] [facility], [address] [place] [address] #### 32059-1 #### [facility] ([id number]) [address] [place] [address] 51308 Platelet mean volume (Bld) [Entitic vol] 8.1 fL Normal 7-12 [facility] Comment on above: Performed By: #### 1 3965-9, CBCA, 67107-7, CMP, 15344-4, HA1C, TSHR, 2284-8, 2131-9, 04111-5, 33418-2 #### [facility] ([id number]) [address] [facility], [address] [place] [address] #### 72122-3 #### [facility] ([id number]) [address] [place] [address] 74770 Platelets (Bld) [#/Vol] 276 10*3/uL Normal 150-450 [facility] Comment on above: Performed By: #### 1 3965-9, CBCA, 81375-3, CMP, 72221-2, HA1C, TSHR, 2284-8, 2132-9, 07609-8, 61356-5 #### [facility] ([id number]) [address] [facility], [address] [place] [address] #### 24395-4 #### [facility] ([id number]) [address] [place] [address] RBC COUNT 4.45 X10E12/L Normal 3.80-5.20 [facility] Comment on above: Performed By: #### 1 3965-9, CBCA, 73055-4, CMP, 32041-3, HA1C, TSHR, 2284-8, 2132-9, 95924-6, 77271-6 #### [facility] ([id number]) [address], [address] [place] [address] #### 52028-3 #### [facility] ([id number]) [address] [place] [address] 36359 WBC (Bld) [#/Vol] 5.2 10*3/uL Normal 4.0-11.0 [facility] Comment on above: Performed By: #### 1 3965-9, CBCA, 78327-7, CMP, 88325-9, HA1C, TSHR, 2284-8, 2132-9, 39671-9, 51288-7 #### [facility] ([id number]) [address] [facility], [address] [place] [address] #### 43553-9 #### [facility] ([id number]) [address] [place] [address] 80461 COMPREHENSIVE METABOLIC PANE Wilbur 01-11-2025 Albumin [Mass/Vol] 4.0 g/dL Normal 3.2-5.3 [facility] Comment on above: Performed By: #### 1 3965-9, CBCA, 52782-4, CMP, 50425-3, HA1C, TSHR, 2284-8, 2132-9, 40403-8, 24246-1 #### [facility] ([id number]) [address], [address] [place] [address] #### 15384-3 #### [facility] ([id number]) [address] [place] [address] 72975 ALP [Catalytic activity/Vol] 70 U/L Normal 39-130 [facility] Comment on above: Performed By: #### 1 3965-9, CBCA, 31343-6, CMP, 65121-2, HA1C, TSHR, 2284-8, 2132-9, 86681-6, 76898-2 #### [facility] ([id number]) [address] [facility], [address] [place] [address] #### 89151-9 #### [facility] ([id number]) [address] [place] [address] 74603 ALT [Catalytic activity/Vol] 15 U/L Normal 0-31 [facility] Comment on above: Performed By: #### 1 3965-9, CBCA, 08890-1, CMP, 29144-0, HA1C, TSHR, 2284-8, 2132-9, 99176-7, 73347-5 #### [facility] ([id number]) [address] [facility], [address] [place] [address] #### 50298-6 #### [facility] ([id number]) [address] [place] [address] 45958 Anion gap [Moles/Vol] 8 mmol/L Normal 5-15 [facility] Comment on above: Performed By: #### 1 3965-9, CBCA, 70261-9, CMP, 51852-7, HA1C, TSHR, 2284-8, 2132-9, 97934-8, 03536-4 #### [facility] ([id number]) [address] [facility], [address] [place] [address] #### 58217-3 #### [facility] ([id number]) [address] [place] [address] 31225 AST [Catalytic activity/Vol] 13 U/L Normal 0-41 [facility] Comment on above: Performed By: #### 1 3965-9, CBCA, 33745-9, CMP, 75174-0, HA1C, TSHR, 2284-8, 2131-9, 96321-4, 37944-8 #### [facility] ([id number]) [address], [address] [place] [address] #### 22888-9 #### [facility] ([id number]) [address] [place] [address] 13980 Bilirubin [Mass/Vol] 0.9 mg/dL Normal 0.3-1.2 [facility] Comment on above: Performed By: #### 1 3965-9, CBCA, 15970-5, CMP, 89160-4, HA1C, TSHR, 4-8, 2131-9, 89321-3, 60560-6 #### [facility] ([id number]) [address], [address] [place] [address] #### 91311-8 #### [facility] ([id number]) [address] [place] [address] 13856 Calcium [Mass/Vol] 9.3 mg/dL Normal 8.5-10.5 [facility] Comment on above: Performed By: #### 1 3965-9, CBCA, 28836-3, CMP, 09435-1, HA1C, TSHR, 2283-8, 2131-9, 30370-4, 65320-8 #### [facility] ([id number]) [address], [address] [place] [address] #### 02700-6 #### [facility] ([id number]) [address] [place] [address] 19006 Chloride [Moles/Vol] 103 mmol/L Normal 98-109 [facility] Comment on above: Performed By: #### 1 3965-9, CBCA, 03621-3, CMP, 77136-9, HA1C, TSHR, 2284-8, 2132-9, 67062-7, 10802-4 #### [facility] ([id number]) [address] [place] [address], [facility] [address] [place] [address] #### 32003-0 #### [facility] ([id number]) [address] [place] [address] 99414 CO2 [Moles/Vol] 29 mmol/L Normal 22-32 [facility] Comment on above: Performed By: #### 1 3965-9, CBCA, 29474-2, CMP, 65920-8, HA1C, TSHR, 2284-8, 2132-9, 82607-9, 12448-4 #### [facility] ([id number]) [address] [place] [address], [address] [address] #### 62284-1 #### [facility] ([id number]) [address] [place] [address] 51292 Creatinine [Mass/Vol] 0.53 mg/dL Normal 0.40-1.00 [facility] Comment on above: Result Comment: METH OD TRACEABLE TO IDMS STANDARD Performed By: #### 1 3965-9, CBCA, 44130-4, CMP, 35782-8, HA1C, TSHR, 2284-8, 2132-9, 03464-8, 98305-0 #### [facility] ([id number]) [address] [place] [address], [address] [place] [address] #### 86752-4 #### [facility] ([id number]) [address] [place] [address] 67223 eGFR (CKD-EPI) NON-RACE DEPENDENT >90 Normal >59 [facility] Comment on above: Result Comment: Reported eGFR is based on the CKD-EPI 2020 equation that does not use a race coefficient. Performed By: #### 1 3965-9, CBCA, 50209-0, CMP, 03798-7, HA1C, TSHR, 2284-8, 2131-9, 45076-7, 49166-8 #### [facility] ([id number]) [address] [facility], [address] [place] [address] #### 79518-7 #### [facility] ([id number]) [address] [place] [address] 24241 Glucose [Mass/Vol] 133 mg/dL High 65-99 [facility] Comment on above: Performed By: #### 1 3965-9, CBCA, 33399-5, CMP, 93650-9, HA1C, TSHR, 2283-8, 2131-9, 70361-1, 09679-0 #### [facility] ([id number]) [address] [facility], [address] [place] [address] #### 36902-4 #### [facility] ([id number]) [address] [place] [address] 03686 Potassium [Moles/Vol] 4.2 mmol/L Normal 3.5-5.0 [facility] Comment on above: Performed By: #### 1 3965-9, CBCA, 67514-1, CMP, 20875-1, HA1C, TSHR, 2283-8, 2131-9, 46089-7, 61734-9 #### [facility] ([id number]) [address] [place] [address], [address] [place] [address] #### 65133-7 #### [facility] ([id number]) [address] [place] [address] 59213 Protein [Mass/Vol] 6.9 g/dL Normal 6.0-8.0 [facility] Comment on above: Performed By: #### 1 3965-9, CBCA, 34811-7, CMP, 77917-8, HA1C, TSHR, 2284-8, 2131-9, 02585-4, 29075-7 #### [facility] ([id number]) [address], [address] [place] [address] #### 19070-2 #### [facility] ([id number]) [address] [place] [address] 77466 Sodium [Moles/Vol] 140 mmol/L Normal 134-146 [facility] Comment on above: Performed By: #### 1 3965-9, CBCA, 59462-0, CMP, 59362-7, HA1C, TSHR, 2284-8, 2-9, 87602-0, 35981-3 #### [facility] ([id number]) [address] [facility], [address] [place] [address] #### 58497-1 #### [facility] ([id number]) [address] [place] [address] 58783 Urea nitrogen [Mass/Vol] 20 mg/dL Normal 5-23 [facility] Comment on above: Performed By: #### 1 3965-9, CBCA, 06132-9, CMP, 85181-1, HA1C, TSHR, 2284-8, 2131-9, 80852-2, 62912-5 #### [facility] ([id number]) [address] [facility], [address] [place] [address] #### 15806-6 #### [facility] ([id number]) [address] [place] [address] 57631 ESR Photometric method (Bld) [Velocity]on 01-11-2025 ESR, ERYTHROCYTE SEDIMENTATION RATE 6 mm/h Normal 0-20 [facility] Comment on above: Performed By: #### 1 3965-9, CBCA, 71375-7, CMP, 67446-4, HA1C, TSHR, 2284-8, 2132-9, 10831-6, 73731-1 #### [facility] ([id number]) [address] [place] [address], [address] [place] [address] #### 27479-5 #### [facility] ([id number]) [address] [place] [address] 67638 Folate [Mass/Vol]on 01-12-20 25 FOLIC ACID 15.8 ng/mL Normal >5.8 [facility] Comment on above: Result Comment: NEW REFERENCE RANGE Performed By: #### 1 3965-9, CBCA, 93504-9, CMP, 06316-9, HA1C, TSHR, 2284-8, 2132-9, 57132-7, 67814-4 #### [facility] ([id number]) [address] [place] [address], [facility] [address] [place] [address] #### 72986-6 #### [facility] ([id number]) [address] [place] [address] 18076 HGB A1C (GLYCO-HGB)on 2024 Glucose [Mass/Vol] 151 mg/dL Normal [facility] Comment on above: Performed By: #### 1 3965-9, CBCA, 49298-8, CMP, 43992-5, HA1C, TSHR, 2284-8, 2132-9, 10096-5, 27018-3 #### [facility] ([id number]) [address] [place] [address], [facility] [address] [place] [address] #### 03236-7 #### [facility] ([id number]) [address] [place] [address] 96662 HbA1c (Bld) [Mass fraction] 6.9 % High 4.4-5.6 [facility] Comment on above: Result Comment: NOTE ADA Guidelines Result HgbA1c Normal : less than 5.7 % Prediabetes : 5.7 % to 6.4 % Diabetes : > 6.4 % Use with caution in patients with abnormal hemoglobin variants as the half-life of red blood cells and in vivo glycation rates are affected. Performed By: #### 1 3965-9, CBCA, 21955-3, CMP, 97017-6, HA1C, TSHR, 2284-8, 2131-9, 93959-2, 74750-1 #### [facility] ([id number]) [address] [facility], [address] [place] [address] #### 88484-9 #### [facility] ([id number]) [address] [place] [address] 96453 Homocysteine [Moles/Vol]on 0 01-11-2025 HOMOCYSTEINE 7.51 mcmol/L Normal 3.36-20.44 [facility] Comment on above: Performed By: #### 1 3965-9, CBCA, 97848-2, CMP, 60418-5, HA1C, TSHR, 2283-8, 9, 45999-6, 78362-9 #### [facility] ([id number]) [address] [facility], [address] [place] [address] #### 19932-2 #### [facility] ([id number]) [address] [place] [address] 07958 Insulin Qnon 01-11-2025 INSULIN 8.34 uIU/mL Normal 1.00-23.00 [facility] Comment on above: Result Comment: Ref. range is for FASTING NON-DIABETIC POPULATION. Performed By: #### 1 3965-9, CBCA, 91271-8, CMP, 81042-2, HA1C, TSHR, 2284-8, 2131-9, 28652-2, 54892-4 #### [facility] ([id number]) [address] [facility], [address] [place] [address] #### 54971-8 #### [facility] ([id number]) [address] [place] [address] 48878 Lipid 1996 panelon 5 Cholesterol [Mass/Vol] 147 mg/dL Low 150-200 [facility] Comment on above: Performed By: #### 1 3965-9, CBCA, 14270-3, CMP, 83072-8, HA1C, TSHR, 2284-8, 2132-9, 64248-4, 22499-7 #### [facility] ([id number]) [address] [place] [address], [address] [place] [address] #### 21435-7 #### [facility] ([id number]) [address] [place] [address] 81747 Cholesterol in HDL [Mass/Vol] 51 mg/dL Normal >39 [facility] Comment on above: Result Comment: HDL <40 mg/dL - High Risk HDL > or = 40mg/dL- Desirable HDL >60 mg/dL - Negative Risk Performed By: #### 1 3965-9, CBCA, 01244-4, CMP, 72684-7, HA1C, TSHR, 2284-8, 2132-9, 19484-1, 20732-8 #### [facility] ([id number]) [address] [place] [address], [address] [place] [address] #### 72299-3 #### [facility] ([id number]) [address] [place] [address] Cholesterol in LDL [Mass/Vol] 87 mg/dL Normal <130 [facility] Comment on above: Result Comment: LDL <100 mg/dL - Desirable LDL >160 mg/dL - High Risk Performed By: #### 1 3965-9, CBCA, 60323-7, CMP, 48289-1, HA1C, TSHR, 2284-8, 2132-9, 45114-7, 77519-8 #### [facility] ([id number]) [address] [facility], [address] [place] [address] #### 67949-7 #### [facility] ([id number]) [address] [place] [address] 22624 Cholesterol in VLDL [Mass/Vol] 9 mg/dL Normal 0-30 [facility] Comment on above: Performed By: #### 1 3965-9, CBCA, 25095-8, CMP, 69002-7, HA1C, TSHR, 2284-8, 2131-9, 71150-7, 23425-8 #### [facility] ([id number]) [address] [place] [address], [address] [place] [address] #### 80472-4 #### [facility] ([id number]) [address] [place] [address] 56127 CHOLESTEROL:HDL 2.9 Normal 1.0-5.0 [facility] Comment on above: Performed By: #### 1 3965-9, CBCA, 94695-5, CMP, 05495-1, HA1C, TSHR, 2284-8, 2132-9, 90128-3, 91981-9 #### [facility] ([id number]) [address] [place] [address], [address] [place] [address] #### 55981-4 #### [facility] ([id number]) [address] [place] [address] 42004 Triglyceride [Mass/Vol] 46 mg/dL Normal 27-150 [facility] Comment on above: Performed By: #### 1 3965-9, CBCA, 88282-5, CMP, 89343-1, HA1C, TSHR, 2284-8, 2132-9, 86168-8, 70877-5 #### [facility] ([id number]) [address] [place] [address] #### 59707-8 #### [facility] ([id number]) [address] [place] [address] 31683 Nuclear Ab IA Ql (S)on 01-11 SONIA Screen w/reflex Negative Normal NEG [facility] Comment on above: Result Comment: Testing performed using multiplex flow immunoassay. Eleven different antigens associated with systemic autoimmune diseases (dsDNA,Sm,Sm/MASTER WELDER,MASTER WELDER,Chromatin, SSA,SSB,Sirena-1,Scl70,Ribo P,Centromere B) are included in this screening test. Performed By: #### 1 3965-9, CBCA, 42223-1, CMP, 00634-5, HA1C, TSHR, 2284-8, 213-9, 79285-6, 87501-1 #### [facility] ([id number]) [address] [place] [address] #### 96885-1 #### [facility] ([id number]) [address] [place] [address] 43619 TSH WITH REFLEXon 01-11-2025 TSH 0.55 uIU/mL Normal 0.49-4.67 [facility] Comment on above: Performed By: #### 1 3965-9, CBCA, 45879-6, CMP, 81411-5, HA1C, TSHR, 2284-8, 213-9, 45721-9, 25401-0 #### [facility] ([id number]) [address] [place] [address] #### 63126-6 #### [facility] ([id number]) [address] [place] [address] 22367 Thiamine (Bld) [Moles/Vol]on 01-11-2025 Thiamin (Vitamin B1), WB 165 nmol/L Normal 70-180 [facility] Comment on above: Result Comment: NOTE ADDITIONAL INFORMATION This test was developed and its performance characteristics determined by [facility] in a manner consistent with CLIA requirements. This test has not been cleared or approved by the U.S. Food and Drug Administration. Test Performed by: [facility] [address] [place] [address] Developmental Mathematics Professor: Cliff Sims Ph.D.; CLIA# [id number] Performed By: #### 1 3965-9, CBCA, 25874-5, CMP, 41698-7, HA1C, TSHR, 2284-8, 2132-9, 28106-0, 62232-1 #### [facility] ([id number]) [address] [place] [address], [address] [place] [address] #### 17397-5 #### [facility] ([id number]) [address] [place] [address] 43642 VITAMIN B12on 01-11-2025 Cobalamin (Vitamin B12) [Mass/Vol] 424 pg/mL Normal 180-914 [facility] Comment on above: Performed By: #### 1 3965-9, CBCA, 85338-6, CMP, 28440-0, HA1C, TSHR, 2284-8, 2-9, 98293-6, 31864-2 #### [facility] ([id number]) [address] [place] [address], [address] [place] [address] #### 28982-1 #### [facility] ([id number]) [address] [place] [address] 30443 Vitamin D+Metabolites [Mass/ Vol]on 01-11-2025 VITAMIN D 25 HYD TOT 24.5 ng/mL Low 30-100 [facility] Comment on above: Result Comment: Vitamin D status 25 [place] Vitamin D Deficiency <20 ng/mL Insufficiency 20-29 ng/mL Sufficiency 30-100 ng/mL Toxicity >100 ng/mL NOTE: A pediatric reference range has not been established by the cupola tender helper of this kit. The [place] [employer] recommends a Vitamin D level of = or >20ng/mL in infants and children. Performed By: #### 1 3965-9, CBCA, 88113-2, CMP, 05725-5, HA1C, TSHR, 2284-8, 2132-9, 08262-0, 31368-9 #### [facility] ([id number]) [address] [place] [address], [address] [place] [address] #### 62424-7 #### [facility] ([id number]) [address] [facility] [place] [address] MLR HEMOGLOBIN A1Con 024 Glucose [Mass/Vol] 146 mg/dL [facility] HbA1c (Bld) [Mass fraction] 6.7 % High 4.5 - 6.2 % [facility] Comment on above: ADA RECOMMENDED LIMI T 4.0 - 6.0 ADA THERAPEUTIC TARGET < 7.0 ACTION SUGGESTED > 7.0 Interpretation and review of laboratory results Abnormal [facility] Alanine aminotransferase [En zymatic activity/volume] in Serum or PlasmaOrdered By: Sam Hall on 09-11-2023 ALT [Catalytic activity/Vol] 12 U/L Normal 7-52 [facility] Comment on above: Performed By: #### F ER, CBC, CMP, FE and TIBC #### [facility] [address] Albumin [Mass/volume] in Ser um or Plasma by Bromocresol green (BCG) dye binding methoOrdered By: Sam Hall on 09-11-2023 Albumin BCG dye [Mass/Vol] 4.0 g/dL 3.5-5.7 [facility] Alkaline phosphatase [Enzyma tic activity/volume] in Serum or PlasmaOrdered By: Sam Hall on 09-11-2023 ALP [Catalytic activity/Vol] 79 U/L Normal 34-104 [facility] Comment on above: Performed By: #### F ER, CBC, CMP, FE and TIBC #### [facility] [address] Aspartate aminotransferase [ Enzymatic activity/volume] in Serum or PlasmaOrdered By: Sam Hall on 09-11-2023 AST [Catalytic activity/Vol] 10 U/L Low 13-39 [facility] Comment on above: Performed By: #### F ER, CBC, CMP, FE and TIBC #### [facility] [address] Automated basophil %Ordered By: Sam Hall on 09-11-2023 Basophils/100 WBC (Bld) 0.9 % Normal . [facility] Comment on above: Performed By: #### F ER, CBC, CMP, FE and TIBC #### [address] Automated basophil countOrde red By: Sam Hall on 09-11-2023 Basophils (Bld) [#/Vol] 0.1 10*3/uL Normal 0.0-0.2 [facility] Comment on above: Result Comment: PERF ORMED BY: [place] [address] PATHOLOGIST LINE DRIVER ODILON COPE M.D. Performed By: #### F ER, CBC, CMP, FE and TIBC #### [address] Automated blood monocyte cou ntOrdered By: Sam Hall on 09-11-2023 Monocytes (Bld) [#/Vol] 0.4 10*3/uL Normal 0.0-0.8 [facility] Comment on above: Performed By: #### F ER, CBC, CMP, FE and TIBC #### [address] Automated eosinophil %Ordere d By: Sam Hall on 09-11-2023 Eosinophils/100 WBC (Bld) 2.0 % Normal . [facility] Comment on above: Performed By: #### F ER, CBC, CMP, FE and TIBC #### [address] Automated eosinophil countOr dered By: Sam Hall on 09-11-2023 Eosinophils (Bld) [#/Vol] 0.2 10*3/uL Normal 0.0-0.45 [facility] Comment on above: Performed By: #### F ER, CBC, CMP, FE and TIBC #### [address] Automated monocyte %Ordered By: Sam Hall on 09-11-2023 Monocytes/100 WBC (Bld) 4.1 % Normal . [facility] Comment on above: Performed By: #### F ER, CBC, CMP, FE and TIBC #### [address] Automated neutrophil %Ordere d By: Sam Hall on 09-11-2023 Neutrophils/100 WBC (Bld) 71.0 % Normal . [facility] Comment on above: Performed By: #### F ER, CBC, CMP, FE and TIBC #### [address] Bilirubin.total [Mass/volume ] in Serum or PlasmaOrdered By: Sam Hall on 09-11-2023 Bilirubin [Mass/Vol] 0.8 mg/dL Normal 0.3-1.0 [facility] Comment on above: Performed By: #### F ER, CBC, CMP, FE and TIBC #### [address] Calcium [Mass/volume] in Ser um or PlasmaOrdered By: Sam Hall on 09-11-2023 Calcium [Mass/Vol] 9.5 mg/dL Normal 8.6-10.3 [facility] Comment on above: Performed By: #### F ER, CBC, CMP, FE and TIBC #### [address] [place] [address] [place] Carbon dioxide, total [Moles /volume] in Serum or PlasmaOrdered By: Sam Hall on 09-11-2023 CO2 [Moles/Vol] 31.6 mmol/L High 21.0-31.0 [facility] Comment on above: Performed By: #### F ER, CBC, CMP, FE and TIBC #### [address] Chloride [Moles/volume] in S yomi or PlasmaOrdered By: Sam Hall on 09-11-2023 Chloride [Moles/Vol] 103 mmol/L Normal 98-107 [facility] Comment on above: Performed By: #### F ER, CBC, CMP, FE and TIBC #### [address] Complete Blood Count Auto Di ffon 09-11-2023 Mean Corpuscular HGB Conc 33.1 g/dL Normal 32.0-35.0 [facility] Comment on above: Performed By: #### F ER, CBC, CMP, FE and TIBC #### [address] NRBC% 0.1 /100{WBC} Normal 0-0.5 [facility] Comment on above: Performed By: #### F ER, CBC, CMP, FE and TIBC #### [address] Comprehensive Metabolic Pane wilbur 09-11-2023 Albumin [Mass/Vol] 4.0 g/dL Normal 3.5-5.7 [facility] Comment on above: Performed By: #### F ER, CBC, CMP, FE and TIBC #### [address] Creatinine Clr Calc Pharmacy 150.08 Normal [facility] Comment on above: Performed By: #### F ER, CBC, CMP, FE and TIBC #### [address] GFR/1.73 sq M.predicted MDRD (S/P/Bld) [Vol rate/Area] mL/min/{1.73_m2} Normal [facility] Comment on above: Performed By: #### F ER, CBC, CMP, FE and TIBC #### [address] Creatinine [Mass/volume] in Serum or PlasmaOrdered By: Sam Hall on 09-11-2023 Creatinine [Mass/Vol] 0.66 mg/dL Normal 0.60-1.20 [facility] Comment on above: Performed By: #### F ER, CBC, CMP, FE and TIBC #### [address] Erythrocyte distribution wid th [Ratio] by Automated countOrdered By: Sam Hall on 09-11-2023 Erythrocyte distribution width (RBC) [Ratio] 14.6 % Normal 11.9-15.3 [facility] Comment on above: Performed By: #### F ER, CBC, CMP, FE and TIBC #### [address] Erythrocytes [#/volume] in B lood by Automated countOrdered By: Sam Hall on 09-11-2023 RBC (Bld) [#/Vol] 4.34 10*6/uL Normal 3.60-5.00 [facility] Comment on above: Performed By: #### F ER, CBC, CMP, FE and TIBC #### [address] Ferritin [Mass/volume] in Se rum or PlasmaOrdered By: Sam Hall on 09-11-2023 Ferritin [Mass/Vol] 38.8 ng/mL Normal 11.0-306.8 [facility] Comment on above: Result Comment: PERF ORMED BY: [place] [id number] PATHOLOGIST [employer] ODILON COPE M.D. Performed By: #### F ER, CBC, CMP, FE and TIBC #### [address] [place] [address] [place] Glucose [Mass/volume] in Ser um or PlasmaOrdered By: Sam Hall on 09-11-2023 Glucose [Mass/Vol] 130 mg/dL High 70-100 [facility] Comment on above: ADA recommended refe rence rangeRandom Glucose Reference Range is dependent on time and content of last meal. Glucose of more than 200 mg/dL in a nonstressed, ambulatory subject supports the diagnosis of Diabetes Mellitus. Result Comment: [place] om Glucose Reference Range is dependent on time and content of last meal. Glucose of more than 200 mg/dL in a nonstressed, ambulatory subject supports the diagnosis of Diabetes Mellitus. ADA recommended reference range Performed By: #### F ER, CBC, CMP, FE and TIBC #### [address] Hematocrit [Volume Fraction] of Blood by Automated countOrdered By: Sam Hall on 09-11-2023 Hematocrit (Bld) [Volume fraction] 39.3 % Normal 34.0-46.4 [facility] Comment on above: Performed By: #### F ER, CBC, CMP, FE and TIBC #### [address] Hemoglobin [Mass/volume] in BloodOrdered By: Sam Hall on 09-11-2023 Hemoglobin (Bld) [Mass/Vol] 13.0 g/dL Normal 11.8-15.4 [facility] Comment on above: Performed By: #### F ER, CBC, CMP, FE and TIBC #### [address] Iron [Mass/volume] in Serum or PlasmaOrdered By: Sam Hall on 09-11-2023 Iron [Mass/Vol] 61 ug/dL Normal 50-212 [facility] Comment on above: Performed By: #### F ER, CBC, CMP, FE and TIBC #### [address] Iron and TIBC Profileon 11-0 -2022 % Iron Saturation 19.6 % Low 20-50 [facility] Comment on above: Performed By: #### F ER, CBC, CMP, FE and TIBC #### [facility] [address] Total Iron Binding Capacity 311 ug/dL Normal 255-450 [facility] Comment on above: Performed By: #### F ER, CBC, CMP, FE and TIBC #### [facility] [address] [place] [address] Iron binding capacity [Mass/ volume] in Serum or PlasmaOrdered By: Sam Hall on 09-11-2023 Iron binding capacity [Mass/Vol] 311 ug/dL 255-450 [facility] Iron saturation [Mass Fracti on] in Serum or PlasmaOrdered By: Sam Hall on 09-11-2023 Iron saturation [Mass fraction] 19.6 % Low 20-50 [facility] Leukocytes [#/volume] correc robb for nucleated erythrocytes in Blood by Automated counOrdered By: Sam Hall on 09-11-2023 WBC corrected for nucl RBC Auto (Bld) [#/Vol] 9.4 10*3/uL 3.8-11.6 [facility] Leukocytes [#/volume] in Blo od by Automated countOrdered By: Sam Hall on 09-11-2023 WBC (Bld) [#/Vol] 9.4 10*3/uL Normal 3.8-11.6 [facility] Comment on above: Performed By: #### F ER, CBC, CMP, FE and TIBC #### [facility] [address] [place] [address] [place] Lymphocytes [#/volume] in Bl ood by Automated countOrdered By: Sam Hall on 09-11-2023 Lymphocytes (Bld) [#/Vol] 2.1 10*3/uL Normal 1.00-4.8 [facility] Comment on above: Performed By: #### F ER, CBC, CMP, FE and TIBC #### [facility] [address] [place] [address] Lymphocytes/100 leukocytes i n Blood by Automated countOrdered By: Sam Hall on 09-11-2023 Lymphocytes/100 WBC (Bld) 22.0 % Normal . [facility] Comment on above: Performed By: #### F ER, CBC, CMP, FE and TIBC #### [facility] [address] MCH [Entitic mass] by Automa robb countOrdered By: Sam Hall on 09-11-2023 MCH (RBC) [Entitic mass] 30.0 pg Normal 24.7-34.3 [facility] Comment on above: Performed By: #### F ER, CBC, CMP, FE and TIBC #### [facility] [address] [place] [address] MCHC Auto (RBC) [Mass/Vol]Or dered By: Sam Hall on 09-11-2023 MCHC (RBC) [Mass/Vol] 33.1 g/dL 32.0-35.0 [facility] MCV [Entitic volume] by Auto mated countOrdered By: Sam Hall on 09-11-2023 MCV (RBC) [Entitic vol] 90.5 fL Normal 80-100 [facility] Comment on above: Performed By: #### F ER, CBC, CMP, FE and TIBC #### [facility] [address] [place] [address] Neutrophils [#/volume] in Bl ood by Automated countOrdered By: Sam Hall on 09-11-2023 Neutrophils (Bld) [#/Vol] 6.6 10*3/uL Normal 1.8-7.7 [facility] Comment on above: Performed By: #### F ER, CBC, CMP, FE and TIBC #### [facility] [address] [place] [address] No Panel InformationOrdered By: Sam Hall on 09-11-2023 Estimated GFR (CKD-EPI) > 60.0 mL/Min [facility] Creatinine Clearance (Chem 150.08 [facility] Nucleated erythrocytes [Pres ence] in Blood by Automated countOrdered By: Sam Hall on 09-11-2023 Nucleated RBC Auto Ql (Bld) 0.1 /100{WBC} 0-0.5 [facility] Platelet mean volume [Entiti c volume] in Blood by Automated countOrdered By: Sam Hall on 09-11-2023 Platelet mean volume (Bld) [Entitic vol] 7.5 fL Normal 6.3-10.7 [facility] Comment on above: Performed By: #### F ER, CBC, CMP, FE and TIBC #### [address] Platelets [#/volume] in Bloo d by Automated countOrdered By: Sam Hall on 09-11-2023 Platelets (Bld) [#/Vol] 335 10*3/uL Normal 150-450 [facility] Comment on above: Performed By: #### F ER, CBC, CMP, FE and TIBC #### [address] Potassium [Moles/volume] in Serum or PlasmaOrdered By: Sam Hall on 09-11-2023 Potassium [Moles/Vol] 4.2 mmol/L Normal 3.5-5.1 [facility] Comment on above: Performed By: #### F ER, CBC, CMP, FE and TIBC #### [address] Protein [Mass/volume] in Ser um or PlasmaOrdered By: Sam Hall on 09-11-2023 Protein [Mass/Vol] 7.1 g/dL Normal 6.4-8.9 [facility] Comment on above: Performed By: #### F ER, CBC, CMP, FE and TIBC #### [address] Serum globulin measurement b y calculation (mass/volume)Ordered By: Sam Hall on 09-11-2023 Globulin (S) [Mass/Vol] 3.1 g/dL Normal [facility] Comment on above: Performed By: #### F ER, CBC, CMP, FE and TIBC #### [address] Serum or plasma albumin/glob ulin mass ratioOrdered By: Sam Hall on 09-11-2023 Albumin/Globulin [Mass ratio] 1.3 {ratio} Normal [facility] Comment on above: Performed By: #### F ER, CBC, CMP, FE and TIBC #### [facility] [address] Serum or plasma anion gap de terminationOrdered By: Sam Hall on 09-11-2023 Anion gap [Moles/Vol] 10.6 mmol/L Normal 6.0-15.0 [facility] Comment on above: Performed By: #### F ER, CBC, CMP, FE and TIBC #### [place] [address] [place] Sodium [Moles/volume] in Ser um or PlasmaOrdered By: Sam Hall on 09-11-2023 Sodium [Moles/Vol] 141 mmol/L Normal 136-145 [facility] Comment on above: Performed By: #### F ER, CBC, CMP, FE and TIBC #### [place] [address] [place] Transferrin [Mass/volume] in Serum or PlasmaOrdered By: Sam Hall on 09-11-2023 Transferrin [Mass/Vol] 222 mg/dL Normal 203-362 [facility] Comment on above: Performed By: #### F ER, CBC, CMP, FE and TIBC #### [facility] [address] [place] [address] [place] Urea nitrogen [Mass/volume] in Serum or PlasmaOrdered By: Sam Hall on 09-11-2023 Urea nitrogen [Mass/Vol] 17 mg/dL Normal 7-25 [facility] Comment on above: Performed By: #### F ER, CBC, CMP, FE and TIBC #### [facility] [address] [place] [address] [place] PREG QUANT HCGon 03-10-2023 HCG QUANT <[address] [facility] Comment on above: Performed By: #### B MP #### [facility] [address] [place] [address] Dr. Keiry Vogel HCG RANGE SEE BELOW Normal [facility] Comment on above: Result Comment: 5-50 0.2-1 WEEK 50-500 1-2 WEEKS 100-5,000 2-3 WEEKS 500-10,000 3-4 WEEKS 1,000-50,000 4-5 WEEKS 10,000-100,000 5-6 WEEKS 15,000-200,000 6-8 WEEKS 10,000-100,000 2-3 MONTHS Performed By: #### B MP #### [facility] [address] [place] [address] Dr. Keiry Vogel CBC AUTO DIFFon 02-27-2023 BASO # 0.1 103/ul Normal 0.0-0.1 [facility] Comment on above: Performed By: #### C BC #### [facility] [address] [place] [address] Dr. Keiry Vogel Basophils/100 WBC (Bld) 1.0 % Normal 0.2-2.0 [facility] Comment on above: Performed By: #### C BC #### [facility] [address] [place] [address] Dr. Keiry Vogel EO # 0.1 103/ul Normal 0.0-0.7 [facility] Comment on above: Performed By: #### C BC #### [facility] [address] [place] [address] Dr. Keiry Vogel Eosinophils/100 WBC (Bld) 1.8 % Normal 0.9-7.[address] [facility] Comment on above: Performed By: #### C BC #### [facility] [address] [place] [address] Dr. Keiry Vogel Erythrocyte distribution width (RBC) [Ratio] 17.7 % Critically high 11.0-15.[address] [facility] Comment on above: Performed By: #### C BC #### [facility] [address] [place] [address] Dr. Keiry Vogel Hematocrit (Bld) [Volume fraction] 37.7 % Normal 36.0-48.0 [facility] Comment on above: Performed By: #### C BC #### [facility] [address] [place] [address] Dr. Keiry Vogel Hemoglobin (Bld) [Mass/Vol] 11.7 g/dL Critically low 12.0-16.0 [facility] Comment on above: Performed By: #### C BC #### [facility] [address] [place] [address] Dr. Keiry Vogel IG # 0.01 10e3/ul Normal 0.00-0.03 [facility] Comment on above: Performed By: #### C BC #### [facility] [address] [place] [address] Dr. Keiry Vogel IG % 0.2 % Normal 0.0-0.[address] [facility] Comment on above: Performed By: #### C BC #### [facility] [address] [place] [address] Dr. Keiry Vogel LYMPH # 1.4 103/ul Normal 1.2-3.[address] [facility] Comment on above: Performed By: #### C BC #### [facility] [address] [place] [address] Dr. Keiry Vogel Lymphocytes/100 WBC (Bld) 28.2 % Normal 20.5-60.[address] [facility] Comment on above: Performed By: #### C BC #### [facility] [address] [place] [address] Dr. Keiry Vogel MANUAL DIFF REQ NO Normal [facility] Comment on above: Performed By: #### C BC #### [facility] [address] [place] [address] Dr. Keiry Vogel MCH (RBC) [Entitic mass] 26.1 pg Critically low 26.7-34.[address] [facility] Comment on above: Performed By: #### C BC #### [facility] [address] [place] [address] Dr. Keiry Vogel MCHC (RBC) [Mass/Vol] 31.0 g/dL Normal 29.9-35.[address] [facility] Comment on above: Performed By: #### C BC #### [facility] [address] [place] [address] Dr. Keiry Vogel MCV (RBC) [Entitic vol] 84.0 fL Normal 81.0-99.[address] [facility] Comment on above: Performed By: #### C BC #### [facility] [address] [place] [address] Dr. Keiry Vogel MONO # 0.3 103/ul Normal 0.3-0.[address] [facility] Comment on above: Performed By: #### C BC #### [facility] [address] [place] [address] Dr. Keiry Vogel Monocytes/100 WBC (Bld) 6.2 % Normal 1.7-12.[address] [facility] Comment on above: Performed By: #### C BC #### [facility] [address] [place] [address] Dr. Keiry Vogel NEUT # 3.2 103/ul Normal 1.4-6.[address] [facility] Comment on above: Performed By: #### C BC #### [facility] [address] [place] [address] Dr. Keiry Vogel Neutrophils/100 WBC (Bld) 62.6 % Normal 43.0-75.[address] [facility] Comment on above: Performed By: #### C BC #### [facility] [address] [place] [address] Dr. Keiry Vogel Platelet mean volume (Bld) [Entitic vol] 9.1 fL Critically low 9.5-13.[address] [facility] Comment on above: Performed By: #### C BC #### [facility] [address] [place] [address] Dr. Keiry Vogel PLT 378 103/ul Normal 150-[address] [facility] Comment on above: Performed By: #### C BC #### [facility] [address] [place] [address] Dr. Keiry Vogel RBC 4.49 106/ul Normal 4.20-5.[address] [facility] Comment on above: Performed By: #### C BC #### [facility] [address] [place] [address] Dr. Keiry Vogel WBC 5.0 103/ul Normal 4.0-11.0 [facility] Comment on above: Performed By: #### C BC #### [facility] [address] [place] [address] Dr. Keiry Vogel PROF CHEM 8 (BAS METB)on Anion gap [Moles/Vol] 14.4 mmol/L Normal [facility] Comment on above: Performed By: #### B MP #### [facility] [address] [place] [address] Dr. Keiry Vogel Calcium [Mass/Vol] 8.8 mg/dL Normal 8.5-10.1 [facility] Comment on above: Performed By: #### B MP #### [facility] [address] [place] [address] Dr. Keiry Vogle Chloride [Moles/Vol] 102 mmol/L Normal 98-107 [facility] Comment on above: Performed By: #### B MP #### [facility] [address] [place] [address] Dr. Keiry Vogel CO2 [Moles/Vol] 27.4 mmol/L Normal 21.0-32.0 [facility] Comment on above: Performed By: #### B MP #### [facility] [address] [place] [address] Dr. Keiry Vogel Creatinine [Mass/Vol] 0.63 mg/dL Normal 0.55-1.02 [facility] Comment on above: Performed By: #### B MP #### [facility] [address] [place] [address] Dr. Keiry Vogel EGFR-AF SIERRA LEONEAN >60 Normal >=60 [facility] Comment on above: Performed By: #### B MP #### [facility] [address] [place] [address] Dr. Keiry Vogel EGFR-NON AF SIERRA LEONEAN >60 Normal >=60 [facility] Comment on above: Performed By: #### B MP #### [facility] [address] [place] [address] Dr. Keiry Vogel Glucose [Mass/Vol] 128 mg/dL Critically high 74-106 [facility] Comment on above: Performed By: #### B MP #### [facility] [address] [address] [address] Keiry Vogel Potassium [Moles/Vol] 3.8 mmol/L Normal 3.5-5.1 [facility] Comment on above: Performed By: #### B MP #### [facility] [address] [address] [address] Keiry Vogel Sodium [Moles/Vol] 140 mmol/L Normal 136-145 [facility] Comment on above: Performed By: #### B MP #### [facility] [address] [address] [address] Keiry Vogel Urea nitrogen [Mass/Vol] 10.0 mg/dL Normal 7.0-18.0 [facility] Comment on above: Performed By: #### B MP #### [facility] [address] [place] [address] Dr. Keiry Vogel Urea nitrogen/Creatinine [Mass ratio] 15.9 mg/mg Normal [facility] Comment on above: Performed By: #### B MP #### [facility] [address] [address] [address] Keiry Vogel PROTIMEon 02-27-2023 INR Coag (PPP) [Relative time] 1.18 {INR} Normal [facility] Comment on above: Performed By: #### P T, PTT #### [facility] [address] [place] [address] Dr. Keiry Vogel INR GUIDELINES SEE BELOW Normal [facility] Comment on above: Result Comment: HAROON RED INR: 2.0 - 3.0 CONDITIONS NOT LISTED BELOW 2.5 - 3.5 FOR PROSTHETIC HEART VALVE REPLACEMENT 2.5 - 3.5 RECURRENT THROMBOSIS Performed By: #### P T, PTT #### [facility] [address] [place] [address] Dr. Keiry Vogel PT Coag (PPP) [Time] 12.4 s Critically high 9.0-11.6 [facility] Comment on above: Performed By: #### P T, PTT #### [facility] [address] [address] [address] Keiry Vogel PTTon 02-27-2023 aPTT Coag (Bld) [Time] 32.2 s Normal 22.3-36.[address] [facility] Comment on above: Performed By: #### P T, PTT #### [facility] [address] [address] [address] Keiry Vogel Activated partial thrombopla stin time (aPTT) in platelet poor plasma by coagulation aOrdered By: Margie Harrison on 01-23-2023 aPTT Coag (PPP) [Time] 24.4 s 22.9-30.2 [facility] Beta 2 glycoprotein 1 IgG Ab [Units/volume] in SerumOrdered By: Margie Harrison on 01-23-2023 Beta 2 glycoprotein 1 IgG Qn (S) <9 0-20 [facility] Comment on above: Result Units: GPI [...] glycoprotein 1 IgM Qn (S) <9 0-32 [facility] Comment on above: Result Units: GPI Ig M unitsThe reference interval reflects a 3SD or 99th percentileinterval, which is thought to represent a potentiallyclinically significant result in accordance with theInternational Consensus Statement on the classificationcriteria for definitive antiphospholipid syndrome (APS). JThromb Haem 2006;4:295-306.Performed at: [address] [id number] Director: Gustavo Harvey MD, Phone: [phone] Cardiolipin IgA Ab [Units/vo lume] in Serum by ImmunoassayOrdered By: Margie Harrison on 01-23-2023 Cardiolipin IgA IA Qn (S) <9 APL U/mL 0-11 [facility] Comment on above: Negative: <12 Indete rminate: 12 - 20 Low-Med Positive: >20 - 80 High Positive: >80Performed at: [address] [id number] Director: Agustín Neal PhD, Phone: [phone] Cardiolipin IgG Ab [Units/vo lume] in Serum by ImmunoassayOrdered By: Margie Harrison on 01-23-2023 Cardiolipin IgG IA Qn (S) <9 GPL U/mL 0-14 [facility] Comment on above: Negative: <15 Indete rminate: 15 - 20 Low-Med Positive: >20 - 80 High Positive: >80 Cardiolipin IgM Ab [Units/vo lume] in Serum by ImmunoassayOrdered By: Margie Harrison on 01-23-2023 Cardiolipin IgM IA Qn (S) <9 MPL U/mL 0-12 [facility] Comment on above: Negative: <13 Indete rminate: 13 - 20 Low-Med Positive: >20 - 80 High Positive: >80 Dilute Josef's viper venom time (DRVVT) confirmatory testOrdered By: Margie Harrison on 01-23-2023 dRVVT actual/normal Coag (PPP) [Relative time] 1.3 ratio High 0.8-1.2 [facility] Dilute Josef's viper venom time (DRVVT) correctionOrdered By: Margie Harrison on 01-23-2023 dRVVT percent correction Coag (PPP) [% diff] 58.8 sec High 0.0-40.4 [facility] F5 gene mutations found [Kirill ntifier] in Blood or Tissue by Molecular genetics methodOrdered By: Margie Harrison on 01-23-2023 F5 gene targeted mutation analysis Mol[employer] Nom (Bld/Tiss) See comment . [facility] Comment on above: Result: c.1601G>A (p .[id number]) - Not DetectedThis result is not associated with an increased risk for venousthromboembolism. See Additional Clinical Information andComments.Additional Clinical Information:Venous thromboembolism is a multifactorial diseaseinfluenced by genetic, environmental, and circumstantialrisk factors. The c.1601G>A (p. [id number]) variant in theF5 gene, commonly referred to [...] F2 c.*97G>Avariant and Factor V Leiden (PMID: 54351196). Additionalrisk factors include but are not limited [...] for health careproviders to discuss results at [phone] ([phone]).Test Details:Variant Analyzed: c.1601G>A (p. Vpn956Jan), referred toas Factor V LeidenMethods/Limitations:DNA analysis of [...] was developed and its performance characteristicsdetermined by [facility]. It has not been cleared orapproved by the Food and Drug Administration.References:Edi Garrison, Delphine JOYCE, Josias R, Christina WW, Evin JH; ACMGProfessional Practice and Guidelines Committee. Addendum:[employer] [employer] consensus statement onfactor V Leiden mutation testing. Jaymie Med. 2020Jan 08.doi: 10.1038/[id number]-y. PMID: 52371738.Bethany MALAGON. Factor V Leiden Thrombophilia. 1998March 19(Updated 2017Nov 09). In: Kale MP, Sharlene HH, Batsheva RA,et al., editors. Zhane(R) (Internet). [place] ([place]):[facility], [place]; 2822-1281. Availablefrom: https://www.ncbi.nlm.nih.gov/books/HAB5233/Gio Garrison, Delphine JOYCE, Glen X, Marco B, Makenna EB, Vivian P,Jim AWAD; ACMG Laboratory Bit Sharpener Committee.Venous thromboembolism laboratory testing (factor V Leidenand factor II c.*97G>A), 2018 update: a technical standardof the [employer] [employer](ACMG). Jaymie Med. 2018 Oct;20(12):3482-1089. doi:10.1038/[id number]-s. Epub 2017Aug 10. PMID: 91205313.Ofelia Grimes, PhD, Gudelia Haas, PhDHood Roberson, PhD, Nicolasa Smith, PhD, Jennifer Castrejon, PhD, FACMGKeenan Horton, PhD, Lakeshia Dickey, PhD, Blaine King, PhD, FACMGPerformed at: - [facility] [id number] [place], [place] [id number] Director: Delfina Colón [facility], Phone: [phone] Ferritin [Mass/volume] in Se rum or PlasmaOrdered By: Margie Harrison on 01-23-2023 Ferritin [Mass/Vol] 5.8 ng/mL 11.0-306.8 [facility] Free protein S measurementOr dered By: Margie Harrison on 01-23-2023 Protein S Free Ag IA Qn (PPP) 100 % 61-136 [facility] Functional protein C measure mentOrdered By: Margie Harrison on 01-23-2023 Protein C actual/normal Chromogenic method (PPP) [Rel catalytic activity/Vol] 171 % 73-180 [facility] Comment on above: Performed at: [address] [id number] Director: Gustavo Harvey MD, Phone: [phone] Iron [Mass/volume] in Serum or PlasmaOrdered By: Margie Harrison on 01-23-2023 Iron [Mass/Vol] 62 ug/dL 50-212 [facility] Iron binding capacity [Mass/ volume] in Serum or PlasmaOrdered By: Margie Harrison on 01-23-2023 Iron binding capacity [Mass/Vol] 416 ug/dL 255-450 [facility] Iron saturation [Mass Fracti on] in Serum or PlasmaOrdered By: Margie Harrison on 01-23-2023 Iron saturation [Mass fraction] 14.9 % 20-50 [facility] - CoagulationOrde red By: Margie Harrison on 01-23-2023 PT Coag (PPP) [Time] 10.8 s 9.1-12.0 [facility] Lupus anticoagulant [Interpr etation] in Platelet poor plasmaOrdered By: Margie Harrison on 01-23-2023 Lupus anticoagulant (PPP) [Interp] Comment: . [facility] Comment on above: Results are consiste [...] anticardiolipin andbeta-2 glycoprotein 1 antibody testing.Performed at: [facility] [address] [address] [place], [place] [id number] Director: Gustavo Harvey MD, Phone: [phone] No Panel InformationOrdered By: Margie Harrison on 01-23-2023 Coagulation Factor VIII Activity 273 % High 56-140 [facility] Comment on above: FVIII activity can [...] Coag (PPP) [Relative time] 1.0 {INR} 0.9-1.2 [facility] Comment on above: Reference interval i s for non-anticoagulated patients.Suggested INR therapeutic range for Vitamin Kantagonist therapy: Standard Dose (moderate intensity therapeutic range): 2.0 - 3.0 Higher intensity therapeutic range 2.5 - 3.5 Platelet poor plasma ratio o f lupus anticoagulant-sensitive activated partial thromboOrdered By: Margie Harrison on 01-23-2023 aPTT.lupus sensitive.excess phospholipid actual/normal Coag (PPP) [Relative time] 45.9 sec 0.0-47.6 [facility] Protein C antigen assayOrder ed By: Margie Harrison on 01-23-2023 Protein C Ag actual/normal IA (PPP) [Relative mass conc] 149 % 60-150 [facility] Comment on above: Performed at: [address] [id number] Director: Gustavo Harvey MD, Phone: [phone] Protein S measurement in kimber telet poor plasma by coagulation assay (units/volume)Ordered By: Margie Harrison on 01-23-2023 Protein S Coag Qn (PPP) 93 % 60-150 [facility] Comment on above: This test was susan macias and its performance characteristicsdetermined by [facility]. It has not been cleared orapproved by the Food and Drug Administration. Screening dilute Josef's v iper venom time (DRVVT) with reflex to confirmatory testOrdered By: Margie Harrison on 01-23-2023 dRVVT Coag (PPP) [Time] 67.0 s High 0.0-47.0 [facility] Screening lupus anticoagulan t-sensitive activated partial thromboplastin time (aPTT)Ordered By: Margie Harrison on 01-23-2023 aPTT.lupus sensitive Coag (PPP) [Time] 33.0 sec 0.0-43.5 [facility] TT plasOrdered By: Margie sanchez on 01-23-2023 Thrombin time Coag (PPP) [Time] 18.0 sec 0.0-23.0 [facility] Transferrin [Mass/volume] in Serum or PlasmaOrdered By: Margie Harrison on 01-23-2023 Transferrin [Mass/Vol] 297 mg/dL 203-362 [facility] Von Willebrand factor activi ty measurementOrdered By: Margie Harrison on 01-23-2023 vWf ristocetin cofactor act actual/normal Platelet aggregation (PPP) [Relative time] 226 % High 50-200 [facility] Von Willebrand factor antige n measurementOrdered By: Margie Harrison on 01-23-2023 vWf Ag Qn (PPP) 266 % High 50-200 [facility] Comment on above: VWF may elevate [...] was developed and its performance characteristicsdetermined by [facility]. It has not been cleared orapproved by the Food and Drug Administration. aPTT.lupus sensitive/aPTT.ankit pus sensitive W excess phospholipid (screen to confirm raOrdered By: Margie Harrison on 01-23-2023 aPTT.lupus sensitive/aPTT.lupus sensitive W excess phospholipid Coag (PPP) [Ratio] 1.06 Ratio 0.00-1.34 [facility] MG MAMM RT DIAG FUon 023 MG MAMM RT DIAG FU Patient: ELLYN BOWSERJay Exam Date: 01/20/2023 : 1980 Gender:F Ordering : BRAXTON MATT . Admission #: [id number] Family : Order #: [id number] CLICK HERE TO VIEW EXAM RADIOLOGY REPORT [...] throat cancer at age 66. LOCATION: [facility] BREAST COMPOSITION: Heterogeneously dense,which may obscure [...] LUMP SHOULD BE BIOPSIED. Dictated by: Slime Vazquez M.D. on 01/20/2023 at 12:04 Approved by: Slime Vazquez M.D. on 01/20/2023 at 12:[address] [facility] US BREAST RIGHT LIMITEDon US BREAST RIGHT LIMITED Patient: ADARSH BOWSER Exam Date: 01/20/2023 : 1980 Gender:F Ordering : BRAXTON MATT . Admission #: [id number] Family : Order #: [id number] CLICK HERE TO VIEW EXAM RADIOLOGY REPORT [...] throat cancer at age 66. LOCATION: [facility] BREAST COMPOSITION: Heterogeneously dense,which may obscure [...] LUMP SHOULD BE BIOPSIED. Dictated by: Slime Vazquez M.D. on 01/20/2023 at 12:04 Approved by: Slime Vazquez M.D. on 01/20/2023 at 12:[address] [facility] MG MAMM SCREEN 3D WILIAM CADon 12-14-2022 MG MAMM SCREEN 3D WILIAM CAD Patient: ADARSH BOWSER Exam Date: 12/14/2022 : 1980 Gender:F Ordering : BRAXTON MATT . Admission #: [id number] Family : Order #: [id number] CLICK HERE TO VIEW EXAM RADIOLOGY REPORT [...] throat cancer at age 66. LOCATION: [facility] BREAST COMPOSITION: Heterogeneously dense,which may obscure [...] LUMP SHOULD BE BIOPSIED. Dictated by: Slime Vazquez M.D. on 12/15/2022 at 08:20 Approved by: Slime Vazquez M.D. on 12/15/2022 at 08:[address] [facility] US PELVIS AND TRANSVAGon US PELVIS AND TRANSVAG EXAMINATION: US P [...] by: JOCY MEI Date: 2022-12-14 18:[address] [facility] PAP ACOG PANEL 2: 30 to 65on 12-12-[address] [facility] Comment on above: Result Comment: Perf ormed at: WB Performed By: #### B MP #### [facility] [id number] Keiry Vogel Age Gdln ACOG Testing 30-[address] [facility] Comment on above: Performed By: #### B MP #### [facility] [id number] Keiry Vogel DIAGNOSIS: Comment Abnormal [facility] Comment on above: Result Comment: EPIT HELIAL CELL ABNORMALITY. ATYPICAL SQUAMOUS CELLS OF UNDETERMINED SIGNIFICANCE (ASC-US). Performed at: WB Performed By: #### B MP #### [facility] [address] [address] [address] Keiry Vogel Electronically signed by: Comment Normal [facility] Comment on above: Result Comment: Tarsha Limon MD, Pathologist Performed at: WB Performed By: #### B MP #### [facility] [address] [address] [address] Keiry Vogel HPV Aptima Negative Normal Negative [facility] Comment on above: Result Comment: This nucleic acid amplification test detects fourteen high-risk HPV types (16,18,31,33,35,39,45,51,52,56,58,59,66,68) without differentiation. Performed at: =G Performed By: #### B MP #### [facility] [address] [address] [address] Keiry Vogel HPV Genotype Reflex Comment Normal [facility] Comment on above: Result Comment: Crit eria not met, HPV Genotype not performed. Performed at: WB Performed By: #### B MP #### [facility] [id number] Keiry Vogel Methodology: Comment Normal [facility] Comment on above: Result Comment: This liquid based ThinPrep(R) pap test was screened with the use of an image guided system. Performed at: WB Performed By: #### B MP #### [facility] [address] [place] [address] Dr. Keiry Vogel Note: Comment Normal [facility] Comment on above: Result Comment: The [...] WB Performed By: #### B MP #### [facility] [address] [address] [address] Keiry Vogel Pathologist Provided ICD10 Comment Normal [facility] Comment on above: Result Comment: R87. [id number] Performed at: WB Performed By: #### B MP #### [facility] [address] [place] [address] Dr. Keiry Vogel Performed by: Comment Normal [facility] Comment on above: Result Comment: Derick Pollard, [employer] Set Up Operator (ASCP) Performed at: WB Performed By: #### B MP #### [facility] [address] [place] [address] Dr. Keiry Vogel Recommendation: Comment Abnormal [facility] Comment on above: Result Comment: Sugg est follow up as clinically appropriate. Performed at: WB Performed By: #### B MP #### [facility] [address] [place] [address] Dr. Keiry Vogel Specimen adequacy: Comment Normal [facility] Comment on above: Result Comment: Sati sfactory for evaluation. Endocervical and/or squamous metaplastic cells (endocervical component) are present. Performed at: WB Performed By: #### B MP #### [facility] [address] [place] [address] Dr. Keiry Vogel CBC AUTO DIFFon 12-07-2022 BASO # 0.0 103/ul Normal 0.0-0.1 [facility] Comment on above: Performed By: #### C BC #### [facility] [address] [place] [address] Dr. Keiry Vogel Basophils/100 WBC (Bld) 0.7 % Normal 0.2-2.0 [facility] Comment on above: Performed By: #### C BC #### [facility] [address] [place] [address] Dr. Keiry Vogel EO # 0.1 103/ul Normal 0.0-0.7 [facility] Comment on above: Performed By: #### C BC #### [facility] [address] [place] [address] Dr. Keiry Vogel Eosinophils/100 WBC (Bld) 1.4 % Normal 0.9-7.0 [facility] Comment on above: Performed By: #### C BC #### [facility] [address] [place] [address] Dr. Keiry Vogel Erythrocyte distribution width (RBC) [Ratio] 17.5 % Critically high 11.0-15.0 [facility] Comment on above: Performed By: #### C BC #### [facility] [address] [place] [address] Dr. Keiry Vogel Hematocrit (Bld) [Volume fraction] 37.6 % Normal 36.0-48.0 [facility] Comment on above: Performed By: #### C BC #### [facility] [address] [place] [address] Dr. Keiry Vogel Hemoglobin (Bld) [Mass/Vol] 11.0 g/dL Critically low 12.0-16.0 [facility] Comment on above: Performed By: #### C BC #### [facility] [address] [place] [address] Dr. Keiry Vogel IG # 0.02 10e3/ul Normal 0.00-0.03 [facility] Comment on above: Performed By: #### C BC #### [facility] [address] [place] [address] Dr. Keiry Vogel IG % 0.4 % Normal 0.0-0.[address] [facility] Comment on above: Performed By: #### C BC #### [facility] [address] [place] [address] Dr. Keiry Vogel LYMPH # 1.5 103/ul Normal 1.2-3.8 [facility] Comment on above: Performed By: #### C BC #### [facility] [address] [place] [address] Dr. Keiry Vogel Lymphocytes/100 WBC (Bld) 26.8 % Normal 20.5-60.0 [facility] Comment on above: Performed By: #### C BC #### [facility] [address] [place] [address] Dr. Keiry Vogel MANUAL DIFF REQ NO Normal [facility] Comment on above: Performed By: #### C BC #### [facility] [address] [place] [address] Dr. Keiry Vogel MCH (RBC) [Entitic mass] 24.0 pg Critically low 26.7-34.0 [facility] Comment on above: Performed By: #### C BC #### [facility] [address] [place] [address] Dr. Keiry Vogel MCHC (RBC) [Mass/Vol] 29.3 g/dL Critically low 29.9-35.[address] [facility] Comment on above: Performed By: #### C BC #### [facility] [address] [place] [address] Dr. Keiry Vogel MCV (RBC) [Entitic vol] 81.9 fL Normal 81.0-99.0 [facility] Comment on above: Performed By: #### C BC #### [facility] [address] [place] [address] Dr. Keiry Vogel MONO # 0.3 103/ul Normal 0.3-0.[address] [facility] Comment on above: Performed By: #### C BC #### [facility] [address] [place] [address] Dr. Keiry Vogel Monocytes/100 WBC (Bld) 4.6 % Normal 1.7-12.[address] [facility] Comment on above: Performed By: #### C BC #### [facility] [address] [place] [address] Dr. Keiry Vogel NEUT # 3.8 103/ul Normal 1.4-6.[address] [facility] Comment on above: Performed By: #### C BC #### [facility] [address] [place] [address] Dr. Keiry Vogel Neutrophils/100 WBC (Bld) 66.1 % Normal 43.0-75.0 [facility] Comment on above: Performed By: #### C BC #### [facility] [address] [place] [address] Dr. Keiry Vogel Platelet mean volume (Bld) [Entitic vol] 9.3 fL Critically low 9.5-13.5 [facility] Comment on above: Performed By: #### C BC #### [facility] [address] [place] [address] Dr. Keiry Vogel PLT 442 103/ul Normal 150-[address] [facility] Comment on above: Performed By: #### C BC #### [facility] [address] [place] [address] Dr. Keiry Vogel RBC 4.59 106/ul Normal 4.20-5.40 [facility] Comment on above: Performed By: #### C BC #### [facility] [address] [place] [address] Dr. Keiry Vogel WBC 5.7 103/ul Normal 4.0-11.0 [facility] Comment on above: Performed By: #### C BC #### [facility] [address] [place] [address] Dr. Keiry Vogel FREE T4on 12-07-2022 Free T4 [Mass/Vol] 1.05 ng/dL Normal 0.76-1.46 [facility] Comment on above: Performed By: #### F T4 #### [facility] [address] [place] [address] Dr. Keiry Vogel GLYCOHEMOGLOBIN A1Con 2022 ADA RECOMMENDATION SEE BELOW Normal [facility] Comment on above: Result Comment: ADA RECOMMENDED LIMIT 4.0 - 6.0 ADA THERAPEUTIC TARGET < 7.0 ACTION SUGGESTED > 7.0 Performed By: #### B MP #### [facility] [address] [place] [address] Dr. Keiry Vogel Glucose [Mass/Vol] 217 mg/dL Normal [facility] Comment on above: Performed By: #### B MP #### [facility] [address] [address] [address] Keiry Vogel HbA1c (Bld) [Mass fraction] 9.2 % Critically high 4.5-6.2 [facility] Comment on above: Performed By: #### B MP #### [facility] [address] [place] [address] Dr. Keiry Vogel PREG QUANT HCGon 12-07-2022 HCG QUANT <[address] [facility] Comment on above: Performed By: #### B MP #### [facility] [address] [place] [address] Dr. Keiry Vogel HCG RANGE SEE BELOW Normal [facility] Comment on above: Result Comment: 5-50 0.2-1 WEEK 50-500 1-2 WEEKS 100-5,000 2-3 WEEKS 500-10,000 3-4 WEEKS 1,000-50,000 4-5 WEEKS 10,000-100,000 5-6 WEEKS 15,000-200,000 6-8 WEEKS 10,000-100,000 2-3 MONTHS Performed By: #### B MP #### [facility] [address] [place] [address] Dr. Keiry Vogel PROTIMEon 12-07-2022 INR Coag (PPP) [Relative time] 1.04 {INR} Normal [facility] Comment on above: Performed By: #### P T, PTT #### [facility] [address] [place] [address] Dr. Keiry Vogel INR GUIDELINES SEE BELOW Normal [facility] Comment on above: Result Comment: HAROON RED INR: 2.0 - 3.0 CONDITIONS NOT LISTED BELOW 2.5 - 3.5 FOR PROSTHETIC HEART VALVE REPLACEMENT 2.5 - 3.5 RECURRENT THROMBOSIS Performed By: #### P T, PTT #### [facility] [address] [place] [address] Dr. Keiry Vogel PT Coag (PPP) [Time] 11.0 s Normal 9.0-11.6 [facility] Comment on above: Performed By: #### P T, PTT #### [facility] [address] [place] [address] Dr. Keiry Vogel PTTon 12-07-2022 aPTT Coag (Bld) [Time] 31.0 s Normal 22.3-36.[address] [facility] Comment on above: Performed By: #### P T, PTT #### [facility] [address] [place] [address] Dr. Keiry Vogel TSHon 12-07-2022 TSH 0.810 uIU/mL Normal 0.358-3.[address] [facility] Comment on above: Performed By: #### B MP #### [facility] [address] [place] [address] Dr. Keiry Vogel MRI BRAIN WO W CONon 022 MRI BRAIN WO W CON EXAMINATION: [...] Mild chronic sinusitis. Electronically authenticated by: SLIME VAZQUEZ Date: 2022-05-11 10:[address] [facility] CREATININEon 05-10-2022 Creatinine [Mass/Vol] 0.71 mg/dL Normal 0.55-1.02 [facility] Comment on above: Performed By: #### C TYLOR #### [facility] [address] [place] [address] Dr. Keiry Vogel EGFR-AF SIERRA LEONEAN >60 Normal >=60 [facility] Comment on above: Performed By: #### C TYLOR #### [facility] [address] [place], [place] [address] Dr. Keiry Vogel EGFR-NON AF SIERRA LEONEAN >60 Normal >=60 [facility] Comment on above: Performed By: #### C TYLOR #### [facility] [address] [place], [place] [address] Dr. Keiry Vogel Vital Signs Date Time Vital Sign Value Performing Clinician Facility 06-18-2025 08:41-0400 Body height 165.1 cm [facility] 06-18-2025 08:41-0400 Body mass index (BMI) [Ratio] 41.2 kg/m2 Khushi Borrego PA Work Phone: [facility] [employer] [facility] 06-18-2025 08:41-0400 Body temperature 98.2 [degF] Khushi Borrego PA Work Phone: [facility] [employer] [facility] 06-18-2025 08:41-0400 Body weight 112.31 kg Khushi [facility]o [facility] 06-18-2025 08:41-0400 Diastolic blood pressure 81 mm[Hg] [facility] 06-18-2025 08:41-0400 Heart rate 96 /min [facility] 06-18-2025 08:41-0400 Respiratory rate 20 /min [facility] 06-18-2025 08:41-0400 SaO2% (BldA) [Mass fraction] 97 % Khushi Borrego PA Work Phone: [facility] [employer] [facility] 06-18-2025 08:41-0400 Systolic blood pressure 120 mm[Hg] Khushi Borrego PA Work Phone: [facility] 05-14-2025 09:19-0400 Body height 165.1 cm Mitra White [employer] Work Phone: [facility] 05-14-2025 09:19-0400 Body mass index (BMI) [Ratio] 40.27 kg/m2 Mitra White [employer] Work Phone: [facility] 05-14-2025 09:19-0400 Body weight 109.77 kg Mitra White [employer] Work Phone: [facility] 04-30-2025 08:45-0400 Body height 165.1 cm Kellie Graff [employer] Work Phone: [facility] 04-30-2025 08:45-0400 Body mass index (BMI) [Ratio] 40.04 kg/m2 Kellie Graff [employer] Work Phone: [facility] 04-30-2025 08:45-0400 Body temperature 98.01 [degF] Kellie Graff [employer] Work Phone: [facility] 04-30-2025 08:45-0400 Body weight 109.14 kg Kellie Graff [employer] Work Phone: [facility] 04-30-2025 08:45-0400 Diastolic blood pressure 88 mm[Hg] Kellie Rojas [employer] Work Phone: [facility] 04-30-2025 08:45-0400 Heart rate 83 /min Kellie Graff [employer] Work Phone: [facility] 04-30-2025 08:45-0400 SaO2% (BldA) [Mass fraction] 98 % Kellie Graff [employer] Work Phone: [facility] 04-30-2025 08:45-0400 Systolic blood pressure 144 mm[Hg] Kellie Graff [employer] Work Phone: [facility] 01-06-2025 15:25-0500 Body height 165.1 cm Elizabeth Strickland MD Work Phone: [facility] 01-06-2025 15:25-0500 Body mass index (BMI) [Ratio] 35.61 kg/m2 Elizabeth Strickland MD Work Phone: [facility] 01-06-2025 15:25-0500 Body temperature 97.9 [degF] Elizabeth Strickland MD Work Phone: [facility] 01-06-2025 15:25-0500 Body weight 97.07 kg Elizabeth Strickland MD Work Phone: [facility] 01-06-2025 15:25-0500 Diastolic blood pressure 80 mm[Hg] Elizabeth Strickland MD Work Phone: [facility] 01-06-2025 15:25-0500 Heart rate 73 /min Elizabeth Strickland MD Work Phone: [facility] 01-06-2025 15:25-0500 SaO2% (BldA) [Mass fraction] 97 % Elizabeth Strickland MD Work Phone: [facility] 01-06-2025 15:25-0500 Systolic blood pressure 132 mm[Hg] Elizabeth Strickland MD Work Phone: [facility] 09-26-2024 15:54-0500 Body height 167.6 cm Nuria Clemonszpatrick ACADEMIC SPECIALIST Work Phone: [facility] 09-26-2024 15:54-0500 Body mass index (BMI) [Ratio] 32.77 kg/m2 Nuria Tierney ACADEMIC SPECIALIST Work Phone: [facility] 09-26-2024 15:54-0500 Body temperature 98.8 [degF] Nuria Tierney ACADEMIC SPECIALIST Work Phone: [facility] 09-26-2024 15:54-0500 Body weight 92.08 kg Nuria Tierney ACADEMIC SPECIALIST Work Phone: [facility] 09-26-2024 15:54-0500 Diastolic blood pressure 64 mm[Hg] Nuria Tierney ACADEMIC SPECIALIST Work Phone: [facility] 09-26-2024 15:54-0500 Heart rate 88 /min Nuria Tierney ACADEMIC SPECIALIST Work Phone: [facility] 09-26-2024 15:54-0500 Respiratory rate 16 /min Nuria Tierney ACADEMIC SPECIALIST Work Phone: [facility] 09-26-2024 15:54-0500 SaO2% (BldA) [Mass fraction] 99 % Nuria Tierney ACADEMIC SPECIALIST Work Phone: [facility] 09-26-2024 15:54-0500 Systolic blood pressure 120 mm[Hg] Nuria Tierney ACADEMIC SPECIALIST Work Phone: [facility] 06-27-2024 13:23-0400 Body height 167.6 cm Nuria Tierney ACADEMIC SPECIALIST Work Phone: [facility] 06-27-2024 13:23-0400 Body mass index (BMI) [Ratio] 35.35 kg/m2 Nuria Tierney ACADEMIC SPECIALIST Work Phone: [facility] 06-27-2024 13:23-0400 Body temperature 98.6 [degF] Nuria Tierney ACADEMIC SPECIALIST Work Phone: [facility] 06-27-2024 13:23-0400 Body weight 99.34 kg Nuria Tierney ACADEMIC SPECIALIST Work Phone: [facility] 06-27-2024 13:23-0400 Diastolic blood pressure 90 mm[Hg] Nuria Tierney ACADEMIC SPECIALIST Work Phone: [facility] 06-27-2024 13:23-0400 Heart rate 77 /min Nuria Tierney ACADEMIC SPECIALIST Work Phone: [facility] Comment on above: 95% O2 06-27-2024 13:23-0400 Systolic blood pressure 130 mm[Hg] Nuria Tierney ACADEMIC SPECIALIST Work Phone: [facility] 06-18-2024 08:34-0400 Body mass index (BMI) [Ratio] 36.58 kg/m2 Khushi Borrego PA Work Phone: [facility] 06-18-2024 08:34-0400 Body temperature 97.59 [degF] Khushi Borrego PA Work Phone: [facility] 06-18-2024 08:34-0400 Body weight 99.7 kg Khushi Borrego PA Work Phone: [facility] 06-18-2024 08:34-0400 Diastolic blood pressure 81 mm[Hg] Khushi Borrego PA Work Phone: [facility] 06-18-2024 08:34-0400 Heart rate 62 /min Khushi Borrego PA Work Phone: [facility] 06-18-2024 08:34-0400 SaO2% (BldA) [Mass fraction] 100 % Khushi Martinezne PA Work Phone: [facility] 06-18-2024 08:34-0400 Systolic blood pressure 127 mm[Hg] Khushi Borrego PA Work Phone: [facility] 05-21-2024 14:48-0400 Body height 167.64 cm DO Khalif Collin Work Phone: [facility] 05-21-2024 14:48-0400 Body mass index (BMI) [Ratio] 36.8 kg/m2 DO Khalif Collin Work Phone: [facility] 05-21-2024 14:48-0400 Body temperature 98 [degF] DO Khalif Collin Work Phone: [facility] 05-21-2024 14:48-0400 Body weight 103.41 kg DO Khalif Collin Work Phone: [facility] 05-21-2024 14:48-0400 Diastolic blood pressure 81 mm[Hg] DO Khalif Collin Work Phone: [facility] 05-21-2024 14:48-0400 Heart rate 71 /min DO Khalif Collin Work Phone: [facility] 05-21-2024 14:48-0400 Respiratory rate 18 /min DO Khalif Collin Work Phone: [facility] 05-21-2024 14:48-0400 SaO2% (BldA) [Mass fraction] 99 % DO Khalif Collin Work Phone: [facility] 05-21-2024 14:48-0400 Systolic blood pressure 144 mm[Hg] DO Khalif Collin Work Phone: [facility] 12-19-2023 08:35-0500 Body height 165.1 cm Khushi Borrego PA Work Phone: [employer] 12-19-2023 08:35-0500 Body mass index (BMI) [Ratio] 42.1 kg/m2 Khushi Borrego PA Work Phone: [employer] 12-19-2023 08:35-0500 Body temperature 98.1 [degF] Khushi Borrego PA Work Phone: [employer] 12-19-2023 08:35-0500 Body weight 114.76 kg Khushi Borrego PA Work Phone: [employer] 12-19-2023 08:35-0500 Diastolic blood pressure 99 mm[Hg] Khushi Borrego PA Work Phone: [employer] 12-19-2023 08:35-0500 Heart rate 78 /min Khushi Borrego PA Work Phone: [facility] 12-19-2023 08:35-0500 Respiratory rate 18 /min Khushi Martinezne PA Work Phone: [facility] 12-19-2023 08:35-0500 SaO2% (BldA) [Mass fraction] 100 % Khushi Martinezne PA Work Phone: [facility] 12-19-2023 08:35-0500 Systolic blood pressure 153 mm[Hg] Khushi Martinezne PA Work Phone: [facility] 03-27-2023 15:16-0400 Diastolic blood pressure 77 mm[Hg] DO Khalif Collin Work Phone: [facility] 03-27-2023 15:16-0400 Heart rate 57 /min DO Khalif Collin Work Phone: [facility] 03-27-2023 15:16-0400 Respiratory rate 16 /min DO Khalif Collin Work Phone: [facility] 03-27-2023 15:16-0400 SaO2% (BldA) [Mass fraction] 96 % DO Khalif Collin Work Phone: [facility] 03-27-2023 15:16-0400 Systolic blood pressure 129 mm[Hg] DO Khalif Collin Work Phone: [facility] 03-13-2023 10:14-0400 Body temperature 98.2 [degF] DO Khalif Collin Work Phone: [facility] 03-07-2023 08:53-0400 Body weight 122.92 kg Khalif Collin Work Phone: [facility] 03-07-2023 08:53-0400 Diastolic blood pressure 82 mm[Hg] Khalif Collin Work Phone: [facility] 03-07-2023 08:53-0400 Heart rate 79 /min Khalif Collin Work Phone: [facility] 03-07-2023 08:53-0400 Respiratory rate 20 /min Khalif Leóno Work Phone: [facility] 03-07-2023 08:53-0400 SaO2% (BldA) [Mass fraction] 99 % Khalif Leóno Work Phone: [facility] 03-07-2023 08:53-0400 Systolic blood pressure 119 mm[Hg] Khalif Leóno Work Phone: [facility] 01-23-2023 14:28-0400 Body temperature 98 [degF] Khalif Leóno Work Phone: [facility] 01-23-2023 14:09-0400 Body height 167.64 cm Khalif Leóno Work Phone: [facility] Encounters Encounter Date Encounter Type Care Provider Facility Start: 06-25-2025 End: 06-25-2025 Refill Kellie Graff [employer] Work Phone: [facility] Comment on above: Diabetes mellitus du e to underlying condition with hyperosmolarity without coma, without long-term current use of insulin ([facility]-HCC); Primary hypertension; Endometrial cancer (CMS-HCC); Factor VIII deficiency (CMS-HCC); Mixed hyperlipidemia; Hx of deep venous thrombosis Start: 06-24-2025 End: 06-24-2025 Refill Kellie Graff [employer] NURSE Work Phone: [facility] Start: 06-18-2025 End: 06-18-2025 Office outpatient visit 25 minutes Khushi LIMON Work Phone: [facility] [facility] - [facility] Comment on above: Endometrial cancer ( [facility]) (Primary Dx); Dyspareunia due to medical condition in female; Dyspareunia, female; Counseling on health promotion and disease prevention Start: 06-18-2025 End: 06-18-2025 ambulatory KHUSHI BORREGO [facility] Start: 05-29-2025 End: 05-29-2025 Evaluation and management of inpatient MAUREEN E GRILLIS [facility] Start: 05-22-2025 End: 05-22-2025 Orders Only Mitra A White BELT LOOP CUTTER-X RAY NURSE Work Phone: [facility] General Surgery Comment on above: Rectal bleeding (Shi ana lilia Dx) Start: 05-22-2025 End: 05-22-2025 Evaluation and management of inpatient [facility] Start: 05-14-2025 End: 05-14-2025 Office outpatient new 30 minutes Mitra Radha White BELT LOOP CUTTER-X RAY NURSE Work Phone: [facility] General Surgery Comment on above: Rectal bleeding (Shi ana lilia Dx); Hemorrhoids, unspecified hemorrhoid type Start: 05-14-2025 End: 05-14-2025 ambulatory [facility] Start: 05-12-2025 End: 05-12-2025 Orders Only Kellie Graff BELT LOOP CUTTER-X RAY NURSE Work Phone: [facility] Family Medicine Comment on above: Diabetes mellitus du e to underlying condition with hyperosmolarity without coma, without long-term current use of insulin ([facility]); Primary hypertension; Endometrial cancer ([facility]); Factor VIII deficiency ([facility]); Mixed hyperlipidemia; Hx of deep venous thrombosis Start: 05-05-2025 End: 05-05-2025 Telephone encounter Kareen James CNA [facility] Internal Medicine/Pediatrics Comment on above: Xarelto Start: 05-03-2025 End: 05-13-2025 Refill Kellie Graff APRN-X RAY NURSE Work Phone: [facility] Family Medicine Comment on above: Acute embolism and t hrombosis of unspecified femoral vein ([facility]) Start: 04-30-2025 End: 04-30-2025 Office outpatient visit 25 minutes Kellie Graff BELT LOOP CUTTER-X RAY NURSE Work Phone: [facility] Comment on above: Hemorrhoids, unspeci fied hemorrhoid type (Primary Dx); Diabetes mellitus due to underlying condition with hyperosmolarity without coma, without long-term current use of insulin ([facility]); Primary hypertension; Endometrial cancer ([facility]); Factor VIII deficiency ([facility]); Mixed hyperlipidemia; Hx of deep venous thrombosis Start: 04-30-2025 End: 04-30-2025 ambulatory [facility] Start: 03-13-2025 End: 03-13-2025 Refill Kareen Jameskarissa HEREDIA [facility] Family [facility] Start: 02-18-2025 End: 02-18-2025 Office outpatient visit 15 minutes Elizabeth Strickland MD Work Phone: [facility] Comment on above: Vitamin D deficiency (Primary Dx); Breast cancer screening by mammogram Start: 02-18-2025 End: 02-18-2025 ambulatory [facility] Start: 02-04-2025 End: 02-10-2025 Telephone encounter Norma Hamm [facility] Family Medicine Start: 02-03-2025 End: 02-03-2025 Orders Only Elizabeth Strickland MD Work Phone: [facility] Start: 01-11-2025 End: 01-11-2025 [facility] Start: 01-06-2025 End: 01-06-2025 Office outpatient new 45 minutes Elizabeth Strickland MD Work Phone: [facility] Comment on above: Diabetes mellitus du e to underlying condition with hyperosmolarity without coma, without long-term current use of insulin ([facility]) (Primary Dx); Primary hypertension; Vitamin D deficiency; Chronic fatigue Start: 01-06-2025 End: 01-06-2025 ambulatory [facility] Start: 09-26-2024 End: 09-26-2024 Office outpatient visit 15 minutes Nuria Tierney NP Work Phone: [facility] Comment on above: Primary hypertension (CMS/HCC) (Primary Dx); Other hyperlipidemia (CMS/HCC); Type 2 diabetes mellitus without complication, without long-term current use of insulin ([facility]); BMI 32.0-32.9,adult Start: 09-26-2024 End: 09-26-2024 ambulatory NURIA TIERNEY Not Available Start: 09-26-2024 End: 09-26-2024 Clinisync Result Encounter Shaikh Elias DELANEY Work Phone: [facility] External Department Unsolicited Start: 09-26-2024 End: 09-26-2024 Clinisync Result Encounter Shaikh Elias DELANEY Work Phone: [facility] External Department Unsolicited Start: 06-27-2024 End: 06-27-2024 Bamboo flowsheet Nuria Tierney ACADEMIC SPECIALIST Work Phone: [facility] Start: 06-27-2024 End: 06-27-2024 Bamboo flowsheet Nuria Tierney ACADEMIC SPECIALIST Work Phone: [facility] Start: 06-27-2024 End: 06-27-2024 Office outpatient visit 25 minutes Nuria Tierney ACADEMIC SPECIALIST Work Phone: [facility] Comment on above: Primary hypertension (CMS/HCC) (Primary Dx); Type 2 diabetes mellitus without complication, without long-term current use of insulin (CMS/HCC); Factor VIII deficiency (CMS/HCC); Other hyperlipidemia (CMS/HCC); History of pulmonary embolism; Internal hemorrhoids; Deep vein thrombosis (DVT) of femoral vein, unspecified chronicity, unspecified laterality (CMS/HCC) Start: 06-27-2024 End: 06-27-2024 ambulatory NURIA TIERNEY Not Available Start: 06-18-2024 End: 06-18-2024 Office outpatient visit 25 minutes Khushi LIMON Work Phone: [facility] Plasc[facility] - Medical Oncology Comment on above: Endometrial cancer ( [facility]) (Primary Dx); Chronic vulvitis; Dyspareunia, female Start: 05-21-2024 End: 05-21-2024 ambulatory DO Khalif Leóno Work Phone: [facility] Work Phone: Start: 05-21-2024 End: 05-21-2024 Patient encounter procedure DO Khalif Polanco Work Phone: [facility] Ambulatory Work Phone: Start: 05-21-2024 ambulatory Khalif Polanco Facility:[facility] Start: 05-21-2024 Registered Recurring DO Khalif Polanco Work Phone: [facility] Work Phone: Start: 05-20-2024 End: 05-20-2024 ambulatory AGUSTIN FAWWAD Not Available Start: 03-27-2024 End: 03-27-2024 ambulatory FAWJANNY Not Available Start: 03-11-2024 End: 03-11-2024 ambulatory IGNACIA MARADIAGA Not Available Start: 02-26-2024 Patient encounter status Becca Tierney NP Work Phone: [facility] Start: 02-26-2024 End: 02-26-2024 ambulatory AGUSTIN FAWWAD Not Available Start: 12-19-2023 End: 12-19-2023 Office outpatient visit 25 minutes Khushi LIMON Work Phone: [facility] - Medical Oncology Comment on above: Endometrial cancer ( [facility]) (Primary Dx); Encounter for screening mammogram for malignant neoplasm of breast; Dyspareunia, female; Counseling on health promotion and disease prevention Start: 11-23-2023 End: 11-23-2023 ambulatory FAWWAD Not Available Start: 03-10-2023 End: 03-10-[address] KHALIF POLANCO . Facility: Start: 03-07-2023 End: 03-07-2023 ambulatory Khalif Polanco Work Phone: [facility] Work Phone: Start: 03-07-2023 End: 03-07-2023 Registered Recurring Khalif Polanco Work Phone: [facility] Work Phone: Start: 03-02-2023 Encounter for preprocedural cardiovascular examination DR KHALIF POLANCO . [facility] Start: 03-02-2023 Encounter for preprocedural laboratory examination DR KHALIF POLANCO . [facility] Start: 02-27-2023 End: 02-28-[address] KHALIF POLANCO . Facility:[facility] Start: 02-27-2023 End: 02-28-2023 Encounter for preprocedural laboratory examination DR KHALIF POLANCO . Facility:[facility] Start: 01-20-2023 End: 01-21-2023 ambulatory Slime Vazquez Facility:[facility] Start: 12-14-2022 End: 12-15-2022 ambulatory MARY LOU MATT . Facility:[facility] Start: 12-07-2022 End: 12-08-2022 ambulatory MARY LOU MATT . Facility:[facility] Start: 12-05-2022 End: 12-05-2022 ambulatory MARY LOU MATT . Facility:[facility] Start: 05-10-2022 End: 05-11-[address] ZAK FARRIS Facility: Procedures Date Procedure Procedure Detail Performing Clinician Start: 06-18-2025 Follow-up visit Follow-up COLLEEN BORREGO Start: 04-30-2025 Adult depression screening assessment Kellie Graff BELT LOOP CUTTER-X RAY NURSE Work Phone: Start: 01-06-2025 Adult depression screening assessment Elizabeth Strickland MD Work Phone: Start: 09-26-2024 MLR HEMOGLOBIN A1C Yong Griffin MD Work Phone: Start: 02-29-2024 Mammography Nuria marvin NP Work Phone: Plan of Treatment Date Care Activity Detail Author Start: 01-05-2028 Screening for malign ant neoplasm of cervix [facility] Start: 06-18-2026 Adult BMI Screening Adult BMI Screen ing [facility] Start: 06-18-2026 Tobacco Screening Tobacco Screening [facility] Start: 06-17-2026 End: 06-17-2026 Patient encounter procedure 06/17/2026 9:00 AM EDT Office Visit Yudi Nuno [facility] - Medical Oncology [address] [place] [address] [phone] Khushi Borrego PA [address] [place] [address] Yudi Nuno [facility] - [facility] On[facility] Start: 05-22-2026 Tobacco Screening Tobacco Screening [facility] Start: 05-14-2026 Adult BMI Screening Adult BMI Screen ing [facility] Start: 05-14-2026 Tobacco Screening Tobacco Screening [facility] Start: 04-30-2026 Adult BMI Screening Adult BMI Screen ing [facility] Start: 04-30-2026 Depression Screening Depression Scre ening [facility] Start: 04-30-2026 Tobacco Screening Tobacco Screening [facility] Start: 02-18-2026 Tobacco Screening Tobacco Screening [facility] Start: 01-06-2026 Adult BMI Screening Adult BMI Screen ing [facility] Start: 01-06-2026 Depression Screening Depression Scre ening [facility] Start: 01-06-2026 Statin Use: Diabetic Statin Use: Litzy betic [facility] Start: 01-06-2026 Tobacco Screening Tobacco Screening [facility] Start: 08-05-2025 End: 08-05-2025 Clinical Support 08/05/2025 3:30 PM EDT Clinical Support [facility] [address] [place] [address] [phone] Elizabeth Strickland MD [address] [place] [address] [facility] Start: 07-07-2025 Influenza vaccination Influenza Vacc ine [facility] Start: 06-18-2025 Adult BMI Screening Adult BMI Screen ing [facility] Start: 06-18-2025 End: 06-18-2025 Patient encounter procedure 06/18/2025 8:30 AM EDT Office Visit Yuid L [place] [facility] [address] [place] [phone] Khushi Borrego PA [address] [place] [address] [facility] Start: 05-29-2025 End: 05-29-2025 Admission to same day surgery center 05/29/2025 10:45 AM EDT - 05/29/2025 11:15 AM EDT Surgery [facility] [address] [place] [phone] Maureen Liang, DO [address] [place] [address] COLONOSCOPY DIAGNOSTIC / SCREENING [59972 (CPT )] [facility] Comment on above: COLONOSCOPY DIAGNOST IC / SCREENING [46751 (CPT )] Start: 05-29-2025 End: 05-29-2025 Colonoscopy flx dx w/collj spec when pfrmd COLONOSCOPY DIAGNOSTIC / SCREENING rectal bleeding 05/29/2025 10:45 AM EDT [facility] Start: 05-29-2025 Subsequent hospital visit by physician 05/29/2025 10:45 AM EDT Hospital Encounter [facility] [address] [place] [phone] Maureen Liang, DO [facility] [address], [place] [id number] [facility] Start: 05-23-2025 End: 05-23-2025 ambulatory 05/23/2025 3:50 PM EDT Support Visit [facility] - Pre Admit [address] [place] [address] [facility] Pre Admit Start: 05-22-2025 End: 05-22-2025 Admission to same day surgery center 05/22/2025 10:15 AM EDT - 05/22/2025 10:45 AM EDT Surgery [facility] Surgery [address] [place] [phone] Maureen Liang DO [address] [place] [address] COLONOSCOPY DIAGNOSTIC / SCREENING [79276 (CPT )] [facility] Comment on above: COLONOSCOPY DIAGNOST IC / SCREENING [26543 (CPT )] Start: 05-22-2025 End: 05-22-2025 Colonoscopy flx dx w/collj spec when pfrmd COLONOSCOPY DIAGNOSTIC / SCREENING rectal bleeding 05/22/2025 10:15 AM EDT [facility] Start: 05-22-2025 Subsequent hospital visit by physician 05/22/2025 10:15 AM EDT Hospital Encounter [facility] [address] [place] [phone] Maureen Liang DO [address] [place] [address] [facility] Start: 05-15-2025 End: 05-15-2025 ambulatory 05/15/2025 2:40 PM EDT Support Visit [facility] [address] [place] [phone] [facility] Start: 05-14-2025 End: 05-14-2025 Patient encounter procedure 05/14/2025 9:30 AM EDT Office Visit [facility] Surgery [address] [place] [address] Mitra White APRN-ELBERT [address] [place] [address] [facility] Start: 02-28-2025 Screening for malign ant neoplasm of breast Mammogram [facility] Start: 02-28-2025 Urine screening for protein Diabetes: Urine Protein Screening [facility] Start: 02-18-2025 End: 02-18-2025 Telemedicine consultation with patient 02/18/2025 4:30 PM EDT Telemedicine [facility] [address] [place] [phone] Elizabeth Strickland MD [address], [place] [address] [facility] Start: 02-18-2025 End: 02-18-2026 DBT Breast - bilateral screening Mammography screening bilateral with CAD Imaging Routine Breast cancer screening by mammogram Expected: 02/18/2025, Expires: 02/18/2026 [employer] Work Phone: Comment on above: Expected: 02/18/2025 , Expires: 02/18/2026 Start: 01-06-2025 End: 01-06-2026 CBC W Auto Differential panel - Blood CBC auto differential Lab Routine Diabetes mellitus due to underlying condition with hyperosmolarity without coma, without long-term current use of insulin ([facility]) Primary hypertension Expected: 01/06/2025 (Approximate), Expires: 01/06/2026 [employer] Work Phone: Comment on above: Expected: 01/06/2025 (Approximate), Expires: 01/06/2026 Start: 01-06-2025 End: 01-06-2026 Comprehensive metabolic 2000 panel - Serum or Plasma Comprehensive metabolic panel Lab Routine Diabetes mellitus due to underlying condition with hyperosmolarity without coma, without long-term current use of insulin ([facility]) Primary hypertension Expected: 01/06/2025 (Approximate), Expires: 01/06/2026 [employer] Comment on above: Expected: 01/06/2025 (Approximate), Expires: 01/06/2026 Start: 01-06-2025 End: 01-06-2026 Erythrocyte sedimentation rate Erythrocyte Sedimentation Rate (ESR) Lab Routine Chronic fatigue Expected: 01/06/2025 (Approximate), Expires: 01/06/2026 [employer] Comment on above: Expected: 01/06/2025 (Approximate), Expires: 01/06/2026 Start: 01-06-2025 End: 01-06-2026 Hemoglobin A1c/Hemoglobin.total in Blood Hemoglobin A1c Lab Routine Diabetes mellitus due to underlying condition with hyperosmolarity without coma, without long-term current use of insulin ([facility]) Primary hypertension Expected: 01/06/2025 (Approximate), Expires: 01/06/2026 [employer] Comment on above: Expected: 01/06/2025 (Approximate), Expires: 01/06/2026 Start: 01-06-2025 End: 01-06-2026 Lipid 1996 panel - Serum or Plasma Lipid profile Lab Routine Diabetes mellitus due to underlying condition with hyperosmolarity without coma, without long-term current use of insulin ([facility]) Primary hypertension Expected: 01/06/2025 (Approximate), Expires: 01/06/2026 [employer] Comment on above: Expected: 01/06/2025 (Approximate), Expires: 01/06/2026 Start: 01-06-2025 End: 01-06-2026 TSH with Reflex TSH with Reflex Lab Routine Diabetes mellitus due to underlying condition with hyperosmolarity without coma, without long-term current use of insulin ([facility]) Primary hypertension Vitamin D deficiency Expected: 01/06/2025 (Approximate), Expires: 01/06/2026 [employer] Comment on above: Expected: 01/06/2025 (Approximate), Expires: 01/06/2026 Start: 01-06-2025 End: 01-06-2026 Vitamin D 25 hydroxy Vitamin D 25 hydroxy Lab Routine Diabetes mellitus due to underlying condition with hyperosmolarity without coma, without long-term current use of insulin ([facility]) Primary hypertension Vitamin D deficiency Expected: 01/06/2025 (Approximate), Expires: 01/06/2026 [employer] Comment on above: Expected: 01/06/2025 (Approximate), Expires: 01/06/2026 Start: 12-27-2024 End: 09-26-2025 Hemoglobin A1c/Hemoglobin.total in Blood Hemoglobin A1c Lab Routine Type 2 diabetes mellitus without complication, without long-term current use of insulin ([facility]) Expected: 12/27/2024 (Approximate), Expires: 09/26/2025 [facility] Work Phone: Comment on above: Expected: 12/27/2024 (Approximate), Expires: 09/26/2025 Start: 12-19-2024 Adult BMI Screening Adult BMI Screen [facility] Start: 11-07-2024 Glaucoma screening Diabetes: R etinopathy Screening [facility] Start: 09-26-2024 End: 09-26-2024 Patient encounter procedure 09/26/2024 4:00 PM EST [facility] [address] [place] [phone] Nuria Tierney, YESENIA [address] [place] [phone] [facility] Start: 09-19-2024 End: 09-19-2024 Patient encounter procedure 09/19/2024 8:30 AM EST Office Visit [facility] [address] [place] [address] Nuria Tierney, ACADEMIC SPECIALIST [address] [place] [phone] [facility] Start: 08-21-2024 End: 08-21-2024 Patient encounter procedure 08/21/2024 9:00 AM EDT [facility] [address] [place] [phone] Nuria Tierney, ACADEMIC SPECIALIST [address] [place] [phone] [facility] Start: 08-13-2024 Hemoglobin A1c measurement Diabetes: Hemoglobin A1C [facility] Start: 07-07-2024 Influenza vaccination N [facility] Start: 06-27-2024 End: 06-27-2024 Patient encounter procedure 06/27/2024 1:30 PM EDT Office Visit [facility] [address] [place] [address] Nuria Tierney NP [address] [place] [address] Primary hypertension (CMS/HCC) (Primary Dx); Type 2 diabetes mellitus without complication, without long-term current use of insulin (CMS/HCC); Iron deficiency anemia, unspecified iron deficiency anemia type; Factor VIII deficiency (CMS/HCC); Other hyperlipidemia (CMS/HCC); History of pulmonary embolism; History of DVT (deep vein thrombosis) [facility] Comment on above: Primary hypertension (CMS/HCC) (Primary Dx); Type 2 diabetes mellitus without complication, without long-term current use of insulin (CMS/HCC); Iron deficiency anemia, unspecified iron deficiency anemia type; Factor VIII deficiency (CMS/HCC); Other hyperlipidemia (CMS/HCC); History of pulmonary embolism; History of DVT (deep vein thrombosis) Start: 06-18-2024 End: 06-18-2024 Patient encounter procedure 06/18/2024 8:30 AM EDT Office Visit Yudi Plascencia [facility] - [facility] [place] [address] Khushi Borrego PA [address] [place] [address] Yudi L [facility] Start: 06-14-2024 [facility] Start: 12-19-2023 End: 02-17-2025 DBT Breast - bilateral screening Mammography screening bilateral with CAD Imaging Routine Encounter for screening mammogram for malignant neoplasm of breast Expected: 12/19/2023, Expires: 02/17/2025 [employer] Work Phone: Comment on above: Expected: 12/19/2023 , Expires: 02/17/2025 Start: 07-07-2023 Influenza vaccination Influenza Vacc ine [facility] [employer] [facility] Start: 03-27-2023 [facility] Start: 03-20-2023 [facility] Start: 03-16-2023 End: 03-16-2023 [facility] Start: 03-13-2023 [facility] Start: 10-11-2021 COVID-19 Vaccine (3 - Pfizer risk series) COVID-19 Vaccine (3 - Pfizer risk series) [facility] [employer] Start: 2003 Screening for malign ant neoplasm of cervix Pap Smear [facility] Start: 2001 DTaP,Tdap and Td Vaccines (1 - Tdap) DTaP,Tdap and Td Vaccines (1 - Tdap) [facility] [employer] Start: 2000 Adult BMI Follow Up Plan Adult BMI F [facility]llow Up Plan [facility] Start: 2000 Diabetic foot examination [facility] Start: 1994 Depression Screening [facility]ing [facility] Start: 1982 Glaucoma screening Diabetic [facility] Start: 1982 Urine screening for protein [facility]albumin [facility] End: 01-06-2026 SONIA Screen w/ Reflex SONIA Screen w/ Reflex Lab Routine Chronic fatigue 1 Occurrences starting 01/06/2025 until 01/06/2026 [employer] Comment on above: 1 Occurrences starti ng 01/06/2025 until 01/06/2026 Cardiolipin IgA Ab [Units/volume] in Serum by Immunoassay [facility] Cardiolipin IgG Ab [Units/volume] in Serum by Immunoassay [facility] Cardiolipin IgM Ab [Units/volume] in Serum by Immunoassay [facility] End: 05-14-2026 Colonoscopy Colonoscopy GI Routine Rectal bleeding 1 Occurrences starting 05/14/2025 until 05/14/2026 [employer] Work Phone: Comment on above: 1 Occurrences starti ng 05/14/2025 until 05/14/2026 Comprehensive metabo lic 2000 panel - Serum or Plasma [facility] End: 01-06-2026 Cyanocobalamin vitamin b-12 Vitamin B12 Lab Routine Chronic fatigue 1 Occurrences starting 01/06/2025 until 01/06/2026 [employer] Comment on above: 1 Occurrences starti ng 01/06/2025 until 01/06/2026 Factor VIII: C assay [facility] End: 01-06-2026 Folate Folate Lab Routine Chronic fatigue 1 Occurrences starting 01/06/2025 until 01/06/2026 [facility] Comment on above: 1 Occurrences starti ng 01/06/2025 until 01/06/2026 End: 01-06-2026 Homocysteine, serum Homocysteine, serum Lab Routine Chronic fatigue 1 Occurrences starting 01/06/2025 until 01/06/2026 [facility] [employer] [facility] Comment on above: 1 Occurrences starti ng 01/06/2025 until 01/06/2026 End: 01-06-2026 Insulin Insulin Lab Routine Diabetes mellitus due to underlying condition with hyperosmolarity without coma, without long-term current use of insulin ([facility]) Primary hypertension Vitamin D deficiency 1 Occurrences starting 01/06/2025 until 01/06/2026 [facility] Comment on above: 1 Occurrences starti ng 01/06/2025 until 01/06/2026 Protein C actual/nor mal in Platelet poor plasma by Chromogenic method [facility] Protein C Ag actual/normal in Platelet poor plasma by Immunoassay [facility] End: 01-06-2026 Thiamin (Vitamin B1), WB Thiamin (Vitamin B1), WB Lab Routine Chronic fatigue 1 Occurrences starting 01/06/2025 until 01/06/2026 [facility] Comment on above: 1 Occurrences starti ng 01/06/2025 until 01/06/2026 [facility] Immunizations Immunization Date Immunization Notes Care Provider Kaley vazquez 09-13-2021 influenza, injectabl e, quadrivalent, preservative free Nuria Tierney NP Work Phone: [facility] 09-13-2021 influenza virus vaccine, unspecified formulation Khushi LIMON Work Phone: [facility] Payers Date Payer Category Payer Self-pay 2013 Medicaid [id number] 2013 Medicaid (Managed Care) [employer] [id number] 2013 Medicaid HMO [employer] [id number] 1982 Unknown [id number] 2.16.840.1.292987.3.579.2. 593 1982 Unknown [id number] 2.16.840.1.020283.3.579.2. 593 1982 Unknown [id number] 2.16.840.1.663482.3.579.2. 593 1982 Unknown [id number] 2.16.840.1.166345.3.579.2. 593 1982 Unknown [id number] 2.16.840.1.394016.3.579.2. 593 1982 Unknown [id number] 2.16.840.1.156811.3.579.2. 593 1982 Unknown [id number] 2.16.840.1.439401.3.579.2. 593 1982 Unknown [id number] 2.16.840.1.528187.3.579.2. 1258 1982 Unknown [id number] 2.16.840.1.031150.3.579.2. 9 1982 Unknown [id number] 2.16.840.1.894874.3.579.2. 1258 1982 Unknown [id number] 2.16.840.1.156260.3.579.2. 1258 1982 Unknown [id number] 2.16.840.1.930858.3.579.2. 1258 1982 Unknown [id number] 2.16.840.1.918597.3.579.2. 1258 1982 Unknown [id number] 2.16.840.1.795810.3.579.2. 1258 1982 Unknown [id number] 2.16.840.1.081425.3.579.2. 1285 1982 Unknown [id number] 2.16.840.1.949563.3.579.2. 1285 1982 Unknown [id number] 2.16.840.1.515478.3.579.2. 1285 1982 Unknown [id number] 2.16.840.1.098413.3.579.2. 1285 1982 Unknown [id number] 2.16.840.1.785924.3.579.2. 1285 1982 Unknown [id number] 2.16.840.1.399043.3.579.2. 1285 1982 Unknown [id number] 2.16.840.1.581796.3.579.2. 1285 1982 Unknown [id number] 2.16.840.1.467793.3.579.2. 1285 1959 Medicaid [id number] Unknown [id number] 2.16.840.1.807754.3.579.2. 531 Social History Date Type Detail Facility Start: 01-23-2023 End: 04-11-2023 Tobacco smoking status NHIS Never smoked tobacco (finding) [facility] Start: 1980 Sex Assigned At Female [facility] History of tobacco use Passive smoker [facility] Start: 04-11-2023 End: 11-23-2023 Tobacco use and exposure Smokeless tobacco non-user [facility] Start: 06-27-2024 End: 06-18-2025 Alcoholic beverage intake Lifetime non-drinker (finding) [facility] Start: 06-27-2024 End: 04-30-2025 History of Social function [facility] Start: 06-27-2024 End: 04-30-[address] [facility] Start: 1980 Sex assigned at Not on file [facility] Start: 06-14-2023 End: 02-18-2025 Alcohol intake Ex-drinker (finding) [facility] How hard is it for y ou to pay for the very basics like food, housing, medical care, and heating Not very hard [facility] In the past 12 month s, has lack of transportation kept you from medical appointments or from getting medications? No [facility] Start: 06-11-2015 Sex Female (finding) [facility] Medical Equipment Procedure Code Equipment Code Equipment Origin al Text Equipment Identifier Dates [id number] Start: 01-10-2023 End: 10-10-2027 1 each by Other route Daily USE DIRECTED ONCE DAILY [id number] Start: 06-27-2024 1 each by Other route Daily [id number] Start: 03-27-2024 End: 07-10-2027 use to test BLOO D SUGAR DAILY [id number] Start: 01-10-2023 use to test BLOO D SUGAR DAILY [id number] Start: 01-10-2023 Goals Date Patient Goal Desired Activity /State Personal health goal Personal health goal Clinical Notes 02-02-2023 to 06-18-2025 BRAXTON Dunaway - 06/18/2025 8:30 AM EDTGabetam Garcia White, BELT LOOP CUTTER-X RAY NURSE - 05/22/2025 3:39 PM EDTAddendum Note - Mitra Garcia Christopher, SUSANNA-ELBERT - 05/22/2025 3:39 PM EDTPatient Instructions Note Date & Type Note Facility 06-18-2025 History of Presen t illness Narrative Subjective: Adarsh Bowser female who is 44 y.o. female who is here with chief complaint vaginal bleeding and pain with intercourse. She is s/p a [id number] on 04/24/23. Pathology: stage IA grade 1 endometrial cancer, negative LVSI She reports doing well. She is frustrated that she gained much of her weight back after losing about 60 lb last year. She states she started to have thin hair scared her and after that she got off the band wagon. She had a colonoscopy last month which was normal. She reported a few incidences of rectal bleeding that she suspected her from hemorrhoids. She has not had any bleeding since then. She is trying to increase her fiber intake. She reports persistent pain with intercourse and states it feels like there is one area that is really sore. She is trying to use vaginal moisturizers but admits to not using the use very often. Appetite is good. She denies vaginal bleeding, change in bowel or bladder habits, fevers, chills, N/V, N/T, SOB. She is having some mild hot flashes which she feels are well controlled at this time. Patient was originally a consultation from for evaluation and management of endometrial adenocarcinoma. Oncology History Overview Note *[id number] on 04/24/23 *Pathology: stage IA grade 1 endometrial cancer, negative LVSI *Rec's: surveillance, genetic testing Endometrial cancer ([facility]) 03/29/2023 Initial Diagnosis Endometrial cancer ([facility]) Adarsh Bowser Denies Early satiety Denies Abdominal distention Denies [...] History: Procedure Laterality Date SECTION 2010 CHOLECYSTECTOMY COLONOSCOPY DIAGNOSTIC / SCREENING N/A 05/29/2025 Performed by Maureen Liang DO at [facility] DISSECTION LYMPH NODE PELVIC SENTINEL-BILATERAL BILATERAL SENTINEL LYMPH NODE MAPPING PELVIC WASHINGS Bilateral 04/24/2023 Performed by Kale Márquez MD at [facility] HYSTERECTOMY SALPINGO OOPHORECTOMY BILATERAL N/A 04/24/2023 Performed by Kale Márquez MD at [facility] DILATION AND CURETTAGE OF UTERUS 03/10/2023 HYSTERECTOMY 04/28 LITHOTRIPSY VARICOSE VEIN SURGERY Bilateral 2019 Past Medical History: Diagnosis Date Anemia Angina pectoris Diabetes mellitus ([facility]) Diabetes mellitus type 2, controlled ([facility]) Dvt femoral (deep venous thrombosis) ([facility]) Endometrial cancer ([facility]) 04/11/2023 Factor VIII deficiency ([facility]) History of pulmonary embolism Hypertension Kidney stones 2018 Palpitation Prolonged emergence from general anesthesia 03/10/2023 w/ D&C Pulmonary embolism ([facility]) 2017 Seizures ([facility]) as a baby Wears glasses Family History [...] and 2.5 Thyroid cancer Paternal cousin 44 Diabetes Father Heart disease Father Hypertension Father Anesthesia problems Neg Hx Social History Socioeconomic History Marital status: Single Tobacco Use Smoking status: Never Passive exposure: Past Smokeless tobacco: Never Vaping Use Vaping status: Never Used Substance and Sexual Activity Alcohol use: Never Drug use: Never Sexual activity: Not Currently Partners: Male control/protection: None Social Drivers of Health Financial Resource Strain: Low Risk (02/18/2025) Overall Financial Resource Strain (CARDIA) Difficulty of Paying Living Expenses: Not hard at all Food Insecurity: No Food Insecurity (04/30/2025) Hunger Screening Food Insecurity - Worry: Never True Food Insecurity - Inability: Never True Transportation Needs: No Transportation Needs (02/18/2025) PRAPARE - Transportation Lack of Transportation (Medical): No Lack of Transportation (Non-Medical): No Received from [facility] Safety & Environment Housing Instability: Low Risk (02/18/2025) Housing Instability Housing Instability: No Review of Symptoms: Pertinent items are noted in HPI. Objective: BP 120/81 Pulse 96 Temp 36.8 C (98.2 F) (Oral) Resp 20 Ht 165.1 cm (5' 5 ) Wt 112.3 kg (247 lb 9.6 oz) LMP 11/19/2022 SpO2 97% BMI 41.20 kg/m ECO- Asymptomatic General appearance: alert, appears [...] Labs: Lab Results Component Value Date WBC 5.2 01/11/2025 HGB 13.8 01/11/2025 HCT 39.7 01/11/2025 MCV 89 01/11/2025 PLT 276 01/11/2025 Lab Results Component Value Date GLU 133 (H) 01/11/2025 CALCIUM 9.3 01/11/2025 SODIUM 140 01/11/2025 K 4.2 01/11/2025 CO2 29 01/11/2025 BUN 20 01/11/2025 CREATININE 0.53 01/11/2025 No results found for: CA125 Assessment: Patient is diagnosed with Patient Active Problem List Diagnosis Endometrial cancer (CMS-HCC) Diabetes mellitus (CMS-HCC) History of pulmonary embolism Hypertension Factor VIII deficiency (CMS-HCC) Dvt femoral (deep venous thrombosis) (CMS-HCC) YENNY (iron deficiency anemia) Dyspareunia, female Plan: Stage IA, Grade 1 Endometrial Cancer - s/p hysterectomy in April 2023. Recommendations for surveillance with genetic testing which was negative. No evidence of disease on today's exam. We discussed surveillance in detail today including schedule of visits, indications for imaging, potential signs and symptoms of recurrence in which she should call our office. RTC in 1 year. Dyspareunia - discussed vaginal atrophy treatment, being consistent with vaginal moisturizer 5x/week. Continue lubricants with intercourse. Also suspect myofascial pain and referral to pelvic floor physical therapy was placed. Menopausal symptoms-well controlled at this time. She would like to defer further intervention. Counseling on Health Promotion & Disease Prevention: Counseled patient on the importance of routine screenings, disease management, healthy diet and regular exercise. Mammogram order provided, due in january. Nutrition counseling regarding increased fiber, portions, and nutrient dense options. Counseled on regular exercise and supplements for hair/skin/nail support such as B complex and Collagen. *The patient has a documented plan of care to address pain. All questions were answered to the patient's satisfaction. She is agreeable to this plan of care. *This note was completed using a voice machinist class b system. Every effort was made to ensure accuracy. However, inadvertent computerized machinist class b errors may be present. .Total time spent was 26 minutes: Preparing to see the patient (e.g., review of tests) Performing a medically appropriate examination and/or evaluation Counseling and educating the patient/family/caregiver Ordering medications, tests, or procedures Documenting clinical information in the electronic or other health record Care coordination (not separately reported) Khushi Borrego PA-C, RD, IF BRAXTON Dunaway 06/18/25 0904 documented in this encounter [facility] 05-22-2025 History of Presen t illness Narrative LINDA VILLELA APRN-CNP 05/22/25 1559 documented in this encounter [facility] 05-22-2025 Miscellaneous Notes Addended by: MITRA WHITE on: 05/22/2025 03:59 PM Modules accepted: Orders documented in this encounter [facility] 05-22-2025 Note Addended by: MITRA WHITE on: 05/22/2025 03:59 PM Modules accepted: Orders [facility] 05-14-2025 History of Presen t illness Narrative Images from the original note were not included. Chief Complaint: Hemorrhoids History of Present Illness Adarsh Bowser is a 44 y.o. female who presents to the office for hemorrhoids. She has had them for years. 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 She reports bright red blood per rectum as well as pink in her stool. She also notes rectal pain and altered bowel habits. She states it is hard to wipe and get clean after bowel movements. She has been drinking adequate water. She has not tried any Sitz baths. She has never had a colonoscopy. She has a personal history of endometrial cancel. Also has a history of factor VIII deficiency and DVT for which she is on Xarelto. Review of Systems Constitutional: Negative for fever and unexpected weight change. HENT: Negative for trouble swallowing. Respiratory: Negative for shortness of breath. Cardiovascular: Negative for chest pain. Gastrointestinal: Positive for diarrhea, constipation, blood in stool and rectal pain. Negative for nausea, vomiting and abdominal pain. Genitourinary: Negative for dysuria and difficulty urinating. Musculoskeletal: Negative for gait problem. Skin: Negative for rash and wound. Neurological: Negative for dizziness, weakness and light-headedness. Hematological: Does not bruise/bleed easily. Psychiatric/Behavioral: Negative for confusion. Past Medical History: Diagnosis Date Anemia Angina pectoris Diabetes mellitus ([facility]) Diabetes mellitus type 2, controlled ([facility]) Dvt femoral (deep venous thrombosis) ([facility]) Endometrial cancer ([facility]) 04/11/2023 Factor VIII deficiency ([facility]) History of pulmonary embolism Hypertension Kidney stones 2018 Palpitation Prolonged emergence from general anesthesia 03/10/2023 w/ D&C Pulmonary embolism ([facility]) 2017 Seizures ([facility]) as a baby Wears glasses Past Surgical History: Procedure Laterality Date SECTION 2010 CHOLECYSTECTOMY [facility] DISSECTION LYMPH NODE PELVIC SENTINEL-BILATERAL BILATERAL SENTINEL LYMPH NODE MAPPING PELVIC WASHINGS Bilateral 04/24/2023 Performed by Kale Márquez MD at [facility] HYSTERECTOMY SALPINGO OOPHORECTOMY BILATERAL N/A 04/24/2023 Performed by Kale Márquez MD at [facility] DILATION AND CURETTAGE OF UTERUS 03/10/2023 HYSTERECTOMY 04/28 LITHOTRIPSY VARICOSE VEIN SURGERY Bilateral 2019 No Known Allergies Current Outpatient Medications: atorvastatin (LIPITOR) 20 mg tablet, Take 1 tablet (20 mg total) by mouth in the morning., Disp: 90 tablet, Rfl: 3 cholecalciferol (VITAMIN D3) 50,000 units capsule, Take 1 capsule (50,000 Units total) by mouth once a week., Disp: 8 capsule, Rfl: 0 docusate sodium (COLACE) 100 mg capsule, Take 1 capsule (100 mg total) by mouth in the morning and 1 capsule (100 mg total) before bedtime., Disp: 10 capsule, Rfl: 0 dulaglutide (TRULICITY) 0.75 mg/0.5 mL pen injector, Inject 0.5 mL (0.75 mg total) under the skin every 7 days., Disp: 2 mL, Rfl: 0 metFORMIN (GLUCOPHAGE) 500 mg tablet, TAKE 2 TABLETS (1,000 MG TOTAL) BY MOUTH IN THE MORNING AND BEFORE BEDTIME, Disp: 360 tablet, Rfl: 0 rivaroxaban (XARELTO) 20 mg tablet tablet, Take 1 tablet (20 mg total) by mouth in the morning., Disp: 90 tablet, Rfl: 1 TRUE METRIX GLUCOSE TEST STRIP strip, , Disp: , Rfl: UNILET SUPER THIN LANCETS 30 gauge misc, , Disp: , Rfl: sod sulf-pot chloride-mag sulf 1.479-0.188- 0.225 gram tablet, Please see instructional sheet given by physicians office., Disp: 24 tablet, Rfl: 0 Social History Socioeconomic History Marital status: Single Spouse name: Not on file Number of children: Not on file Years of education: Not on file Highest education level: Not on file Occupational History Not on file Tobacco Use Smoking status: Never Passive exposure: Past Smokeless tobacco: Never Vaping Use Vaping status: Never Used Substance and Sexual Activity Alcohol use: Never Drug use: Never Sexual activity: Not Currently Partners: Male control/protection: None Other Topics Concern Not on file Social History Narrative Not on file Social Drivers of Health Financial Resource Strain: Low Risk (02/18/2025) Overall Financial Resource Strain (CARDIA) Difficulty of Paying Living Expenses: Not hard at all Food Insecurity: No Food Insecurity (04/30/2025) Hunger Screening Food Insecurity - Worry: Never True Food Insecurity - Inability: Never True Transportation Needs: No Transportation Needs (02/18/2025) PRAPARE - Transportation Lack of Transportation (Medical): No Lack of Transportation (Non-Medical): No Physical Activity: Not on file Stress: Not on file Social Connections: Not on file Interpersonal Safety: Unknown (12/28/2023) [facility] from [facility] Safety & Environment Fear of Current or Ex-Partner: Not on file Emotionally Abused: Not on file Physically Abused: Not on file Sexually Abused: Not on file Physically or Sexually Abused: Not on file Housing Instability: Low Risk (02/18/2025) Housing Instability Housing Instability: No Family History Problem Relation Age of Onset [...] and 2.5 Thyroid cancer Paternal cousin 44 Diabetes Father Heart disease Father Hypertension Father Anesthesia problems Neg Hx Objective Physical Exam Constitutional: General: She is not in acute distress. Appearance: Normal appearance. She is not ill-appearing. HENT: Head: Normocephalic and atraumatic. Mouth/Throat: Mouth: Mucous membranes are moist. Eyes: Pupils: Pupils are equal, round, and reactive to light. Cardiovascular: Rate and Rhythm: Normal rate. Pulmonary: Effort: Pulmonary effort is normal. No respiratory distress. Abdominal: General: There is no distension. Genitourinary: Comments: Patient declined ADAM, deferred to colonoscopy Musculoskeletal: General: Normal range of motion. Skin: General: Skin is warm and dry. Neurological: Mental Status: She is alert and oriented to person, place, and time. Mental status is at baseline. Vital Signs: Height 165.1 cm (5' 5 ), weight 109.8 kg (242 lb). Respiratory Source: No data recorded Admission Weight: Weight: 109.8 kg (242 lb) Labs Lab Results Component Value Date WBC 5.2 01/11/2025 HGB 13.8 01/11/2025 HCT 39.7 01/11/2025 MCV 89 01/11/2025 PLT 276 01/11/2025 Lab Results Component Value Date GLU 133 (H) 01/11/2025 CALCIUM 9.3 01/11/2025 K 4.2 01/11/2025 CO2 29 01/11/2025 CL 103 01/11/2025 BUN 20 01/11/2025 CREATININE 0.53 01/11/2025 No results found for: AMYLASE No results found for: LIPASE Lab Results Component Value Date ALT 15 01/11/2025 AST 13 01/11/2025 ALKPHOS 70 01/11/2025 Lab Results Component Value Date INR 1.0 04/11/2023 PROTIME 11.3 04/11/2023 Assessment Hemorrhoids Rectal bleeding Personal history of endometrial cancer History of DVT on Xarelto Plan Recommended adequate water and fiber intake as well as Sitz baths. Schedule colonoscopy for bleeding. Evaluation included: Preparing to see the patient (e.g., review of tests) Obtaining and/or reviewing separately obtained history Performing a medically appropriate examination and/or evaluation Counseling and educating the patient/family/caregiver Referring and communicating with other health resident care director Rectal bleeding [K62.5] LINDA VILLELA [facility] General [facility] [place] This note was created with the assistance of a speech recognition program. While intending to generate a timely document that accurately reflects the content of the visit, no guarantee can be provided that every grammatical or spelling mistake has been or will be identified or corrected. Thank you for your understanding. LINDA Villela 05/14/25 1021 documented in this encounter [facility] 05-12-2025 Miscellaneous Notes Patient calling into office. She states she was denied for oZEMPIC. Wants to know what other alternatives she is able to try. Patient also questioning whether or not she is due to have her A1C checked. Please advise New medication sent. She has DM appt in July with Dr. Strickland. It would be best that we check after being on medication routinely to see if this makes a difference. LINDA Kelley Attempted to contact patient, left voicemail advising patient to call office. documented in this encounter [facility] 05-12-2025 Telephone encounter Note Patient calling into office. She states she was denied for oZEMPIC. Wants to know what other alternatives she is able to try. Patient also questioning whether or not she is due to have her A1C checked. Please advise [facility] 05-12-2025 Telephone encounter Note New medication sent. She has DM appt in July with Dr. Strickland. It would be best that we check after being on medication routinely to see if this makes a difference. LINDA Kelley [facility] 05-12-2025 Telephone encounter Note Attempted to contact patient, left voicemail advising patient to call office. [facility] 05-05-2025 Miscellaneous Notes Attempted to call patient with no answer. Left voicemail to call office to clarify Xarelto dosage. She requested 20mg but we have 10mg in Epic. Patient called back and she is on the 20mg and stated it was supposed to be changed at last visit. Rx sent. Thank you. documented in this encounter [facility] 05-05-2025 Telephone encounter Note Attempted to call patient with no answer. Left voicemail to call office to clarify Xarelto dosage. She requested 20mg but we have 10mg in Epic. [facility] 05-05-2025 Telephone encounter Note Patient called back and she is on the 20mg and stated it was supposed to be changed at last visit. [facility] 05-05-2025 Telephone encounter Note Rx sent. Thank you. [facility] 05-03-2025 Miscellaneous Notes Can we clarify dosage please. I see 10 mg in the computer, but this is 20 mg. Thank you. documented in this encounter [facility] 05-03-2025 Telephone encounter Note Can we clarify dosage please. I see 10 mg in the computer, but this is 20 mg. [facility] you. [facility] [employer] [facility] History of Presen t illness Narrative Subjective Patient ID: Adarsh Bowser is a 44 y.o. female. BOO [place] presents to the office with concern of weight gain and hemorrhoids. She reports she has history of hemorrhoids and had followed with a surgeon near [facility]. she was told at that time conservative measures but to follow up and consider treatment for the hemorrhoids. However she did not follow up, as treatment was helpful. She presents today due to worsening of hemorrhoids. She reports she also was having loose stool mixed with the bleeding and she would like to see general surgery again in this area. She reports she frequently is dealing with hemorrhoids some days she has increased bleeding in comparison to others. She reports she has been dealing with a hemorrhoids for about 3 years now. She has significant past medical history significant for stage I A endometrial cancer status post TLH-BSO with sentinel node assessment on 04/24/2023. 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 Does have a history of unprovoked PE / DVT. Underwent hemoglobinopathy a workup and found to have factor 8 deficiency at that time. She continues with Xarelto routinely. Additional concern Adarsh has today is weight gain. She reports she was able to lose some weight however she has gained it back and has been unable to lose weight again. She reports despite lifestyle modifications with diet and exercise she continues to gain weight. She reports she was on Trulicity in the past but has been off the medication since about 2022. She only currently is on metformin but feels that her blood sugars are beginning to get out of control again. Last hemoglobin A1c was 6.9% in January of 2025. We discuss restarting Trulicity or attempting Ozempic. The following portions of the patient's history were reviewed and updated as appropriate: allergies, current medications, past family history, past medical history, past social history, past surgical history, problem list, and medication reconciliation was completed including current medication and post discharge medication. Review of Systems Constitutional: Positive for unexpected weight change (Weight gain). Negative for chills, diaphoresis, fatigue and fever. Respiratory: Negative. Cardiovascular: Negative. Gastrointestinal: Positive for blood in stool, constipation and diarrhea. Negative for abdominal pain. Skin: Negative. Psychiatric/Behavioral: Negative for self-injury and suicidal ideas. Objective Physical Exam Vitals and nursing note reviewed. Constitutional: General: She is not in acute distress. Appearance: Normal appearance. She is not ill-appearing. HENT: Head: Normocephalic and atraumatic. Cardiovascular: Rate and Rhythm: Normal rate and regular rhythm. Heart sounds: Normal heart sounds. Abdominal: General: Bowel sounds are normal. Palpations: Abdomen is soft. Tenderness: There is no abdominal tenderness. Skin: Findings: No erythema or rash. Neurological: Mental Status: She is alert. Psychiatric: Mood and Affect: Mood normal. Behavior: Behavior normal. Assessment/Plan SEVERIANO for previous general surgeon.. Referral sent back to General surgery per patient's request for rectal bleeding/ hemorrhoids. Encourage increased fiber in diet or add supplement. Increased fluid intake. Continue with lifestyle modifications with diet and exercise for weight gain. We can attempt to trial Ozempic to aid in glycemic control and weight management. Please schedule follow up for diabetes. Adarsh was seen today for weight management. Diagnoses and all orders for this visit: Hemorrhoids, unspecified hemorrhoid type - [facility] - [place], [place]; Future Diabetes mellitus due to underlying condition with hyperosmolarity without coma, without long-term current use of insulin ([facility]) - semaglutide (OZEMPIC) 0.25 mg or 0.5 mg (2 mg/3 mL) pen injector; Inject 0.25 mg under the skin every 7 days. Primary hypertension - semaglutide (OZEMPIC) 0.25 mg or 0.5 mg (2 mg/3 mL) pen injector; Inject 0.25 mg under the skin every 7 days. Endometrial cancer ([facility]) - semaglutide (OZEMPIC) 0.25 mg or 0.5 mg (2 mg/3 mL) pen injector; Inject 0.25 mg under the skin every 7 days. Factor VIII deficiency ([facility]) - semaglutide (OZEMPIC) 0.25 mg or 0.5 mg (2 mg/3 mL) pen injector; Inject 0.25 mg under the skin every 7 days. Mixed hyperlipidemia - semaglutide (OZEMPIC) 0.25 mg or 0.5 mg (2 mg/3 mL) pen injector; Inject 0.25 mg under the skin every 7 days. Hx of deep venous thrombosis - semaglutide (OZEMPIC) 0.25 mg or 0.5 mg (2 mg/3 mL) pen injector; Inject 0.25 mg under the skin every 7 days. LINDA Patton 04/30/25 0916 documented in this encounter [facility] [employer] 02-18-2025 History of Presen t illness Narrative Images from the original note were not included. [address] [place] [id number] Patient: Adarsh Bowser Date of : 1980 Encounter Date: 02/18/2025 SUBJECTIVE: Chief Complaint: Chief Complaint Patient presents with Results Labs Patient ID: Adarsh Bowser is a 44 y.o. female. Very pleasant 44-year-old female here for interval assessment of metabolic labs past medical history of stage I A endometrial cancer status post TLH-BSO with sentinel node assessment on 04/24/2023. 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 Labs were notable for vitamin-D deficiency which he was started supplementation 4. 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 The following portions of the patient's history were reviewed and updated as appropriate: allergies, current medications, past family history, past medical history, past social history, past surgical history and problem list. PHYSICAL EXAMINATION: Physical Exam Constitutional: Appearance: She is well-developed. She is not ill-appearing. HENT: Head: Normocephalic and atraumatic. Nose: Nose normal. Eyes: General: No scleral icterus. Extraocular Movements: Extraocular movements intact. Pupils: Pupils are equal, round, and reactive to light. Musculoskeletal: Cervical back: Normal range of motion. Neurological: Mental Status: She is alert and oriented to person, place, and time. Psychiatric: Mood and Affect: Mood normal. Behavior: Behavior normal. Thought Content: Thought content normal. Judgment: Judgment normal. ASSESSMENT/PLAN: Adarsh was seen today for results. Diagnoses and all orders for this visit: Breast cancer screening by mammogram - Mammography screening bilateral with CAD; Future Mammogram order for screening purposes, prefers Brian may require fax Blood work reviewed all questions answered Vitamin-D deficiency, supplement already prescribed Follow-up in 1 year or as needed. Video Visit via Real-time Synchronous Audiovisual Provider Location: [facility] [address] [place] [phone] Patient Location: Patient's home Video Visit Consent Statement: I discussed risks, benefits, and alternatives of a real-time synchronous audiovisual consultation with the patient (and any accompanying persons) including the risks that the patient's personal health details and medical records will be discussed over real-time, synchronous, interactive video/audio/telecommunication technology, the visit will not be recorded without the express consent of both the provider and the patient, and that there are some limitations compared to [id number] evaluations. The patient consented to the presence of additional virtual and/or in-person participants. We elected to proceed. ELIZABETH STRICKLAND MD Family Medicine Physician [facility] / [facility] 02/18/25 This note was completed with voice recognition software. The document was reviewed for errors however some may still be present. Please do not hesitate to contact/Epic [facility] the author to verify any questions/concerns. documented in this encounter [facility] [employer] [facility] 02-04-2025 Miscellaneous Notes ----- Message from Elizabeth Strickland MD sent at 02/03/2025 9:06 PM EDT ----- Abnormal result. Vitamin D Deficient/Insufficient, I have sent Rx for high dose supplementaiton. Patient should complete the prescription supplent After completing prescription, start over the counter supplement of Vit D - Calcium supplement with minimum 1000 IU Vit D - 50mg Ca per day. Please call and notify patient. ELIZABETH STRICKLAND MD Tried to call patient but line was answered and I could not hear anything. documented in this encounter [facility] 02-04-2025 Telephone encounter Note ----- Message from Elizabeth Strickland MD sent at 02/03/2025 9:06 PM EDT ----- Abnormal result. Vitamin D Deficient/Insufficient, I have sent Rx for high dose supplementaiton. Patient should complete the prescription supplent After completing prescription, start over the counter supplement of Vit D - Calcium supplement with minimum 1000 IU Vit D - 50mg Ca per day. Please call and notify patient. ELIZABETH STRICKLAND MD [facility] 02-04-2025 Telephone encounter Note Tried to call patient but line was answered and I could not hear anything. [facility] 01-06-2025 History of Presen t illness Narrative Images from the original note were not included. [address] [place] [phone] Patient: Adarsh Bowser Date of : 1980 Encounter Date: 01/06/2025 SUBJECTIVE: HISTORY OF PRESENT ILLNESS: Chief Complaint: Chief Complaint Patient presents with [facility] Patient ID: Adarsh is a 44 y.o. female 44-year-old female with past medical history of stage I A endometrial cancer status post TLH-BSO with sentinel node assessment on 04/24/2023. 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 It has been over a year since patient completed any metabolic blood work Does have a history of unprovoked PE / DVT. Underwent hemoglobinopathy a workup and found to have factor 8 deficiency at that time. Recommended to continue Xarelto since then. Does not currently follow Hematology Oncology anymore. Overall feeling well, has major interest in losing weight. Is adherent to her metformin. PAST MEDICAL HISTORY: Past Medical History: Diagnosis Date Angina pectoris ([facility]) Diabetes mellitus ([facility]) Diabetes mellitus type 2, controlled ([facility]) Dvt femoral (deep venous thrombosis) ([facility]) Endometrial cancer ([facility]) 04/11/2023 Factor VIII deficiency ([facility]) History of pulmonary embolism Hypertension Kidney stones 2017 Palpitation Prolonged emergence from general anesthesia 03/10/2023 w/ D&C Pulmonary embolism ([facility]) 2017 Seizures ([facility]) as a baby Wears glasses PAST SURGICAL HISTORY: Past Surgical History: Procedure Laterality Date SECTION 2010 CHOLECYSTECTOMY DAVINCI DISSECTION LYMPH NODE PELVIC SENTINEL-BILATERAL BILATERAL SENTINEL LYMPH NODE MAPPING PELVIC WASHINGS Bilateral 04/24/2023 Performed by Kale Márquez MD at [facility] DAVINCI HYSTERECTOMY SALPINGO OOPHORECTOMY BILATERAL N/A 04/24/2023 Performed by Kale Márquez MD at [facility] DILATION AND CURETTAGE OF UTERUS 03/10/2023 LITHOTRIPSY VARICOSE VEIN SURGERY Bilateral 2019 FAMILY HISTORY: Family History Problem Relation Age of Onset [...] Paternal cousin 44 Anesthesia problems Neg Hx SOCIAL HISTORY: Social History Socioeconomic History Marital status: Single Spouse name: Not on file Number of children: Not on file Years of education: Not on file Highest education level: Not on file Occupational History Not on file Tobacco Use Smoking status: Never Passive exposure: Past Smokeless tobacco: Never Vaping Use Vaping status: Never Used Substance and Sexual Activity Alcohol use: Not Currently Drug use: Not Currently Sexual activity: Defer Other Topics Concern Not on file Social History Narrative Not on file Social Drivers of Health Financial Resource Strain: Low Risk (05/09/2023) Overall Financial Resource Strain (CARDIA) Difficulty of Paying Living Expenses: Not very hard Food Insecurity: No Food Insecurity (01/06/2025) Hunger Screening Food Insecurity - Worry: Never True Food Insecurity - Inability: Never True Transportation Needs: No Transportation Needs (05/09/2023) PRAPARE - Transportation Lack of Transportation (Medical): No Lack of Transportation (Non-Medical): No Physical Activity: Not on file Stress: Not on file Social Connections: Not on file Interpersonal Safety: Unknown (12/28/2023) Received from [facility] Safety & Environment Fear of Current or Ex-Partner: Not on file Emotionally Abused: Not on file Physically Abused: Not on file Sexually Abused: Not on file Physically or Sexually Abused: Not on file Housing Instability: Low Risk (05/09/2023) Housing Instability Housing Instability: No ALLERGY: No Known Allergies MEDICATIONS Current Outpatient Medications Medication Sig Dispense Refill docusate sodium (COLACE) 100 mg capsule Take 1 capsule (100 mg total) by mouth in the morning and 1 capsule (100 mg total) before bedtime. 10 capsule 0 metFORMIN (GLUCOPHAGE) 500 mg tablet Take 2 tablets (1,000 mg total) by mouth in the morning and 2 tablets (1,000 mg total) before bedtime. TRUE METRIX GLUCOSE TEST STRIP strip use to test BLOOD SUGAR DAILY UNILET SUPER THIN LANCETS 30 gauge misc use to test BLOOD SUGAR DAILY XARELTO 10 mg tablet Take 1 tablet (10 mg total) by mouth in the morning. 30 tablet 0 atorvastatin (LIPITOR) 20 mg tablet Take 1 tablet (20 mg total) by mouth in the morning. 90 tablet 3 No current facility-administered medications for this visit. PHYSICAL EXAMINATION: Vitals: 01/06/25 1525 BP: 132/80 Pulse: 73 Temp: 36.6 C (97.9 F) TempSrc: Oral SpO2: 97% Weight: 97.1 kg (214 lb) Height: 165.1 cm (5' 5 ) Physical Exam Vitals reviewed. Constitutional: General: She is not in acute distress. Appearance: Normal appearance. Eyes: Extraocular Movements: Extraocular movements intact. Pupils: Pupils are equal, round, and reactive to light. Cardiovascular: Rate and Rhythm: Normal rate and regular rhythm. Pulses: Normal pulses. Heart sounds: Normal heart sounds. Pulmonary: Effort: Pulmonary effort is normal. No respiratory distress. Breath sounds: Normal breath sounds. No wheezing or rhonchi. Abdominal: General: Bowel sounds are normal. There is no distension. Palpations: Abdomen is soft. There is no mass. Tenderness: There is no abdominal tenderness. There is no right CVA tenderness, left CVA tenderness or guarding. Musculoskeletal: Cervical back: Normal range of motion and neck supple. Neurological: Mental Status: She is alert and oriented to person, place, and time. Mental status is at baseline. Labs, imaging, and records: I have personally obtained and reviewed the relevant labs/imaging. ASSESSMENT/PLAN: Adarsh was seen today for establish care. Diagnoses and all orders for this visit: Diabetes mellitus due to underlying condition with hyperosmolarity without coma, without long-term current use of insulin ([facility]) - CBC auto differential; Future - Comprehensive metabolic panel; Future - Lipid profile; Future - Hemoglobin A1c; Future - TSH with Reflex; Future - Vitamin D 25 hydroxy; Future - Insulin; Future Primary hypertension - CBC auto differential; Future - Comprehensive metabolic panel; Future - Lipid profile; Future - Hemoglobin A1c; Future - TSH with Reflex; Future - Vitamin D 25 hydroxy; Future - Insulin; Future Vitamin D deficiency - TSH with Reflex; Future - Vitamin D 25 hydroxy; Future - Insulin; Future Chronic fatigue - Vitamin B12; Future - Thiamin (Vitamin B1), WB; Future - Folate; Future - Homocysteine, serum; Future - Erythrocyte Sedimentation Rate (ESR); Future - SONIA Screen w/ Reflex; Future Other orders - atorvastatin (LIPITOR) 20 mg tablet; Take 1 tablet (20 mg total) by mouth in the morning. 44-year-old female with past medical history of stage I A endometrial cancer status post TLH-BSO with sentinel node assessment on 04/24/2023. 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 Here establish with new primary care provider, Medical history updated as above Obtain metabolic blood work to assess for fatigue, type 2 diabetes, vitamin-D. Atorvastatin refilled as above History of unprovoked DVT/PE with factor 8 deficiency. Remain on Xarelto lifelong. Hx of Hypertension, pressure is stable today, patient has been off lisinopril for extended duration. Follow-up in 1 month via [employer] to review blood work. ELIZABETH STRICKLAND MD Family Medicine Physician [facility] / [facility] 01/06/25 This note was completed with voice recognition software. The document was reviewed for errors however some may still be present. Please do not hesitate to contact/Epic ms the author to verify any questions/concerns. documented in this encounter [facility] [employer] [facility] 09-26-2024 History of Presen t illness Narrative Associated Problem(s): BMI 32.0-32.9,adult Down 59 pounds since February; Monitoring Diet, exercise. Making healthy life choices! Diet: mostly home cooked meals Water: 4-5 16ounce bottles per day Exercise: Daily Sleep: 8 hours per night, good quality. Keep up the good work! Associated Problem(s): Other hyperlipidemia (CMS/HCC) Currently taking Atorvastatin 20mg Denies myalgias Most recent Lipid panel below: Associated Problem(s): Hypertension (CMS/HCC) Currently not on any medications Bp looks great in office today. Continue current plan. Associated Problem(s): Diabetes mellitus (CMS/HCC) Currently taking Metformin 1,000mg BID Most recent [...] Monitoring Diet, exercise. Making healthy life choices! Images from the original note were not included. Subjective Patient ID: Adarsh Bowser is a 44 y.o. female who presents for Follow-up. HPI HTN: Currently not on any medications Bp looks great in office today. Continue current plan. DM: Currently taking Metformin 1,000mg BID Most recent [...] Monitoring Diet, exercise. Making healthy life choices! HLD: Currently taking Atorvastatin 20mg Denies myalgias Most recent Lipid panel below: Component Ref Range & Units 7 mo ago (11/16/23) 7 mo ago (11/16/23) TRIGLYCERIDES <=150 mg/dL 50 1.2 High R CHOLESTEROL <=200 mg/dL 105 0.3 High R HDL CHOLESTEROL 40 - 60 mg/dL 44 17 R Comment: > or =60 mg/dl - LOW CARDIOVASCULAR RISK <40 mg/dl - HIGH CARDIOVASCULAR RISK LDL CHOLESTEROL CALCULATED mg/dL 51.0 26 R Comment: <100 mg/dl OPTIMAL 100-129 mg/dl NEAR OR ABOVE OPTIMAL 130-159 mg/dl BORDERLINE HIGH 160-189 mg/dl HIGH >190 mg/dl VERY HIGH VLDL CHOLESTEROL mg/dL 10.0 81 R CHOL HDL RATIO 2.4 7.7 R Comment: 3.3 - 4.4 LOW RISK 4.4 - 7.1 AVERAGE RISK 7.1 - 11.0 MODERATE RISK >11.0 HIGH RISK ALBUMIN LEVEL 3.4 R ALBUMIN GLOBULIN RATIO 0.8 Resulting Agency [facility] Factor VIII: Diet: mostly home cooked meals Water: 4-5 16ounce bottles per day Exercise: Daily Sleep: 8 hours per night, good quality. Review of Systems Constitutional: Negative for activity change, appetite change, chills, diaphoresis, fatigue, fever and unexpected weight change. HENT: Negative for congestion, ear pain, rhinorrhea, sinus pressure, sinus pain, sneezing, sore throat, trouble swallowing and voice change. Eyes: Negative for visual disturbance. Respiratory: Negative for cough, chest tightness, shortness of breath and wheezing. Cardiovascular: Negative for chest pain, palpitations and leg swelling. Gastrointestinal: Negative for abdominal distention, abdominal pain, blood in stool, constipation, diarrhea and vomiting. Genitourinary: Negative for decreased urine volume, dysuria, flank pain, frequency, hematuria and urgency. Musculoskeletal: Negative for arthralgias, gait problem, joint swelling and myalgias. Skin: Negative for rash. Neurological: Negative for dizziness, tremors, syncope, weakness, light-headedness and headaches. Psychiatric/Behavioral: Negative for decreased concentration and suicidal ideas. The patient is not nervous/anxious. Hematological: Does not bruise/bleed easily. Endocrine: Negative for cold intolerance, heat intolerance, polydipsia, polyphagia and polyuria. Objective Physical Exam Vitals reviewed. Constitutional: Appearance: Normal appearance. HENT: Head: Normocephalic and atraumatic. Right Ear: Tympanic membrane normal. Left Ear: Tympanic membrane normal. Nose: Nose normal. Mouth/Throat: Mouth: Mucous membranes are moist. Pharynx: Oropharynx is clear. Eyes: Pupils: Pupils are equal, round, and reactive to light. Cardiovascular: Rate and Rhythm: Normal rate and regular rhythm. Pulses: Normal pulses. Heart sounds: Normal heart sounds. Pulmonary: Effort: Pulmonary effort is normal. Breath sounds: Normal breath sounds. Abdominal: General: Abdomen is flat. Bowel sounds are normal. Palpations: Abdomen is soft. Musculoskeletal: General: Normal range of motion. Cervical back: Normal range of motion. Skin: General: Skin is warm and dry. Capillary Refill: Capillary refill takes less than 2 seconds. Neurological: General: No focal deficit present. Mental Status: She is alert and oriented to person, place, and time. Psychiatric: Mood and Affect: Mood normal. Behavior: Behavior normal. Assessment/Plan Problem List Items Addressed This Visit Diabetes mellitus (CMS/HCC) Currently taking Metformin 1,000mg BID Most recent [...] Monitoring Diet, exercise. Making healthy life choices! Hypertension (CMS/HCC) - Primary Currently not on any medications Bp looks great in office today. Continue current plan. Other hyperlipidemia ([facility]) Currently taking Atorvastatin 20mg Denies myalgias Most recent Lipid panel below: BMI 32.0-32.9,adult Down 59 pounds since February; Monitoring Diet, exercise. Making healthy life choices! Diet: mostly home cooked meals Water: 4-5 16ounce bottles per day Exercise: Daily Sleep: 8 hours per night, good quality. Keep up the good work! documented in this encounter [facility] 09-26-2024 Instructions Nuria Tierney NP - 09/26/2024 4:00 PM EST Keep up the good work! documented in this encounter [facility] 06-27-2024 History of Presen t illness Narrative Associated Problem(s): Hypertension (CMS/HCC) Currently not on any medications Bp looks great in office today. Continue current plan. Associated Problem(s): Diabetes mellitus (CMS/HCC) Down 47 pounds since February; Monitoring Diet, [...] persistent hypoglycemia/hyperglycemia on home glucose monitoring noted. Associated Problem(s): Factor VIII deficiency (CMS/HCC) Follow Hematology/Oncology- [place], [place] Associated Problem(s): Other hyperlipidemia (CMS/HCC) Atorvastatin 20mg Denies myalgias Most recent Lipid panel great. Continue Atorvastatin. Images from the original note were not included. Subjective Patient ID: Adarsh Bowser is a 43 y.o. female who presents for Follow-up. HPI HTN: Currently not on any medications Bp looks great in office today. Continue current plan. DM: Most recent labs: hemoglobin A1C 6.0% In [...] persistent hypoglycemia/hyperglycemia on home glucose monitoring noted. Diabetic foot exam: Left: Reflexes 2+ Vibratory sensation normal Proprioception normal Sharp/dull discrimination normal Filament test present Right: Reflexes 2+ Vibratory sensation normal Proprioception normal Sharp/dull discrimination normal Filament test present Down 47 pounds since February; Monitoring Diet, exercise. Making healthy life choices! HLD: Atorvastatin 20mg Denies myalgias Most recent Lipid panel below: Component Ref Range & Units 7 mo ago (11/16/23) 7 mo ago (11/16/23) TRIGLYCERIDES <=150 mg/dL 50 1.2 High R CHOLESTEROL <=200 mg/dL 105 0.3 High R HDL CHOLESTEROL 40 - 60 mg/dL 44 17 R Comment: > or =60 mg/dl - LOW CARDIOVASCULAR RISK <40 mg/dl - HIGH CARDIOVASCULAR RISK LDL CHOLESTEROL CALCULATED mg/dL 51.0 26 R Comment: <100 mg/dl OPTIMAL 100-129 mg/dl NEAR OR ABOVE OPTIMAL 130-159 mg/dl BORDERLINE HIGH 160-189 mg/dl HIGH >190 mg/dl VERY HIGH VLDL CHOLESTEROL mg/dL 10.0 81 R CHOL HDL RATIO 2.4 7.7 R Comment: 3.3 - 4.4 LOW RISK 4.4 - 7.1 AVERAGE RISK 7.1 - 11.0 MODERATE RISK >11.0 HIGH RISK ALBUMIN LEVEL 3.4 R ALBUMIN GLOBULIN RATIO 0.8 Resulting Agency [facility] Factor VIII: Diet: mostly home cooked meals Water: 4-5 16ounce bottles per day Exercise: Daily Sleep: 8 hours per night, good quality. Review of Systems Constitutional: Negative for activity change, appetite change, chills, diaphoresis, fatigue, fever and unexpected weight change. HENT: Negative for congestion, ear pain, rhinorrhea, sinus pressure, sinus pain, sneezing, sore throat, trouble swallowing and voice change. Eyes: Negative for visual disturbance. Respiratory: Negative for cough, chest tightness, shortness of breath and wheezing. Cardiovascular: Negative for chest pain, palpitations and leg swelling. Gastrointestinal: Negative for abdominal distention, abdominal pain, blood in stool, constipation, diarrhea and vomiting. Genitourinary: Negative for decreased urine volume, dysuria, flank pain, frequency, hematuria and urgency. Musculoskeletal: Negative for arthralgias, gait problem, joint swelling and myalgias. Skin: Negative for rash. Neurological: Negative for dizziness, tremors, syncope, weakness, light-headedness and headaches. Psychiatric/Behavioral: Negative for decreased concentration and suicidal ideas. The patient is not nervous/anxious. Hematological: Does not bruise/bleed easily. Endocrine: Negative for cold intolerance, heat intolerance, polydipsia, polyphagia and polyuria. Objective Physical Exam Vitals reviewed. Constitutional: Appearance: Normal appearance. HENT: Head: Normocephalic and atraumatic. Right Ear: Tympanic membrane normal. Left Ear: Tympanic membrane normal. Nose: Nose normal. Mouth/Throat: Mouth: Mucous membranes are moist. Pharynx: Oropharynx is clear. Eyes: Pupils: Pupils are equal, round, and reactive to light. Cardiovascular: Rate and Rhythm: Normal rate and regular rhythm. Pulses: Normal pulses. Heart sounds: Normal heart sounds. Pulmonary: Effort: Pulmonary effort is normal. Breath sounds: Normal breath sounds. Abdominal: General: Abdomen is flat. Bowel sounds are normal. Palpations: Abdomen is soft. Musculoskeletal: General: Normal range of motion. Cervical back: Normal range of motion. Skin: General: Skin is warm and dry. Capillary Refill: Capillary refill takes less than 2 seconds. Neurological: General: No focal deficit present. Mental Status: She is alert and oriented to person, place, and time. Psychiatric: Mood and Affect: Mood normal. Behavior: Behavior normal. Assessment/Plan Problem List Items Addressed This Visit Diabetes mellitus (CMS/HCC) Down 47 pounds since February; Monitoring Diet, [...] persistent hypoglycemia/hyperglycemia on home glucose monitoring noted. Relevant Medications Lancets (OneTouch Delica Plus [id number]) misc metFORMIN (Glucophage) 1000 MG tablet glucose blood (OneTouch Ultra) test strip Dvt femoral (deep venous thrombosis) (CMS/HCC) Relevant Medications rivaroxaban (Xarelto) 20 MG tablet Factor VIII deficiency (CMS/HCC) Follow Hematology/Oncology- [place], [place] Relevant Medications rivaroxaban (Xarelto) 20 MG tablet History of pulmonary embolism Hypertension (CMS/HCC) - Primary Currently not on any medications Bp looks great in office today. Continue current plan. Other hyperlipidemia (CMS/HCC) Atorvastatin 20mg Denies myalgias Most recent Lipid panel great. Continue Atorvastatin. Relevant Medications atorvastatin (Lipitor) 20 MG tablet Internal hemorrhoids Relevant Medications docusate sodium (Colace) 100 MG capsule documented in this encounter [facility] 06-27-2024 Instructions Nuria Tierney NP - 06/27/2024 1:30 PM EDT Keep up the great work!!! Education: Check blood sugars daily, notify if <70 or >200. Take medications (pills or insulin) as directed. Monitor for s/s of hypoglycemia (sweaty, dizziness, nausea, vomiting, or shakiness). Watch for increase in thirst, urination, or appetite. Inspect feet frequently monitoring for open wounds , and also recommend yearly eye exam. Pt should attempt to remain as physically active as chronic conditions allow, as well as trying to follow a diet low in carbohydrates, and simple sugars. Diet: Eat three meals per day. Breakfast, lunch, and dinner. Avoid snacking. Avoid eating after 5/6 pm. Daily protein GOAL 35% of your intake; 30g per meal. Daily calorie GOAL 1,800-2,000 per day. Consider tracking your food intake on MyFtinessPal or LoseIt Water: Increase water intake; GOAL 64-80oz of water per day. Exercise: Increase activity. GOAL 30 minutes, 5 days per week. START SLOW. Start with 5 minutes, 5 days per week. Then increase to 10 days, 5 days per week. Continue to increase until you reach the goal. Increase steps; GOAL 10,000 steps per day. Be sure to get adequate sleep; GOAL 6-8 hours of sleep per night. documented in this encounter [facility] 06-18-2024 History of Presen t illness Narrative Subjective: Adarsh Bowser female who is 43 y.o. female who is here with chief complaint vaginal bleeding and pain with intercourse. She is s/p a [id number] on 6/19/23. Pathology: stage IA grade 1 endometrial cancer, negative LVSI She reports doing well. She reports a few episodes of vulvar bumps which were skin colored and nontender. She states they cleared up after a few days/week. She is using good clean love vaginal [...] of endometrial adenocarcinoma. Oncology History Overview Note *[id number] on 04/24/23 *Pathology: stage IA grade 1 endometrial cancer, negative LVSI *Rec's: surveillance, genetic testing Endometrial cancer ([facility]) 03/29/2023 Initial Diagnosis Endometrial cancer ([facility]) Adarsh Bowser Denies Early satiety Denies Abdominal distention Denies [...] 04/24/2023 Performed by Kale Márquez MD at [facility] HYSTERECTOMY SALPINGO OOPHORECTOMY BILATERAL N/A 04/24/2023 Performed by Kale Márquez MD at [facility] DILATION AND CURETTAGE OF UTERUS 03/10/2023 LITHOTRIPSY VARICOSE VEIN SURGERY Bilateral 2019 Past Medical History: Diagnosis Date Angina pectoris ([facility]) Diabetes mellitus ([facility]) Diabetes mellitus type 2, controlled ([facility]) Dvt femoral (deep venous thrombosis) ([facility]) Endometrial cancer ([facility]) 04/11/2023 Factor VIII deficiency ([facility]) History of pulmonary embolism Hypertension Kidney stones 2018 Palpitation Prolonged emergence from general anesthesia 03/10/2023 w/ D&C Pulmonary embolism ([facility]) 2017 Seizures ([facility]) as a baby Wears glasses Family History [...] Social History Socioeconomic History Marital status: Single Tobacco Use Smoking status: Never Passive exposure: Past Smokeless tobacco: Never Vaping Use Vaping status: Never Used Substance and Sexual Activity Alcohol use: Not Currently Drug use: Not Currently Sexual activity: Defer Social Determinants of Health Financial Resource Strain: Low Risk (05/09/2023) Overall Financial Resource Strain (CARDIA) Difficulty of Paying Living Expenses: Not very hard Food Insecurity: No Food Insecurity (05/31/2023) Hunger Screening Food Insecurity - Worry: Never True Food Insecurity - Inability: Never True Transportation Needs: No Transportation Needs (05/09/2023) PRAPARE - Transportation Lack of Transportation (Medical): No Lack of Transportation (Non-Medical): No Re[facility] from [facility] Safety & Environment Housing Instability: Low Risk (05/09/2023) Housing Instability Housing Instability: No Review of Symptoms: Pertinent items are noted in HPI. Objective: BP 127/81 Pulse 62 Temp 36.4 C (97.6 F) (Oral) Wt 99.7 kg (219 lb 12.8 oz) SpO2 100% BMI 36.58 kg/m ECO- Asymptomatic General appearance: alert, appears [...] Patient Active Problem List Diagnosis Endometrial cancer ([facility]) Diabetes mellitus ([facility]) History of pulmonary embolism Hypertension Factor VIII deficiency ([facility]) Dvt femoral (deep venous thrombosis) ([facility]) YENNY (iron deficiency anemia) Dyspareunia, female Plan: [...] exercise. Mammogram order provided, due in january. Chronic Vulvitis: recurrent follicular cysts likely related to chafing or urinary incontinence, no evidence of active lesions on today's exam. Counseled her on barrier creams, hygiene and incontinence management. *The patient has a documented plan of care to address pain. All questions were answered to the patient's satisfaction. She is agreeable to this plan of care. .Total time spent was 35 minutes: Preparing to see the patient (e.g., review of tests) Performing a medically appropriate examination and/or evaluation Counseling and educating the patient/family/caregiver Ordering medications, tests, or procedures Documenting clinical information in the electronic or other health record Care coordination (not separately reported) Khushi Borrego PA-C, RD, IF [place] 06/18/24 0902 documented in this encounter [facility] 12-19-2023 History of Presen t illness Narrative Subjective: Adarsh Bowser female who is 43 y.o. female who is here with chief complaint vaginal bleeding and pain with intercourse. She is s/p a [id number] on 04/24/23. Pathology: stage IA grade 1 [...] of endometrial adenocarcinoma. Oncology History Overview Note *[id number] on 04/24/23 *Pathology: stage IA grade 1 endometrial cancer, negative LVSI *Rec's: surveillance, genetic testing Endometrial cancer ([facility]) 03/29/2023 Initial Diagnosis Endometrial cancer ([facility]) Adarsh Bowser Denies Early satiety Denies Abdominal distention Denies [...] 04/24/2023 Performed by Kale Márquez MD at [facility] HYSTERECTOMY SALPINGO OOPHORECTOMY BILATERAL N/A 04/24/2023 Performed by Kale Márquez MD at [facility] DILATION AND CURETTAGE OF UTERUS 03/10/2023 LITHOTRIPSY VARICOSE VEIN SURGERY Bilateral 2019 Past Medical History: Diagnosis Date Angina pectoris ([facility]) Diabetes mellitus ([facility]) Diabetes mellitus type 2, controlled ([facility]) Dvt femoral (deep venous thrombosis) ([facility]) Endometrial cancer ([facility]) 04/11/2023 Factor VIII deficiency ([facility]) History of pulmonary embolism Hypertension Kidney stones 2018 Palpitation Prolonged emergence from general anesthesia 03/10/2023 w/ D&C Pulmonary embolism ([facility]) 2017 Seizures ([facility]) as a baby Wears glasses Family History [...] Patient Active Problem List Diagnosis Endometrial cancer ([facility]) Diabetes mellitus ([facility]) History of pulmonary embolism Hypertension Factor VIII deficiency ([facility]) Dvt femoral (deep venous thrombosis) ([facility]) YENNY (iron deficiency anemia) Dyspareunia, female Plan: [...] *This note was completed using a voice machinist class b system. Every effort was made to ensure accuracy. However, inadvertent computerized machinist class b errors may be present. .Total time spent [...] [place] 12/19/23 0900 documented in this encounter [facility] 03-10-2023 Note OPERATIVE NOTE OPERATION DATE: 03/10/2023 PROCEDURE: D AND C hysteroscopy with Myosure. PREOPERATIVE DIAGNOSIS: Menorrhagia, thickened endometrium. POSTOPERATIVE DIAGNOSIS: Menorrhagia, very thickened endometrium. No gross evidence of polyps or fibroids; however, due to the amount of tissue, was concerned and will send off tissue to pathology. ANESTHESIA: General. SURGEON: Khalif Polacno D.O. ALLOY WEIGHER: None. URINE OUTPUT: Yellow and clear. BLOOD [...] the Recovery Room in stable condition. [facility] 02-02-2023 Consult note Note Date/Time January 23, 2023 3:37pm [place] [address] Hem/Onc Consult Note - OP Signed Patient: Adarsh Bowser MR#: [id number] : 1980 Acct:[id number] Age/Sex: 42 / F Type: REG RCR [...] of your referral. As you know, Adarsh Bowser is a very nice 42 year old female with a past medical history significant for: Diabetes mellitus, hypertension, kidney stones, varicose veins, superficial thrombophlebitis and menorrhagia. She has a history of right lower extremity DVT with subsequent pulmonary embolism at the age of 36; so approximately 6 years ago, that from [facility] appears to be unprovoked. At the time, [...] work up; she has never seen a bag loader machine operator in the past. She recently underwent endometrial [...] C is planned for March 10, 2023. [facility]LY [facility] - Medical History Medical History: Medical History [...] malignancy. We have requested her records from [facility] in 2017; she is unsure whatshe [...] for coordination of care (as documented) and [id number] counseling of patient and/or family. Dictated By: Margie Harrison APRN DD/ 1520 Signed By: <Electronically signed by SUSANNA Harrison> 02/01/23 2227 [facility] Work Phone: Evaluation noteNo assessment information available [facility] Work Phone: Evaluation note* Diagnosis Onset Date Resolution Status History of DVT (deep vein thrombosis) acute History of pulmonary embolism acute [facility] Work Phone: Evaluation note* Diagnosis Type 2 diabetes mellitus without complication, without long-term current use of insulin ([facility])- Primary History of pulmonary embolism Personal history of venous thrombosis and embolism Primary hypertension (CMS/HCC) Unspecified essential hypertension Morbid obesity ([facility]) Morbid obesity Other hyperlipidemia (CMS/HCC) Sinus tachycardia Other specified cardiac dysrhythmias Deep vein thrombosis (DVT) of femoral vein, unspecified chronicity, unspecified laterality (CMS/HCC)- Primary Other hyperlipidemia (CMS/HCC) Type 2 diabetes mellitus without complication, without long-term current use of insulin ([facility]/H[facility]) Type 2 diabetes mellitus without complication, without long-term current use of insulin (CMS/HCC)- Primary Rectal bleeding Hemorrhage of rectum and anus Other hyperlipidemia (CMS/HCC) Deep vein thrombosis (DVT) of femoral vein, unspecified chronicity, unspecified laterality (CMS/HCC) Wellness examination Type 2 diabetes mellitus with diabetic microalbuminuria, without long-term current use of insulin (CMS/HCC)- Primary Rectal bleeding Hemorrhage of rectum and anus Internal hemorrhoids Internal hemorrhoids without mention of complication Type 2 diabetes mellitus without complication, without long-term current use of insulin (CMS/HCC) Other hyperlipidemia (CMS/HCC) Deep vein thrombosis (DVT) of femoral vein, unspecified chronicity, unspecified laterality (CMS/HCC) Type 2 diabetes mellitus with diabetic microalbuminuria, without long-term current use of insulin (CMS/HCC)- Primary Other hyperlipidemia (CMS/HCC) Primary hypertension (CMS/HCC)- Primary Unspecified essential hypertension Type 2 diabetes mellitus without complication, without long-term current use of insulin (CMS/HCC) Factor VIII deficiency (CMS/HCC) Congenital factor VIII disorder Other hyperlipidemia (CMS/HCC) History of pulmonary embolism Personal history of venous thrombosis and embolism Internal hemorrhoids Internal hemorrhoids without mention of complication Deep vein thrombosis (DVT) of femoral vein, unspecified chronicity, unspecified laterality (CMS/HCC) Primary hypertension (CMS/HCC)- Primary Unspecified essential hypertension Other hyperlipidemia (CMS/HCC) Type 2 diabetes mellitus without complication, without long-term current use of insulin (CMS/HCC) BMI 32.0-32.9,adult documented in this encounter [facility]* Diagnosis Primary hypertension (CMS/HCC)- Primary Unspecified essential hypertension Type 2 diabetes mellitus without complication, without long-term current use of insulin (CMS/HCC) Factor VIII deficiency (CMS/HCC) Congenital factor VIII disorder Other hyperlipidemia (CMS/HCC) History of pulmonary embolism Personal history of venous thrombosis and embolism Internal hemorrhoids Internal hemorrhoids without mention of complication Deep vein thrombosis (DVT) of femoral vein, unspecified chronicity, unspecified laterality (CMS/HCC) documented in this encounter [facility] HealthcareEvaluation note* Diagnosis Endometrial cancer (CMS-HCC)- Primary Malignant neoplasm of corpus uteri, except isthmus Encounter for screening mammogram for malignant neoplasm of breast Dyspareunia, female Counseling on health promotion and disease prevention Other specified counseling documented in this encounter [facility]* Diagnosis Endometrial cancer (CMS-HCC)- Primary Malignant neoplasm of corpus uteri, except isthmus Chronic vulvitis Unspecified vaginitis and vulvovaginitis Dyspareunia, female documented in this encounter [facility]* Diagnosis Diabetes mellitus due to underlying condition with hyperosmolarity without coma, without long-term current use of insulin (CMS-HCC)- Primary Primary hypertension Unspecified essential hypertension Vitamin D deficiency Chronic fatigue Other malaise and fatigue documented in this encounter [facility]* Diagnosis Vitamin D deficiency- Primary Breast cancer screening by mammogram documented [facility]* Diagnosis Hemorrhoids, unspecified hemorrhoid type- Primary Diabetes mellitus due to underlying condition with hyperosmolarity without coma, without long-term current use of insulin (CMS-HCC) Primary hypertension Unspecified essential hypertension Endometrial cancer (CMS-HCC) Malignant neoplasm of corpus uteri, except isthmus Factor VIII deficiency (CMS-HCC) Congenital factor VIII disorder Mixed hyperlipidemia Hx of deep venous thrombosis documented in this encounter [facility]* Diagnosis Diabetes mellitus due to underlying condition with hyperosmolarity without coma, without long-term current use of insulin (CMS-HCC) Primary hypertension Unspecified essential hypertension Endometrial cancer (CMS-HCC) Malignant neoplasm of corpus uteri, except isthmus Factor VIII deficiency (CMS-HCC) Congenital factor VIII disorder Mixed hyperlipidemia Hx of deep venous thrombosis documented in this encounter [facility]* Diagnosis Acute embolism and thrombosis of unspecified femoral vein (CMS-HCC) documented in this encounter [facility]* Diagnosis Rectal bleeding- Primary Hemorrhage of rectum and anus Hemorrhoids, unspecified hemorrhoid type documented in this encounter [facility]* Diagnosis Rectal bleeding- Primary Hemorrhage of rectum and anus documented in this encounter [facility]* Diagnosis Endometrial cancer (CMS-HCC)- Primary Malignant neoplasm of corpus uteri, except isthmus Dyspareunia due to medical condition in female Dyspareunia, female Counseling on health promotion and disease prevention Other specified counseling documented in this encounter [facility]* Diagnosis Diabetes mellitus due to underlying condition with hyperosmolarity without coma, without long-term current use of insulin (CMS-HCC) Primary hypertension Unspecified essential hypertension Endometrial cancer (CMS-HCC) Malignant neoplasm of corpus uteri, except isthmus Factor VIII deficiency (CMS-HCC) Congenital factor VIII disorder Mixed hyperlipidemia Hx of deep venous thrombosis [facility] filedocumented in [facility] on filedocumented in this encounter [facility] on filedocumented in this encounter [facility] on filedocumented in this encounter [facility]Not on filedocumented in this encounter [facility]Not on filedocumented in this encounter [facility]ructionsNot on filedocumented in this encounter [facility]* Attachments The following attachments cannot be sent through Care Everywhere. * High-fiber diet (Bangladeshi) documented in this [facility] SystemInstructionsNot on file documented in this encounterProMedica Health SystemInstructionsNot on file documented in this encounterProMedica Health SystemInstructionsNot on file documented in this encounterProMedica Health SystemInstructionsNot on file documented in this encounterPro[facility]ica Health SystemInstructionsNot on file documented in this encounterProMedica Health SystemInstructionsNot on file documented in this encounterProMedica Health SystemInstructionsNot on file documented in this encounterProMedica Health SystemInstructionsNot on file documented in this encounterProMedica Health SystemProgress note Author Sam Hall [facility] March 07, 2023 9:13am Note Date/Time March 07, 2023 9:07am [facility] [place] [address] Hem/Onc Follow Up Note - OP Signed Patient: Adarsh Bowser MR#: [id number] : 1980 Acct:[id number] Age/Sex: 42 / F Type: REG RCR [...] of your referral. As you know, Adarsh Bowser is a very nice 42 year old [...] work up; she has never seen a bag loader machine operator in the past. She recently underwent endometrial [...] for coordination of care (as documented) and [id number] counseling of patient and/or family. [facility]LY [facility] - Medical History Medical History: Medical History [...] Dictated By: Sam Hall II, DO DD/ 4 Signed By: <Electronically signed by Sam Hall II DO> 03/07/23 0913 [facility] Work Phone: Family History Relationship Condition Age at Onset Recorded Date/T franchesca father High blood cholesterol Unknown Heart disease Unknown father Hypertension Unknown Not Specified Diabetes mellitus Unknown Relationship Condition Age at Onset Recorded Date/T franchesca father High blood cholesterol Unknown Heart disease Unknown father Hypertension Unknown mother Diabetes mellitus Unknown Advance Directives Advance Directive Response Recorded Date/ Time Advance Directives No January 19, 023 11:07am Chief Complaint and Reason for [...] alternate sectionNot on filedocumented as of this encounterNot on filedocumented as of this encounterNot on filedocumented as of this encounterNot on filedocumented as of this encounterNot on filedocumented as of this encounterNot on filedocumented as of this encounterNot on filedocumented as of this encounterNot on filedocumented as of this encounterNot on filedocumented as of this encounterNot on filedocumented as of this encounterNot on filedocumented as of this encounterNot on filedocumented as of this encounterNot on filedocumented as of this encounterNot on filedocumented as of this encounterNot on filedocumented as of this encounterNot on filedocumented as of this encounterNot on filedocumented as of this encounter Care [...] Status: Active Member Role Status Dates Margie Thais Harrison , BELT LOOP CUTTER Active Start: May 21, 2024 Khalif Polanco DO Referring Provider Active Start : May 21, 2024 Zak Farris DO Primary Care Provider Active Start: May 21, 2024 Sam Hall II, DO Attending Provider Active Start: May 21, 2024 Team Status: Inactive Member Role Status Dates Ana Lilia Rahman Darling , BELT LOOP CUTTER Attending Provider Acti ve Start: May 21, 2024 End: May 21, 2024 NON STAFF Primary Care Provider Active Start: May 21, 2024 End: May 21, 2024 Equipment Maintenance Engineer Relationship Specialty Start Date End Date Shaikh Griffin MD [address] [place] [id number] [facility] 02/05/24 Beny Katz MD [address] [place] [id number] PCP - General Family [facility] 06/10/24 Nuria Tierney NP [address] [place] [address] Nurse Practitioner Family Medicine 06/10/24 Equipment Maintenance Engineer Relationship Specialty Start Date End Date Shaikh Griffin MD [address] [place] [phone] PCP - [facility] 02/05/24 Beny Katz MD [address] [place] [phone] PCP - General Family [facility] 06/10/24 Nuria Tierney NP [address] [place] [address] Nurse Practitioner Family Medicine 06/10/24 Equipment Maintenance Engineer Relationship Specialty Start Date End Date Shaikh Griffin MD [address] [place] [phone] PCP - [facility] 02/05/24 Beny Katz MD [address] [place] [phone] PCP - General Family Medicine 06/10/24 Nuria Tierney NP [address] [place] [address] Nurse Practitioner Family Medicine 06/10/24 Equipment Maintenance Engineer Relationship Specialty Start Date End Date Shaikh Griffin MD [address] [place] [id number] [facility] 02/05/24 Beny Katz MD [address] [place] [id number] PCP - General Family Medicine 06/10/24 Nuria Tierney NP [address] [place] [phone] Nurse Practitioner Family Medicine 06/10/24 Equipment Maintenance Engineer Relationship Specialty Start Date End Date Zak Farris DO [address] [place] [address] [id number] PCP - General Family Medicine 03/29/23 Equipment Maintenance Engineer Relationship Specialty Start Date End Date Zak Farris [address] [place] [id number] PCP - General Family Medicine 03/29/23 Equipment Maintenance Engineer Relationship Specialty Start Date End Date Elizabeth Strickland MD [address], [place] [address] PCP - General 01/06/25 Equipment Maintenance Engineer Relationship Specialty Start Date End Date Elizabeth Strickland MD [address], [place] [address] PCP - General 01/06/25 Equipment Maintenance Engineer Relationship Specialty Start Date End Date Elizabeth Strickland MD [address], [place] [address] PCP - General 01/06/25 Equipment Maintenance Engineer Relationship Specialty Start Date End Date Elizabeth Strickland MD [address], [place] [address] PCP - General 01/06/25 Equipment Maintenance Engineer Relationship Specialty Start Date End Date Elizabeth Strickland MD [address], [place] [address] PCP - General 01/06/25 Equipment Maintenance Engineer Relationship Specialty Start Date End Date Elizabeth Strickland MD [address], [place] [address] PCP - General 01/06/25 Equipment Maintenance Engineer Relationship Specialty Start Date End Date Elizabeth Strickland MD [address], [place] [address] PCP - General 01/06/25 Equipment Maintenance Engineer Relationship Specialty Start Date End Date Elizabeth Strickland MD [address], [place] [address] PCP - General 01/06/25 Equipment Maintenance Engineer Relationship Specialty Start Date End Date Elizabeth Strickland MD [address], [place] [address] PCP - General 01/06/25 Equipment Maintenance Engineer Relationship Specialty Start Date End Date Elizabeth Strickland MD [address], [place] [address] PCP - General 01/06/25 Equipment Maintenance Engineer Relationship Specialty Start Date End Date Elizabeth Strickland MD [address], [place] [address] PCP - General 01/06/25 Equipment Maintenance Engineer Relationship Specialty Start Date End Date Elizabeth Strickland MD [address], [place] [address] PCP - General 01/06/25 Equipment Maintenance Engineer Relationship Specialty Start Date End Date Elizabeth Strickland MD [address], [place] [address] PCP - General 01/06/25 INFORMATION SOURCE (unrecogn ized section and content) DATE CREATED AUTHOR 03/17/2023 [facility] DATE CREATED AUTHOR AUTHOR'S ORGANIZ ATION 06/12/2024 [facility] DATE CREATED AUTHOR AUTHOR'S ORGANIZ ATION 09/29/2024 [facility] EPIC DATE CREATED AUTHOR AUTHOR'S ORGANIZ ATION 05/18/2025 [facility] DATE CREATED AUTHOR AUTHOR'S ORGANIZ ATION 06/19/2025 [facility] Reason for Visit (unrecogniz ed section and content) Reason Comments Follow-up Reason Comments Establish Care Reason Onset Date Comments Med Refill 02/04/2025 Reason Comments Results Labs Reason Onset Date Comments Med Refill 03/13/2025 Reason Comments Weight Management Reason Onset Date Comments Xarelto 05/05/2025 Reason Comments Med Refill Reason Comments Hemorrhoids HEMORRHOIDS, REF BY KELLIE GRAFF CNP Specialty Diagnoses / Procedures Referred By Keyona morin Referred To Contact General Surgery Diagnoses Hemorrhoids, unspecified hemorrhoid type Kellie Graff APRN-ELBERT [address] [place] [phone] Phone: tel: fax: [facility] General Surgery [address] [place] [address] Phone: tel: fax: Referral ID Status Reason Start Date Expiration Date V isits Requested Visits Authorized [id number] Closed Specialty Services Required 04/30/2025 04/30/2026 1 1 Reason Comments Follow-up Reason Onset Date Comments Med Refill 06/25/2025 FOR RECORDS PERTAINING TO PATIENTS WHO ARE [...] BE BASED ON THE PRIMARY CLINICAL RECORDS. [employer] [facility]. provides no warranty or guarantee of the accuracy or completeness of information in this document.
--- NOTE | 2025-07-11 14:36 | ED_ITS ---
HPI HPI - General Adult General Chief complaint: Urogenital-Female Stated complaint: BLOOD IN URINE Time Seen by Provider: 07/11/25 13:35 Source: patient Mode of arrival: walk-in History of Present Illness HPI narrative: Patient presents with 2-week history of dark discolored urine urinary discomfort. Lower abdomen discomfort. Does take Xarelto does have small amount of rectal bleeding since being increased from 10 to 20 mg of Xarelto she did have diverticula without diverticulitis noted on recent colonoscopy. She is diabetic has been drinking fluids. Unable to get appointment with primary care sooner than mid month. Patient denies chest pain abdominal pain diarrhea nausea vomiting. Patient states diabetes has been slightly challenging recently with slight elevations. No true A1c has run less than 7, on last few draws. Symptoms mild to moderate severity nothing improves symptoms nothing worsens her symptoms. Onset (ago): week(s) (2 weeks) Quality: Reports burning Related Data Home Medications ?Medication ?Instructions ?Recorded ?Confirmed metformin 500 mg tablet 1,000 mg PO BID 04/13/2303/30 rivaroxaban 10 mg tablet (Xarelto) 20 mg PO DAILY 06/2807/11/25 atorvastatin 20 mg tablet mg 07/11/25 dulaglutide 0.75 mg/0.5 mL mg subcut 07/11/25 subcutaneous pen injector (Trulicity) Previous Rx's ?Medication ?Instructions ?Recorded cephalexin 500 mg capsule 500 mg PO BID 7 days #14 cap s 07/11/25 hydrocodone 5 mg-acetaminophen 325 1 tab PO Q12H PRN p ain #10 tabs 07/11/25 mg tablet hydrocodone 5 mg-acetaminophen 325 1 tab PO Q8H PRN pa in #10 tabs 07/11/25 mg tablet Allergies Allergy/AdvReac Type Severity Reaction Status Date / Time No Known Drug Allergies Allergy Verified 07/11/25 13:48 Opioid HPI Opioid Management Most Recent Opioid Data: Last Pain Scale 2 04/13/23, 15:20 Review of Systems ROS Status of ROS 10 or more systems reviewed and unremark able except as noted in history and below Constitutional Denies: fever or chills Eyes Denies: change in vision Ears, nose, mouth, and throat Denies: throat pain Cardiovascular Denies: chest pain Respiratory Denies: shortness of breath or cough Gastrointestinal Reports: abdominal pain; Denies: nausea or vomiting Genitourinary Reports: painful urination, urinary frequency, urinary urgency and blood in urine Musculoskeletal Denies: back pain or neck pain Integumentary/Breast Denies: rash Neurological Denies: weakness in extremities Psychiatric Denies: anxiety Allergic/Immunologic Denies: hives [facility] Medical History (Updated 07/11/25 @ 15:49 by BRAXTON CHILDERS II) Pulmonary embolism ?I26.99 - Other pulmonary embolism without acute cor pulmonale (ICD-10) DVT (deep venous thrombosis) ?I82.409 - Acute embolism and thrombosis of unspecified deep veins of unspecified lower extremity (ICD-10) Diabetes ?E11.9 - Type 2 diabetes mellitus without complications (ICD-10) Hypertension ?I10 - Essential (primary) hypertension (ICD-10) Family History (Updated 04/13/23 @ 05:21 by Kandy Rincon) Father Family history of myocardial infarction Social History Smoking status: Never smoker Highest level of school completed/degree received: GED or equivalent Little interest or pleasure in doing things: not at all Feeling down, depressed, or hopeless: not at all Exam Constitutional Vital Signs, click to edit/add: Last Vital Signs Temp 98.5 F 07/11/25 13:50 Pulse 86 07/11/25 13:50 Resp 16 07/11/25 13:50 BP 138/85 07/11/25 13:50 Pulse Ox 96 07/11/25 13:50 O2 Del Method Room Air 07/11/25 13:50 Documenting provider has reviewed patient's vital signs: yes Common normals: no apparent distress and oriented x3 General appearance: cooperative and comfortable [facility] Common normals: normocephalic Nose: external nose normal General ear: hearing not grossly impaired Mouth: oral and palatal mucosa not normal (Dry oral mucosa) Eye Common normals: PERRL and EOMs intact bilaterally Neck & C-Spine Common normals: full ROM and supple General: trachea midline Chest Common normals: palpation of chest normal Respiratory Common normals: normal respiratory effort and clear to auscultation bilaterally Effort & inspection: able to speak in complete sentences Auscultation: clear to auscultation bilaterally Cardio Common normals: regular rate, regular rhythm, S1 normal heart sound and S2 normal heart sound GI Common normals: soft to palpation and non-tender Common normals: no CVA tenderness Back & Pelvis Common normals: no CVA tenderness Extremity Common normals: normal to inspection and full ROM Other: PL pulse bilaterally +1 anterior tibial bilaterally Neuro Common normals: oriented x3 Sensorium/orientation: awake and alert Psych Common normals: mental status grossly normal and thought process normal Course Vital Signs Vital signs: Vital Signs Temperature 98.5 F 07/11/25 13:50 Pulse Rate 86 07/11/25 13:50 Respiratory Rate 16 07/11/25 13:50 Blood Pressure 138/85 07/11/25 13:50 Pulse Oximetry 96 07/11/25 13:50 Oxygen Delivery Method Room Air 07/11/25 13:50 Temperature 98.5 F 07/11/25 13:50 Pulse Rate 86 07/11/25 13:50 Respiratory Rate 16 07/11/25 13:50 Blood Pressure 138/85 07/11/25 13:50 Pulse Oximetry 96 07/11/25 13:50 Oxygen Delivery Method Room Air 07/11/25 13:50 Medical Decision Making [facility] Narrative Medical decision making narrative: Patient presents with 2-week history of urinary symptoms with some lower abdom inal pain not reproducible by palpation. She does have history of diverticula, kidney stones, Xarelto use. Notes dark-colored urine. Will add CBC BMP urinalysis. Discussed plan of care patient is agreeable to plan of care. Reviewed lab with patient patient is on Xarelto Notes she has had some increased bleeding issues. She can discuss this with her primary care physician. Patient states her pain is not like her last kidney stone refuses offered CT scan for evaluation will add Keflex 500 twice daily for 7 days for UTI with bacteria on microscopic. Will add Posen as needed for pain or discomfort patient was advised do not drive or operate equipment this medication may cause drowsiness she has had this medication before. She will follow-up with primary care and call on Monday to inquire about a more proximate appointment. Discussed plan of care with patient she is agreeable to new plan of care. Hydrocodone sent via written prescription. Differential Diagnosis Differential Diagnosis: UTI, hematuria, KAIDEN. Lab Data Lab results reviewed: Yes I reviewed the patient's lab results Labs: Lab Results 07/11/25 07/11/25 Range/Units 14:40 14:44 WBC 7.2 (4.0-11.0) 10^3/uL RBC 4.34 (4.20-5.40) 10^6/uL Hgb 13.3 (12.0-16.0) g/dL Hct 39.6 (36.0-48.0) % MCV 91.2 (81.0-99.0) fL MCH 30.6 (26.7-34.0) pg MCHC 33.6 (29.9-35.2) g/dL RDW 13.8 (11.0-15.0) % Plt Count 321 (150-450) 10^3/uL MPV 9.3 L (9.5-13.5) fL Neut % (Auto) 61.2 (43.0-75.0) % Lymph % (Auto) 30.7 (20.5-60.0) % [place] % (Auto) 5.5 (1.7-12.0) % Eos % (Auto) 1.5 (0.9-7.0) % Baso % (Auto) 0.8 (0.2-2.0) % Neut # (Auto) 4.4 (1.4-6.5) 10^3/uL Lymph # (Auto) 2.2 (1.2-3.8) 10^3/uL [place] # (Auto) 0.4 (0.3-0.8) 10^3/uL Eos # (Auto) 0.1 (0.0-0.7) 10^3/uL Baso # (Auto) 0.1 (0.0-0.1) 10^3/uL Abs Immat Gran (auto) 0.02 (0.00-0.03) 10^3/uL Imm/Tot Granulo (auto) 0.3 (0.0-0.5) % Sodium 142 (136-145) mmol/L Potassium 4.0 (3.5-5.1) mmol/L Chloride 106 (98-107) mmol/L Carbon Dioxide 29.9 (21.0-32.0) mmol/L Anion Gap 10.1 BUN 15.0 (7.0-18.0) mg/dL Creatinine 0.68 (0.55-1.02) mg/dL Est GFR ( Amer) >60 (>=60 mL/min/1.73m^2) Est GFR (Non-Af Amer) >60 (>=60 mL/min/1.73m^2) BUN/Creatinine Ratio 22.1 Glucose 105 (74-106) mg/dL Calcium 9.0 (8.5-10.1) mg/dL Urine Color Brown A (YELLOW) Urine Clarity Slightly cloudy A (CLEAR) Urine pH Color interference A (5.0-9.0) Ur Specific [place] >=1.030 A (1.005-1.025) Urine Protein Color interference A (NEG/TRACE) mg/dL Urine Glucose (UA) Color interference A (NEGATIVE) mg/dL Urine Ketones Color interference A (NEGATIVE) mg/dL Urine Occult Blood Color interference A (NEGATIVE) Urine Nitrite Color interference A (NEGATIVE) Urine Bilirubin Color interference A (NEGATIVE) Urine Urobilinogen Color interference A (0.2-1.0) EU/dL Ur Leukocyte Esterase Color interference A (NEGATIVE) Urine RBC >100 A (0-2) #/HPF Urine WBC 2-5 A (NONE SEEN) #/HPF Ur Squamous Epith Cells Rare (NONE/RARE) #/LPF Urine Crystals Seen A (None Seen) #/HPF Calcium Oxalate Crystal Few Amorphous Sediment Many Urine Bacteria Small A (NONE SEEN) #/HPF Urine Casts None seen (NONE SEEN) #/LPF Urine Mucus Trace A (NONE SEEN) Ur Culture Indicated? Yes-[facility] [place] Discharge Plan Discharge Chief Complaint: Urogenital-Female Clinical Impression: Acute flank pain Urinary tract infection Qualifiers: Urinary tract infection type: acute cystitis Hematuria presence: with hematuria Qualified Code(s): N30.01 - Acute cystitis with hematuria Hematuria Qualifiers: Hematuria type: unspecified type Qualified Code(s): R31.9 - Hematuria, unspecified Patient Disposition: Home, Self-Care Time of Disposition Decision: 15:47 Condition: Good Mode of Transportation: Private Vehicle Prescriptions / Home Meds: New cephalexin 500 mg capsule 500 mg PO BID 7 Days Qty: 14 0RF hydrocodone-acetaminophen 5-325 mg tablet 1 tab PO Q8H PRN (Reason: pain) Qty: 10 0RF hydrocodone-acetaminophen 5-325 mg tablet 1 tab PO Q12H PRN (Reason: pain) Qty: 10 0RF No Action metformin 500 mg tablet 1,000 mg PO BID Xarelto 10 mg tablet 20 mg PO DAILY Patient Comments: finished it. atorvastatin 20 mg tablet Trulicity 0.75 mg/0.5 mL pen injector SUBCUT Print Language: Russian Instructions: Urinary Tract Infection in Women (ED), Hematuria (ED) Additional Instructions: Replicable taking pain medication including Posen limit additional acetaminophen intake to 1 tablet every 6 hours while taking Posen as it does contain acetam inophen follow-up with primary care. Referrals: Lesvia Strickland ND [Primary Care Provider] - 1 week
[2025-07-11 15:05] LABS: Hematocrit 39.6 % (36.0-48.0); Hemoglobin 13.3 g/dL (12.0-16.0); Immature Granulocytes Abs Auto 0.02 10^3/uL (0.00-0.03); Immature Granulocytes Pct Auto 0.3 % (0.0-0.5); Lymphocytes Absolute Auto 2.2 10^3/uL (1.2-3.8); Mean Corpuscular HGB Conc 33.6 g/dL (29.9-35.2); Mean Corpuscular Hemoglobin 30.6 pg (26.7-34.0); Mean Corpuscular Volume 91.2 fL (81.0-99.0); Platelet Count 321 10^3/uL (150-450); Red Blood Count 4.34 10^6/uL (4.20-5.40); White Blood Count 7.2 10^3/uL (4.0-11.0)
[2025-07-11 15:14] LABS: Anion Gap 10.1; Blood Urea Nitrogen 15.0 mg/dL (7.0-18.0); Calcium 9.0 mg/dL (8.5-10.1); Carbon Dioxide 29.9 mmol/L (21.0-32.0); Chloride 106 mmol/L (98-107); Estimated GFR (African America >60 (>=60 mL/min/1.73m^2); Estimated GFR (Non-African Ame >60 (>=60 mL/min/1.73m^2); Glucose 105 mg/dL (74-106); Potassium 4.0 mmol/L (3.5-5.1); Sodium 142 mmol/L (136-145)
[2025-07-11 15:17] LABS: Glucose Urine UA COLOR INTERFERENCE mg/dL (NEGATIVE)
[2025-07-11 15:19] LABS: Cast Seen? NONE SEEN #/LPF (NONE SEEN); Crystals Seen? Seen #/HPF (None Seen)
[2025-07-11 15:20] LABS: Urine Culture Indicated YES-FRMC
== END 2025-07-11 16:05 | disposition home or self-care (01) ==
PROVIDERS: Physician Assistant; Emergency Provider Student in an Organized Health Care Education/Training Program; PCP Student in an Organized Health Care Education/Training Program
DX: N30.01 Acute cystitis with hematuria (principal); R10.9 Unspecified abdominal pain; Z79.01 Long term (current) use of anticoagulants; E11.9 Type 2 diabetes mellitus without complications; Z79.85 Long-term (current) use of injectable non-insulin antidiabetic drugs; Z87.442 Personal history of urinary calculi
CPT/HCPCS: 36415; 80048; 81001; 85025; 87086; 99284